=== PATIENT | female | born 1945 | race Caucasian/White ===

== ENCOUNTER → 2017-08-19 12:53 | Outpatient (CLI) | payer MEDICARE, SELFPAY ==
--- NOTE | 2017-08-19 13:03 | MM_ITS ---
MM Dig mamm DX unilat LT CAD US breast LT complete, COMPARISON: 02/20/2017, 02/28/2017 INDICATION: Follow-up abnormal mammogram ORDERING PHYSICIAN: Graeme Olson PATIENT AGE: 72 years TECHNIQUE: Left-sided mammogram performed along spot compression views and left breast ultrasound FINDINGS: Asymmetric density once again noted in the retroareolar region on the left as previously described. There is also asymmetric density in the superior aspect of the left breast which has mixed density somewhat similar when compared to an older exam of 08/15/2015 which appear to compress out as fibroglandular tissue. Not significant change from 02/28/2017. Left breast ultrasound with axilla: Homogeneous increased echogenicity once again noted measuring 3 x 0.8 cm which may represent a lipoma now showing more homogeneous increased echogenicity compared to the previous exam. No malignant appearing mass or malignant appearing microcalcification. No sonographic abnormality in the upper aspect of the left breast that would correspond to the asymmetric density which is probably related to fibroglandular tissue IMPRESSION: Probably benign findings, no convincing evidence of malignancy. BI-RADS Category: 3 Benign Finding Short Term Follow-up RECOMMENDED FOLLOW-UP: 6M - 6 MONTH FOLLOW-UP Recommend follow-up exam of both breasts and left breast ultrasound in February 2018 (A letter has been sent to the patient regarding results of the study.)
== END ==
PROVIDERS: PCP Family Medicine; Visit Provider Obstetrics & Gynecology
DX: R92.8 Other abnormal and inconclusive findings on diagnostic imaging of breast (principal)
CPT/HCPCS: 76641; 77065

== ENCOUNTER → 2018-01-27 11:42 | Outpatient (CLI) | payer MEDICARE, SELFPAY ==
--- NOTE | 2018-01-27 11:43 | XR_ITS ---
XR wrist RT min 3V HISTORY ITS.REASON: RT RADIAL WRIST PAIN ORDERING PHYSICIAN: Ancelmo Moser MD PATIENT AGE: 72 years Comparison: FINDINGS: No fracture or dislocation. No lytic or blastic change. There is normal mineralization.. The joint spaces are well-preserved. No significant degenerative/arthritic changes. No erosive changes evident.. IMPRESSION: Negative wrist
== END ==
PROVIDERS: PCP Family Medicine; Visit Provider Family Medicine
DX: M65.4 Radial styloid tenosynovitis [de Quervain] (principal)
CPT/HCPCS: 73110

== ENCOUNTER 2018-02-13 10:21 | Outpatient (RCR) | payer MEDICARE, SELFPAY | END 2018-02-13 10:22 | disposition home or self-care (01) | LOC: OT 10:21 | PROVIDERS: PCP Family Medicine; Visit Provider Orthopaedic Surgery | DX: M65.4 Radial styloid tenosynovitis [de Quervain] (principal) | CPT/HCPCS: 97760 ==

== ENCOUNTER → 2018-03-04 13:30 | Outpatient (CLI) | payer MEDICARE, SELFPAY ==
--- NOTE | 2018-03-04 13:34 | US_ITS ---
US breast LT complete MM Dig mamm BI DX w/CAD, INDICATION: Follow-up mammogram ORDERING PHYSICIAN: Graeme Olson PATIENT AGE: 73 years COMPARISON: None TECHNIQUE: Standard images performed along with spot compression views and left breast ultrasound FINDINGS: There is average to dense fibroglandular tissue bilaterally. There remains asymmetric density in the retroareolar region on the left which has been a similar finding on multiple previous exams. No malignant appearing mass or malignant microcalcification is evident. The asymmetric density in the upper aspect of the left breast is not significant changed and appear to compress out as fibroglandular tissue. There remains a 11 mm benign-appearing nodular density in the inferior aspect of the right breast. Scattered asymmetric densities are once again noted unchanged. There is a 4 mm nodular density in the central aspect of the right breast on the cc view which appears benign and not felt to be significant change compared to 03/15/2010 Left breast ultrasound: Increased echogenicity once again noted in the retroareolar region behind the nipple consistent with lipoma.. No suspicious nodules are evident. Small nodes are present in the axilla IMPRESSION: Benign findings, no evidence of malignancy. Scattered asymmetric densities not significantly changed BI-RADS Category: 2 Benign Finding(s) RECOMMENDED FOLLOW-UP: 1YR - 1 YEAR FOLLOW-UP (A letter has been sent to the patient regarding results of the study.)
== END ==
PROVIDERS: PCP Family Medicine; Visit Provider Obstetrics & Gynecology
DX: R92.8 Other abnormal and inconclusive findings on diagnostic imaging of breast (principal)
CPT/HCPCS: 76641; 77066

== ENCOUNTER → 2018-03-19 10:18 | Outpatient (CLI) | payer MEDICARE, SELFPAY ==
--- NOTE | 2018-03-19 10:20 | XR_ITS ---
XR DEXA axial skeleton HISTORY: ITS.REASON: POST-MENOPAUSAL ORDERING PHYSICIAN: Graeme Olson PATIENT AGE: 73 years COMPARISON: 07/04/2015 FINDINGS: The BMD measured at the Right femoral neck is 0.739 g/cm squared with a T score of -2.2. This is considered Osteopenic according to the World Health Organization criteria. Fracture risk is Moderate. Treatment is advised. L1 L4 density has a T score of 0.3. The density in the lumbar spine has decreased by 2.4%. The bone density of the hips has decreased by 4% from the previous exam IMPRESSION: Osteopenia with moderate fracture risk. Treatment recommended. Suggest follow-up exam March 2020
== END ==
PROVIDERS: PCP Obstetrics & Gynecology; Visit Provider Obstetrics & Gynecology
DX: Z13.820 Encounter for screening for osteoporosis (principal); M85.89 Other specified disorders of bone density and structure, multiple sites
CPT/HCPCS: 77080

== ENCOUNTER 2018-07-09 00:05 | Observation (INO) ==
[2018-07-09 00:37] LABS: Basophils % 0.3 % (0.1-2.0); Eosinophils # 0.1 K/mm3 (0.0-0.4); Eosinophils % 0.5 % (0.1-12.0); Hematocrit 37.1 % (37.0-47.0); Hemoglobin 12.4 g/dL (12.2-16.2); Lymphocytes # 0.9 K/mm3 (0.7-4.5); Lymphocytes % 9.4 % (10-50); Mean Corpuscular HGB Conc 33.4 g/dL (31.8-35.4); Mean Corpuscular Hemoglobin 31.4 pg (27.0-31.2); Mean Corpuscular Volume 94.1 fl (81-99); Monocytes # 0.5 K/mm3 (0.1-1.0); Monocytes % 5.4 % (1.7-9.3); Neutrophils % 84.4 % (37.0-80.0); Platelet Count 193 K/mm3 (142-424); Red Blood Count 3.94 M/mm3 (4.20-5.40); Red Cell Distribution Width 12.1 % (11.5-17.5); White Blood Count 9.5 K/mm3 (4.8-10.8)
--- NOTE | 2018-07-09 00:39 | Emergency Department Note ---
ED Disposition Clinical Impression: Vasovagal episode Abdominal pain Qualifiers: Abdominal location: upper abdomen, unspecified Qualified Code(s): R10.10 - Upper abdominal pain, unspecified UTI (urinary tract infection) Qualifiers: Urinary tract infection type: site unspecified Hematuria presence: without hematuria Qualified Code(s): N39.0 - Urinary tract infection, site not specified Disposition: Admitted as Observation Condition on Discharge: Good Instructions: DI for Acute Abdomen Referrals: Ancelmo Moser MD [Primary Care Provider] - - Critical Care Critical Care Time: No Attestation: On 07/09/18, the high probability of a clinically significant, sudden or life threatening deterioration of the following system(s) required my full and direct attention, intervention and personal management. The time I documented below is in addition to time spent performing reported procedures but includes the following listed in this critical care notation. Medical Decision Making - Medical Records Medical records reviewed: Yes: I reviewed the patient's medical records. - Jose Alejandro Inquiry Pt receiving controlled substance: No Vital Signs: 07/09/18 00:07 07/09/18 01:30 07/09/18 01:59 Temperature 99.1 F 99.1 F Temperature Source Oral Oral Pulse Rate [Right] 73 78 72 Respiratory Rate 20 20 20 Blood Pressure [Right Arm] 99/50 L 99/61 L 116/56 L Blood Pressure Mean [Right Arm] 66 73 76 02 Sat by Pulse Oximetry 96 94 L 96 Oxygen Delivery Method Room Air Room Air - Lab Data Lab results reviewed: Yes: I reviewed the patient's lab results. Lab Results 07/09/18 00:15: ESR 31 H 07/09/18 00:15: Troponin I < 0.02, C-Reactive Protein 2.2 H, Amylase 45, Lipase 146 07/09/18 00:15: Lactate 1.0 07/09/18 00:15: WBC 9.5, RBC 3.94 L, Hgb 12.4, Hct 37.1, MCV 94.1, MCH 31.4 H, MCHC 33.4, RDW 12.1, Plt Count 193, MPV 7.0 L, Neut % (Auto) 84.4 H, Lymph % (Auto) 9.4 L, [place]on % (Auto) 5.4, Eos % (Auto) 0.5, Baso % (Auto) 0.3, Neut # (Auto) 8.0 H, Lymph # (Auto) 0.9, Harmon # (Auto) 0.5, Eos # (Auto) 0.1, Baso # (Auto) 0.0 07/09/18 00:15: Sodium 137, Potassium 3.4 L, Chloride 101, Carbon Dioxide 26, Anion Gap 13.4, BUN 14, Creatinine 0.91, Estimated Creat Clear 49, Estimated GFR 61, Est GFR ( Amer) 74, Glucose 162 H, Calcium 8.7, Total Bilirubin 0.5, AST 22, ALT 21, Alkaline Phosphatase 65, Total Protein 6.5, Albumin 3.2 L, Globu milagros 3.3 H, Albumin/Globulin Ratio 1.0 L 07/09/18 00:15: Influenza Type A Ag Negative, Influenza Type B Ag Negative 07/09/18 02:00: Urine Color Yellow, Urine Appearance Clear, Urine pH 6.0, Ur Specific [place] <= 1.005, Urine Protein Negative, Urine Glucose (UA) Negative, Urine Ketones 1+, Urine Blood 2+, Urine Nitrate Negative, Urine Bilirubin Negative, Urine Urobilinogen 0.2, Ur Leukocyte Esterase 1+ A, Urine RBC 10-20, Urine WBC 5-10, Ur Squamous Epith Cells 3-5, Urine Bacteria 1+, Urine Mucus 1+ Result diagrams: 07/09/18 00:15 07/09/18 00:15 Orders (Tests/Meds): ED MEDICATIONS Generic Name Dose Route Start Last Admin Trade Name Freq PRN Reason Stop Dose Admin Sodium Chloride 1,000 mls @ 999 mls/hr 07/09/18 00:30 07/09/18 00:29 Sod Chlor 0.9% 1000ml Bag IV 07/09/18 01:30 999 mls/hr .Q1H1M OMAR Administration Sodium Chloride 1,000 mls @ 999 mls/hr 07/09/18 02:15 07/09/18 01:50 Sod Chlor 0.9% 1000ml Bag IV 07/09/18 03:15 999 mls/hr .Q1H1M OMAR Administration Sodium Chloride 10 ml 07/09/18 00:20 Saline Flush 10ml Syringe IV 08/08/18 00:19 NEEDED PRN Maintain IV Site Discontinued Medications Generic Name Dose Route Start Last Admin Trade Name Freq PRN Reason Stop Dose Admin Ketorolac Tromethamine 30 mg 07/09/18 00:22 Toradol 30mg/Ml Vial IV 07/09/18 00:23 ONCE ONE Ondansetron HCl 4 mg 07/09/18 00:22 07/09/18 00:29 Zofran 4mg/2ml Vial IV 07/09/18 00:23 4 mg ONCE ONE Administration ORDERS Category Date Time Status CT abdomen pelvis w con Stat Cat Scan 07/09/18 00:19 Ordered XR chest 2V Stat Exams 07/09/18 00:20 Ordered Diarrhea Panel, PCR Stat Lab 07/09/18 00:30 Ordered Urinalysis and Microscopic Stat Lab 07/09/18 02:00 Ordered Blood Culture Stat Micro 07/09/18 00:15 Received Urine Culture Stat Micro 07/09/18 02:00 Received ECG Request by /Leah Stat Y 07/09/18 00:20 Ordered - Radiology Data #1 Image(s): Chest Image Reviewed: Yes I reviewed the patient's radiology image Preliminary Findings: Normal/NAD - CT Data CT Scan: Abdomen, Pelvis Time Received: 02:[address] Reviewed: Yes: I have viewed the radiologist's interpretation Preliminary Findings: Normal/NAD, Abnormal - ECG Data Tracing #1 Normal Sinus Rhythm: Yes Ischemic changes: non-specific ST-T wave changes Nausea/Vomiting/Diarrhea HPI - General Chief complaint: Abdominal Pain Stated complaint: NVD, abdominal pain Time Seen by Provider: 07/09/18 00:39 Mode of Arrival: EMS Source of Information: Patient, EMS, Medical Record Limitations: No Limitations Description of Symptoms (Recalled from ER Triage Doc. by RN): Pt brought here by EMS after called because he thought she was going to pass out. Pt states she never fell or any LOC. Pt states all ursula today she has had lower abdominal cramps and NVD. - History of Present Illness HPI Narrative: pt with abd pain during the day with more gas than usual and has hx of rectal cancer - she had vasovagal episode tonight with assoc vomiting - no dec chest pain MD complaint: nausea, vomiting, abdominal pain Onset (ago): hour(s) Associated Abdominal Pain: Yes Location of pain: diffuse Severity: moderate Associated symptoms: nausea/vomiting, syncope - Related Data Home Medications Medication Instructions Recorded Confirmed aspirin 81 mg tablet,delayed 81 mg PO DAILY tab 11/19/17 07/09/18 release atorvastatin 10 mg tablet 10 mg PO DAILY tab 11/19/17 07/09/18 docusate sodium 100 mg capsule 100 mg PO QHS 11/19/17 07/09/18 ibandronate 150 mg tablet 150 mg PO QMONTH 11/19/17 07/09/18 levothyroxine 75 mcg tablet 75 mcg PO DAILY tab 11/19/17 07/09/18 meloxicam 15 mg tablet 15 mg PO DAILY PRN tab 11/19/17 07/09/18 mometasone 50 mcg/actuation nasal 2 spray INTRANASAL DAILY g 11/19/17 07/09/18 spray Metoprolol Succinate 25 mg PO DAILY 07/09/18 07/09/18 Allergies Allergy/AdvReac Type Severity Reaction Status Date / Time No Known Allergies Allergy Verified 05/28/18 10:00 [facility] History - Hepatitis A Screen Drug use history?: No High risk sexual behaviors?: No History of sexually transmitted infection?: No Currently employed?: No Childcare worker?: No Do you have indoor plumbing?: Yes Do you have electricity?: Yes Attestation statement:: This patient has been screened for Hepatitis A risk factors. I have reviewed the patient's past medical history: Yes Medical History: Reports:: Cancer, Hyperlipidemia, Supraventricular Tachycardia, Transient Ischemic Attacks (TIA) Denies:: Diabetes Mellitus Type 1, Diabetes Mellitus Type 2 Other Surgeries: Yes: Cholecystectomy, Hysterectomy-Total - Social History Smoking Status: Never smoker Alcohol Intake: current Alcohol Intake Frequency:: holidays/special occasions only Occupational Status: retired - Psychiatric History Expresses thoughts of harming self/others: None Suicide Plan Description: No Plan Family Hx:: No significant family history ROS Obtained: Yes All systems reviewed & no additional complaints - Constitutional Constitutional: Denies fever(s) - Eyes Eyes: Denies change in vision - ENT Ears, Nose, Mouth, and Throat: Denies sore throat - Cardiovascular Cardiovascular: Denies chest pain at rest - Respiratory Respiratory: No cough - Gastrointestinal Gastrointestingal: Reports: as per HPI, abdominal pain, nausea, vomiting - Genitourinary Female Genitourinary: Denies hematuria - Musculoskeletal Musculoskeletal: Denies joint pain, Denies neck pain - Integumentary/Breasts Skin/Breast: Denies rash - Neurologic Neurologic: Denies headache(s), Denies seizure-like activity Physical Exam - General General appearance: alert, in no apparent distress - Head Head exam: normocephalic - Eye Eye exam: Present: PERRL, EOMI. Absent: scleral icterus - ENT ENT exam: Present: mucous membranes dry - Neck Neck exam: Present: trachea midline - Respiratory Respiratory exam: Present: normal lung sounds bilaterally. Absent: respiratory distress - Cardiovascular Cardiovascular exam: Present: regular rate, systolic murmur - Abdominal Exam Abdominal exam: Present: soft, tenderness Abdominal tenderness: Present: epigastrium, moderate - Extremities Exam Extremities exam: Present: full ROM - Neurological Exam Neurological exam: Present: alert, oriented X3, CN II-XII intact - Psychiatric Psychiatric exam: Present: normal affect - Skin Skin exam: Absent: rash
[2018-07-09 00:49] LABS: Albumin Level 3.2 gm/dL (3.4-5.0); Anion Gap 13.4 mEq/L (5-15); Bilirubin,Total 0.5 mg/dL (0.2-1.0); Calcium 8.7 mg/dL (8.5-10.1); Globulin 3.3 gm/dl (1.3-3.2); Potassium 3.4 mmoL/L (3.5-5.1); Total Protein,Serum 6.5 gm/dL (6.4-8.2)
[2018-07-09 00:54] LABS: Amylase 45 U/L (25-115); C-Reactive Protein 2.2 mg/L (0.0-0.9); Lipase 146 u/L (73-393)
[2018-07-09 02:18] LABS: Microscopic, Urine URINE MICROSCOPIC (MICROSCOPIC)
[2018-07-09 02:19] LABS: Appearance,Urine CLEAR (Clear); Bilirubin,Urine Negative (Negative); Blood, Urine 2+ (Negative); Color,Urine YELLOW (Yellow); Glucose,Urine (UA) Negative (Negative); Ketones,Urine 1+ (Negative); Leukocyte Esterase,Urine 1+ (Negative); Protein,Urine Negative (Negative); Specific Gravity, Urine <= 1.005 (1.005-1.030); Urobilinogen,Urine 0.2 EU/dl (0.2)
[2018-07-09 02:23] LABS: Bacteria,Urine 1+ /lpf; Mucus,Urine 1+ /lpf
[2018-07-09 06:53] LABS: Basophils % 0.1 % (0.1-2.0); Eosinophils % 0.1 % (0.1-12.0); Hematocrit 34.9 % (37.0-47.0); Hemoglobin 11.2 g/dL (12.2-16.2); Lymphocytes # 0.8 K/mm3 (0.7-4.5); Lymphocytes % 8.6 % (10-50); Mean Corpuscular HGB Conc 32.1 g/dL (31.8-35.4); Mean Corpuscular Hemoglobin 30.8 pg (27.0-31.2); Mean Corpuscular Volume 95.7 fl (81-99); Mean Platelet Volume 7.2 fl (7.4-10.4); Monocytes # 0.4 K/mm3 (0.1-1.0); Monocytes % 4.1 % (1.7-9.3); Neutrophils # 7.7 K/mm3 (1.8-7.8); Platelet Count 191 K/mm3 (142-424); Red Blood Count 3.64 M/mm3 (4.20-5.40); Red Cell Distribution Width 12.1 % (11.5-17.5); White Blood Count 8.8 K/mm3 (4.8-10.8)
[2018-07-09 07:13] LABS: Anion Gap 10.6 mEq/L (5-15); Blood Urea Nitrogen 9 mg/dL (7-18); Carbon Dioxide 26 mmol/L (21.0-32.0); Chloride 107 mmol/L (98-107); Glucose 124 mg/dL (74-106); Potassium 3.6 mmoL/L (3.5-5.1); Sodium 140 mmol/L (136-145)
--- NOTE | 2018-07-09 07:23 | Pharmacy Consult Notes ---
[facility] Pharmacy VTE Monitoring - Patient Demographics Admission date: 07/09/18 Report Date: 07/09/18 Time: 07:23 Allergies/Adverse Reactions: Patient Allergies No Known Allergies Allergy (Verified 05/28/18 10:00) Height: 1.57 m Weight: 62.341 kg Patient Problems: Current Active Problems Abdominal pain (Acute) Vasovagal episode (Acute) UTI (urinary tract infection) (Acute) - VTE Risk Labs: VTE Related Lab Results Hgb 11.2 g/dL (12.2-16.2) L 07/09/18 06:20 Hct 34.9 % (37.0-47.0) L 07/09/18 06:20 Plt Count 191 K/mm3 (142-424) 07/09/18 06:20 BUN 9 mg/dL (7-18) D 07/09/18 06:20 Creatinine 0.80 mg/dL (0.55-1.02) 07/09/18 06:20 Estimated Creat Clear 51 mL/min (50-200) 07/09/18 06:20 Was VTE Risk Assessment Performed: Yes VTE Risk Level: Very Low Risk Clinical Trial Participant: No - Prophylaxis VTE Prophylaxis Ordered?: Yes Types of VTE Prophylaxis: TEDS Knee High
[2018-07-09 07:25] LABS: Calcium 7.7 mg/dL (8.5-10.1)
--- NOTE | 2018-07-09 07:38 | History & Physical Report ---
*Admission Date: 07/09/18 *Chief complaint: Abdominal pain *History of present illness: 73-year-old female presented to the hospital overnight with episodes of nausea, loose stools, crampy abdominal pain and vomiting. Patient reports she felt cold during most of the day yesterday. As the day progressed she noticed some nausea which led to decrease in p.o. intake. 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 When she returned home she continued to have crampy abdominal pain along with some nausea. While making coffee for the following morning patient became lightheaded. She does not believe she lost complete consciousness but did collapse to the floor. Her contacted EMS. As they were waiting for EMS patient began vomiting uncontrollably. She was so weak she could not stand under her own power. She was brought to the hospital via EMS. Patient tells me she was told she had a fever in route but does not know how high it was. She underwent evaluation in the emergency department with findings suggestive of urinary tract infection and colitis on CT scan. Patient denies dysuria, urinary frequency or urgency. This morning her abdominal cramping and nausea have resolved. She has not vomited nor has she had about bowel movement since admission to the floor. [facility] History I have reviewed the patient's past medical history: Yes Medical History: Reports:: Cancer (Colorectal), Hyperlipidemia, Supraventricular Tachycardia, Transient Ischemic Attacks (TIA) Denies:: Diabetes Mellitus Type 1, Diabetes Mellitus Type 2 Have you ever received a pneumonia vaccine?: Yes Have you received a flu vaccine this season?: Yes Other Surgeries: Yes: Cholecystectomy, Hysterectomy-Total - *Social History Educational Level: Completed Graduate School Smoking Status: Never smoker Alcohol Intake: current Alcohol Intake Frequency:: holidays/special occasions only Occupational Status: retired Housing: house Household Members: spouse Travel in the last 8 weeks: None - Psychiatric History Expresses thoughts of harming self/others: None Suicide Plan Description: No Plan *Family Hx:: No significant family history Review of Systems - Review of Systems Review of systems:: pertinent systems reviewed and negative unless documented below - *Cardiovascular Comments: Palpitations - *Neurologic Denies headache(s), Denies seizure-like activity Meds Home Medications Medication Instructions Recorded Confirmed Type aspirin 81 mg tablet,delayed 81 mg PO DAILY tab 11/19/17 07/09/18 History release atorvastatin 10 mg tablet 10 mg PO DAILY tab 11/19/17 07/09/18 History docusate sodium 100 mg capsule 100 mg PO QHS 11/19/17 07/09/18 History ibandronate 150 mg tablet 150 mg PO QMONTH 11/19/17 07/09/18 History levothyroxine 75 mcg tablet 75 mcg PO DAILY tab 11/19/17 07/09/18 History meloxicam 15 mg tablet 15 mg PO DAILYP PRN tab 11/19/17 07/09/18 History mometasone 50 mcg/actuation nasal 2 spray INTRANASAL DAILY g 11/19/17 07/09/18 History spray Metoprolol Succinate 25 mg PO DAILY 07/09/18 07/09/18 History Allergies Allergy/AdvReac Type Severity Reaction Status Date / Time No Known Allergies Allergy Verified 05/28/18 10:00 Exam Vital signs and Labs for Last 24 Hours: Temp Pulse Resp BP Pulse Ox 99.4 F 78 18 94/55 L 95 07/09/18 03:25 07/09/18 03:25 07/09/18 03:25 07/09/18 03:25 07/09/18 03:25 Laboratory Results - last 24 hr 07/09/18 00:15: ESR 31 H 07/09/18 00:15: Troponin I < 0.02, C-Reactive Protein 2.2 H, Amylase 45, Lipase 146 07/09/18 00:15: Lactate 1.0 07/09/18 00:15: WBC 9.5, RBC 3.94 L, Hgb 12.4, Hct 37.1, MCV 94.1, MCH 31.4 H, MCHC 33.4, RDW 12.1, Plt Count 193, MPV 7.0 L, Neut % (Auto) 84.4 H, Lymph % (Auto) 9.4 L, Andrew % (Auto) 5.4, Eos % (Auto) 0.5, Baso % (Auto) 0.3, Neut # (Auto) 8.0 H, Lymph # (Auto) 0.9, Andrew # (Auto) 0.5, Eos # (Auto) 0.1, Baso # (Auto) 0.0 07/09/18 00:15: Sodium 137, Potassium 3.4 L, Chloride 101, Carbon Dioxide 26, Anion Gap 13.4, BUN 14, Creatinine 0.91, Estimated Creat Clear 49, Estimated GFR 61, Est GFR ( Amer) 74, Glucose 162 H, Calcium 8.7, Total Bilirubin 0.5, AST 22, ALT 21, Alkaline Phosphatase 65, Total Protein 6.5, Albumin 3.2 L, Globulin 3.3 H, Albumin/Globulin Ratio 1.0 L 07/09/18 00:15: Influenza Type A Ag Negative, Influenza Type B Ag Negative 07/09/18 02:00: Urine Color Yellow, Urine Appearance Clear, Urine pH 6.0, Ur Specific [place] <= 1.005, Urine Protein Negative, Urine Glucose (UA) Negative, Urine Ketones 1+, Urine Blood 2+, Urine Nitrate Negative, Urine Bilirubin Nega tive, Urine Urobilinogen 0.2, Ur Leukocyte Esterase 1+ A, Urine RBC 10-20, Urine WBC 5-10, Ur Squamous Epith Cells 3-5, Urine Bacteria 1+, Urine Mucus 1+ 07/09/18 06:20: WBC 8.8, RBC 3.64 L, Hgb 11.2 L, Hct 34.9 L, MCV 95.7, MCH 30.8, MCHC 32.1, RDW 12.1, Plt Count 191, MPV 7.2 L, Neut % (Auto) 87.0 H, Lymph % (Auto) 8.6 L, Andrew % (Auto) 4.1, Eos % (Auto) 0.1, Baso % (Auto) 0.1, Neut # (Auto) 7.7, Lymph # (Auto) 0.8, Andrew # (Auto) 0.4, Eos # (Auto) 0.0, Baso # (Auto) 0.0 07/09/18 06:20: Sodium 140, Potassium 3.6, Chloride 107, Carbon Dioxide 26, Anion Gap 10.6, BUN 9 D, Creatinine 0.80, Estimated Creat Clear 51, Estimated GFR 71, Est GFR ( Amer) 86, Glucose 124 H D, Calcium 7.7 L D, Magnesium 1.7, Troponin I < 0.02 I & O for Last 24 hours: Intake & Output 07/06/18 07/07/18 07/08/18 07/09/18 11:59 11:59 11:59 11:59 Weight 137 lb 7 oz Narrative: Patient is resting comfortably in bed. She does not appear to be in any type of distress. ENT exam is normal. Lungs are clear to auscultation. Heart has a regular rate and rhythm. Abdomen is soft, nontender, nondistended with active bowel sounds. Patient has active range of motion in all extremities. She has no neurologic deficits. Assessment and Plan (1) Abdominal pain Current visit: Yes Status: Acute Qualifiers: Abdominal location: upper abdomen, unspecified Qualified Code(s): R10.10 - Upper abdominal pain, unspecified Category: Medical Code(s): R10.9 - Unspecified abdominal pain (2) UTI (urinary tract infection) Current visit: Yes Status: Suspected Qualifiers: Urinary tract infection type: site unspecified Hematuria presence: without hematuria Qualified Code(s): N39.0 - Urinary tract infection, site not specified Category: Medical Code(s): N39.0 - Urinary tract infection, site not specified (3) Vasovagal episode Current visit: Yes Status: Acute Category: Medical Code(s): R55 - Syncope and collapse - Assessment and plan all Dx Assessment and Plan for all problems:: Advance diet this morning starting with clear liquids. Continue IV fluids. Diarrhea panel has been ordered. We will see how the patient's day goes. If she does well during the day with no further symptomatology she will be discharged home this afternoon
[2018-07-09 09:20] LABS: Lymphocytes % 11 % (10-50); Monocytes % 4 % (2-9); Neutrophils % 85 % (42-76); Total Cells Counted 100
--- NOTE | 2018-07-09 16:30 | Discharge Summary ---
General - General Admission date:: 07/09/18 Discharge date: 07/09/18 HPI HPI: 73-year-old female presented to the hospital overnight with episodes of nausea, loose stools, crampy abdominal pain and vomiting. Patient reports she felt cold during most of the day yesterday. As the day progressed she noticed some nausea which led to decrease in p.o. intake. 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 When she returned home she continued to have crampy abdominal pain along with some nausea. While making coffee for the following morning patient became lightheaded. She does not believe she lost complete consciousness but did collapse to the floor. Her contacted EMS. As they were waiting for EMS patient began vomiting uncontrollably. She was so weak she could not stand under her own power. She was brought to the hospital via EMS. Patient tells me she was told she had a fever in route but does not know how high it was. She underwent evaluation in the emergency department with findings suggestive of urinary tract infection and colitis on CT scan. Patient denies dysuria, urinary frequency or urgency. This morning her abdominal cramping and nausea have resolved. She has not vomited nor has she had about bowel movement since admission to the floor. Hospital Course Hospital Course: Patient was admitted to the hospital and started on IV fluids. After admission to the medical surgical wing patient had no further vomiting, no further diarrhea and abdominal cramping resolved by the morning of July 09. Her diet was advanced to a liquid diet which she tolerated without complications. She was able to ambulate without difficulties. IV fluids were continued until discharge. On the afternoon of July 09 patient was discharged home. She may follow-up in the office on an as-needed basis. Objective Vital signs: Temp Pulse Resp BP Pulse Ox 98.0 F 71 16 90/40 L 99 07/09/18 12:00 07/09/18 12:00 07/09/18 12:00 07/09/18 12:00 07/09/18 12:00 Results Labs on day of discharge: Labs from last 24 hours 07/09/18 07/09/18 07/09/18 08:55 06:20 06:20 WBC 8.8 RBC 3.64 L Hgb 11.2 L Hct 34.9 L MCV 95.7 MCH 30.8 MCHC 32.1 RDW 12.1 Plt Count 191 MPV 7.2 L Neut % (Auto) 87.0 H Lymph % (Auto) 8.6 L [place] % (Auto) 4.1 Eos % (Auto) 0.1 Baso % (Auto) 0.1 Neut # (Auto) 7.7 Lymph # (Auto) 0.8 [place] # (Auto) 0.4 Eos # (Auto) 0.0 Baso # (Auto) 0.0 Total Counted 100 Neutrophils % (Manual) 85 H Lymphocytes % (Manual) 11 Monocytes % (Manual) 4 Platelet Estimate Normal ESR Sodium 140 Potassium 3.6 Chloride 107 Carbon Dioxide 26 Anion Gap 10.6 BUN 9 D Creatinine 0.80 Estimated Creat Clear 51 Estimated GFR 71 Est GFR ( Amer) 86 Glucose 124 H D Lactate Calcium 7.7 L D Magnesium 1.7 Total Bilirubin AST ALT Alkaline Phosphatase Troponin I < 0.02 < 0.02 C-Reactive Protein Total Protein Albumin Globulin Albumin/Globulin Ratio Amylase Lipase Urine Color Urine Appearance Urine pH Ur Specific Mena Urine Protein Urine Glucose (UA) Urine Ketones Urine Blood Urine Nitrate Urine Bilirubin Urine Urobilinogen Ur Leukocyte Esterase Urine RBC Urine WBC Ur Squamous Epith Cells Urine Bacteria Urine Mucus Influenza Type A Ag Influenza Type B Ag 07/09/18 07/09/18 07/09/18 02:00 00:15 00:15 WBC RBC Hgb Hct MCV MCH MCHC RDW Plt Count MPV Neut % (Auto) Lymph % (Auto) [place] % (Auto) Eos % (Auto) Baso % (Auto) Neut # (Auto) Lymph # (Auto) [place] # (Auto) Eos # (Auto) Baso # (Auto) Total Counted Neutrophils % (Manual) Lymphocytes % (Manual) Monocytes % (Manual) Platelet Estimate ESR Sodium 137 Potassium 3.4 L Chloride 101 Carbon Dioxide 26 Anion Gap 13.4 BUN 14 Creatinine 0.91 Estimated Creat Clear 49 Estimated GFR 61 Est GFR ( Amer) 74 Glucose 162 H Lactate Calcium 8.7 Magnesium Total Bilirubin 0.5 AST 22 ALT 21 Alkaline Phosphatase 65 Troponin I C-Reactive Protein Total Protein 6.5 Albumin 3.2 L Globulin 3.3 H Albumin/Globulin Ratio 1.0 L Amylase Lipase Urine Color Yellow Urine Appearance Clear Urine pH 6.0 Ur Specific Mena <= 1.005 Urine Protein Negative Urine Glucose (UA) Negative Urine Ketones 1+ Urine Blood 2+ Urine Nitrate Negative Urine Bilirubin Negative Urine Urobilinogen 0.2 Ur Leukocyte Esterase 1+ A Urine RBC 10-20 Urine WBC 5-10 Ur Squamous Epith Cells 3-5 Urine Bacteria 1+ Urine Mucus 1+ Influenza Type A Ag Negative Influenza Type B Ag Negative 07/09/18 07/09/18 07/09/18 00:15 00:15 00:15 WBC 9.5 RBC 3.94 L Hgb 12.4 Hct 37.1 MCV 94.1 MCH 31.4 H MCHC 33.4 RDW 12.1 Plt Count 193 MPV 7.0 L Neut % (Auto) 84.4 H Lymph % (Auto) 9.4 L [place] % (Auto) 5.4 Eos % (Auto) 0.5 Baso % (Auto) 0.3 Neut # (Auto) 8.0 H Lymph # (Auto) 0.9 [place] # (Auto) 0.5 Eos # (Auto) 0.1 Baso # (Auto) 0.0 Total Counted Neutrophils % (Manual) Lymphocytes % (Manual) Monocytes % (Manual) Platelet Estimate ESR Sodium Potassium Chloride Carbon Dioxide Anion Gap BUN Creatinine Estimated Creat Clear Estimated GFR Est GFR ( Amer) Glucose Lactate 1.0 Calcium Magnesium Total Bilirubin AST ALT Alkaline Phosphatase Troponin I < 0.02 C-Reactive Protein 2.2 H Total Protein Albumin Globulin Albumin/Globulin Ratio Amylase 45 Lipase 146 Urine Color Urine Appearance Urine pH Ur Specific Mena Urine Protein Urine Glucose (UA) Urine Ketones Urine Blood Urine Nitrate Urine Bilirubin Urine Urobilinogen Ur Leukocyte Esterase Urine RBC Urine WBC Ur Squamous Epith Cells Urine Bacteria Urine Mucus Influenza Type A Ag Influenza Type B Ag 07/09/18 00:15 WBC RBC Hgb Hct MCV MCH MCHC RDW Plt Count MPV Neut % (Auto) Lymph % (Auto) [place] % (Auto) Eos % (Auto) Baso % (Auto) Neut # (Auto) Lymph # (Auto) [place] # (Auto) Eos # (Auto) Baso # (Auto) Total Counted Neutrophils % (Manual) Lymphocytes % (Manual) Monocytes % (Manual) Platelet Estimate ESR 31 H Sodium Potassium Chloride Carbon Dioxide Anion Gap BUN Creatinine Estimated Creat Clear Estimated GFR Est GFR ( Amer) Glucose Lactate Calcium Magnesium Total Bilirubin AST ALT Alkaline Phosphatase Troponin I C-Reactive Protein Total Protein Albumin Globulin Albumin/Globulin Ratio Amylase Lipase Urine Color Urine Appearance Urine pH Ur Specific Mena Urine Protein Urine Glucose (UA) Urine Ketones Urine Blood Urine Nitrate Urine Bilirubin Urine Urobilinogen Ur Leukocyte Esterase Urine RBC Urine WBC Ur Squamous Epith Cells Urine Bacteria Urine Mucus Influenza Type A Ag Influenza Type B Ag DS: Diagnosis - Discharge Diagnosis (1) Abdominal pain Status: Acute (2) UTI (urinary tract infection) Status: Suspected (3) Vasovagal episode Status: Acute Discharge Plan - Patient Discharge Instructions Patient Instructions: DI for Urinary Tract Infection (UTI), Nausea and Vomiting-Adult, DI for Colitis - Follow up Plan Follow up with: Ancelmo Moser MD [Primary Care Provider] - Disposition: Home, Self-Half-Way Medications: Home Medications Medication Instructions Recorded Confirmed Type aspirin 81 mg tablet,delayed 81 mg PO DAILY tab 11/19/17 07/09/18 History release atorvastatin 10 mg tablet 10 mg PO DAILY tab 11/19/17 07/09/18 History docusate sodium 100 mg capsule 100 mg PO HS 11/19/17 07/09/18 History ibandronate 150 mg tablet 150 mg PO QMONTH 11/19/17 07/09/18 History levothyroxine 75 mcg tablet 75 mcg PO DAILY tab 11/19/17 07/09/18 History meloxicam 15 mg tablet 15 mg PO DAILYP PRN tab 11/19/17 07/09/18 History mometasone 50 mcg/actuation nasal 2 spray INTRANASAL DAILY g 11/19/17 07/09/18 History spray Metoprolol Succinate 25 mg PO HS 07/09/18 07/09/18 History cephALEXin [Cephalexin 500mg Tab] 1,000 mg PO Q12H 5 Days #10 tab 07/09/18 Rx Prescriptions/Medication Reconciliation: New cephALEXin [Cephalexin 500mg Tab] 1,000 mg PO Q12H 5 Days #10 tab Continue aspirin 81 mg tablet,delayed release 81 mg PO DAILY tab ibandronate 150 mg tablet 150 mg PO QMONTH levothyroxine 75 mcg tablet 75 mcg PO DAILY tab atorvastatin 10 mg tablet 10 mg PO DAILY tab meloxicam 15 mg tablet 15 mg PO DAILYP PRN tab PRN Reason: Inflammation mometasone 50 mcg/actuation nasal spray 2 spray INTRANASAL DAILY g docusate sodium 100 mg capsule 100 mg PO HS Metoprolol Succinate 25 mg PO HS
== END 2018-07-09 17:30 | disposition home or self-care (01) ==
LOC: ER 00:05 → 2ND 00:05
PROVIDERS: ADMIT Emergency Medicine; ATTEND Family Medicine
DX: Z79.82 Long term (current) use of aspirin; N39.0 Urinary tract infection, site not specified; Z79.899 Other long term (current) drug therapy; R55 Syncope and collapse; Z85.048 Personal history of other malignant neoplasm of rectum, rectosigmoid junction, and anus; R11.2 Nausea with vomiting, unspecified; Z86.73 Personal history of transient ischemic attack (TIA), and cerebral infarction without residual deficits
CPT/HCPCS: 36415; 71020; 71046; 74177; 80048; 80053; 81001; 82150; 83605; 83690; 83735; 84484; 85007; 85025; 85651; 86140; 87040; 87086; 87275; 87276; 93005; 96365; 96366; 96367; 96375; 99285; G0378; J2405; Q9967

== ENCOUNTER → 2019-04-06 08:13 | Outpatient (CLI) | payer MEDICARE, SELFPAY ==
--- NOTE | 2019-04-06 08:15 | MM_ITS ---
PROCEDURE: MM DIG SCREENING MAMM BI W/CAD Patient Age:74Y CLINICAL INDICATION: SCREENING , routine screening mammogram. No new complaints. 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 N/C from 02/23/2009 DMSB DIGITAL MAMM-SCREEN BILATERAL from 03/15/2010 DMSB DIGITAL MAMM-SCREEN BILATERAL from 07/16/2011 DMSB DIGITAL MAMM-SCREEN BILATERAL from 07/24/2012 DMSB DIG MAMM-SCREEN LASHELL from 09/08/2013 DMSB DIG MAMM-SCREEN LASHELL from 08/10/2014 DMSB DIG MAMM-SCREEN LASHELL from 08/15/2015 DMSB DIG MAMM-SCREEN LASHELL W/CAD from 02/20/2017 DMDXUL DIG MAMM-DX UNI-LT W/CAD from 02/28/2017 BL US BREAST-LT COMPLETE W/AXILLA from 02/28/2017 BR US BREAST-RT COMPLETE W/AXILLA from 02/28/2017 DXLT MM Dig mamm DX unilat LT CAD from 08/19/2017 BREASTLT US breast LT complete from 03/04/2018 DXBI MM Dig mamm BI DX w/CAD from 03/04/2018 TECHNIQUE: Standard CC and MLO images were obtained. R2 CAD reviewed. Additional CC view included FINDINGS: Right breast but the nearly 11 mm focal nodular density at the inferior/medial right breast is again noted and has not changed significantly since 2014 and this can be followed.. PreviousSept 2016 ultrasound showed of well-defined homogeneous solid or semi-solid nodule, to correlate. However is longstanding stability on mammography dating back to 2011 as reported as benign nature and can be followed. Minimal scattered less evident areas of minimal density elsewhere at the right breast appear similar as well. Left breast: No new areas of significant concern. Stable areas of breast density. Most notable is the the the up to 2.5 cm region of increased breast density in the medial left retroareolar region. This is a stable longstanding feature dating back to at least 2014, 2013.. Also noted is minimal to stable density related longstanding stable area of asymmetric fibroglandular tissue towards the upper outer quadrant left. But these areas can be followed in 1 year. IMPRESSION: Stable bilateral mammogram. No new areas of concern Stable asymmetric breast: The Longstanding stable areas densities bilaterally again noted and unchanged . Bilateral follow-up 1 year recommended and would be encouraged/emphasized BI-RAD Category: 2 Benign Finding(s) FOLLOW-UP: 1YR 1 Year Follow-up (A letter has been sent to the patient regarding results of the study.) Dictated by: Ruben Davis MD 04/06/2019 12:04 Electronically signed by Ruben Davis MD in [place] 04/06/2019 12:04
== END ==
PROVIDERS: PCP Family Medicine; Visit Provider Obstetrics & Gynecology
DX: Z12.31 Encounter for screening mammogram for malignant neoplasm of breast (principal)
CPT/HCPCS: 77067

== ENCOUNTER → 2020-01-07 10:17 | Outpatient (CLI) | payer MEDICARE, SELFPAY | PROVIDERS: PCP Family Medicine; Visit Provider Internal Medicine Cardiovascular Disease | DX: E78.2 Mixed hyperlipidemia (principal); Q21.1 Atrial septal defect; R00.2 Palpitations | CPT/HCPCS: 93270 ==

== ENCOUNTER → 2020-03-24 13:00 | Outpatient (CLI) | payer MEDICARE, SELFPAY ==
--- NOTE | 2020-03-24 13:03 | XR_ITS ---
PROCEDURE: XR DEXA AXIAL SKELETON CLINICAL HISTORY: OSTEOPENIA COMPARISON: CR DEXAAX XR DEXA axial skeleton from 03/19/2018 FINDINGS: The right hip BMD is 0.585 with a T-score of -2.4. The left hip BMD is 0.738 with a T-score of -1.7. The lumbar spine BMD is 1.128 with a T-score of 0.7. Previously the lowest density was in the right femoral neck with a T-score -2.2 IMPRESSION: This patient is considered osteopenic according to the World Health Organization criteria. Bone density is between 10 and 25 percent below young normal. Fracture risk is moderate. Treatment is advised. Based on these results a follow-up exam is recommended in 2 year. Dictated by: Wai Moulton MD 03/25/2020 06:08 Wai Moulton MD in [place] 03/25/2020 06:08
== END ==
PROVIDERS: PCP Family Medicine; Visit Provider Obstetrics & Gynecology
DX: M85.852 Other specified disorders of bone density and structure, left thigh (principal); M85.851 Other specified disorders of bone density and structure, right thigh
CPT/HCPCS: 77080

== ENCOUNTER → 2020-04-10 08:53 | Outpatient (CLI) | payer MEDICARE, SELFPAY ==
--- NOTE | 2020-04-10 08:55 | MM_ITS ---
PROCEDURE: Bilateral digital screening mammogram with CAD. Bilateral tomosynthesis. CLINICAL INDICATION: Six-month follow-up left breast. Routine screening mammogram right breast. No new concerns either breast Patient uses estrogen cream. Family history. Unremarkable COMPARISON: MG DMSB DIGITAL MAMM-SCREEN BILATERAL from 07/16/2011 MG DMSB DIGITAL MAMM-SCREEN BILATERAL from 07/24/2012 MG DMSB DIG MAMM-SCREEN LASHELL from 09/08/2013 MG DMSB DIG MAMM-SCREEN LASHELL from 08/10/2014 MG DMSB DIG MAMM-SCREEN LASHELL from 08/15/2015 MG DMSB DIG MAMM-SCREEN LASHELL W/CAD from 02/20/2017 MG DMDXUL DIG MAMM-DX UNI-LT W/CAD from 02/28/2017 MG DXLT MM Dig mamm DX unilat LT CAD from 08/19/2017 MG DXBI MM Dig mamm BI DX w/CAD from 03/04/2018 MG MM DIG SCREENING MAMM BI W/CAD from 04/06/2019 TECHNIQUE: Standard CC and MLO images were obtained. R2 CAD reviewed. Bilateral digital breast tomosynthesis included. FINDINGS: Right breast. No new areas of concern Longstanding stable nodule density measuring up to nearly 12 mm medial right breast again observed and unchanged.-it is been seen on numerous prior studies dating back to 2008. Remaining breast architecture is stable. Left breast: No new areas of concern. The stable area of dense fibroglandular elements in the retroareolar region again observed stable since studies dating back to 2012, 2013. Previous ultrasounds here has shown dense fibroglandular elements.-no significant change here since studies dating back to 2008 No suspicious calcifications in either breast. IMPRESSION: Stable bilateral mammogram. No new areas of concern Stable densities/ stable areas of asymmetry again noted and unchanged. Follow-up 1 year recommended, and should be emphasized/encouraged BI-RAD Category: 2 Benign Finding(s) FOLLOW-UP: 1YR 1 Year Follow-up (A letter has been sent to the patient regarding results of the study.) Practice receded PD yet step 3. W short 45 minutes DeTar reviewed class bilateral [address] more lately ER were getting noticeably diet the these were waiting for you click the link Dictated by: Ruben Davis MD 04/17/2020 10:40 Ruben Davis MD in [place] 04/17/2020 10:40
== END ==
PROVIDERS: PCP Family Medicine; Visit Provider Obstetrics & Gynecology
DX: Z12.31 Encounter for screening mammogram for malignant neoplasm of breast (principal)
CPT/HCPCS: 77063; 77067

== ENCOUNTER → 2020-06-08 11:16 | Outpatient (CLI) | payer MEDICARE, SELFPAY ==
[2020-06-09 04:24] LABS: Covid-19 Nasal PCR Sendout P&C NEGATIVE
== END ==
PROVIDERS: PCP Family Medicine; Visit Provider Nurse Practitioner Family
DX: Z03.818 Encounter for observation for suspected exposure to other biological agents ruled out (principal)
CPT/HCPCS: U0004

== ENCOUNTER 2020-06-17 23:42 | Emergency (ER) | payer MEDICARE, SELFPAY ==
[2020-06-17 23:42] VITALS: BMI 28.1
--- NOTE | 2020-06-17 23:43 | XR_ITS ---
PROCEDURE: XR CHEST PORTABLE CLINICAL HISTORY: SYNCOPE COMPARISON: CR CXR2 CHEST-AP VIEW ONLY from 09/17/2016 CR CXR1 CHEST-PORTABLE from 10/12/2016 CR CXR2V XR chest 2V from 07/09/2018 FINDINGS: The cardiomediastinal silhouette and pulmonary vascularity are within normal limits. The lungs are clear without infiltrates, suspicious nodules, or pleural effusions. No acute bony abnormalities. IMPRESSION: No acute findings. Dictated by: Wai Moulton MD 06/18/2020 10:31 aWi Moulton MD in [place] 06/18/2020 10:31
--- NOTE | 2020-06-17 23:43 | CT_ITS ---
PROCEDURE: CT HEAD/BRAIN WO CON CLINICAL INDICATION: SYNCOPE Syncope, Head injury with headache/pain, contusion, abrasion or hematoma COMPARISON: CT HDWO CT HEAD W/O CONTRAST from 09/17/2016 TECHNIQUE: Axial images obtained. All CT scans at the facility use one or more dose reduction, viz: automated exposure control, ma/kV adjustment per patient size (including targeted exams where dose is matched to indication, i.e. head), or iterative reconstruction technique. FINDINGS: No midline shift or mass effect is evident. There is increased density along the tentorium on the right consistent with subdural hematoma. No mastoid effusion or sinus air-fluid level. Scalp hematoma is present in the left parietal occipital region with soft tissue gas consistent with laceration. Perry cisterna magna versus arachnoid cyst noted not significantly changed. IMPRESSION: 1. Small subdural hematoma along the tentorium on the right. 2. Left parietal occipital scalp hematoma Dictated by: Wai Moulton MD 06/18/2020 10:44 Wai Moulton MD in [place] 06/18/2020 10:44
--- NOTE | 2020-06-17 23:43 | XR_ITS ---
PROCEDURE: XR PELVIS 1-2V CLINICAL INDICATION: SYNCOPE Posttraumatic pain COMPARISON: No exams were available for comparison FINDINGS: Osteoarthritic changes are present involving the hips. No acute fracture or dislocation. Osteoarthritis also noted at the SI joints. There is a curvilinear density overlying the proximal shaft of the right femur possibly due to overlying sheet artifact and could be confirmed with follow-up. IMPRESSION: No acute finding, see above Osteoarthritis of the hips Dictated by: Wai Moulton MD 06/18/2020 10:29 Wai Moulton MD in [place] 06/18/2020 10:29
--- NOTE | 2020-06-17 23:43 | CT_ITS ---
PROCEDURE: CT CERVICAL SPINE WO CON CLINICAL INDICATION: SYNCOPE Neck injury with pain, contusion/abrasion or hematoma, cervical sprain/strain the COMPARISON: CT CSWO CT CERVICAL SPINE W/O CONT from 09/17/2016 TECHNIQUE: Axial images obtained with sagittal and coronal reformats. All CT scans at the facility use one or more dose reduction, viz: automated exposure control, ma/kV adjustment per patient size (including targeted exams where dose is matched to indication, i.e. head), or iterative reconstruction technique. Axial spiral CT scanning performed of the cervical spine beginning at the base of the skull and continuing to the upper T-spine. 3-D multiplanar reconstruction with 3-D manipulation of volumetric data set in image rendering was completed by the radiologist and/or technologist with the supervision of the radiologist on independent workstation. FINDINGS: Normal alignment. No acute fracture or dislocation. Advanced age-related degenerative changes throughout the cervical spine noted with multilevel discogenic disease, spondylosis, and facet arthropathy with multilevel foraminal narrowing. Lung apices are clear. There is some increased density noted in the right parapharyngeal region nonspecific and may be better evaluated with neck CT with contrast. Tonsillar crypt calcifications are noted. IMPRESSION: 1. No acute fracture. 2. Cervical spondylosis Dictated by: Wai Moulton MD 06/18/2020 10:48 Wai Moulton MD in [place] 06/18/2020 10:48
--- NOTE | 2020-06-17 23:43 | ECG_ITS ---
APPROVED REPORT Exam: Resting ECG HR:75 bpm ECG Measurements Heart Rate 75 AXES NM 148 P 55 QRSd 80 QRS 83 QT 416 T 44 QTc 464 Conclusion Normal sinus rhythm Low voltage QRS Borderline ECG Electronically signed by : Ancelmo Le, 06/18/2020 13:34:07
[2020-06-17 23:50] LABS: Basophils % 0.6 % (0.1-2.0); Eosinophils # 0.2 K/mm3 (0.0-0.4); Eosinophils % 3.6 % (0.1-12.0); Hemoglobin 13.8 g/dL (12.2-16.2); Lymphocytes # 1.8 K/mm3 (0.7-4.5); Lymphocytes % 33.1 % (10-50); Mean Corpuscular HGB Conc 33.7 g/dL (31.8-35.4); Mean Corpuscular Hemoglobin 31.7 pg (27.0-31.2); Mean Corpuscular Volume 94.3 fl (81-99); Mean Platelet Volume 7.5 fl (7.4-10.4); Monocytes # 0.4 K/mm3 (0.1-1.0); Monocytes % 8.1 % (1.7-9.3); Neutrophils # 2.9 K/mm3 (1.8-7.8); Neutrophils % 54.6 % (37.0-80.0); Platelet Count 180 K/mm3 (142-424); Red Blood Count 4.35 M/mm3 (4.20-5.40); Red Cell Distribution Width 13.4 % (11.5-17.5); White Blood Count 5.3 K/mm3 (4.8-10.8)
[2020-06-17 23:55] VITALS: BP 141/76; PULSE 85; RESP 18; TEMP 36.8; O2SAT 98; BMI 24.7
[2020-06-18] LABS: Alanine Aminotransferase 29 U/L (12-78); Albumin Level 3.9 g/dl (3.5-5.0); Alkaline Phosphatase 48 U/L (38-126); Anion Gap 10.5 mEq/L (5-15); Aspartate Amino Transferase 47 U/L (14-36); Bilirubin,Direct 0.1 mg/dl (0.0-0.4); Bilirubin,Indirect 0.3 mg/dL (0.0-0.9); Bilirubin,Total 0.4 mg/dl (0.2-1.3); Bilirubin,Unconjugated 0.2 mg/dL (0.0-1.1); Blood Urea Nitrogen 13 mg/dl (7-17); Calcium 9.4 mg/dl (8.4-10.2); Carbon Dioxide 28 mmol/L (22.0-30.0); Chloride 103 mmol/L (98-107); Creatinine Clearance Estimated 66 mL/min (50-200); Estimated Glomerular Filt Rate 70 ml/min (>60); GFR (African American) 85 ML/MIN (>60); Glucose 105 mg/dl (74-100); Potassium 3.5 mmoL/L (3.5-5.1); Sodium 138 mmol/L (136-145); Total Protein,Serum 6.5 g/dl (6.3-8.2)
--- NOTE | 2020-06-18 00:11 | [facility].EDGENADL ---
ED Disposition Clinical Impression: Subdural hematoma Syncope Qualifiers: Syncope type: unspecified Qualified Code(s): R55 - Syncope and collapse Laceration of scalp Qualifiers: Encounter type: initial encounter Qualified Code(s): S01.01XA - Laceration without foreign body of scalp, initial encounter Disposition: Xfer Short-Term Hosp Condition on Discharge: Good Instructions: DI for Syncope in Adults (Fainting), DI for Syncope in Children (Fainting) Referrals: Ancelmo Moser MD [Primary Care Provider] - Forms: Transfer Record - ED - Critical Care Critical Care Time: No Attestation: On 06/17/20, the high probability of a clinically significant, sudden or life threatening deterioration of the following system(s) required my full and direct attention, intervention and personal management. The time I documented below is in addition to time spent performing reported procedures but includes the following listed in this critical care notation. Medical Decision Making - Medical Records Medical records reviewed: Yes: I reviewed the patient's medical records. - Jose Alejandro Inquiry Pt receiving controlled substance: No Vital Signs: 06/17/20 23:55 Temperature 98.2 F Temperature Source Oral Pulse Rate [Right Brachial] 85 Respiratory Rate 18 Blood Pressure [Right Arm] 141/76 H Blood Pressure Mean [Right Arm] 97 Blood Pressure Source [Right Arm] Automatic Cuff Blood Pressure Position [Right Arm] Sitting 02 Sat by Pulse Oximetry 98 Oxygen Delivery Method Room Air - Lab Data Lab Results 06/17/20 23:42: WBC 5.3, RBC 4.35, Hgb 13.8, Hct 41.0, MCV 94.3, MCH 31.7 H, MCHC 33.7, RDW 13.4, Plt Count 180, MPV 7.5, Neut % (Auto) 54.6, Lymph % (Auto) 33.1, [place] % (Auto) 8.1, Eos % (Auto) 3.6, Baso % (Auto) 0.6, Neut # (Auto) 2.9, Lymph # (Auto) 1.8, [place] # (Auto) 0.4, Eos # (Auto) 0.2, Baso # (Auto) 0.0 06/17/20 23:42: Sodium 138, Potassium 3.5, Chloride 103, Carbon Dioxide 28, Anion Gap 10.5, BUN 13, Creatinine 0.80, Estimated Creat Clear 66, Estimated GFR 70, Est GFR ( Amer) 85, Glucose 105 H, Calcium 9.4, Total Bilirubin 0.4, Direct Bilirubin 0.1, Conjugated Bilirubin 0.0, Indirect Bilirubin 0.3, Unconjugated Bilirubin 0.2, AST 47 H, ALT 29, Alkaline Phosphatase 48, Troponin I < 0.01, Total Protein 6.5, Albumin 3.9 Result diagrams: 06/17/20 23:42 06/17/20 23:42 Orders (Tests/Meds): ORDERS Category Date Time Status CT cervical spine wo con Stat Cat Scan 06/17/20 23:[address] head/brain wo con Stat Cat Scan 06/17/20 23:43 Taken Pelvis XR 1-2 views [XR pelvis 1-2V] Stat Exams 06/17/20 23:43 Taken XR chest portable Stat Exams 06/17/20 23:43 Taken Troponin I Q3H Lab 06/18/20 02:45 Ordered Troponin I Q3H Lab 06/18/20 05:45 Ordered Medical Decision Narrative: 75-year-old female presenting after a syncopal episode with head strike and laceration to the occiput. Nonfocal, neuro intact on arrival. Hemodynamically stable. Underwent head CT which demonstrated left parietal subdural hematoma and CT C-spine which was negative for acute disease. Laceration repaired. Patient given 1 g of Tylenol for mild headache. I spoke to the [facility] for transfer given needs for neurosurgery which we do not have here. Trauma service accepted the patient there, and the accepting physician is Dr. Cardoza. pt remained stable in my care General Adult HPI - General Chief complaint: Syncope Stated complaint: SYNCOPE Time Seen by Provider: 06/18/20 00:11 - History of Present Illness HPI narrative: Is a 75-year-old female who presents via EMS after a syncopal episode causing occipital head strike with laceration. Patient has a history of syncopal episodes. Her mother's was today when she became anxious and passed out striking her head. She presents with a mild headache. No neck pain, double vision, blurry vision, nausea, vomiting, chest pain, shortness of breath, focal weakness. No prehospital
[2020-06-18 00:14] LABS: Troponin I < 0.01 ng/ml (0.00-0.034)
--- NOTE | 2020-06-18 00:16 | PC.NURSE ---
PT RETURN FROM CT. BACK TO BEDSIDE
--- NOTE | 2020-06-18 00:35 | PC.NURSE ---
CALL RECEIVED FROM [facility]. PT WITH SUBDURAL HEMATOMA. TO STAPLE AND CLOSE SLIGHT WOUND AND WANTS [facility] CONTACTED FOR TRANSFER. NOTIFIED RAD TO BURN DISK
--- NOTE | 2020-06-18 00:38 | PC.NURSE ---
CALL PLACED TO [facility]
[2020-06-18 00:58] VITALS: BP 121/73; PULSE 83; RESP 16; TEMP 36.8; O2SAT 98
== END 2020-06-18 01:31 | disposition short-term general hospital (02) ==
PROVIDERS: Emergency Provider Physician Assistant; PCP Family Medicine
DX: R55 Syncope and collapse (principal); S06.5X9A Traumatic subdural hemorrhage with loss of consciousness of unspecified duration, initial encounter; S01.01XA Laceration without foreign body of scalp, initial encounter; W18.39XA Other fall on same level, initial encounter; Y92.019 Unspecified place in single-family (private) house as the place of occurrence of the external cause; E78.5 Hyperlipidemia, unspecified; E03.9 Hypothyroidism, unspecified; I47.1 Supraventricular tachycardia; Z86.73 Personal history of transient ischemic attack (TIA), and cerebral infarction without residual deficits; Z79.899 Other long term (current) drug therapy; Z90.710 Acquired absence of both cervix and uterus
CPT/HCPCS: 12002; 70450; 71045; 72125; 72170; 80048; 80076; 84484; 85025; 93005; 99282

== ENCOUNTER → 2021-04-13 09:55 | Outpatient (CLI) | payer MEDICARE, SELFPAY ==
--- NOTE | 2021-04-13 10:04 | MM_ITS ---
PROCEDURE INFORMATION: Exam: MG Bilateral Screening 3D Mammography Exam date and time: 04/13/2021 10:04 AM Age: 76 years old Clinical indication: Encounter for screening mammogram for malignant neoplasm of breast TECHNIQUE: Imaging protocol: Bilateral screening tomosynthesis and 2D mammography including computer-aided detection (CAD) when performed. COMPARISON: 1. MG MM DIG SCREENING MAMM BI W/CAD 04/10/2020 8:58 AM 2. MG MM DIG SCREENING MAMM BI W/CAD 04/06/2019 8:23 AM FINDINGS: MAMMOGRAPHY: Breast composition: The breast tissue is composed of scattered areas of fibroglandular density. Mass: No suspicious masses. Architectural distortion: None. Calcifications: No suspicious calcifications. Asymmetric density: None. Skin thickening: None. Axillary adenopathy: None. IMPRESSION: No mammographic evidence of malignancy. Annual screening is recommended unless otherwise clinically indicated. ASSESSMENT: BI-RADS Category 1: Negative
== END ==
PROVIDERS: PCP Family Medicine; Visit Provider Registered Nurse
DX: Z12.31 Encounter for screening mammogram for malignant neoplasm of breast (principal)
CPT/HCPCS: 77063; 77067

== ENCOUNTER → 2022-03-14 09:22 | Outpatient (CLI) | payer MEDICARE, SELFPAY ==
--- NOTE | 2022-03-14 09:25 | XR_ITS ---
FINAL REPORT TECHNIQUE: Bone densitometry calculations of the lumbar spine and right hip were obtained. CLINICAL HISTORY: osteopenia COMPARISON: 03/24/2020 FINDINGS: DEXA BONE DENSITY AXIAL SKELETON Using L1-4, the bone mineral density of the spine is 1.199 g/cm2, corresponding to T-score of 1.4 Previously measured 1.128 g/cm2, corresponding to T-score of 0.7. Using the right hip, the bone mineral density of the femoral neck is 0.726 g/cm2, corresponding to a T-score of -1.8. Previously measured 0.727 g/cm2, corresponding to T-score of -1.8. NOTE: T-score: Standard deviation compared with peak bone mass of young adult mean. *Following the recommendations of the International Society of Bone densitometry, classification of hip BMD is based on the lower of two T-scores; total hip or femoral neck. IMPRESSION: Diminished bone mineral density of the lumbar spine and right hip consistent with osteopenia. Reviewed, Interpreted and Dictated by Juliann Murillo MD Transcribed by Ellie Castro Authenticated and [facility]
== END ==
PROVIDERS: PCP Family Medicine; Visit Provider Registered Nurse
DX: M85.88 Other specified disorders of bone density and structure, other site (principal)
CPT/HCPCS: 77080

== ENCOUNTER → 2022-04-15 09:47 | Outpatient (CLI) | payer MEDICARE, SELFPAY ==
--- NOTE | 2022-04-15 09:56 | MM_ITS ---
PROCEDURE INFORMATION: Exam: MG Bilateral Screening 3D Mammography Exam date and time: 04/15/2022 9:56 AM Age: 77 years old Clinical indication: Screening examination TECHNIQUE: Imaging protocol: Bilateral Screening tomosynthesis and 2D mammography including computer-aided detection (CAD) when performed. COMPARISON: 1. MG MM DIG SCREENING MAMM BI W/CAD 04/13/2021 10:01 AM 2. MG MM DIG SCREENING MAMM BI W/CAD 04/10/2020 8:58 AM 3. MG MM DIG SCREENING MAMM BI W/CAD 04/06/2019 8:23 AM 4. MG DXBI MM Dig mamm BI DX w/CAD 03/04/2018 2:32 PM FINDINGS: MAMMOGRAPHY: Breast composition: The breast is heterogeneously dense, which may obscure small masses. Mass: Stable benign-appearing subcentimeter nodules are present in the right breast. No new or morphologically suspicious nodule has developed to suggest malignancy. Architectural distortion: No new or suspicious architectural distortion. Calcifications: No new or suspicious calcifications are present Asymmetric density: No new or suspicious asymmetric density is present Skin thickening: None. Axillary adenopathy: None. IMPRESSION: No mammographic evidence of malignancy. Recommend annual screening mammography unless otherwise clinically indicated. ASSESSMENT: BI-RADS category 2: Benign
== END ==
PROVIDERS: PCP Family Medicine; Visit Provider Registered Nurse
DX: Z12.31 Encounter for screening mammogram for malignant neoplasm of breast (principal)
CPT/HCPCS: 77063; 77067

== ENCOUNTER 2022-06-14 12:06 | Inpatient (IN) | payer MEDICARE, SELFPAY ==
[2022-06-14] VITALS (16 sets, daily range): BP systolic 93–120; BP diastolic 42–60; PULSE 60–87; RESP 17–20; TEMP 36.7–37.2; O2SAT 92–99; BMI 23.8; BMI 22.9; BMI 20.7
--- NOTE | 2022-06-14 12:09 | XR_ITS ---
FINAL REPORT CLINICAL HISTORY: FALL, left hip pain FINDINGS: Left femur Two views were obtained. There is no acute fracture or dislocation. The joint spaces appear normal. No soft tissue abnormality is identified. IMPRESSION: No acute process. Reviewed, Interpreted and Dictated by Braulio Schumacher III, MD Transcribed by Edita Camacho Authenticated and [facility]
--- NOTE | 2022-06-14 12:09 | XR_ITS ---
FINAL REPORT CLINICAL HISTORY: FALL, left hip pain FINDINGS: Left hip Three views were obtained. There is a comminuted fracture of the proximal femur. There is a separate lesser trochanter fracture fragment displaced proximally. There is medial angulation of the main distal fracture fragment. The femoral head is properly located. There is soft tissue swelling in the proximal left thigh. Mild degenerative changes are present. IMPRESSION: Comminuted fracture of the proximal femur. Reviewed, Interpreted and Dictated by Braulio Schumacher III, MD Transcribed by Edita Camacho Authenticated and [facility]
--- NOTE | 2022-06-14 12:15 | PC.NURSE ---
1215 DR. GUPTA AT BEDSIDE
--- NOTE | 2022-06-14 12:30 | HMH.EDGENADL ---
Discharge Plan Disposition Patient Disposition: Admitted As Inpatient Condition: Fair Chief Complaint: Fall Clinical Impressions Clinical Impression: Femur fracture, left Discharge ED Provider: Santiago Ghotra General Adult HPI General Chief complaint: Fall Stated complaint: FALL Time Seen by Provider: 06/14/22 12:13 Mode of Arrival: EMS Source of Information: Patient Limitations: No Limitations Description of Symptoms (Recalled from ER Triage Doc. by RN): FALL AT HOME, OBVIOUS DEFORMITY TO LEFT HIP WITH PAIN History of Present Illness HPI narrative: This is a 77-year-old female with history of hyperlipidemia, hypertension, TIA on aspirin, previous subdural hematoma after fall presenting with fall. Patient states that she was walking in her garage when she had a mechanical fall from standing after tripping. Landed on her left hip. Did not hit anything else or sustain any other trauma. No loss of consciousness or head trauma. Had immediate pain and deformity left lower extremity, so called EMS. EMS brought her to the ED. Patient neurovascularly intact on arrival. Related Data Home Medications Medication Instructions Recorded Confirmed aspirin 81 mg tablet,delayed 81 mg PO DAILY Heart 11/19/17 06/14/22 release (Adult Low Dose Aspirin) atorvastatin 10 mg tablet (Lipitor) 10 mg PO DAILY Cholesterol 11/19/17 06/14/22 levothyroxine 75 mcg tablet 75 mcg PO DAILY thyroid 11/19/17 06/14/22 multivitamin 1 tab PO DAILY Supplement 01/07/20 06/14/22 Allergies Allergy/AdvReac Type Severity Reaction Status Date / Time No Known Allergies Allergy Verified 01/28/20 09:25 [facility] Disclaimer: The information contained in this section may have been updated after the patient was seen, as this information can be updated by other users. Medical History (Updated 06/14/22 @ 15:13 by Santiago Ghotra MD) Palpitations Social History Smoking Status: Current every day smoker alcohol intake: current substance use type: denies use current occupational status: retired Travel in the last 8 weeks: Inside the [place] household members: spouse housing: house ROS Obtained: Yes All systems reviewed & no additional complaints except as documented Physical Exam General General appearance: alert and in no apparent distress Head Head exam: atraumatic, normocephalic and normal inspection Eye Eye exam: Present normal appearance, PERRL and EOMI ENT ENT exam: Present normal exam, normal oropharynx, mucous membranes moist, TM's normal bilaterally and normal external ear exam Neck Neck exam: Present normal inspection, full ROM and trachea midline; Absent meningismus or lymphadenopathy Chest Chest inspection: Present normal inspection and symmetric chest wall rise; Absent tenderness Respiratory Respiratory exam: Present normal lung sounds bilaterally; Absent respiratory distress Cardiovascular Cardiovascular exam: Present regular rate and normal rhythm; Absent JVD Abdominal Exam Abdominal exam: Present soft and normal bowel sounds; Absent distention, tenderness, guarding, rebound or rigidity Extremities Exam Extremities exam: Present tenderness, normal capillary refill, edema and other (Obvious deformity proximal left lower extremity with significant tenderness. Left lower extremity externally rotated and shortened. Pelvis stable); Absent calf tenderness Back Exam Back exam: Present normal inspection; Absent tenderness Neurological Exam Neurological exam: Present alert and oriented X3 Psychiatric Psychiatric exam: Present normal affect and normal mood Skin Skin exam: Present warm, dry, intact and normal color Lymphatic Lymphatic Findings: no adenopathy Medical Decision Making Medical Records Medical records reviewed: Yes I reviewed the patient's medical records. Jose Alejandro Inquiry Pt receiving controlled substance: Yes Jose Alejandro was queried for this patient: No Risks and benefits of using a controlled substan
[2022-06-14 12:47] LABS: Microscopic, Urine URINE MICROSCOPIC (MICROSCOPIC)
[2022-06-14 12:50] LABS: Appearance,Urine CLEAR (Clear); Bilirubin,Urine Negative (Negative); Blood, Urine 2+ (Negative); Color,Urine YELLOW (Yellow); Glucose,Urine (UA) Negative (Negative); Ketones,Urine Negative (Negative); Leukocyte Esterase,Urine Negative (Negative); Nitrate,Urine Negative (Negative); Protein,Urine Negative (Negative); Specific Gravity, Urine <= 1.005 (1.005-1.030); Urobilinogen,Urine 0.2 EU/dl (0.2)
[2022-06-14 12:53] LABS: Chloride 103 mmol/L (98-107)
[2022-06-14 12:54] LABS: Sodium 135 mmol/L (136-145)
[2022-06-14 12:56] LABS: Alanine Aminotransferase 21 U/L (12-78); Albumin Level 3.7 g/dl (3.5-5.0); Albumin/Globulin Ratio 1.8 (1.1-1.8); Alkaline Phosphatase 49 U/L (38-126); Aspartate Amino Transferase 38 U/L (14-36); Bilirubin,Total 0.7 mg/dl (0.2-1.3); Blood Urea Nitrogen 13 mg/dl (7-17); Carbon Dioxide 24 mmol/L (22.0-30.0); Creatinine Clearance Estimated 45 mL/min (50-200); Estimated Glomerular Filt Rate 82 ml/min (>60); GFR (African American) 99 ML/MIN (>60); Globulin 2.1 g/dL (1.3-3.2); Total Protein,Serum 5.8 g/dl (6.3-8.2)
[2022-06-14 12:57] LABS: Calcium 8.4 mg/dl (8.4-10.2); Glucose 95 mg/dl (74-100)
[2022-06-14 13:00] LABS: Basophils % 0.8 % (0.1-2.0); Eosinophils # 0.1 K/mm3 (0.0-0.4); Eosinophils % 1.8 % (0.1-12.0); Hematocrit 40.6 % (37.0-47.0); Hemoglobin 13.1 g/dL (12.2-16.2); Lymphocytes # 1.5 K/mm3 (0.7-4.5); Lymphocytes % 28.9 % (10-50); Mean Corpuscular HGB Conc 32.2 g/dL (31.8-35.4); Mean Corpuscular Hemoglobin 31.3 pg (27.0-31.2); Mean Corpuscular Volume 97.2 fl (81-99); Mean Platelet Volume 7.5 fl (7.4-10.4); Monocytes # 0.3 K/mm3 (0.1-1.0); Monocytes % 6.2 % (1.7-9.3); Neutrophils # 3.2 K/mm3 (1.8-7.8); Neutrophils % 62.3 % (37.0-80.0); Platelet Count 195 K/mm3 (142-424); Red Blood Count 4.18 M/mm3 (4.20-5.40); Red Cell Distribution Width 13.8 % (11.5-17.5); White Blood Count 5.2 K/mm3 (4.8-10.8)
[2022-06-14 13:03] LABS: Bacteria,Urine Trace /lpf; RBC,Urine Occasional #/hpf (0-3); Squamous Epithelial Cell,Urine Occasional #/hpf (0-5); WBC,Urine Occasional #/hpf (0-3)
--- NOTE | 2022-06-14 13:51 | PC.NURSE ---
PT AND FAMILY UPDATED AT THIS TIME. WARM BLANKET PROVIDED
--- NOTE | 2022-06-14 13:53 | PC.NURSE ---
DR. GUPTA SPEAKING WITH DR. GRIER
--- NOTE | 2022-06-14 15:04 | PC.NURSE ---
DR SALGADO AT BS
--- NOTE | 2022-06-14 15:13 | PC.NURSE ---
1500 DR. SALGADO AT BEDSIDE
[2022-06-14 15:14] LABS: Coronavirus 19, PCR Not Detected (NotDetected); Influenza A, PCR Not Detected (NotDetected); Influenza B, PCR Not Detected (NotDetected)
--- NOTE | 2022-06-14 15:40 | EXP.HP ---
History of Present Illness *Admission Date: 06/14/22 *Reason for visit:: Fall, left leg pain *History of present illness: Ms. Snyder is a pleasant 77-year-old female who is active daily walking several miles a day. States she was walking at home when she tripped in the garage and fell on her left side. Had instant pain in her left upper leg. Could not get up and bear weight, so she texted her to come get her in the garage. He was able to pick her up off the floor, and tried to help her into the house. Upon trying to step up into the house (one-step) she felt a pop in her left hip and had continued left hip pain. Unable to bear weight. called EMS and she was brought to the ER for further management. On arrival, had notable deformity of left leg, externally rotated and shortened. X-ray revealed left hip fracture. Orthopedics consulted for surgical fixation. Medicine consulted for admission. After arriving to the floor, obtained history about her medical conditions. She has a history of SVT, status post heart ablation 2020 at . Last follow-up with cardiology in January, she was cleared at that time and has no further follow-up. No further episodes of SVT. Additionally has a history of rectal cancer, treated with radiation. Has been cancer free for over 3 years now. Does not smoke, denies any history of kidney disease, no chest pain or shortness of breath with exertion. Independent for ADLs. She appears younger than stated age. 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 Has no lasting neurologic sequela. No history of clotting disorders or blood clots. [facility] Disclaimer: The information contained in this section may have been updated after the patient was seen, as this information can be updated by other users. Medical History Hyperlipidemia Subdural hematoma Surgical History H/O cardiac radiofrequency ablation Social History Smoking Status: Current every day smoker alcohol intake: current substance use type: denies use current occupational status: retired Travel in the last 8 weeks: Inside the [place] household members: spouse housing: house Review of Systems Review of Systems Review of systems (narrative): 14 point review of systems performed, pertinent positives and negatives as per HPI Meds Home Medications and Allergies Home Medications Medication Instructions Recorded Confirmed Type aspirin 81 mg tablet,delayed 81 mg PO DAILY Heart 11/19/17 06/14/22 History release (Adult Low Dose Aspirin) atorvastatin 10 mg tablet (Lipitor) 10 mg PO DAILY Cholesterol 11/19/17 06/14/22 History levothyroxine 75 mcg tablet 75 mcg PO DAILY thyroid 11/19/17 06/14/22 History multivitamin 1 tab PO DAILY Supplement 01/07/20 06/14/22 History New Prescriptions to Start Prescriptions: Allergies Allergy/AdvReac Type Severity Reaction Status Date / Time No Known Allergies Allergy Verified 01/28/20 09:25 Exam Data for Last 24 hours Vital signs and Labs for Last 24 Hours: Temp Pulse Resp BP Pulse Ox 98.4 F 63 17 105/59 L 98 06/14/22 12:04 06/14/22 14:00 06/14/22 14:00 06/14/22 14:00 06/14/22 14:00 Laboratory Results - last 24 hr 06/14/22 12:30: WBC 5.2, RBC 4.18 L, Hgb 13.1, Hct 40.6, MCV 97.2, MCH 31.3 H, MCHC 32.2, RDW 13.8, Plt Count 195, MPV 7.5, Neut % (Auto) 62.3, Lymph % (Auto) 28.9, [place] % (Auto) 6.2, Eos % (Auto) 1.8, Baso % (Auto) 0.8, Neut # (Auto) 3.2, Lymph # (Auto) 1.5, [place] # (Auto) 0.3, Eos # (Auto) 0.1, Baso # (Auto) 0.0 06/14/22 12:30: Sodium 135 L, Potassium 4.0, Chloride 103, Carbon Dioxide 24, Anion Gap 12.0, BUN 13, Creatinine 0.70, Estimated Creat Clear 45, Estimated GFR 82, Est GFR ( Amer) 99
--- NOTE | 2022-06-14 15:57 | EXP.ORTH.CON ---
History of Present Illness *Admission Date: 06/14/22 *Reason for visit:: Left hip fracture *History of present illness: 77-year-old female who is an independent ambulator in the community. Without any assistive devices. She was walking in her garage getting ready to take off her sweatshirt tripped on a car barrier and her garage landing on her left hip unable to walk. Presented to the emergency room via ambulance. X-rays revealed left hip fracture. I was called for consultation definitive treatment hip fracture. Patient reports that she is very active and walks for exercise. She had a heart ablation in 2020 at [facility]. Reports no cardiac issues since then. [facility] Disclaimer: The information contained in this section may have been updated after the patient was seen, as this information can be updated by other users. Medical History (Updated 06/14/22 @ 16:13 by Rober Martinez DO) Hyperlipidemia Subdural hematoma Surgical History (Updated 06/14/22 @ 16:09 by Rober Martinez DO) H/O cardiac radiofrequency ablation Social History Smoking Status: Current every day smoker alcohol intake: current substance use type: denies use current occupational status: retired Travel in the last 8 weeks: Inside the [facility] household members: spouse housing: house Review of Systems Review of Systems Review of systems:: pertinent systems reviewed and negative unless documented below Constitutional Constitutional: Reports system reviewed and no additional complaints, except as documented Eyes Eyes: Reports system reviewed and no additional complaints, except as documented ENT Ears, Nose, Mouth, and Throat: Reports system reviewed and no additional complaints, except as documented *Cardiovascular Cardiovascular: Denies chest pain with activity and Denies dyspnea on exertion *Respiratory Respiratory: Denies dyspnea on exertion *Gastrointestinal Gastrointestinal: Denies abdominal pain *Genitourinary Genitourinary: Reports system reviewed and no additional complaints, except as documented *Musculoskeletal Musculoskeletal: Reports as per HPI *Neurologic Neurologic: Reports system reviewed and no additional complaints, except as documented Meds Home Medications and Allergies Home Medications Medication Instructions Recorded Confirmed Type aspirin 81 mg tablet,delayed 81 mg PO DAILY Heart 11/19/17 06/14/22 History release (Adult Low Dose Aspirin) atorvastatin 10 mg tablet (Lipitor) 10 mg PO DAILY Cholesterol 11/19/17 06/14/22 History levothyroxine 75 mcg tablet 75 mcg PO DAILY thyroid 11/19/17 06/14/22 History multivitamin 1 tab PO DAILY Supplement 01/07/20 06/14/22 History New Prescriptions to Start Prescriptions: Allergies Allergy/AdvReac Type Severity Reaction Status Date / Time No Known Allergies Allergy Verified 01/28/20 09:25 Ortho Exam (Inpt) Vital signs and Labs for Last 24 Hours: Temp Pulse Resp BP Pulse Ox 98.4 F 63 17 105/59 L 98 06/14/22 12:04 06/14/22 14:00 06/14/22 14:00 06/14/22 14:00 06/14/22 14:00 Laboratory Results - last 24 hr 06/14/22 12:30: WBC 5.2, RBC 4.18 L, Hgb 13.1, Hct 40.6, MCV 97.2, MCH 31.3 H, MCHC 32.2, RDW 13.8, Plt Count 195, MPV 7.5, Neut % (Auto) 62.3, Lymph % (Auto) 28.9, [place] % (Auto) 6.2, Eos % (Auto) 1.8, Baso % (Auto) 0.8, Neut # (Auto) 3.2, Lymph # (Auto) 1.5, [place] # (Auto) 0.3, Eos # (Auto) 0.1, Baso # (Auto) 0.0 06/14/22 12:30: Sodium 135 L, Potassium 4.0, Chloride 103, Carbon Dioxide 24, Anion Gap 12.0, BUN 13, Creatinine 0.70, Estimated Creat Clear 45, Estimated GFR 82, Est GFR ( Amer) 99, Glucose 95, Calcium 8.4, Total Bilirubin 0.7, AST 38 H, ALT 21, Alkaline Phosphatase 49, Total Protein 5.8 L, Albumin 3.7, Globulin 2.1, Albumin/Globulin Ratio 1.8 06/14/22 12:30: Urine Color Yellow, Urine Appearance Clear, Urine pH 7.0, Ur Specific [place] <= 1.005, Urine Protein Negative, Urine Glucose (UA) Negative, Uri
--- NOTE | 2022-06-14 16:07 | PC.NURSE ---
REPORT GIVEN TO Farhad STINSON RN
--- NOTE | 2022-06-14 16:26 | PC.NURSE ---
1 MG DILAUDIID GIVEN FOR PAIN
--- NOTE | 2022-06-14 19:35 | PC.NURSE ---
PT IS AOX4, IN WITH FRACTURED HIP. SURGERY IN THE MORNING. KEITH IN PLACE
--- NOTE | 2022-06-14 21:19 | ECG_ITS ---
APPROVED REPORT Exam: Resting ECG HR:69 bpm ECG Measurements Heart Rate 69 AXES [place] 134 P -1 QRSd 85 QRS 10 QT 391 T 10 QTc 411 Conclusion SINUS RHYTHM LOW QRS VOLTAGE IN PRECORDIAL LEADS [QRS DEFLECTION < 1.0 mV IN CHEST LEADS] BORDERLINE ECG UNCONFIRMED REPORT Electronically signed by : Ancelmo Le MD 06/15/2022 22:00:03
[2022-06-15] VITALS (16 sets, daily range): BP systolic 81–130; BP diastolic 42–62; PULSE 62–84; RESP 12–18; TEMP 36.2–43; O2SAT 95–100; BMI 23.1
--- NOTE | 2022-06-15 06:40 | PC.NURSE ---
NO ACUTE CHANGES SINE PREVIOUS ASSESSMENT. LUNG SOUNDS CLEAR. REMAINS ON ROOM AIR. PT HAS C/O PAIN X1 THIS SHIFT AND WAS MEDICATED PER AUG. NO C/O N/V/D OR SOB. VSS.
--- NOTE | 2022-06-15 08:52 | EXP.ANES.CKL ---
[facility] Disclaimer: The information contained in this section may have been updated after the patient was seen, as this information can be updated by other users. Medical History Hyperlipidemia Subdural hematoma Surgical History H/O cardiac radiofrequency ablation Social History Smoking Status: Current every day smoker alcohol intake: current substance use type: denies use current occupational status: retired Travel in the last 8 weeks: Inside the [employer] [place] household members: spouse housing: house [facility] Anesthesia Checklist Patient Identification Patient Identification: Verbal (Name & ) Structural Data Admitted From: Inpatient Planned Operative Procedure/s: orif l hip Consent for Planned Operative Procedure(s) Verified: Yes NPO Status Verified Time NPO: 00:00 Airway Assessment C-Spine Mobility Assessed: Yes TMJ Mobility Assessed: Yes Dentition: Good Dentition Neurological Assessment Level of Consciousness: Awake, Alert and Appropriate Anesthesia Plan Anesthesia Risk discussed: Yes Anesthesia Plan: Verified ASA Class: II Anesthesia Type: MAC w/Spinal
--- NOTE | 2022-06-15 10:49 | XR_ITS ---
PROCEDURE INFORMATION: Exam: XR Left Hip Exam date and time: 06/15/2022 10:45 AM Age: 77 years old Clinical indication: Device placement; Other: Hip FX fluro surgery case; Additional info: FX lt hip-- fluoro less than 1 hour case TECHNIQUE: Imaging protocol: Radiologic exam of the Left hip. Views: 2 or 3 views hip with pelvis when performed. COMPARISON: CR XR HIP LT 2-3V W/PELVIS 06/14/2022 12:39 PM FINDINGS: Bones/joints: Post surgical changes of open reduction internal fixation of a left proximal femoral neck comminuted fracture. Near- anatomic alignment. Soft tissues: Expected post surgical soft tissue swelling. IMPRESSION: Post surgical changes of open reduction internal fixation of a left proximal femoral neck comminuted fracture. Near- anatomic alignment.
--- NOTE | 2022-06-15 11:12 | EXP.OP.NOTE ---
Date of procedure: 06/15/22 Pre-op Diagnosis:: Left subtrochanteric femur fracture Post-op Diagnosis:: Same Procedure performed:: Cephalomedullary nailing left subtrochanteric femur fracture Surgeon:: Rober Martinez DO COW TRIMMER:: Ricky Giang Anesthesia: spinal Estimated blood loss (mL): 150 Operative findings:: See dictation Operative note:: 77-year-old female who suffered a fall and a subsequent trochanteric femur fracture presented to the emergency room with inability to walk orthopedics consulted found to have a subacute femur fracture presented today for operative intervention Patient was identified preoperatively left hip marked yes my initials transported operative suite given a spinal anesthesia then placed on the fracture table. All bony prominences well-padded. Placed the left lower extremity inline traction and the right lower extremity semilithotomy position. Care was taken to well-padded the left foot in traction. X-ray was brought in to evaluate reduction. As is typical with subtrochanteric fractures that were displacement with flexion of the proximal fragment. Leg was brought out to proper traction on the fracture table in proper alignment on the fracture table. A crutch was used under the undersurface of the distal fragment to align the shaft and this was able to align the shaft appropriately on the lateral x-ray. At that time the left hip was then prepped and draped in normal sterile fashion once prepped and draped final operative timeout performed to identify proper patient procedure and extremity. Everyone involved the case agreed. No counter indication beginning. Did receive preoperative antibiotics. X-ray was brought and marked the tip of the greater trochanter a 3 fingerbreadth incision was made 2 fingerbreadths above the tip of the trochanter. Through skin and the IT band. Palpated the tip of the greater trochanter. The guidewire for the cephalomedullary nail was used for proper starting part on the tip of the trochanter. Once this was started it was slightly entered to the bone and attention was brought to the lateral x-ray for reduction of the subtrochanteric fracture. Percutaneous stab was made on the lateral thigh and a hemostat was placed on the proximal fragment to place it in extension and tension on the inferior surface of the femur was used to reduce the femur in good alignment on the lateral x-ray. And then the guidewire was placed through the fracture site into the canal of the femur. Opening reamer the tip of the trochanter was then used and then the curved awl was used to passed through the fracture site over the opening guidewire to maintain reduction of the fracture. The opening guidewire was removed and a ball-tipped wire was placed under direct visualization across the fracture site down into the canal the leg this was viewed on AP and lateral views distally for good placement. Once the ball-tipped wire was across the fracture site initial opening reamer start with 8-1/2 and going up to a 12 and half was used to ream the canal and then a size 1130 degree long TFN nail was selected this was placed over the ball-tipped wire down to proper depth. The guide was then placed to the outside of the nail jig and using the triple cannula the guidepin was placed through the femoral head seen both on the AP and lateral views to be in good position and measured to a size 90. The lateral cortex reamer was reamed and the helical blade was impacted into proper position. It was then locked into the nail superiorly. Jig was then removed from the bone attention was brought distally distally perfect circles were obtained for distal locking screw in the dynamic hole. This was drilled bicortically and distal locking screw was placed. Pictures were taken AP and lateral views at the hip and at the leg to confirm proper placement and good reduction of the fracture. Copious irrigation wound performed deep layers closed with 0 Vicr
--- NOTE | 2022-06-15 11:16 | EXP.ANES.I ---
[facility] [place] Anesthesia Record Part I Anesthesia Record I Intake, IV Amount: 3,800 Estimated blood loss (mL): 300 Urine output (mL): 600 Blood Pressure: 83/50 SaO2: 98 Pulse Rate: 78 Respiratory Rate: 12 Temperature: 97.2 F Patient is:: Awake and Stable Stable to PACU at:: 11:10
--- NOTE | 2022-06-15 13:51 | EXP.ACUTE.PN ---
Subjective *Date: 06/15/22 *Time: 13:51 Interval history: Status post surgery this morning. Patient doing well. Pain stable at this time however she is still in the postop period. Denies shortness of breath, chest pain, nausea or vomiting. Afebrile and hemodynamically stable. Family at bedside. Medical Exam Vital signs and Labs for Last 24 Hours: Vital Signs Temp Pulse Pulse Resp BP BP Pulse Ox 06/15/22 13:30 98 F 84 18 100/42 L 97 06/15/22 13:00 98.1 F 84 18 94/46 L 97 06/15/22 12:30 98.7 F 82 18 130/60 98 06/15/22 12:15 98.3 F 72 18 120/62 99 06/15/22 12:00 98.1 F 70 18 114/59 L 99 06/15/22 11:45 97.6 F 62 18 90/60 L 95 06/15/22 04:00 98.9 F 67 18 115/52 L 100 06/14/22 20:00 98.9 F 73 18 104/52 L 98 06/14/22 18:00 97 06/14/22 18:10 98.4 F 87 18 120/60 92 L 06/14/22 18:09 98.0 F 72 18 116/58 L 96 06/14/22 16:35 77 116/58 L 96 06/14/22 16:30 81 18 105/45 L 95 06/14/22 16:00 67 20 112/48 L 96 06/14/22 15:30 68 109/58 L 98 06/14/22 15:00 67 18 93/51 L 97 06/14/22 14:30 62 20 114/55 L 99 06/14/22 16:55 98.4 F 82 18 107/59 L 06/14/22 14:00 63 17 105/59 L 98 06/15/22 11:17 97.2 F L 78 12 83/50 L Intake and Output 06/14/22 06/15/22 06/15/22 23:59 07:59 15:59 Intake Total 3920 / 3920 Output Total 600 / 600 0 / 0 0 / 0 Balance -600 / -600 0 / 3920 3920 / 3920 Intake: Intake, Oral Amount 120 / 120 Intake, Total IV Amount 3800 / 3800 Output: Output, Urine Amount 600 / 600 0 / 0 0 / 0 Other: Number of Unmeasured Voids 0 0 Weight 56.359 kg 62.851 kg Patient Weight 06/15/22 23:59 Weight 62.851 kg Laboratory Results - last 24 hr 06/14/22 15:00: SARS-CoV-2 (PCR) Not detected, Influenza A Untype (PCR) Not detected, Influenza Type B (PCR) Not detected I & O for Labs for Last 24 Hours: Intake & Output 06/12/22 06/13/22 06/14/22 06/15/22 23:59 23:59 23:59 23:59 Intake Total 3920 / 3920 Output Total 600 / 600 0 / 0 Balance -600 / -600 3920 / 3920 Weight 56.359 kg 62.851 kg Constitutional: Present no acute distress Head: Present atraumatic and normocephalic ENT: Present normal exam Neck: Present normal inspection Respiratory: Present normal respiratory effort; Absent accessory muscle use, rhonchi, wheezes or crackles Cardiac: Present Reg Rate and Rhythm GI: Present soft and normal bowel sounds; Absent distention or tenderness Extremities: Present normal inspection Comment:: Left leg normal length/equal to right leg. Postop bandage clean dry and intact. Skin: Present intact; Absent erythema Neuro: Present Grossly Intact, alert, awake, oriented x 3 and moves all extremities Assessment and Plan *Assessment and plan (1) Fracture, subtrochanteric, left femur, closed: Status: Acute Category: Medical Code(s): S72.22XA - Displaced subtrochanteric fracture of left femur, initial encounter for closed fracture (2) Hyperlipidemia: Status: Acute Qualifiers: Hyperlipidemia type: mixed hyperlipidemia Qualified Code(s): E78.2 - Mixed hyperlipidemia Category: Medical Code(s): E78.5 - Hyperlipidemia, unspecified (3) History of TIA (transient ischemic attack): Status: Chronic Category: Medical Code(s): Z86.73 - Personal history of transient ischemic attack (TIA), and cerebral infarction without residual deficits (4) Hypothyroidism: Status: Acute Category: Medical Code(s): E03.9 - Hypothyroidism, unspecified (5) Hx of supraventricular tachycardia: Status: Acute Category: Medical Code(s): Z86.79 - Personal history of other diseases of the circulatory system Plan Ms. Bruner is a pleasant 77-year-old female with history of SVT, status post ablation. She fell at home sustaining left hip fracture. Admitted for surgical evalu
--- NOTE | 2022-06-15 16:20 | PC.NURSE ---
SHE IS AOX4, NOT REQUIRING O2 SUPPORT. SHE HAS DENIED PAIN. ABLE TO MOVE TOES BUT SENSATION STILL DECREASED. KEITH CATH IN PLACE.
[2022-06-15 21:42] LABS: Basophils % 0.2 % (0.1-2.0); Eosinophils % 0.4 % (0.1-12.0); Hemoglobin 8.6 g/dL (12.2-16.2); Lymphocytes # 0.7 K/mm3 (0.7-4.5); Lymphocytes % 13.8 % (10-50); Mean Corpuscular HGB Conc 34.8 g/dL (31.8-35.4); Mean Corpuscular Hemoglobin 31.5 pg (27.0-31.2); Mean Corpuscular Volume 90.5 fl (81-99); Mean Platelet Volume 7.8 fl (7.4-10.4); Monocytes # 0.4 K/mm3 (0.1-1.0); Monocytes % 8.3 % (1.7-9.3); Neutrophils # 3.7 K/mm3 (1.8-7.8); Neutrophils % 77.4 % (37.0-80.0); Platelet Count 147 K/mm3 (142-424); Red Blood Count 2.75 M/mm3 (4.20-5.40); Red Cell Distribution Width 13.5 % (11.5-17.5); White Blood Count 4.8 K/mm3 (4.8-10.8)
[2022-06-15 21:44] LABS: Hematocrit 24.9 % (37.0-47.0)
[2022-06-15 21:52] LABS: Chloride 100 mmol/L (98-107); Potassium 3.7 mmoL/L (3.5-5.1); Sodium 130 mmol/L (136-145)
[2022-06-15 21:54] LABS: Blood Urea Nitrogen 8 mg/dl (7-17); Creatinine Clearance Estimated 48 mL/min (50-200); Estimated Glomerular Filt Rate 82 ml/min (>60); GFR (African American) 99 ML/MIN (>60)
[2022-06-15 21:55] LABS: Alanine Aminotransferase 25 U/L (12-78); Albumin Level 2.6 g/dl (3.5-5.0); Albumin/Globulin Ratio 1.5 (1.1-1.8); Alkaline Phosphatase 35 U/L (38-126); Anion Gap 8.7 mEq/L (5-15); Aspartate Amino Transferase 35 U/L (14-36); Bilirubin,Total 0.4 mg/dl (0.2-1.3); Calcium 7.4 mg/dl (8.4-10.2); Carbon Dioxide 25 mmol/L (22.0-30.0); Globulin 1.7 g/dL (1.3-3.2); Glucose 152 mg/dl (74-100); Magnesium 1.6 mg/dl (1.6-2.3); Total Protein,Serum 4.3 g/dl (6.3-8.2)
--- NOTE | 2022-06-15 23:00 | PC.NURSE ---
She is A&Ox4. She has received acetaminophen for pain in her left leg and a headache. She stated that lortab makes her sick. DSG in on place on LLE. She repots her last BM was on 06/14/22. F/c patent with yellow, clear urine.
[2022-06-16] VITALS: BP 109/60; PULSE 91; RESP 18; TEMP 37.1; O2SAT 96
[2022-06-16 04:00] VITALS: BP 106/52; PULSE 79; RESP 20; TEMP 37.1; O2SAT 94; BMI 22.8
--- NOTE | 2022-06-16 07:26 | EXP.ACUTE.PN ---
Subjective *Date: 06/16/22 *Time: 15:00 Interval history: Stable overnight, no acute events. Pain managed on current oral regimen. No signs of bleeding. Physical therapy working with her today. More alert and interactive today, back to baseline mentation. No nausea, vomiting, chest pain, shortness of breath. Stable on room air. Medical Exam Vital signs and Labs for Last 24 Hours: Vital Signs Temp Pulse Pulse Resp BP BP Pulse Ox 06/16/22 04:00 98.7 F 79 20 106/52 L 94 L 06/16/22 00:00 98.7 F 91 H 18 109/60 L 96 06/15/22 20:00 96 06/15/22 18:30 98.3 F 81 18 107/45 L 96 06/15/22 17:30 98 F 73 18 104/58 L 96 06/15/22 16:30 98.6 F 74 18 103/59 L 97 06/15/22 15:30 98.1 F 75 18 91/54 L 97 06/15/22 14:30 98.3 F 78 18 81/54 L 97 06/15/22 14:00 98 F 75 18 82/50 L 96 06/15/22 13:30 98 F 84 18 100/42 L 97 06/15/22 13:00 98.1 F 84 18 94/46 L 97 06/15/22 12:30 98.7 F 82 18 130/60 98 06/15/22 12:15 98.3 F 72 18 120/62 99 06/15/22 12:00 98.1 F 70 18 114/59 L 99 06/15/22 11:45 97.6 F 62 18 90/60 L 95 06/15/22 11:17 97.2 F L 78 12 83/50 L Intake and Output 06/15/22 06/15/22 06/16/22 15:59 23:59 07:59 Intake Total 3920 / 4500 580 / 4500 120 / 120 Output Total 425 / 1625 200 / 1625 1000 / 1000 Balance 3495 / 2875 380 / 2875 -880 / -880 Intake: Intake, Oral Amount 120 / 120 Intake, Other Amount 20 / 20 Intake, Total IV Amount 3800 / 3800 100 / 100 Cefazolin Sodium 2 gm In 0.9 % 100 / 100 Sodium Chloride 100 ml @ 200 mls/hr IV Q6H OMAR Rx#:[id number] Infusion Intake 580 / 580 Ringers Solution,Lactated 1,000 580 / 580 ml @ 100 mls/hr IV .Q10H OMAR Rx#:[id number] Output: Output, Urine Amount 425 / 625 200 / 625 Output, Urine Amount (Catheter) 1000 / 1000 Stark 1000 / 1000 Other: Intake, Other Source Saline Solution Number of Unmeasured Voids 0 0 1 Weight 62.199 kg Patient Weight 06/16/22 23:59 Weight 62.199 kg Laboratory Results - last 24 hr 06/15/22 21:15: WBC 4.8, RBC 2.75 L D, Hgb 8.6 L, Hct 24.9 L, MCV 90.5, MCH 31.5 H, MCHC 34.8, RDW 13.5, Plt Count 147, MPV 7.8, Neut % (Auto) 77.4, Lymph % (Auto) 13.8, [place] % (Auto) 8.3, Eos % (Auto) 0.4, Baso % (Auto) 0.2, Neut # (Auto) 3.7, Lymph # (Auto) 0.7, [place] # (Auto) 0.4, Eos # (Auto) 0.0, Baso # (Auto) 0.0 06/15/22 21:15: Sodium 130 L, Potassium 3.7, Chloride 100, Carbon Dioxide 25, Anion Gap 8.7, BUN 8 D, Creatinine 0.70, Estimated Creat Clear 48, Estimated GFR 82, Est GFR ( Amer) 99, Glucose 152 H, Calcium 7.4 L, Magnesium 1.6, Total Bilirubin 0.4, AST 35, ALT 25, Alkaline Phosphatase 35 L, Total Protein 4.3 L D, Albumin 2.6 L D, Globulin 1.7, Albumin/Globulin Ratio 1.5 I & O for Labs for Last 24 Hours: Intake & Output 06/13/22 06/14/22 06/15/22 06/16/22 23:59 23:59 23:59 23:59 Intake Total 4500 / 4500 120 / 120 Output Total 600 / 600 625 / 1625 1000 / 1000 Balance -600 / -600 3875 / 2875 -880 / -880 Weight 56.359 kg 62.851 kg 62.199 kg Constitutional: Present no acute distress Head: Present atraumatic and normocephalic ENT: Present normal exam Neck: Present normal inspection Respiratory: Present normal respiratory effort; Absent accessory muscle use, rhonchi, wheezes or crackles Cardiac: Present Reg Rate and Rhythm GI: Present soft and normal bowel sounds; Absent distention or tenderness Extremities: Present normal inspection Comment:: Left leg normal length/equal to right leg. Postop bandage clean dry and intact. No erythema along border of incision Skin: Present intact; Absent erythema Neuro: Present Grossly Intact, alert, awake, oriented x 3 and moves all extremities Assessment and Plan *Assessment and plan (1) Fracture, subtrochanteric, left femur, closed: Status: Acute Category: Medical Code(s): S72.22XA - Displaced subtr
[2022-06-16 08:00] VITALS: BP 90/45; PULSE 84; RESP 17; TEMP 36.9; O2SAT 96
[2022-06-16 09:16] LABS: Basophils % 0.4 % (0.1-2.0); Eosinophils # 0.1 K/mm3 (0.0-0.4); Eosinophils % 2.4 % (0.1-12.0); Hematocrit 24.7 % (37.0-47.0); Hemoglobin 8.1 g/dL (12.2-16.2); Lymphocytes # 0.7 K/mm3 (0.7-4.5); Lymphocytes % 17.2 % (10-50); Mean Corpuscular HGB Conc 32.9 g/dL (31.8-35.4); Mean Corpuscular Volume 94.5 fl (81-99); Mean Platelet Volume 8.1 fl (7.4-10.4); Monocytes # 0.3 K/mm3 (0.1-1.0); Monocytes % 7.1 % (1.7-9.3); Neutrophils % 72.8 % (37.0-80.0); Platelet Count 136 K/mm3 (142-424); Red Blood Count 2.62 M/mm3 (4.20-5.40); Red Cell Distribution Width 13.5 % (11.5-17.5); White Blood Count 4.1 K/mm3 (4.8-10.8)
[2022-06-16 09:22] LABS: Chloride 103 mmol/L (98-107); Sodium 134 mmol/L (136-145)
[2022-06-16 09:25] LABS: Blood Urea Nitrogen 7 mg/dl (7-17); Carbon Dioxide 27 mmol/L (22.0-30.0); Creatinine Clearance Estimated 48 mL/min (50-200); Estimated Glomerular Filt Rate 82 ml/min (>60); GFR (African American) 99 ML/MIN (>60)
[2022-06-16 09:26] LABS: Calcium 7.4 mg/dl (8.4-10.2); Glucose 92 mg/dl (74-100)
[2022-06-16 10:51] VITALS: BMI 22.7
[2022-06-16 11:18] VITALS: BP 81/43; PULSE 86; RESP 16; TEMP 37.6; O2SAT 95
--- NOTE | 2022-06-16 14:39 | HMH.PTEV ---
Physical Therapy Evaluation Rehab PT IP Evaluation Start: 06/15/22 11:19 Freq: ONCE Status: Active Protocol: Document 06/16/22 14:28 JORDYN (Rec: 06/16/22 14:38 JORDYN [id number]) Subjective/History History History Patient was admitted to [facility] . Patient lives at home with spouse and previously independent with all ADL's. Patient reports that she was doing her normal exercise routine including walking around her house when she went to remove her sweat shirt, tripped and fell landing on her L hip. Resultant ORIF required after fall. Subjective Subjective I was in a lot of pain yesterday, but I'm a little better today. Rehab PT IP Eval Objective Appearance Patient Behavior Appropriate,Cooperative Patient Orientation Person,Place,Time,Birthday Difficulty following instructions none Speech Pattern Clear,Appropriate Ambulation Patient Able to Ambulate No Balance Ability to Arise Able, uses arms to help Sitting Balance Steady, safe Standing Balance Steady, wide stance Dynamic Sitting Balance Ability Normal Dynamic Standing Balance Ability Good Transfers Bed Transfer Ability Minimal x 1 (25% assist) Sit to Stand Bed Transfer Ability Minimal x 1 (25% assist) ROM LLE PT ROM Status ABN MMT LLE PT MMT ABN Abnormal MMT Grade Ltd secondary to pain. Rehab PT IP prob,goals,plan Problems Date of Evaluation: 06/16/22 PT IP Problems Bed Mobility,Transfers,Gait, Balance Rehab Potential Rehab Potential Good Equipment Needs Assistive Devices Rolling / Wheeled Walker Plan PT Intervention Plan Bed Mobility,Transfers,Gait, Balance PT Plan Frequency BID Duration LOS Discharge Goals Bed Transfer Ability Contact Guard/Hand Hold Sit to Stand Chair Transfer Ability Contact Guard/Hand Hold Ambulation Distance (feet) 20 Discharge Plan PT Discharge Plan Patient and spouse request discharge to rehab facility. PT agrees this would be most appropriate. Given patients prior level of function,
[2022-06-16 15:28] VITALS: BP 102/47; PULSE 88; RESP 18; TEMP 37.8; O2SAT 96
--- NOTE | 2022-06-16 15:48 | PC.NURSE ---
MADE DR SALGADO AWARE OF ORAL TEMP OF 100.1
--- NOTE | 2022-06-16 16:32 | P.PN_ITS ---
Subjective *Date: 06/16/22 *Time: 16:32 Interval history: Patient is doing reasonably well. She had some difficulty with dizziness upon rising with physical therapy. She has some difficulty getting to the bathroom which required assistance. Overall doing well considering nature of fracture and surgery. Ortho Exam (Inpt) Vital signs and Labs for Last 24 Hours: Temp Pulse Resp BP Pulse Ox 100.1 F H 88 18 102/47 L 96 06/16/22 15:28 06/16/22 15:28 06/16/22 15:28 06/16/22 15:28 06/16/22 15:28 Laboratory Results - last 24 hr 06/15/22 21:15: WBC 4.8, RBC 2.75 L D, Hgb 8.6 L, Hct 24.9 L, MCV 90.5, MCH 31.5 H, MCHC 34.8, RDW 13.5, Plt Count 147, MPV 7.8, Neut % (Auto) 77.4, Lymph % (Auto) 13.8, [place] % (Auto) 8.3, Eos % (Auto) 0.4, Baso % (Auto) 0.2, Neut # (Auto) 3.7, Lymph # (Auto) 0.7, [place] # (Auto) 0.4, Eos # (Auto) 0.0, Baso # (Auto) 0.0 06/15/22 21:15: Sodium 130 L, Potassium 3.7, Chloride 100, Carbon Dioxide 25, Anion Gap 8.7, BUN 8 D, Creatinine 0.70, Estimated Creat Clear 48, Estimated GFR 82, Est GFR ( Amer) 99, Glucose 152 H, Calcium 7.4 L, Magnesium 1.6, Total Bilirubin 0.4, AST 35, ALT 25, Alkaline Phosphatase 35 L, Total Protein 4.3 L D, Albumin 2.6 L D, Globulin 1.7, Albumin/Globulin Ratio 1.5 06/16/22 08:33: WBC 4.1 L, RBC 2.62 L, Hgb 8.1 L, Hct 24.7 L, MCV 94.5, MCH 31.0, MCHC 32.9, RDW 13.5, Plt Count 136 L, MPV 8.1, Neut % (Auto) 72.8, Lymph % (Auto) 17.2, [place] % (Auto) 7.1, Eos % (Auto) 2.4, Baso % (Auto) 0.4, Neut # (Auto) 3.0, Lymph # (Auto) 0.7, [place] # (Auto) 0.3, Eos # (Auto) 0.1, Baso # (Auto) 0.0 06/16/22 08:33: Sodium 134 L, Potassium 4.0, Chloride 103, Carbon Dioxide 27, Anion Gap 8.0, BUN 7, Creatinine 0.70, Estimated Creat Clear 48, Estimated GFR 82, Est GFR ( Amer) 99, Glucose 92 D, Calcium 7.4 L I & O for Labs for Last 24 Hours: Intake & Output 06/13/22 06/14/22 06/15/22 06/16/22 23:59 23:59 23:59 23:59 Intake Total 4500 / 4500 720 / 720 Output Total 600 / 600 625 / 1625 1999 / 1999 Balance -600 / -600 3875 / 2875 -1280 / -1280 Weight 124 lb 4 oz 138 lb 9 oz 136 lb 10.986 oz Additional findings:: Left hip: Dressing intact. No drainage. Wiggles toes. Grossly neurovascularly intact. Capillary refill normal. Distal pulses normal. Assessment and Plan *Assessment and plan (1) Fracture, subtrochanteric, left femur, closed: Status: Acute Category: Medical Code(s): S72.22XA - Displaced subtrochanteric fracture of left femur, initial encounter for closed fracture (2) Anemia: Status: Acute Category: Medical Code(s): D64.9 - Anemia, unspecified Plan Continue with rehabilitation as able. She is weightbearing as pain allows on the left lower extremity. Acute blood loss anemia following fracture and surgery. Once stable from medical standpoint she is able to transfer to rehab as placement is available. Daily dressing changes after postop day 2. Weightbearing as tolerated on rolling walker. She will follow-up in the orthopedic clinic couple weeks after discharge for staple removal.
[2022-06-16 20:00] VITALS: BP 93/51; PULSE 88; RESP 16; TEMP 36.6; O2SAT 91
[2022-06-17 04:00] VITALS: BP 103/57; PULSE 68; RESP 16; TEMP 36.6; O2SAT 96; BMI 22.8
--- NOTE | 2022-06-17 06:15 | PC.NURSE ---
NO ACUTE CHANGES SINCE PREVIOUS ASSESSMENT. PT HAS SLEPT INTERMITTENTLY. LUNG SOUNDS CLEAR. REMAINS ON ROOM AIR. UP TO BSC WITH X1 ASSIST. C/O PAIN X1 THIS SHIFT AND WAS MEDICATED PER MAR WITH ADEQUATE RELIEF. VSS. DRESSING ON HIP REINFORCED. CALL EARLY WITHIN REACH.
[2022-06-17 07:15] LABS: Basophils % 0.4 % (0.1-2.0); Eosinophils # 0.2 K/mm3 (0.0-0.4); Eosinophils % 3.5 % (0.1-12.0); Hematocrit 22.8 % (37.0-47.0); Hemoglobin 8.2 g/dL (12.2-16.2); Lymphocytes # 0.8 K/mm3 (0.7-4.5); Lymphocytes % 18.4 % (10-50); Mean Corpuscular HGB Conc 35.7 g/dL (31.8-35.4); Mean Corpuscular Volume 92.5 fl (81-99); Mean Platelet Volume 7.9 fl (7.4-10.4); Monocytes # 0.3 K/mm3 (0.1-1.0); Monocytes % 7.8 % (1.7-9.3); Neutrophils # 3.1 K/mm3 (1.8-7.8); Neutrophils % 69.8 % (37.0-80.0); Platelet Count 146 K/mm3 (142-424); Red Blood Count 2.47 M/mm3 (4.20-5.40); Red Cell Distribution Width 13.6 % (11.5-17.5); White Blood Count 4.4 K/mm3 (4.8-10.8)
[2022-06-17 07:22] LABS: Anion Gap 6.7 mEq/L (5-15); Blood Urea Nitrogen 7 mg/dl (7-17); Calcium 7.6 mg/dl (8.4-10.2); Carbon Dioxide 28 mmol/L (22.0-30.0); Chloride 106 mmol/L (98-107); Creatinine Clearance Estimated 48 mL/min (50-200); Estimated Glomerular Filt Rate 97 ml/min (>60); GFR (African American) 118 ML/MIN (>60); Glucose 89 mg/dl (74-100); Potassium 3.7 mmoL/L (3.5-5.1); Sodium 137 mmol/L (136-145)
[2022-06-17 07:59] VITALS: BP 92/50; PULSE 98; RESP 17; TEMP 37.2; O2SAT 98
[2022-06-17 08:00] VITALS: PULSE 98; RESP 18; O2SAT 98
--- NOTE | 2022-06-17 10:31 | HMH.OTEV ---
OT Inpatient Evaluation Rehab OT IP Evaluation Start: 06/15/22 13:54 Freq: ONCE Status: Active Protocol: Document 06/17/22 10:13 [facility] (Rec: 06/17/22 10:31 [facility] [id number]) Rehab OT IP Assessment Subjective History Pt oriented x 4 on arrival. Pt agreeable to engage in therapy evaluation. Pt was admitted on 06/14/22 due to fall with left femur fx. On 06/15/22 pt required a Cephalomedullary nailing left subtrochanteric femur fracture . Prior to being in the hospital, pt lived at home with her . Pt was very active and was independent with all ADLs and IADLs prior to fall. Pt was also still driving. Pt has a past medical history of: Hyperlipidemia Subdural hematom Subjective I am hoping to get back to normal. Objective Patient Orientation Person,Place,Birthday,Year Upper Extremity Gross ROM WFL Bed Mobility bed mobility-scooting,bed mobility - supine/sit,bed mobility - rolling Assist Level Moderate x 1 (50% assist) Rehab OT IP prob,goals,plan Problems Date of Evaluation: 06/17/22 OT IP Problems Bed Mobility,Transfers,Balance ,Self care,Safety Rehab Potential Rehab Potential Good Equipment Needs Assistive Devices Rolling / Wheeled Walker Plan OT intervention Plan Bed Mobility,Transfers,Balance ,Self care,Safety,Therapeutic Exercise OT Plan Frequency BID Duration LOS Discharge Goals Bed Mobility Ability Standby Assistance Sit to Stand Chair Transfer Ability Minimal x 1 (25% assist) Chair Transfer Ability Minimal x 1 (25% assist) Chair Transfer Technique Sit to/from Ambulatory Chair Transfer Assistive Devices Rolling Walker Feeding Ability Assist with Tray Set Up Lower Body Dressing Ability Assistance X1 Upper Body Dressing Ability Standby Assistance Bathing Ability Assistance x1 Performing Toilet Hygiene Ability Assistance X1 Overall Commode/Toilet Transfer Ability Assistance x1 Commode/Toilet Transfer Technique Sit
--- NOTE | 2022-06-17 10:41 | EXP.ORTH.PN ---
Subjective *Date: 06/17/22 *Time: 10:30 Interval history: Ms. Borrego is a 77 year old female patient who underwent an uneventful left hip cephalomedullary nail fixation performed by Dr. Martinez on 06/15/2022. This morning the patient is postop day #2. This morning the patient is lying comfortably in bed. She reports some left hip pain as to be expected but states that it is well controlled with as needed pain medication and rest. She states that she has only ambulated to go to the restroom but that this is going well. No history of any distal tingling/numbness, fevers, chills, or rigors. She denies any other symptoms or concerns at this time. Ortho Exam (Inpt) Vital signs and Labs for Last 24 Hours: Temp Pulse Resp BP Pulse Ox 99.0 F 98 H 17 92/50 L 98 06/17/22 07:59 06/17/22 07:59 06/17/22 07:59 06/17/22 07:59 06/17/22 07:59 Laboratory Results - last 24 hr 06/17/22 06:35: WBC 4.4 L, RBC 2.47 L, Hgb 8.2 L, Hct 22.8 L, MCV 92.5, MCH 33.0 H, MCHC 35.7 H, RDW 13.6, Plt Count 146, MPV 7.9, Neut % (Auto) 69.8, Lymph % (Auto) 18.4, [place] % (Auto) 7.8, Eos % (Auto) 3.5, Baso % (Auto) 0.4, Neut # (Auto) 3.1, Lymph # (Auto) 0.8, [place] # (Auto) 0.3, Eos # (Auto) 0.2, Baso # (Auto) 0.0 06/17/22 06:35: Sodium 137, Potassium 3.7, Chloride 106, Carbon Dioxide 28, Anion Gap 6.7, BUN 7, Creatinine 0.60, Estimated Creat Clear 48, Estimated GFR 97, Est GFR ( Amer) 118, Glucose 89, Calcium 7.6 L I & O for Labs for Last 24 Hours: Intake & Output 06/14/22 06/15/22 06/16/22 06/17/22 23:59 23:59 23:59 23:59 Intake Total 4500 / 4500 960 / 960 240 / 240 Output Total 600 / 600 625 / 1625 1999 / 1999 1000 / 1000 Balance -600 / -600 3875 / 2875 -1040 / -1040 -760 / -760 Weight 124 lb 4 oz 138 lb 9 oz 136 lb 10.986 oz 136 lb 12.8 oz Head: Present normocephalic and atraumatic Eyes: Present as per HPI ENT: Present normal exam Neck: Present normal inspection, full ROM and trachea midline; Absent lymphadenopathy Respiratory: Present normal respiratory effort, able to speak in complete sentences and symmetric chest movement; Absent accessory muscle use Cardiac: Present Reg Rate and Rhythm GI: Present soft; Absent tenderness Comment:: Upon examination of the left lower extremity: The limb lengths are grossly equal. Dressings present over the left hip are clean, dry, and intact. Out of the dressings, the surgical incisions are healthy and healing well. No erythema, induration, drainage, bleeding, or other signs of infection noted. There are surgical gregory in place. The hip and proximal femur are somewhat tender to palpation. Range of motion of the left hip is somewhat painful. Thigh and calf are soft and nontender; Adam's sign is negative. No clinical evidence of DVT or compartment syndrome noted. Posterior tibial pulse 2+; capillary refill is brisk. Sensation to light touch is grossly intact. Patient is actively mobilizing the foot, ankle, and toes. Skin: Present intact, warm and normal turgor; Absent cyanosis, erythema, lesions or jaundice Neuro: Present Cranial Nerve 2-12 Intact, Motor Function Intact, Sensory Function Intact, alert, awake, oriented x 3, tone normal and moves all extremities; Absent Numbness or Tingling Assessment and Plan *Assessment and plan (1) Fracture, subtrochanteric, left femur, closed: Status: Acute Category: Medical Code(s): S72.22XA - Displaced subtrochanteric fracture of left femur, initial encounter for closed fracture Plan I have discussed the clinical findings and diagnostic imaging with the patient. Overall she is doing well from an orthopedic standpoint this morning and may be discharged when medically appropriate. Plan to continue PT/OT; patient may remain weightbearing as tolerated on the left lower extremity with the use of a walker. Continue rest, ice, and as needed pain medication. I have changed her surgical dressings and the surgical incisions are healthy and healing well; sterile radha
--- NOTE | 2022-06-17 10:57 | SW/DCPLANNER ---
Addendum entered by Awilda Olson 06/17/22 15:02: This patient has been approved for admission on [facility] Unit today. COVID swab will need to be collected prior to discharge. Dr Kelly is fine with this patient discharging today. Original Note: Patient/family has requested placement at [facility] for SNF level of care. Patient information has been faxed to Jamilah cordero/ [facility]. I will follow up with Jamilah once information is reviewed. Patient stated that if [facility] can not accept she would prefer [place].
--- NOTE | 2022-06-17 14:25 | EXP.ACUTE.PN ---
Subjective *Date: 06/17/22 *Time: 14:25 Interval history: No acute events overnight. Only required 2 doses of pain medication. Tolerating p.o. intake. Still feels quite fatigued and just ambulating to the bathroom. Labs reviewed, hemoglobin stable. Complains of having sweats overnight but no richard fever. Blood pressure and vitals within normal range. Denies nausea, vomiting, diarrhea. Medical Exam Vital signs and Labs for Last 24 Hours: Vital Signs Temp Pulse Resp BP Pulse Ox 06/17/22 08:00 98 H 18 98 06/17/22 07:59 99.0 F 98 H 17 92/50 L 98 06/17/22 04:00 97.9 F 68 16 103/57 L 96 06/16/22 20:00 98 F 88 16 93/51 L 91 L 06/16/22 15:28 100.1 F H 88 18 102/47 L 96 Intake and Output 06/16/22 06/17/22 06/17/22 23:59 07:59 15:59 Intake Total 240 / 960 240 / 480 240 / 480 Output Total 600 / 1300 700 / 1300 Balance 240 / -1040 -360 / -820 -460 / -820 Intake: Intake, Oral Amount 240 / 840 240 / 480 240 / 480 Output: Output, Urine Amount 600 / 1300 700 / 1300 Other: Number of Unmeasured Voids 0 Weight 62.051 kg Patient Weight 06/17/22 23:59 Weight 62.051 kg Laboratory Results - last 24 hr 06/17/22 06:35: WBC 4.4 L, RBC 2.47 L, Hgb 8.2 L, Hct 22.8 L, MCV 92.5, MCH 33.0 H, MCHC 35.7 H, RDW 13.6, Plt Count 146, MPV 7.9, Neut % (Auto) 69.8, Lymph % (Auto) 18.4, [place] % (Auto) 7.8, Eos % (Auto) 3.5, Baso % (Auto) 0.4, Neut # (Auto) 3.1, Lymph # (Auto) 0.8, [place] # (Auto) 0.3, Eos # (Auto) 0.2, Baso # (Auto) 0.0 06/17/22 06:35: Sodium 137, Potassium 3.7, Chloride 106, Carbon Dioxide 28, Anion Gap 6.7, BUN 7, Creatinine 0.60, Estimated Creat Clear 48, Estimated GFR 97, Est GFR ( Amer) 118, Glucose 89, Calcium 7.6 L I & O for Labs for Last 24 Hours: Intake & Output 06/14/22 06/15/22 06/16/22 06/17/22 23:59 23:59 23:59 23:59 Intake Total 4500 / 4500 960 / 960 480 / 480 Output Total 600 / 600 625 / 1625 1999 / 1999 1300 / 1300 Balance -600 / -600 3875 / 2875 -1040 / -1040 -820 / -820 Weight 56.359 kg 62.851 kg 62 kg 62.051 kg Constitutional: Present no acute distress Head: Present atraumatic and normocephalic ENT: Present normal exam Neck: Present normal inspection Respiratory: Present normal respiratory effort; Absent accessory muscle use, rhonchi, wheezes or crackles Cardiac: Present Reg Rate and Rhythm GI: Present soft and normal bowel sounds; Absent distention or tenderness Extremities: Present normal inspection Comment:: Left leg normal length/equal to right leg. Bandage has been changed, new dressing clean dry intact. No significant bruising of left thigh Skin: Present intact; Absent erythema Neuro: Present Grossly Intact, alert, awake, oriented x 3 and moves all extremities Assessment and Plan *Assessment and plan (1) Fracture, subtrochanteric, left femur, closed: Status: Acute Category: Medical Code(s): S72.22XA - Displaced subtrochanteric fracture of left femur, initial encounter for closed fracture (2) Hyperlipidemia: Status: Acute Qualifiers: Hyperlipidemia type: mixed hyperlipidemia Qualified Code(s): E78.2 - Mixed hyperlipidemia Category: Medical Code(s): E78.5 - Hyperlipidemia, unspecified (3) History of TIA (transient ischemic attack): Status: Chronic Category: Medical Code(s): Z86.73 - Personal history of transient ischemic attack (TIA), and cerebral infarction without residual deficits (4) Hypothyroidism: Status: Acute Category: Medical Code(s): E03.9 - Hypothyroidism, unspecified (5) Hx of supraventricular tachycardia: Status: Acute Category: Medical Code(s): Z86.79 - Personal history of other diseases of the circulatory system (6) Anemia: Status: Acute Category: Medical Code(s): D64.9 - Anemia, unspecified Plan Ms. Bruner is a pleasant 77-year-old female with history of SVT, status post ablation. She
--- NOTE | 2022-06-17 14:47 | EXP.DC.SUM ---
General Admission date:: 06/14/22 Discharge date: 06/17/22 HPI HPI HPI: Ms. Snyder is a pleasant 77-year-old female who is active daily walking several miles a day. States she was walking at home when she tripped in the garage and fell on her left side. Had instant pain in her left upper leg. Could not get up and bear weight, so she texted her to come get her in the garage. He was able to pick her up off the floor, and tried to help her into the house. Upon trying to step up into the house (one-step) she felt a pop in her left hip and had continued left hip pain. Unable to bear weight. called EMS and she was brought to the ER for further management. On arrival, had notable deformity of left leg, externally rotated and shortened. X-ray revealed left hip fracture. Orthopedics consulted for surgical fixation. Medicine consulted for admission. After arriving to the floor, obtained history about her medical conditions. She has a history of SVT, status post heart ablation 2020 at . Last follow-up with cardiology in January, she was cleared at that time and has no further follow-up. No further episodes of SVT. Additionally has a history of rectal cancer, treated with radiation. Has been cancer free for over 3 years now. Does not smoke, denies any history of kidney disease, no chest pain or shortness of breath with exertion. Independent for ADLs. She appears younger than stated age. 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 Has no lasting neurologic sequela. No history of clotting disorders or blood clots. Hospital Course Hospital Course Hospital Course: Ms. Bruner is a pleasant 77-year-old female with history of SVT, status post ablation.? She fell at home sustaining left hip fracture.? Admitted for surgical evaluation/fixation and further management.? Problems addressed as follows: Left femur subtrochanteric fracture -Ortho consulted, appreciate their recommendations and care. Sustained fracture with fall at home. Status post cephalomedullary nailing of subtrochanteric left femur fracture. Tolerated procedure well. Had significant bleeding within thigh due to trauma. Ortho reports evacuation of clot. No further bleeding since surgery. Hemoglobin is remained stable. Tolerating oral pain medication, hydrocodone 5 twice daily. Will be discharged to rehab at [facility] per PT/OT recommendations. Orthopedics recommends continuing aspirin 325 twice daily for 6 weeks total for DVT prophylaxis. Further recommendations as follows: Patient may remain weightbearing as tolerated on the left lower extremity with the use of a walker.? Continue rest, ice, and as needed pain medication.? Surgical dressing changed today. Incisions are healthy and healing well; sterile bordered gauze dressings were reapplied over the surgical incisions.? Plan for daily dressing changes beginning tomorrow.? Patient is okay to transfer to retirement/short-term rehabilitation as placement is available.? Upon discharge, she will be seen in orthopedics clinic for repeat x-ray, staple removal, and wound inspection in approximately 2 weeks. Anemia, acute -Secondary to blood loss from trauma, reportedly had lots of clot at fracture site.? Appears to have bled within thigh after fracture. Initial hemoglobin of 13, stabilized between 8 and 9. No transfusions administered during hospitalization. Initiated on iron supplementation daily with ferrous sulfate 325 mg. Continue at discharge. Hypothyroid: Continue home levothyroxine History of TIA: Continue statin and aspirin Medically stable for discharge to skilled rehab. Exam Data for Last 24 hours Vital signs and Labs for Last 24 Hours: Temp Pulse Resp BP Pulse Ox 99.0 F 98 H 18 92/50 L 98 06/17/22 07:59 06/17/22 08:00 06/17/22 08:00 06/17/22 07:59 06/17/22 08:00 Laboratory Results - last 24
[2022-06-17 15:19] LABS: Hematocrit 24.2 % (37.0-47.0); Hemoglobin 8.3 g/dL (12.2-16.2)
[2022-06-17 16:09] LABS: Coronavirus 19, PCR Not Detected (NotDetected); Influenza A, PCR Not Detected (NotDetected); Influenza B, PCR Not Detected (NotDetected)
== END 2022-06-17 14:35 | DRG 481 ==
LOC: ER 12:27 → 2ND 14:52
PROVIDERS: Orthopaedic Surgery; Admitting Provider Internal Medicine Adolescent Medicine; Emergency Provider Emergency Medicine; PCP Family Medicine; Visit Provider Internal Medicine Adolescent Medicine
PROC: 0QS736Z Reposition Left Upper Femur with Intramedullary Internal Fixation Device, Percutaneous Approach (ICD-10-PCS; principal; 2022-06-15 07:30)
DX: S72.22XA Displaced subtrochanteric fracture of left femur, initial encounter for closed fracture (principal); D62 Acute posthemorrhagic anemia; E78.2 Mixed hyperlipidemia; Z86.73 Personal history of transient ischemic attack (TIA), and cerebral infarction without residual deficits; E03.9 Hypothyroidism, unspecified; Z86.79 Personal history of other diseases of the circulatory system; W01.0XXA Fall on same level from slipping, tripping and stumbling without subsequent striking against object, initial encounter; Y92.015 Private garage of single-family (private) house as the place of occurrence of the external cause; F17.210 Nicotine dependence, cigarettes, uncomplicated; E78.5 Hyperlipidemia, unspecified
CPT/HCPCS: 27245; 36415; 51702; 73502; 73552; 76000; 80048; 80053; 81001; 83735; 85014; 85018; 85025; 93005; 97163; 97166; 97530; 99285; C1713; C1769; C1776; C9803; J2405; J2704; U0003; U0005

== ENCOUNTER → 2022-07-25 10:11 | Outpatient (CLI) | payer MEDICARE, SELFPAY ==
--- NOTE | 2022-07-25 10:17 | XR_ITS ---
FINAL REPORT CLINICAL HISTORY: hip pain, follow up fx COMPARISON: 06/15/2022 FINDINGS: LEFT HIP 2 views of the left hip are obtained. There is been interval placement of an intramedullary terrance securing displaced proximal left femoral fracture. The the lesser trochanter exists as a free fragment. There is mild bilateral hip joint space narrowing. IMPRESSION: Interval placement of intramedullary terrance securing displaced of the left femoral fracture. Reviewed, Interpreted and Dictated by Graeme Evans MD Transcribed by Lawanda Muñoz Authenticated and [facility]
== END ==
PROVIDERS: PCP Family Medicine; Visit Provider Orthopaedic Surgery
DX: S72.22XA Displaced subtrochanteric fracture of left femur, initial encounter for closed fracture (principal)
CPT/HCPCS: 73502

== ENCOUNTER → 2022-10-17 09:28 | Outpatient (CLI) | payer MEDICARE, SELFPAY ==
--- NOTE | 2022-10-17 09:38 | XR_ITS ---
FINAL REPORT CLINICAL HISTORY: left femur fx COMPARISON: 07/25/2022 FINDINGS: Multiple views of the left femur were obtained. There is an IM terrance and compression screws securing the proximal left femur. There is healed fracture deformity of the proximal left femur. The distal femur appears intact. There are osteophytes along the undersurface of the patella. There is no acute soft tissue abnormality. IMPRESSION: Healed fracture proximal left femur with no acute process. Reviewed, Interpreted and Dictated by Graeme Evans MD Transcribed by Selene Barcenas Authenticated and [facility]
== END ==
PROVIDERS: PCP Family Medicine; Visit Provider Orthopaedic Surgery
DX: S72.22XA Displaced subtrochanteric fracture of left femur, initial encounter for closed fracture (principal)
CPT/HCPCS: 73552

== ENCOUNTER → 2023-04-16 09:42 | Outpatient (CLI) | payer MEDICARE, SELFPAY ==
--- NOTE | 2023-04-16 09:47 | MM_ITS ---
PROCEDURE INFORMATION: Exam: MG Bilateral Screening 3D Mammography Exam date and time: 04/16/2023 9:40 AM Age: 78 years old Clinical indication: Screening examination; Additional info: Screening, PT states thickness behind lt nipple TECHNIQUE: Imaging protocol: Bilateral Screening tomosynthesis and 2D mammography including computer-aided detection (CAD) when performed. COMPARISON: 1. MG MM DIG SCREENING MAMM BI W/CAD 04/15/2022 9:56 AM 2. MG MM DIG SCREENING MAMM BI W/CAD 04/13/2021 10:01 AM 3. MG MM DIG SCREENING MAMM BI W/CAD 04/10/2020 8:58 AM FINDINGS: MAMMOGRAPHY: Breast composition: There are scattered areas of fibroglandular density. Mass: No suspicious masses. Architectural distortion: No suspicious distortion. Calcifications: No suspicious calcifications. Asymmetric density: None. Skin thickening: None. Axillary adenopathy: None. IMPRESSION: No mammographic evidence of malignancy. Annual screening is recommended unless otherwise clinically indicated. On the clinical history form the patient reports thickness behind the left nipple. Please correlate clinically with physical exam if the patient reports a palpable lump. If clinically warranted the patient may benefit from diagnostic mammogram and ultrasound. ASSESSMENT: BI-RADS Category 1: Negative
== END ==
PROVIDERS: PCP Family Medicine; Visit Provider Nurse Practitioner Women's Health
DX: Z12.31 Encounter for screening mammogram for malignant neoplasm of breast (principal)
CPT/HCPCS: 77063; 77067

== ENCOUNTER 2024-11-17 12:55 | Outpatient (RCR) | payer MEDICARE, SELFPAY | END 2024-12-13 23:59 | disposition home or self-care (01) | LOC: OT 12:55 | PROVIDERS: Visit Provider Internal Medicine | DX: C52 Malignant neoplasm of vagina (principal) | CPT/HCPCS: 97110; 97166; 97530 ==

== ENCOUNTER 2024-12-01 14:00 | Outpatient (RCR) | payer MEDICARE, SELFPAY | END 2024-12-01 23:59 | disposition home or self-care (01) | LOC: OT 14:00 | PROVIDERS: Visit Provider Internal Medicine | DX: R53.1 Weakness (principal) | CPT/HCPCS: 97110; 97162 ==

== ENCOUNTER 2025-01-01 12:48 | Emergency (ER) | payer MEDICARE, SELFPAY ==
--- OUTSIDE RECORDS SUMMARY | 2024-11-02 08:30 | XMS_ITS | Encounter Summary ---
Author Organization [facility] Address [address] [place] [address] Care Team Providers Care Service Center Technician Name Role Phone Agapito Ariza Unavailable [phone] Aiden Lr MD Unavailable [phone] Graeme Sharma MD Unavailable [phone] Marco A Vazquez MD Primary Care Provider Reason for Visit * Reason Comments Follow-up Anal Cancer Encounter Details Date Type Department Care Team (Latest Contact Info) Description 11/02/2024 8:30 AM EDT Office Visit [facility] Multidisciplinary Oncology Clinic [address] [place] [id number] Graeme Sharma MD [address] [facility] [address] [place] [address] Squamous cell carcinoma of rectum (Primary Dx) Social History Tobacco Use Types Packs/Day Years Used Date Smoking Tobacco: Never Passive Smoke Exposure: Never Smokeless Tobacco: Never Tobacco Cessation:Counseling Given: Not Answered Alcohol Use Standard Drinks/Week Comments Not Currently 7 (1 standard drink = 0.6 oz pur e alcohol) stopped drinking 11/2023 Humiliation, Afraid, Rape, and Kick questionnair e Answer Date Recorded Within the last year, have y ou been afraid of your partner or ex-partner? No 09/03/2024 Within the last year, have y ou been humiliated or emotionally abused in other ways by your partner or ex-partner? No Within the last year, have y ou been kicked, hit, slapped, or otherwise physically hurt by your partner or ex-partner? No 09/03/2024 Within the last year, have y ou been raped or forced to have any kind of sexual activity by your partner or ex-partner? No 09/03/2024 PHQ-2 Answer Date Recorded Patient Health Questionnaire-2 Score 2 08/06/2024 Hunger Vital Sign Answer Date Recorded Within the past 12 months, y ou worried that your food would run out before you got the money to buy more. Never true 09/04/19 25 Within the past 12 months, t he food you bought just didn't last and you didn't have money to get more. Never true 09/03/2024 PRAPARE - Transportation Answer Date Re corded In the past 12 months, has l ack of transportation kept you from medical appointments or from getting medications? No 08/15 In the past 12 months, has l ack of transportation kept you from meetings, work, or from getting things needed for daily living? No 09/03/2024 PHQ-9 Answer Date Recorded Patient Health Questionnaire-9 Score 2 08/03/2024 Housing Stability Vital Sign Answer Farooq e Recorded In the last 12 months, was t here a time when you were not able to pay the mortgage or rent on time? No 09/03/2024 Number of Times Moved in the Last Year Not on fi le 09/03/2024 At any time in the past 12 m [facility], were you homeless or living in a nursing home (including now)? No 09/03/2024 CAGE ASSESSMENT Answer Date Recorded Cage unable to access Not on file 10/05/2024 Cage max number of drinks Not on file 2024 Cage Beverages a week Not on file 10/05/2024 Have you ever felt you should CUT down on your d rinking? 0 10/05/2024 Have you been ANNOYED by people criticizing your drinking? 0 10/05/2024 Have you felt GUILTY about your drinking? 0 10/05/2024 Have you had a drink first t jefe in the morning ([employer]) to steady your nerves or to get rid of a hangover? 0 10/05/2024 CAGE Questionnaire Score 0 025 Utilities Answer Date Recorded In the past 12 months has th e electric, gas, oil, or water company threatened to shut off services in your home? No 09/03/2024 PHQ-2A Answer Date Recorded Patient Health Questionnaire-2 Score 0 08/21/2022 Comments No Sex and Gender Information Value Date Recorded Sex Assigned at Not on file Legal Sex Female 8:54 PM EDT Gender Identity Not on file Sexual Orientation Not on file documented as of this encounter Last Filed Vital Signs Vital Sign Reading Time Taken Comments Blood Pressure 106/70 11/02/2024 8:31 AM EDT Pulse 79 11/02/2024 8:31 AM EDT Temperature 36.4 C (97.6 F) 11/02/2024 8:31 AM EDT Respiratory Rate - - Oxygen Saturation 99% 11/02/2024 8:31 AM EDT Inhaled Oxygen Concentration - - Weight 49.9 kg (110 lb) 11/02/2024 8:31 AM EDT Height 157.5 cm (5' 2 ) 11/02/2024 8:31 AM EDT Body Mass Index 20.12 11/02/2024 8:31 AM EDT documented in this encounter Miscellaneous Notes * Progress Notes - Graeme Sharma MD - 11/02/2024 8:30 AM EDT [facility] Colon and Rectal Surgery [facility] YAMIL Sharma MD FACS FASCRS Name: Yolie Borrego DOS: 11/02/24 Subjective: Ms. 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 Completed subacute rehab after discharge. Currently at home. Still gaining strength. Primary complaints are fatigue and diminished mental clarity. Objective: Visit Vitals BP 106/70 Pulse 79 Temp 36.4 ??C (97.6 ??F) Ht 1.575 m (5' 2 ) Wt 49.9 kg (110 lb) LMP 08/21/1996 (Approximate) SpO2 99% BMI 20.12 kg/m?? OB Status Postmenopausal Smoking Status Never BSA 1.48 m?? General: Healthy. Abdomen: Soft. Colostomy viable. Ileal conduit viable. Rectum: Perineal wound closure healing well. Flap viable. Assessment: Ms. Borrego is a 79-year-old female with pelvic exenteration for locally advanced squamous cell carcinoma. Multi visceral involvement. Margins negative. Lymph nodes negative. Still recovering and has been recently discharged from subacute rehab. Recommend continued physical therapy at home with increased activity. Patient has scheduled follow-up with [facility] PLASTIC SURGERY and UROLOGY next week. PLAN FOLLOWS: Prescription for Lortab. Discontinue Belbuca. Return to clinic in 4 weeks. documented in this encounter Plan of Treatment Upcoming Encounters Date Type Department Care Team (Late st Contact Info) Description 02/01/2025 7:00 AM EDT Appointment [facility] Rad[facility] [address] [place] [address] 02/01/2025 9:00 AM EDT Office Visit [facility] Oncology [facility] [address] [place] [address] Graeme Sharma MD [address] [facility] [address] [place] [address] 02/08/2025 9:15 AM EDT Clinical Support [facility] Multidisciplinary Oncology Clinic [address] [place] [phone] 02/08/2025 9:20 AM EDT Office Visit [facility] Multidisciplinary Oncology Clinic [address] [place] [phone] Monica Sanchez MD [address] [facility] [address] [place] [address] 02/08/2025 11:00 AM EDT Appointment [facility] Infusion [address] [place] [address] 05/16/2025 9:40 AM EST Office Visit [facility] [address] [place] [phone] Rahel Bales PA [address] [facility] [address] [place] [address] documented as of this encounter Visit Diagnoses Diagnosis Squamous cell carcinoma of rectum- Primary documented in this encounter Additional Health Concerns Assessment Noted Time PHQ-9 Depression Total Score: 2 08/03/19 25 8:20 AM EST A fall risk assessment has been complete d for the patient 11/02/2024 8:37 AM EDT A Body Mass Index follow-up plan has been documented for the patient 11/02/2024 1:21 PM EDT documented as of this encounter Care Teams Service Center Technician Relationship Specialty Start Date End Date Marco A Vazquez MD [address] [place] [address] PCP - General 03/22/24 Agapito Ariza PA [address] [place] [address] Physician Senior [employer] Programmer Otolaryngology 03/05/22 Aiden Lr MD [address] [facility] Cancer [address] [address] Surgeon Otolaryngology 03/05/22 Graeme Sharma MD [address] [place] [address] Referring Physician Colon and Rectal Surgery 08/15/23 documented as of this encounter
--- OUTSIDE RECORDS SUMMARY | 2024-11-09 10:45 | XMS_ITS | Encounter Summary ---
Author Organization [facility] Address [address] [place] [address] Care Team Providers Care Floorworker Distributor Name Role Phone Agapito Ariza Unavailable [phone] Aiden Lr MD Unavailable Graeme Sharma MD Unavailable [phone] Marco A Vazquez MD Primary Care Provider [phone] Reason for Referral * Imaging (Routine) - Pending Review Specialty Diagnoses / Procedures Referred By Contac t Referred To Contact Cardiology Diagnoses Swelling of thigh Procedures VAS US Arterial Duplex Lower Extremity Unilateral Right Nilda Odell PA [address] [facility] [address] [place] [address] Phone: tel: fax: Referral ID Status Reason Start Date Expiration Date Visits Requested Visits Authorized [id number] Pending Review Perform Procedure 11/09/2024 05/11/2026 1 1 Reason for Visit * Consultation (Urgent) - Closed Specialty Diagnoses / Procedures Referred By Contac t Referred To Contact Plastic Surgery Diagnoses Primary cancer of rectum (CMS/HCC) Graeme Sharma MD [address] [facility] [address] [place] [address] Phone: tel: fax: Referral ID Status Reason Start Date Expiration Date V isits Requested Visits Authorized [id number] Closed Specialty Services Required 10/14/2024 04/15/2026 1 1 Encounter Details Date Type Department Care Team (Late st Contact Info) Description 11/09/2024 10:45 AM EDT Office Visit [facility] [address] [place] [address] Aric Goode MD [address] [place] [id number] Swelling of thigh (Primary Dx); Primary cancer of rectum (CMS/HCC) Social History Tobacco Use Types Packs/Day Years Used Date Smoking Tobacco: Never Passive Smoke Exposure: Never Smokeless Tobacco: Never Alcohol Use Standard Drinks/Week Comments Not Currently [...] any time in the past 12 m [facility], were you homeless or living in a fpc (including now)? No 09/03/2024 CAGE ASSESSMENT Answer [...] drink first t jefe in the morning ([employer]) to steady your nerves or to get [...] Sign Reading Time Taken Comments Blood Pressure 107/67 11/09/2024 10:33 AM EDT Pulse 70 11/09/2024 10:33 AM EDT Temperature - - Respiratory Rate - - Oxygen Saturation 95% 11/09/2024 10:33 AM EDT Inhaled Oxygen Concentration - - Weight 52 kg (114 lb 10.2 oz) 11/09/2024 10:33 A M EDT Height 157.5 cm (5' 2 ) 11/09/2024 10:33 AM EDT Body Mass Index 20.97 11/09/2024 10:33 AM EDT documented in this encounter Miscellaneous Notes * Progress Notes - Nilda Odell PA - 11/09/2024 10:45 AM EDT Plastic Surgery History and Physical Chief Complaint: SCC of rectum HPI: Yolie Borrego is a 79 y.o. female presenting to clinic today for continued follow up of Hx of SCC of the rectum s/p chemoradiation. She was found to have recurrence invading vaginal cuff and bladder. She is now s/p pelvic exenteration with CRS, GYO, Urology and right VRAM flap reconstruction with Plastic Surgery on 09/01/24. Reports since being discharged from the hospital and being home from rehab (about 9 days), she has felt very weak. States she has considerable pain of her pelvis and bottom. Notes she has been takinghydrocodone and tylenol, which has been helpful, however she is almost out. States she has difficulty with how tired the medicine makes her feel, but needs it to control her pain. Denies any drainage from the area. Of note, patient states she noticed her right thigh is larger appearing than the left, which is new. Reports she developed a superficial blood clot while in acute rehab and was on Eliquis, however has since stopped taking the Eliquis. Denies any pain or redness of the thigh. Review of Systems: A complete 14-review of systems was performed and was negative except for those details provided inthe HPI or below. Constituation: Healthy ENT: No complaints Respiratory:No complaints : No complaints Musculoskeletal: No complaints Eyes: No complaints Cardiac: No complaints GI: No complaints Neuro: No complaints Skin: No complaints All others:No complaints Allergies: Allergies[1] Past Surgical History: Surgical History[2] Past Medical History: Medical History[3] Family History: Reviewed and non-contributory. Social History: Tobacco Use: denies Alcohol Use: denies Illicit Drug Use: denies Physical Exam: Constitutional: Alert, no acute distress SKIN: No rashes or lesions. Dry. VRAM in place, c/d/I. Well perfused. Moisture around skin edges. No erythema , drainage, or foul odor. Nontender. HEENT: Atraumatic. Normocephalic. Moist mucous membranes. EOMI. External appearance of bilateral ears and nose WNL. PULM: Nonlabored breathing. CV: Extremities well perfused ABD: Vertical incision well healed. Urostomy/Ostomy in place on L. MSK: Moving all extremities without difficulty. No edema noted. NEURO: Alert and oriented x3. PSYCH: Normal mood and behavior. IMAGING: No images are attached to the encounter. Vitals: Visit Vitals BP 107/67 Pulse 70 Ht 1.575 m (5' 2 ) Wt 52 kg (114 lb 10.2 oz) SpO2 95% BMI 20.97 kg/m?? Assessment: Yolie Borrego is a 79 y.o. female presenting to clinic today for continued follow up of Hx of SCC of the rectum s/p chemoradiation. She was found to have recurrence invading vaginal cuff and bladder. She is now s/p pelvic exenteration with CRS, GYO, Urology and right VRAM flap reconstruction with Plastic Surgery on 09/01/24. Plan: - Flap appears healthy today - Encouraged improved hygiene during bathing - Recommend continued close fu with colorectal surgery - Ordered US of R thigh given h/o recent superficial clot. Will call patient with results. - FU 6 weeks [1] No Known Allergies [2] Past Surgical History: Procedure Laterality Date BREAST BIOPSY N/A Biopsy of breast from [facility] CATH ABLATION N/A 2020 Catheter ablation from [facility] CHOLECYSTECTOMY N/A 2002 COLON SURGERY N/A Colon Surgery from [facility] COLONOSCOPY 03/01/2024 FEMUR FRACTURE SURGERY 2022 HYSTERECTOMY N/A 1995 [3] Past Medical History: Diagnosis Date Abnormal Pap smear of cervix Cancer ([facility]) 07/2016 History of uterine fibroid Hx antineoplastic chemo 2016 Hx of abnormal cervical Pap smear Hx of abnormal cervical Pap smear Hypercholesterolemia 01/09/2017 Hyperlipidemia, unspecified Elevated lipids Hypertension 07/04/2020 Hypothyroidism 08/23/2020 Hypothyroidism, unspecified Hypothyroidism, unspecified Hypothyroidism Irregular heartbeat 01/09/2017 Osteopenia 01/09/2017 Osteoporosis 2017 Other specified disorders of bone density and structure, unspecified site Osteopenia Personal history of irradiation 2017 Personal history of other diseases of the circulatory system History of supraventricular tachycardia Personal history of other endocrine, nutritional and metabolic disease History of hypothyroidism Personal history of other malignant neoplasm of rectum, rectosigmoid junction, and anus History of rectal cancer 2017 Personal history of other specified conditions History of syncope Rectal cancer ([facility]) July 2016 SDH (subdural hematoma) ([facility]) 07/31/2020 Skin cancer 2004 Stroke ([facility]) 2013 Supraventricular tachycardia by ECG ([facility]) 07/04/2020 SVT (supraventricular tachycardia) ([facility]) had cardiac ablation Syncope 07/04/2020 Syncope and collapse TIA (transient ischemic attack) 07/31/20202013 Urinary incontinence October 2023 Cosigned by Aric Goode MD at 11/10/2024 11:04 AM EDT Associated attestation - Aric Goode MD - 11/10/2024 11:04 AM EDT I saw and evaluated the patient with the FREEMAN. I discussed the case with the FREEMAN and agree with the findings and plan as documented. I attest to being involved in providing substantive part of the medical decision making in patient care. Perineal VRAM flap doing well without dehiscence. Abdominal incision well healed, fascia intact upon palpation without bulge or hernia with valsalva. Right thigh nontender though given complaint of intermittent swelling and prior superficial venous thrombosis, will plan to obtain DVT ultrasound of the extremity. documented in this encounter Plan of Treatment Upcoming Encounters Date Type Department Care Team (Late st Contact Info) Description 02/01/2025 7:00 AM EDT Appointment [facility]iology [address] [place] [address] 02/01/2025 9:00 AM EDT Office Visit [facility] [address] [place] [address] Graeme Sharma MD [address] [facility] [address] [place] [address] 02/08/2025 9:15 AM EDT Clinical Support [facility] [address] [place] [address] 02/08/2025 9:20 AM EDT Office Visit [facility] [address] [place] [phone] Monica Sanchez MD [address] [facility] Angelina Rothman [facility] [address] [place] [address] 02/08/2025 11:00 AM EDT Appointment [facility] Infusion [address] [place] [address] 05/16/2025 9:40 AM EST Office Visit [facility] [address] [place] [phone] Rahel Bales PA [address] [facility] [address] [place] [address] Scheduled Orders Name Type Priority Associated Diagnoses Order Schedule VAS US Arterial Duplex Lower Extremity Unilateral Right Vascular Ultrasound Routine Swelling of thigh Expected: 11/23/2024 (Approximate), Expires: 05/12/2026 documented as of this encounter Visit Diagnoses Diagnosis Swelling of thigh- Primary Primary cancer of rectum (CMS/HCC) documented in this encounter Additional Health Concerns Assessment Noted Time PHQ-9 Depression Total Score: 2 08/03/19 25 8:20 AM EST A fall risk assessment has been complete d for the patient 11/09/2024 10:34 AM EDT A Body Mass Index follow-up plan has been documented for the patient 11/09/2024 11:26 AM EDT documented as of this encounter Care Teams Floorworker Distributor Relationship Specialty Start Date End Date Marco A Vazquez MD [address] [place] [address] [address] [place] [address] PCP - General 03/22/24 Agapito Ariza PA [address] [facility] [address] [place] [phone] Physician Service Observer Otolaryngology 03/05/22 Aiden Lr MD [address] [facility] [address] [address] Surgeon Otolaryngology 03/05/22 Graeme Sharma MD [address] [place] [phone] Referring Physician Colon and Rectal Surgery 08/15/23 documented as of this encounter
--- OUTSIDE RECORDS SUMMARY | 2024-11-15 11:20 | XMS_ITS | Encounter Summary ---
Author Organization [facility] Address [address] [place] [address] Care Team Providers Care Electrical Project Engineer Name Role Phone Agapito Ariza Unavailable [phone] Aiden Lr MD Unavailable [phone] Graeme Sharma MD Unavailable [phone] Marco A Vazquez MD Primary Care Provider [phone] Reason for Referral * Imaging (Urgent) - Closed Specialty Diagnoses / Procedures Referred By Contac t Referred To Contact Cardiology Diagnoses Superficial thrombosis of leg, right Procedures VAS US Venous Duplex Lower Extremity Unilateral Right Rahel Bales PA [address] [address] Phone: tel: fax: Referral ID Status Reason Start Date Expiration Date V isits Requested Visits Authorized [id number] Closed Perform Procedure 11/15/2024 05/17/2026 1 1 Reason for Visit * Reason Comments Follow-up Squamous cell carcin pastora of rectum Encounter Details Date Type Department Care Team (Latest Contact Info) Description 11/15/2024 11:20 AM EDT Office Visit [facility] Multidisciplinary Oncology Clinic [address] [place] [address] Rahel Bales PA [address] [address] Superficial thrombosis of leg, right (Primary Dx) Social History Tobacco Use Types [...] Date Recorded Patient Health Questionnaire-2 Score 0 11/15/2024 Hunger Vital Sign Answer Date Recorded Within [...] Answer Date Recorded Patient Health Questionnaire-9 Score 0 11/15/2024 Housing Stability Vital Sign Answer Farooq e Recorded In the last 12 months, was t here a time when you were not able to pay the mortgage or rent on time? No 09/03/2024 Number of Times Moved in the Last Year Not on fi le 09/03/2024 At any time in the past 12 m [facility], were you homeless or living in a [...] drink first t jefe in the morning (EYE-PALS SPECIALIST) to steady your nerves or to get rid of a hangover? 0 10/05/2024 CAGE Questionnaire Score 0 025 Utilities Answer Date Recorded In the past 12 months has th [employer], gas, oil, or water company threatened to [...] Sign Reading Time Taken Comments Blood Pressure 102/65 11/15/2024 11:15 AM EDT Pulse 73 11/15/2024 11:15 AM EDT Temperature 36.8 C (98.2 F) 11/15/2024 11:15 AM EDT Respiratory Rate 14 11/15/2024 11:15 AM EDT Oxygen Saturation 100% 11/15/2024 11:15 AM EDT Inhaled Oxygen Concentration - - Weight 50.9 kg (112 lb 3.4 oz) 11/15/2024 11:15 AM EDT Height 157.5 cm (5' 2 ) 11/15/2024 11:15 AM EDT Body Mass Index 20.52 11/15/2024 11:15 AM EDT documented in this encounter Functional Status * Over the past 2 weeks, how often have you been bothered by any of the following problems? Question Answer Date of Assessment Author Little interest or pleasure in doing things Not at all 11/15/2024 11:23 AM EDT Erin Osorio Feeling down, depressed, or hopeless Not at all 11/15/2024 11:23 AM EDT Erin Osorio Patient Health Questionnaire -2 Score 0 11/15/2024 11:23 AM EDT Erin Osorio * Question Answer Date of Assessment Author Trouble falling or staying a sleep, or sleeping too much Not at all 11/15/2024 11:23 AM EDT Erin Osorio Feeling tired or having demetrius le energy Not at all 11/15/2024 11:23 AM EDT Erin Osorio Poor appetite or overeating Not at all 11/15/2024 11 :23 AM EDT Erin Osorio Feeling bad about yourself - or that you are a failure or have let yourself or your family down Not at all 11/15/2024 11:23 AM TALISHAT Kellie Osorio Trouble concentrating on thi ngs, such as reading the newspaper or watching television Not at all 11/15/2024 11:23 AM Erin Sheth Moving or speaking so slowly that other people could have noticed? Or the opposite - being so fidgety or restless that you have been moving around a lot more than usual. Not at all 11/15/2024 11:23 AM Erin Sheth Thoughts that you would be b radu off or hurting yourself in some way Not at all 11/15/2024 11:23 AM TALISHAT Erin Osorio Patient Health Questionnaire -9 Score 0 11/15/2024 11:23 AM EDT Erin Osorio * If you checked off any problems on this questionnaire so far, Question Answer Date of Assessment Author How difficult have these problems made it for you to do your work, take care of things at home, or get along with other people? Not difficult at all 11/15/2024 11:23 AM Erin Sheth documented as of this encounter Miscellaneous Notes * Progress Notes - Rahel Bales PA - 11/15/2024 11:20 AM EDT Urology Clinic Note Chief Complaint: preoperative evaluation History of Present Illness: Yolie Borrego is a 79 y.o. 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 She completed neoadjuvant chemotherapy with carboplatin and paclitaxel 07/20/24. Imaging following this shows extension of tumor into the vaginal cuff, bladder, and right UVJ. Patientwas referred for evaluation of pelvic exenteration. Surgery currently scheduled on 09/01 between urology, plastics, colorectal, and gynecology. She has a right PCNT that was placed in 03/2024 due to right hydronephrosis. It was exchanged in 06/2024. She notes having clear yellow urine. Notes that she still have urinary incontinence. Pertinent medical history includes HLD, HTN, hypothyroidism, osteoporosis, subdural hematoma, stroke, SVT, and TIA. Pertinent surgical history includes hysterectomy, cholecystectomy. The patient's last colonoscopy was in February of 2024. The patient denies a family history of malignancy. 09/01/2024 - Underwent combination case with CRS, plastic surgery, urology and [facility] for abdominalperineal resection with radical cystectomy and sigmoid colon conduit diversion, end colostomy, posterior completion vaginectomy, ileocecectomy, pelvic exenteration and right rectus abdominis myocytaneous flap. Margins and nodes were negative. Her PNT was removed 09/14/2024 and Appliance Service Representative stents removed during admission as well. She was discharged to rehab and subsequently discharged home. She did develop a superficial blood clot in her thigh while in rehabd and eliquis was started. 10/15/2024 - Was noted to be febrile to 103F, cloudy urine in ostomy. Labs then included WBC 6.66, hgb 9.4, creat 0.71. I don't see a UA or urine C&S but 07/18 blood C&S were negative. She was discharged to rehab 10/16 and discharged home 10/31/2024. 11/15/2024 - She has f/u with CRS and plastics within the last 7-10 days. Sounds like she was diagnosed with a superficial vein thrombosis in her right thigh while in rehab, was on eliquis for a time but is no longer taking this. Within the last couple of days, has noted some hardness of superficial veins in right thigh once again. Looks like plastics ordered a doppler US on 11/09 but this has yet to be scheduled. No urinary complaints, occ cloudy urine but usually clears with hydration. No F/C/GH, no abdominal pain. She sees CRS in coming weeks, sounds like routine scans will be scheduled with them. Past Medical History: Diagnosis Date Abnormal Pap smear of cervix Cancer ([facility]) 07/2016 History of uterine fibroid Hx antineoplastic [...] specified conditions History of syncope Rectal cancer ([facility]) July 2016 SDH (subdural hematoma) ([facility]) 07/31/2020 Skin cancer 2004 Stroke ([facility]) 2013 Supraventricular tachycardia by ECG ([facility]) 07/04/2020 SVT (supraventricular tachycardia) ([facility] had cardiac ablation Syncope 07/04/2020 Syncope and collapse TIA (transient ischemic attack) 07/31/20202013 Urinary incontinence October 2023 Past Surgical History: Procedure Laterality Date BREAST BIOPSY N/A Biopsy of breast from [facility] CATH ABLATION N/A 2020 Catheter ablation from [facility] CHOLECYSTECTOMY N/A 2002 COLON SURGERY N/A Colon Surgery from [facility] COLONOSCOPY 03/01/2024 FEMUR FRACTURE SURGERY 2022 HYSTERECTOMY N/A 1995 Family History Problem Relation Name Age of Onset Cardiac disorder Father Edy Matthews Conversions - Other Father Edy Matthews malignant neoplasm in father Lung cancer Father Edy Matthews Prostate cancer Father Edy Matthews Cancer Father Edy Matthews Radiation Therapy Father Edy Matthews Anesthesia problems Father Edy Matthews Malig Hyperthermia Neg Hx Social History Socioeconomic History Marital status: Spouse name: Not on file Number of children: Not on file Years of education: Not on file Highest education level: Not on file Occupational History Not on file Tobacco Use Smoking status: Never Passive exposure: Never Smokeless tobacco: Never Vaping Use Vaping status: Never Used Substance and Sexual Activity Alcohol use: Not Currently Alcohol/week: 7.0 standard drinks of alcohol Types: 7 Glasses of wine per week Comment: stopped drinking 11/2023 Drug use: No Comment: Drug use: Does not use illicit drugs Sexual activity: Not Currently Partners: Male control/protection: Post-menopausal Other Topics Concern Not on file Social History Narrative Marital Status: 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 Health Financial Resource Strain: Not on file Food Insecurity: No Food Insecurity (09/03/2024) Hunger Vital Sign Worried About Running Out of Food in the Last Year: Never true Ran Out of Food in the Last Year: Never true Transportation Needs: No Transportation Needs (09/03/2024) PRAPARE - Transportation Lack of Transportation (Medical): No Lack of Transportation (Non-Medical): No Physical Activity: Not on file Stress: Not on file Social Connections: Unknown (03/24/2023) Received from [facility] Family and Community Support Help with Day-to-Day Activities: Not on file Lonely or Isolated: Not on file Intimate Partner Violence: Not At Risk (09/03/2024) Humiliation, Afraid, Rape, and Kick questionnaire Fear of Current or Ex-Partner: No Emotionally Abused: No Physically Abused: No Sexually Abused: No Housing Stability: Unknown (09/03/2024) Housing Stability Vital Sign Unable to Pay for Housing in the Last Year: No Number of Times Moved in the Last Year: Not on file Homeless in the Last Year: No Current Outpatient Medications Medication Sig Dispense Refill apixaban (Eliquis) 5 MG tablet Take 1 tablet by mouth 2 times a day. aspirin 81 MG EC tablet Take 1 tablet (81 mg) by mouth 1 (one) time each day. atorvastatin (Lipitor) 10 MG tablet Take 1 tablet (10 mg) by mouth nightly. buprenorphine HCl (Belbuca) [address] 1 Film into mouth between cheek and gum 2 times a day. . 60 each 0 gabapentin (Neurontin) 300 MG capsule Take 1 capsule by mouth 3 times a day. 90 capsule 0 HYDROcodone-acetaminophen (Shelby) 5-325 MG tablet Take 1 tablet by mouth every 6 hours as needed for moderate pain. 21 tablet 0 levothyroxine (Synthroid, Levoxyl) 75 MCG tablet Take 1 tablet (75 mcg) by mouth in the morning. midodrine (Proamatine) 2.5 MG tablet Take 1 tablet by mouth 3 times a day. naloxone (Narcan) 4 mg/0.1 mL nasal spray 1. Give 1 spray in nostril for no/slow breathing or cannot wake after opioid use 2. Call 911 3. Repeat in other nostril if symptoms continue . 1 each 0 polyethylene glycol (Miralax) 17 g packet Take 17 g by mouth 2 times a day. 60 packet 1 venlafaxine XR (Effexor-XR) 150 MG 24 hr capsule Take 1 capsule by mouth daily with breakfast. Do not crush or chew. No current facility-administered medications for this visit. No Known Allergies Visit Vitals BP 102/65 (BP Location: Right arm, Patient Position: Sitting, BP Cuff Size: Adult) Pulse 73 Temp 36.8 ??C (98.2 ??F) (Oral) Resp 14 Ht 1.575 m (5' 2 ) Wt 50.9 kg (112 lb 3.4 oz) LMP 08/21/1996 (Approximate) SpO2 100% BMI 20.52 kg/m?? OB Status Postmenopausal Smoking Status Never BSA 1.49 m?? Physical Exam Vitals reviewed. Constitutional: General: She is not in acute distress. Appearance: Normal appearance. She is not ill-appearing. HENT: Head: Normocephalic and atraumatic. Eyes: Conjunctiva/sclera: Conjunctivae normal. Cardiovascular: Comments: In right distal thigh, there are some palpable tortuous veins, with some induration alongcourse of vein. No edema or tenderness. Abdominal: General: There is no distension. Palpations: Abdomen is soft. Tenderness: There is no abdominal tenderness. Comments: LLQ colostomy and urostomy look good, pink moist stoma. Urine output is garya clear yellow in bag. Well-healed midline incision, no redness/swelling Skin: General: Skin is warm and dry. Neurological: General: No focal deficit present. Mental Status: She is alert and oriented to person, place, and time. Psychiatric: Mood and Affect: Mood normal. Behavior: Behavior normal. Thought Content: Thought content normal. Judgment: Judgment normal. Prior Records Review: I personally reviewed I personally reviewed outside institution and internal imaging studies, imaging reports, labs, and provider notes as noted below and in the assessment and plan. Labs: 03/04/2024 - creat 0.91 09/15/2024 - creat 0.43 10/15/2024 - creat 0.71, WBC 6.66, hgb 9.4 (stable/chronic) Cultures: 10/15/2024 - no urine C&S but blood C&S negative (07/18) Imaging: CT C/A/P (02/22/2024) - progression of disease with significant enlargement of residual/recurrent soft tissue nodule in right vaginal cuff with involvement of terminal right ureter/right UVJ and right half of posterior bladder as well as entire length of vagina to level of introitus. New marked righthydro and delayed nephrogram. Concern for spread of disease into pelvic peritoneum with small nodular deposits surrounding main mass and also at the upper rectosigmoid junction with possible partial small bowel obstruction. No LAD or liver mets. CT C/A/P (06/08/2024) - interval decreased size of infiltrative pelvic mass centered at vaginal cuff, with persistent abutment and tethering of the anterior rectal wall with infiltrative involvement of posterior bladder wall, right UVJ and distal right ureter. Stable right common iliac node. Interval placement of right PNT with resolution of prior right hydro. MRI pelvis (07/22/2024) - Decreased size of metastatic deposit arising from vaginal cuff. Mass continues to invade right posterior bladder and UVJ with resultant tethering of sigmoid colon and adjacentsmall bowel. CT C/A/P (07/22/2024) - Right PNT in good position without hydro. No evidence of disease progression when compared to 05/2024 scans. Unchanged 8-9mm metastatic right common iliac node. Assessment and Plan: Local advanced SCC of anus - She underwent chemoradiation with complete response in 2016. She had local recurrence found in Fall 2023 including to right UVJ and right half of posterior bladder. She had right PNT placed 03/2024 for new severe right hydro, which resolved the hydro. She is now S/P combination pelvic exoneration including abdominal perineal resection with radical cystectomy and sigmoid colon conduit diversion, end colostomy, posterior completion vaginectomy, ileocecectomy, pelvic exenteration and right rectus abdominis myocytaneous flap on 09/01/2024. Her right PNT was removed 09/14/2024 and creat remained normal. Appliance Service Representative stents removed during admission as well. She did have fever and cloudy urine 10/15. No UA/C&S done but blood C&S were negative. No current fever, GH, or abdominal pain. Good urine output via urostomy, occasionally cloudy but clears with hydration. - F/U here in 6 months, sounds like Colorectal Surgery is coordinating surveillance scans. - Advised pt/ that urostomy will be chronically colonized and would only C&S/treat for truly symptomatic UTI (fever, GH, flank pain, altered mental status, etc.) Thrombosis of superficial right thigh vein - was diagnosed with this while at rehab and was put on short course of eliquis. She is no longer taking eliquis and has recently noted some induration along same superficial vein in recent days. Looks like Plastics ordered doppler US but this has not yet been scheduled. - We were able to get right LE doppler scheduled for later today, will call with results. LUIS Long documented in this encounter Plan of Treatment Upcoming Encounters Date Type Department Care Team (Late st Contact Info) Description 02/01/2025 7:00 AM EDT Appointment [facility] A Radiology [address] [place] [address] 02/01/2025 9:00 AM EDT Office Visit [facility] Multidisciplinary Oncology Clinic [address] [place] [address] Graeme Sharma MD [address] [facility] [address] [place] [address] 02/08/2025 9:15 AM EDT Clinical Support [facility] Multidisciplinary Oncology Clinic [address] [place] [address] 02/08/2025 9:20 AM EDT Office Visit [facility] Multidisciplinary Oncology Clinic [address] [place] [address] Monica Sanchez MD [address] [facility] Angelina Rothman [facility] [address] [place] [address] 02/08/2025 11:00 AM EDT Appointment [facility] [address] [place] [address] 05/16/2025 9:40 AM EST Office Visit [facility] Oncology [facility] [address] [place] [address] Rahel Bales, LUIS [address] [place] [address] documented as of this encounter Results * VAS US Venous Duplex Lower Extremity Unilateral Right (11/15/2024 12:48 PM EDT) Anatomical Region Laterality Modality Lower Extremities Ultrasound Impressions 11/17/2024 9:34 PM EDT Right: Abnormal study; no evidence of acute DVT is identified. Superficial thrombus identified in the AASV and associated varicosities, location described above. COMMUNICATION: Per this written report. Preliminary report signed by Yan Ring RVT on 11/15/2024 12:51 PM By electronically signing this report, I, the attending physician, attest that I have personally reviewed the images/data for the above examination(s) and agree with the final edited report. Drafted by Yan Ring RVT on 11/15/2024 12:49 PM Final report signed by Júnior Buenrostro MD on 11/17/2024 9:34 PM Narrative 11/17/2024 9:34 PM EDT CLINICAL INDICATION: Acute limb swelling TECHNIQUE: Non-invasive, real time duplex exam of the lower extremity venous circulation with Doppler ultrasonic waveform and spectral analysis was performed. COMPARISON: None. FINDINGS: Right: Venous duplex demonstrates compressible common femoral, femoral, popliteal, posterior tibial and peroneal veins. The venous spectral analysis demonstrates a spontaneous, phasic, augmentable and nonpulsatile flow signal. Superficial thrombus is identified in the noncompressible AASV at the proximal and mid thigh. Additionally, thrombosed varicosities are noted at the distal thigh. Left: Venous duplex demonstrates compressible and augmentable common femoral vein, imaged for comparison purposes. Procedure Note Júnior Buenrostro MD - 11/17/2024 CLINICAL INDICATION: Acute limb swelling TECHNIQUE: Non-invasive, real time duplex exam of the lower extremity venouscirculation with Doppler ultrasonic waveform and spectral analysis wasperformed. COMPARISON: None. FINDINGS: Right: Venous duplex demonstrates compressible common femoral, femoral,popliteal, posterior tibial and peroneal veins. The venous spectralanalysis demonstrates a spontaneous, phasic, augmentable and nonpulsatileflow signal. Superficial thrombus is identified in the noncompressible AASV at theproximal and mid thigh. Additionally, thrombosed varicosities are noted atthe distal thigh. Left: Venous duplex demonstrates compressible and augmentable commonfemoral vein, imaged for comparison purposes. IMPRESSION: Right: Abnormal study; no evidence of acute DVT is identified. Superficial thrombus identified in the AASV and associated varicosities,location described above. COMMUNICATION: Per this written report. Preliminary report signed by Yan Ring RVT on 11/15/2024 12:51 PM By electronically signing this report, I, the attending physician, attestthat I have personally reviewed the images/data for the aboveexamination(s) and agree with the final edited report. Drafted by Yan Ring RVT on 11/15/2024 12:49 PM Final report signed by Júnior Buenrostro MD on 11/17/2024 9:34 PM Rahel SMITH CV VASCULAR PROCEDURES Fin al Result documented in this encounter Visit Diagnoses Diagnosis Superficial thrombosis of leg, right- Primary Superficial thrombosis of leg, right documented in this encounter Additional Health Concerns Assessment Noted Time PHQ-9 Depression Total Score: 0 11/16/19 25 11:23 AM EDT A fall risk assessment has been complete d for the patient 11/15/2024 11:23 AM EDT A Body Mass Index follow-up plan has been documented for the patient 11/09/2024 11:26 AM EDT documented as of this encounter Care Teams Electrical Project Engineer Relationship Specialty Start Date End Date Marco A Vazquez MD [address] [place] [address] PCP - General 03/22/24 Agapito Ariza PA [address] [place] [address] Physician Sergeant Missile Crewman Otolaryngology 03/05/22 Aiden Lr MD [address] [address] Surgeon Otolaryngology 03/05/22 Graeme Sharma MD [address] [place] [address] Referring Physician Colon and Rectal Surgery 08/15/23 documented as of this encounter
--- OUTSIDE RECORDS SUMMARY | 2024-11-15 12:30 | XMS_ITS | Encounter Summary ---
Author Organization [facility] Address [address] [id number] Care Team Providers Care Slip Operator Name Role Phone Agapito Ariza Unavailable [phone] Aiden Lr MD Unavailable [phone] Graeme Sharma MD Unavailable [phone] Marco A Vazquez MD Primary Care Provider [phone] Reason for Referral * Imaging (Urgent) - Closed Specialty Diagnoses / Procedures Referred By Contac t Referred To Contact Cardiology Diagnoses Superficial thrombosis of leg, right Procedures VAS US Venous Duplex Lower Extremity Unilateral Right Rahel Bales PA [address] [address] Phone: tel: fax: Referral ID Status Reason Start Date Expiration Date V isits Requested Visits Authorized [id number] Closed Perform Procedure 11/15/2024 05/17/2026 1 1 Reason for Visit * Imaging (Urgent) - Closed Specialty Diagnoses / Procedures Referred By Contac t Referred To Contact Cardiology Diagnoses Superficial thrombosis of leg, right Procedures VAS US Venous Duplex Lower Extremity Unilateral Right Rahel Bales PA [address] [place] [phone] Phone: tel: fax: Referral ID Status Reason Start Date Expiration Date V isits Requested Visits Authorized [id number] Closed Perform Procedure 11/15/2024 05/17/2026 1 1 Encounter Details Date Type Department Care Team (Latest Contact Info) Description 11/15/2024 12:30 PM EDT - 11/15/2024 11:59 PM EDT Hospital Encounter [facility] [address] Room [address] [address] Superficial thrombosis of leg, right Discharge Disposition: Home or Self Care Social History Tobacco Use Types Packs/Day Years [...] any time in the past 12 m [facility], were you homeless or living in a custodial (including now)? No 09/03/2024 CAGE ASSESSMENT Answer [...] drink first t jefe in the morning (EYE-EXCHANGE TELLER) to steady your nerves or to get rid of a hangover? 0 10/05/2024 CAGE Questionnaire Score 0 025 Utilities Answer Date Recorded In the past 12 months has e electric, gas, oil, or water company threatened to shut off services in your home? No 09/03/2024 PHQ-2A Answer Date Recorded Patient Health Questionnaire-2 Score 0 08/21/2022 Comments No Sex and Gender Information Value Date Recorded Sex Assigned at Not on file Legal Sex Female 8:54 PM EDT Gender Identity Not on file Sexual Orientation Not on file documented as of this encounter Functional Status * Over the past 2 weeks, how often have you been bothered by any of the following problems? Question Answer Date of Assessment Author Little interest or pleasure in doing things Not at all 11/15/2024 11:23 AM TALISHAT Erin Osorio Feeling down, depressed, or hopeless [...] Not at all 11/15/2024 11 :23 AM Erin Sheth Feeling bad about yourself - or that you are a failure or have let yourself or your family down Not at all 11/15/2024 11:23 AM TALISHAT Kellie Osorio Trouble concentrating on thi ngs, such as reading the newspaper or watching television Not at all 11/15/2024 11:23 AM TALISHAT Erin Osorio Moving or speaking so slowly that other [...] Questionnaire -9 Score 0 11/15/2024 11:23 AM TALISHAT Erin Osorio * If you checked off any problems on this questionnaire so far, Question Answer Date of Assessment Author How difficult have these problems made it for you to do your work, take care of things at home, or get along with other people? Not difficult at all 11/15/2024 11:23 AM Erin Sheth documented as of this encounter Medications at Time of Discharge acetaminophen (Tylenol) 500 MG tablet Take 1 tablet by mouth 2 times a day as needed. aspirin 81 MG EC tablet Take 1 tablet by mouth 1 time each day. atorvastatin (Lipitor) 10 MG tablet Take 1 tablet by mouth nightly. 12/26/2020 levothyroxine (Synthroid, Levoxyl) 75 MCG tablet Take 1 tablet by mouth daily. 01/03/2021 polyethylene glycol (Miralax) 17 g packet Take 17 g by mouth 2 times a day. 60 packet 1 10/16/2024 gabapentin (Neurontin) 300 MG capsule Take 1 capsule by mouth 3 times a day. 90 capsule 10/16/2024 12/05/2024 HYDROcodone-acet aminophen ([place]) 5-325 MG tablet Take 1 tablet by mouth every 6 hours as needed for moderate pain. 21 tablet 11/12/2024 12/05/2024 documented as of this encounter Plan of Treatment Upcoming Encounters Date Type Department Care Team (Late st Contact Info) Description 02/01/2025 7:00 AM EDT Appointment [facility] [address] [place] [phone] 02/01/2025 9:00 AM EDT Office Visit [facility] [address] [place] [address] Graeme Sharma MD [address] [place] [phone] 02/08/2025 9:15 AM EDT Clinical Support [facility] [address] [place] [address] 02/08/2025 9:20 AM EDT Office Visit [facility] [address] [place] [address] Monica Sanchez MD [address] [facility] [address] [place] [address] 02/08/2025 11:00 AM EDT Appointment [facility] Infusion [address] [place] [address] 05/16/2025 9:40 AM EST Office Visit [facility] [address] [place] [address] Rahel Bales PA [address] [facility] [address] [place] [phone] documented as of this encounter Procedures Procedure Name Priority Date/Time Associated Diagnosis Comments VAS US VENOUS DUPLEX LOWER EXTREMITY UNILATERAL STAT 11/15/2024 12:48 PM EDT Superficial thrombosis of leg, right documented in this encounter Results * VAS US Venous [...] Visit Diagnoses Diagnosis Superficial thrombosis of leg, right documented in this encounter Additional Health Concerns Assessment Noted Time PHQ-9 Depression Total Score: 0 11/16/19 25 11:23 AM EDT A fall risk assessment has been complete d for the patient 11/15/2024 11:23 AM EDT A Body Mass Index follow-up plan has been documented for the patient 11/09/2024 11:26 AM EDT documented as of this encounter Care Teams Slip Operator Relationship Specialty Start Date End Date Marco A Vazquez MD [address] [facility] [address] [place], [place] [id number] PCP - General 03/22/24 Agapito Ariza PA [address] [facility] [address] [place] [address] Physician Compliance Program Manager Otolaryngology 03/05/22 Aiden Lr MD [address] [facility] [address] [phone] Surgeon Otolaryngology 03/05/22 Graeme Sharma MD [address] [place] [address] Referring Physician Colon and Rectal Surgery 08/15/23 documented as of this encounter
--- OUTSIDE RECORDS SUMMARY | 2024-11-30 10:00 | XMS_ITS | Encounter Summary ---
Author Organization [facility] Address [address] [id number] Care Team Providers Care Pump Assembler Name Role Phone Agapito Ariza Unavailable [phone] Aiden Lr MD Unavailable Graeme Sharma MD Unavailable [phone] Marco A Vazquez MD Primary Care Provider [phone] Reason for Referral * Imaging (Routine) - Pending Review Specialty Diagnoses / Procedures Referred By Contac t Referred To Contact Radiology Diagnoses Squamous cell carcinoma of rectum Procedures CT Abdomen Pelvis w IV Contrast Graeme Sharma MD [address] [place] [phone] Phone: tel: fax: Referral ID Status Reason Start Date Expiration Date V isits Requested Visits Authorized [id number] Pending Review 11/30/2024 06/01/2026 1 1 * Imaging (Routine) - Pending Review Specialty Diagnoses / Procedures Referred By Contac t Referred To Contact Radiology Diagnoses Squamous cell carcinoma of rectum Procedures CT Chest w IV Contrast Graeme Sharma MD [address] [place] [phone] Phone: tel: fax: Referral ID Status Reason Start Date Expiration Date V isits Requested Visits Authorized [id number] Pending Review 11/30/2024 06/01/2026 1 1 Reason for Visit * Reason Comments Follow-up Squamous cell carcin pastora of rectum Encounter Details Date Type Department Care Team (Latest Contact Info) Description 11/30/2024 10:00 AM EDT Office Visit [facility] Multidisciplinary Oncology Clinic [address] [place] [address] Graeme Sharma MD [address] [place] [address] Squamous cell carcinoma of rectum (Primary Dx) [...] Date Recorded Patient Health Questionnaire-2 Score 0 11/30/2024 Hunger Vital Sign Answer Date Recorded Within [...] any time in the past 12 m [facility], were you homeless or living in a fci (including now)? 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) to steady your nerves or to get [...] Sign Reading Time Taken Comments Blood Pressure 100/61 11/30/2024 10:24 AM EDT Pulse 84 11/30/2024 10:24 AM EDT Temperature 36.6 C (97.9 F) 11/30/2024 10:24 AM EDT Respiratory Rate 16 11/30/2024 10:2 4 AM EDT Oxygen Saturation 100% 11/30/2024 10: 24 AM EDT Inhaled Oxygen Concentration - - Weight 49.4 kg (108 lb 14.5 oz) 025 10:24 AM EDT Height 157.5 cm (5' 2 ) 11/30/2024 10:2 4 AM EDT Body Mass Index 19.92 11/30/2024 10:24 AM EDT documented in this encounter Functional Status * Over the past 2 weeks, how often have you been bothered by any of the following problems? Question Answer Date of Assessment Author Little interest or pleasure in doing things Not at all 11/30/2024 10:27 AM EDT Estrellita Gupta Feeling down, depressed, or hopeless Not at all 11/30/2024 10:27 AM EDT Estrellita Gupta Patient Health Questionnaire -2 Score 0 11/30/2024 10:27 AM EDT Estrellita Gupta * Question Answer Date of Assessment Author Thoughts that you would be b radu off or hurting yourself in some way Not at all 11/30/2024 10:27 AM EDT Estrellita Gupta * Calculated C-SSRS Risk Score (Lifetime/Recent) Answer Date of Assessment Author No Risk Indicated 12/08/2024 8:00 AM EDT Jacinta Maldonado, RN * Question Answer Date of Assessment Author 1. Wish to be (Past 1 Month) No 025 8:00 AM EDT Jacinta Maldonado, RN 2. Non-Specific Active Suici antonio Thoughts (Past 1 Month) No 12/08/2024 8:00 AM EDT Jacinta Maldonado, RN 6. Suicidal Behavior (Lifetime) No 8:00 AM EDT Jacinta Maldonado, RN documented as of this encounter Miscellaneous Notes * Progress Notes - Leonarda Meade MD - 11/30/2024 10:00 AM EDT COLORECTAL SURGERY FOLLOW-UP NOTE Patient Information Patient Name: Yolie Borrego Date of : 1945 REFERRING PHYSICIAN: No ref. provider found Encounter Date: 11/30/2024 Treatment Diagnosis: Cancer Staging No matching staging information was found for the patient. 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 She was last seen in our clinic 1 monthago. She reports that over the past month she has been gaining strength and mobility with diet and energy levels improving. She has some occasional issues with pain, but is taking oxycodone very infrequently at this point. Ultrasound on 11/15 showed RLE superficial thrombophlebitis, but patient is currently asymptomatic. Oncology History: Oncology History Overview Note Locally advanced, recurrent anal squamous cancer Previous chemoradiation for anal squamous carcinoma at 08/22/23: abnormal Pap smear; high risk HPV detected 02/20/24: CT c/a/p with contrast (c/w prior CT scans from 08/22/23)--No evidence of metastatic disease in the chest. Progression of disease with significant enlargement of residual recurrent soft tissue nodule right vaginal cuff with involvement of the terminal right ureter and right half of urinary bladder. Concern for spread of disease into the pelvic peritoneum was small nodular deposits surrounding the main mass and it upper rectum/rectosigmoid junction. No diffuse peritoneal carcinomatosis. Noevidence of metastatic adenopathy or liver metastasis. 03/11/24: CT guided bx pelvic mass--positive for carcinoma with squamous differentiation. P16 negative Now with vaginal involvement/bladder involvement along with R UV junction, large pelvic mass, poss peritoneal carcinomatosis 03/22/24: MR pelvis with and without contrast--large infiltrative and irregular mass centered at vaginal cuff suspicious for primary malignancy. Mass invades the posterior bladder wall with involvement of the right UVJ and distal right ureter. Involving distal sigmoid colon. 03/22/24: PET--intensely FDG avid irregular infiltrative pelvic soft tissue mass centered at right vaginal cuff with involvement of posterior bladder wall and distal right ureter. Extending into lowervagina. To hypermetabolic metastatic implants along distal sigmoid colon and proximal rectum. Hypermetabolic retroperitoneal metastasis adjacent to right ureter. Stable severe right hydronephrosis. Indeterminate 42 x 27 mm cystic structure in right mid hemipelvis. Diffuse thyroid activity commonly associated with thyroiditis or hyperthyroidism. 03/24/24: appt with Dr. Sharma colorectal surgery. 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 Ortega). Plan to move ahead with systemic chemotherapy from GI medical oncology standpoint. Re-evaluate2 weeksa fter completion of chemotherapy for surgical resection. 03/29/24: Right nephrostomy tube placed by Interventional Radiology. Due for tube exchange in 12 weeks. 04/05/24: C1 carboplatin AUC 5/paclitaxel 175mg/m2 iv every 21 days 04/27/24: C2 carbo/taxol 05/18/24: C3 carbo/taxol 06/08/24: CT c/a/p with contrast--no evidence of disease progression. Interval decrease size of infiltrative pelvic mass at the vaginal cuff. Persistent abutment and tethering of the rectal wall. Involving bladder wall, right ureterovesicular junction and distal right ureter. Decreased conspicuity of obstructive mass at right UV junction. Unchanged right common iliac lymph node. Pelvic mass now measures 5.8 x 3.4 x 3.5 cm (previously 7.6 by 4.4 x 4.9 cm). 06/08/24: C4 carbo/taxol 06/29/24: follow up with Dr. Sharma sched 06/29/24: cycle 5 carbo/taxol+Neulasta 07/01/24: right nephrostomy tube exchange--should be changed in approx 12 weeks 07/20/24: cycle 6 carbo/taxol--last planned chemotherapy 07/22/24: CT c/a/p with contrast--no distant mets. R pelvic mass stable. 07/22/24: MR pelvis with and without contrast--decreased size of pelvic mass arising from vaginal cuff. Continuing to invade the R posterior bladder and R UVJ with tethering sigmoid colon and adjacent small bowel 08/03/24: follow up Christina--pelvic exenteration planned if good response 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 Initial Diagnosis Squamous cell carcinoma of rectum (CMS/HCC) Anal cancer (CMS/HCC) 08/30/2020 Initial Diagnosis Anal cancer (CMS/HCC) 04/05/2024 - Chemotherapy pegfilgrastim (Neulasta) 6 MG/0.6ML on-body injector 6 mg, 6 mg, Subcutaneous, Once, 6 of 6 cycles Administration: 6 mg (04/05/2024), 6 mg (04/27/2024), 6 mg (05/18/2024), 6 mg (06/08/2024), 6 mg (06/29/2024), 6 mg (07/20/2024) CARBOplatin (Paraplatin) 390 mg in sodium chloride 0.9 % 250 mL chemo IVPB, 390 mg, Intravenous, Once, 6 of 6 cycles Administration: 390 mg (04/05/2024), 400 mg (04/27/2024), 420 mg (05/18/2024), 380 mg (06/08/2024), 400 mg (06/29/2024), 410 mg (07/20/2024) PACLitaxel (Taxol) 276 mg in sodium chloride 0.9 % 500 mL chemo IVPB, 175 mg/m2 = 276 mg, Intravenous, Once, 6 of 6 cycles Administration: 276 mg (04/05/2024), 276 mg (04/27/2024), 276 mg (05/18/2024), 276 mg (06/08/2024), 276 mg (06/29/2024), 276 mg (07/20/2024) Past Medical History: has a past medical history of Abnormal Pap smear of cervix, Cancer ([facility]) (07/2016), History of uterine fibroid, antineoplastic chemo (2016), abnormal cervical Pap smear, abnormal cervical Pap smear, Hypercholesterolemia (01/09/2017), Hyperlipidemia, unspecified, Hypertension (07/04/2020), Hypothyroidism (08/23/2020), Hypothyroidism, unspecified, Irregular heartbeat (01/09/2017), Osteopenia (01/09/2017), Osteoporosis (2016), Other specified disorders of bone density andstructure, unspecified site, Personal history of irradiation (2016), Personal history of other diseases of the circulatory system, Personal history of other endocrine, nutritional and metabolic disease, Personal history of other malignant neoplasm of rectum, rectosigmoid junction, and anus, Personal history of other specified conditions, Rectal cancer ([facility]) (July 2016), SDH (subdural hematoma) ([facility]) (07/31/2020), Skin cancer (2003), Stroke ([facility]) (2013), Supraventricular tachycardia by ECG ([facility]) (07/04/2020), SVT (supraventricular tachycardia) ([facility]), Syncope (07/04/2020), TIA (transient ischemic attack) (07/31/2020), and Urinary incontinence (October 2023). Past Surgical History: has a past surgical history that includes Hysterectomy (N/A, 1995); Colon surgery (N/A); Breast biopsy (N/A); Cholecystectomy (N/A, 2002); cath ablation (N/A, 2020); Colonoscopy (03/01/2024); and Femur fracture surgery. Family History: family history includes Anesthesia problems in her father; Cancer in her father; Cardiac disorder in her father; Conversions - Other in her father; Lung cancer in her father; Prostatecancer in her father; Radiation Therapy in her father.. Social History: reports that she has never smoked. She has never been exposed to tobacco smoke. Shehas never used smokeless tobacco. She reports that she does not currently use alcohol after a past usage of about 7.0 standard drinks of alcohol per week. She reports that she does not use drugs.. Review of Systems: A review of systems was conducted with the patient. The following systems were reviewed: (1) Constitutional, (2) Eyes, (3) Ears, Nose, Mouth, Throat, (4) Cardiovascular, (5) Respiratory, (6) Gastrointestinal, (7) Genitourinary, (8) Musculoskeletal, (9) Integumentary, (10) Neurological, (11) Psychiatric, (12) Endocrine, (13) Hematologic/Lymphatic, (14) Allergic/Immunologic. These are all negative with exception to what was noted in the HPI. Objective: Wt Readings from Last 2 Encounters: 11/30/24 49.4 kg (108 lb 14.5 oz) 11/15/24 50.9 kg (112 lb 3.4 oz) Visit Vitals BP 100/61 Pulse 84 Temp 36.6 ??C (97.9 ??F) Resp 16 PHYSICAL EXAM: GENERAL: No apparent distress. HEAD: Normocephalic. No lesions, no masses. EYES: PERRLA, EOMI. Sclerae clear. Negative icterus, negative conjunctivitis. ENT: Negative nasal hemorrhages, negative nasal exudates. SKIN: Warm and well-perfused. NECK: Supple, midline trachea. HEART: Regular rate and rhythm. Negative rubs, negative gallops, negative murmurs. LUNGS: Clear to auscultation bilaterally. CHEST: Deferred. ABDOMEN: Soft, nontender, non-distended. Stomas healthy appearing and well perfused EXTREMITIES: No tenderness, swelling, edema, cyanosis, or clubbing. Pulses adequate bilaterally. MUSCULOSKELETAL: Negative muscle atrophy, negative masses. Strength adequate bilaterally. NEUROLOGIC: Cranial nerves II through XII grossly intact. Negative gait disturbance. Balance and coordination intact. GENITOURINARY: Deferred. LABORATORIES AND STUDIES: I personally reviewed all the laboratory examinations and imaging studies. Lab Results Component Value Date WBC 6.66 10/15/2024 RBC 3.38 (L) 10/15/2024 HGB 9.4 (L) 10/15/2024 HCT 29.3 (L) 10/15/2024 MCV 87 10/15/2024 MCV 91 08/24/2020 MCHC 32.1 10/15/2024 RDW 14.9 (H) 10/15/2024 PLT 268 10/15/2024 MPV 8.4 (L) 10/15/2024 EOS 1 06/18/2020 Lab Results Component Value Date BUN 17 10/15/2024 CL 101 10/15/2024 NA 133 (L) 10/15/2024 K 4.4 10/15/2024 CA 8.3 (L) 08/24/2020 TP 6.1 (L) 10/15/2024 AST 27 10/15/2024 ALT 17 10/15/2024 Lab Results Component Value Date PREALBUMIN 20.1 09/26/2016 Lab Results Component Value Date CEA 12.7 (H) 06/08/2024 CEA 13.3 (H) 04/27/2024 CEA 8.0 08/02/2016 I visualized the recent imaging and discussed the current radiology findings with the patient in detail and answered all questions. === 07/22/24 === CT CHEST W IV CONTRAST - Narrative - CLINICAL INDICATION: colorectal cancer TECHNIQUE: Multiple axial CT images were obtained from thoracic inlet through pubic symphysis following administration of IV contrast, Omnipaque 300, 100 mL. Reformatted images of the abdomen and pelvis in the coronal and sagittal planes were generated from the axial data set to facilitate diagnostic accuracy. Total DLP (Dose-Length Product): 427.34 mGy.cm (accession [id number]), 427.34 mGy.cm (accession [id number]). Please note: The reported value represents the total of one or more individual components during the CT acquisition on this date and at this time, and as such, the same value may appear in more than one CT report depending on the interpreting/reporting physicians. COMPARISON: Thoracoabdominal CTs 06/08/2024 F-18 FDG PET/CT 03/22/24 FINDINGS: Chest: Lymph Nodes and Mediastinum: Unchanged appearance of the multinodular thyromegaly with a dominant left lower pole nodule measuring 25 mm. No suspicious sizable thoracic adenopathy by CT size criteria. A rounded 5 mm prevascular lymph node on 4:95 is nonspecific but appears to be enlarged from 15 mmpreviously when remeasured similarly. Cardiovascular: Normal caliber heart. Patent central thoracic great vessels. No pericardial effusion. Lungs and Pleura: No suspicious sizable pulmonary nodules to suggest metastatic disease. Minimal bronchial wall thickening and tubular bronchiectasis. No suspicious enhancing pleural nodularity or pleural effusions. Musculoskeletal and Body Wall: No acute or aggressive/blastic osseous lesions or body wall soft tissue masses. Unchanged 7 mm medial right breast nodule on 4:226. Moderate multilevel spondylosis withmild kyphoscoliosis. Unchanged tiny bone islands within the T2 and left T7 facet. Abdomen/Pelvis: Solid Abdominal Organs: No suspicious new or enlarging hepatic focal lesions. Unchanged presumed bilobar hepatic cysts. Gallbladder is surgically absent with unchanged mild extrahepatic biliary ectasia. Unremarkable pancreas, adrenal glands, spleen and left kidney. The percutaneous right nephrostomy is maintained in appropriate position with decompression of the right intrarenal collecting system. The right pelvis and ureter show relatively increased fullness compared to prior, despite the distal obstructive pelvic mass measuring the same described below. GI Tract/Mesentery/Peritoneum: Stomach is unremarkable. Small bowel maintains normal caliber and contour. No evidence of bowel obstruction. Previously noted nodular thickening of the rectosigmoid junction is less conspicuous, possibly due to rectosigmoid decompression and wall thickening. Redemonstration of nodular thickening along the peritoneal reflections in the pelvis, slightly redistributed due to change in positioning (series 3 image 190). Pelvic Viscera: There has been no significant change in size of the downstream pelvic obstructive mass centered at the right vaginal cuff when compared to 06/08/2024, measuring roughly 46 x 30 mm maximum transaxial on 3:195. The locoregional extent and relationship of the bladder and rectum is better assessed on same-day MRI report separately. Lymph Nodes/Vasculature: No significant change in size of the metastatic 8-9 mm right common iliac lymph node on 3:140. No suspicious new adenopathy. Free Fluid: No significant ascites. Musculoskeletal and Body no clearly aggressive lytic/blastic osseous lesions or body wall soft tissue masses. Diffuse osteopenia. Thoracolumbar dextroconvex curvature. Left femoral antegrade nail andscrew fixation. Postradiation fatty replacement of the lumbosacral marrow with degree of heterogenous mineralization of the sacrum suggesting chronic insufficiency fracturing. - Impression - Chest: No evidence of metastatic disease. Abdomen/Pelvis: No evidence of disease progression when compared to prior oncologic CTs from June 08, 2024. Specifically, no evidence of abdominopelvic metastatic progression. There has been no significant change in size or appearance of the neoplastic right pelvic mass withsimilar desmoplastic retraction of adjacent structures; and unchanged metastatic 8-9 mm right common iliac lymph node. Please refer to same-day pelvic MRI for detailed description of the local disease extent within the pelvis. CRITICAL RESULT: No. COMMUNICATION: Per this written report. Drafted by Jese Haas MD on 07/22/2024 8:09 PM Final report signed by Jese Haas MD on 07/22/2024 9:05 PM === 07/22/24 === MR PELVIS W AND WO IV CONTRAST - Narrative - CLINICAL INDICATION: Anal cancer. Recurrent anal squamous cancer with previous chemoradiation completed in 2017. Currently undergoing chemotherapy. TECHNIQUE: Multiplanar, multisequence MR imaging of the pelvis was performed with and without the administration of intravenous material. 5.4 mL of Gadavist was administered. COMPARISON: MR pelvis 03/22/2024. FINDINGS: Interval decreased size of the infiltrative T2 hypointense, heterogenously enhancing vaginal cuff mass since 03/22/2024 measuring 3 x 5 x 7 cm, previously 4.4 x 6.4 x 7.4 cm given differences in remeasurement (series 6 image 13, series 5 image 25). There is persistent, but decreased restricted diffusion in comparison to prior. This mass continues to invade the right posterior bladder wall and right ureterovesicular junction with tethering of the adjacent sigmoid colon and distal small bowel loops. Obliteration of the rectovaginal fat plane is again noted without definite evidence of disease extension into the rectum. Fluid: There is trace free fluid. Lymph Nodes: No pelvic adenopathy. Other: No mass visualized within the anal canal or rectum. The osseous structures demonstrate heterogeneous marrow signal intensity, similar to prior. - Impression - Decreased size of the biopsy-proven metastatic deposit arising from the vaginal cuff since 03/22/2024. This mass continues to invade the right posterior bladder and right UVJ with resultant tethering ofthe sigmoid colon and adjacent small bowel. CRITICAL RESULT: No. COMMUNICATION: Per this written report. Drafted by Salima Zepeda DO on 07/22/2024 4:00 PM Final report signed by Salima Zepeda DO on 07/22/2024 7:47 PM Assessment/Plan 1. 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 She continues to make progress post-operatively. We discussed today in clinic that patient does not need to be on anticoagulation for her superficial thrombophlebitis, especially since she is asymptomatic. We will work of have the records of her ultrasound sent to her PCP. She will f/u with us in [address] CAP. Leonarda Meade MD General Surgery Cosigned by Graeme Sharma MD at 12/08/2024 10:01 AM EDT Associated attestation - Graeme Sharma MD - 12/08/2024 10:01 AM EDT I saw and evaluated the patient with the resident/fellow. I discussed the case with the resident/fellow and agree with the findings and plan as documented Ms. Borrego is a 79-year-old female status post pelvic exenteration for locally advanced squamouscell carcinoma involving the vagina and anal canal. Gained strength. Overall looks considerably better. Tolerating diet. Ostomy is functioning well. PLAN FOLLOWS: Return to clinic in [address] imaging. documented in this encounter Plan of Treatment Upcoming Encounters Date Type Department Care Team (Late st Contact Info) Description 02/01/2025 7:00 AM EDT Appointment [facility] Radiology [address] [place] [phone] 02/01/2025 9:00 AM EDT Office Visit [facility] Multidisciplinary Oncology Clinic [address] [place] [address] Graeme Sharma MD [address] [facility] [address] [place] [address] 02/08/2025 9:15 AM EDT Clinical Support [facility] Multidisciplinary Oncology Clinic [address] [place] [address] 02/08/2025 9:20 AM EDT Office Visit [facility] Multidisciplinary Oncology Clinic [address] [place] [address] Monica Sanchez MD [address] [facility] [address] [place] [address] 02/08/2025 11:00 AM EDT Appointment [facility] Infusion [address] [place] [address] 05/16/2025 9:40 AM EST Office Visit [facility] Multidisciplinary Oncology Clinic [address] [place] [address] Rahel Bales PA [address] [facility] [address] [place] [phone] Scheduled Orders Name Type Priority Associated Diagnoses Orde r Schedule CT Chest w IV Contrast Imaging Routine Squamous cell carcinoma of rectum Expected: 02/01/2025 (Approximate), Expires: 06/03/2026 CT Abdomen Pelvis w IV Contrast Imaging Routine Squamous cell carcinoma of rectum Expected: 02/01/2025 (Approximate), Expires: 06/03/2026 documented as of this encounter Visit Diagnoses Diagnosis Squamous cell carcinoma of rectum- Primary documented in this encounter Additional Health Concerns Assessment Noted Time PHQ-9 Depression Total Score: 0 11/16/19 11:23 AM EDT A fall risk assessment has been complete d for the patient 11/30/2024 10:27 AM EDT A Body Mass Index follow-up plan has been documented for the patient 12/08/2024 10:06 AM EDT documented as of this encounter Care Teams Pump Assembler Relationship Specialty Start Date End Date Marco A Vazquez MD [address] [facility] [address] [place], [place] [id number] PCP - General 03/22/24 Agapito Ariza PA [address] [facility] [address] [place] [address] Physician [id number] Developer Otolaryngology 03/05/22 Aiden Lr MD [address] [facility] [address] [phone] Surgeon Otolaryngology 03/05/22 Graeme Sharma MD [address] [place] [address] Referring Physician Colon and Rectal Surgery 08/15/23 documented as of this encounter
--- OUTSIDE RECORDS SUMMARY | 2024-12-04 11:26 | XMS_ITS | Encounter Summary ---
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 Name Role Phone Agapito Ariza Unavailable [phone] Aiden Lr MD Unavailable [phone] Graeme Sharma MD Unavailable [phone] Marco A Vazquez MD Primary Care Provider [phone] Reason for Referral * Imaging (Routine) - Closed Specialty Diagnoses / Procedures Referred By Lety massey Referred To Contact Radiology Diagnoses Anal cancer (CMS/HCC) Procedures PET/CT FDG Skull Base To Mid Thigh Graeme Sharma MD [address] [address] Phone: tel: fax: Referral ID Status Reason Start Date Expiration Date Visits Re quested Visits Authorized [id number] Closed 12/08/2024 06/09/2026 2 2 Reason for Visit * Reason Comments Abdominal Pain * Auth/Cert (Routine) Specialty Diagnoses / Procedures Referred By Lety massey Referred To Contact Diagnoses Perforation bowel (CMS/HCC) Generalized abdominal pain Lillian Narvaez MD [address] [address] Phone: tel: fax: [facility] Inpatient [address] [place] [address] Phone: tel: Referral ID Status Reason Start Date Expiration Date Visits Re quested Visits Authorized [id number] 1 1 Encounter Details Date Type Department Care Team (Late st Contact Info) Description 12/04/2024 11:26 AM EDT - 12/08/2024 2:59 PM EDT Hospital Encounter [facility] Inpatient [address] [place] [id number] Aric Cai MD [address] [place] [address] Selene Veloz MD [address] [place] [address] Lillian Narvaez MD [address] [address] Graeme Sharma MD [address] [id number] [place] [address] Generalized abdominal pain (Primary Dx); Perforation bowel (CMS/HCC); Anal cancer (CMS/HCC); Primary cancer of rectum (CMS/HCC); Cancer of colon with rectum (CMS/HCC) Discharge Disposition: Home or Self Care Social [...] any time in the past 12 m [facility], were you homeless or living in a intermediate (including now)? 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) to steady your nerves or to get [...] Sign Reading Time Taken Comments Blood Pressure 117/69 12/08/2024 11:45 AM EDT Pulse 68 12/08/2024 11:45 AM EDT Temperature 36.9 C (98.5 F) 12/08/2024 11:45 AM EDT Respiratory Rate 16 12/08/2024 11:45 AM EDT Oxygen Saturation 96% 12/08/2024 11:45 AM EDT Inhaled Oxygen Concentration - - Weight 49.7 kg (109 lb 9.1 oz) 12/06/2024 6:23 A M EDT Height 157.5 cm (5' 2 ) 12/04/2024 10:56 AM EDT Body Mass Index 20.04 12/04/2024 10:56 AM EDT documented in this encounter Functional Status * Calculated C-SSRS Risk Score (Lifetime/Recent) Answer Date of Assessment Author No Risk Indicated 12/08/2024 8:00 AM EDT Jacinta Maldonado RN * Question Answer Date of Assessment Author 1. Wish to be (Past 1 Month) No 025 8:00 AM EDT Jacinta Maldonado RN 2. Non-Specific Active Suici antonio Thoughts (Past 1 Month) No 12/08/2024 8:00 AM EDT Jacinta Maldonado RN 6. Suicidal Behavior (Lifetime) No 8:00 AM EDT Jacinta Maldonado, GERONIMO documented as of this encounter Discharge Instructions * Discharge Instructions* Allyson Mccarty APRN, DAPHNEY - 12/08/2024 1:38 PM EDT Images from the original note were not included. Department of Surgery Division of Colorectal Surgery Activity: Move around as you are able, do not lift over 5 lbs for 6 weeks after surgery Diet: You may eat a GI soft. You may try to gradually increase your diet in the next few weeks; however, avoid large meals such as steak. If you feel nauseous or cannot tolerated new foods, continue GI soft Be sure to stay hydrated and take in plenty of fluid. See additional instructions for managing ostomy output Medications: Take tylenol 1000mg every 6 hours for pain, if you still have pain, take oxycodone, one tab every 6-8 hours as needed. Continue your home medications unless instructed otherwise at discharge. Wound care: It is okay to shower. Allow warm, soapy water to run over your incisions and pat dry with a clean towel. Do not submerge your incisions in a tub bath or body of water for two weeks after your operation. Ostomy: Change your appliance twice weekly or when it is leaking. Change it as instructed by ostomyteaching nurses. Empty when it is 1/2 full. Keep track of the amount coming out until your follow up appointment. Follow up: You will follow up with Dr. Sharma in 02/01/25 at 9a. You have a CT scan scheduled 02/01at 7a prior to your visit with Dr. Sharma. Questions: Call the [facility] at [phone] during business hours on weekdays or call [facility]'s after hours at [phone] to speak with a resident nylon machine operator for Colorectal surgery after 5pm or on weekends if: - you have a fever > 101F - you are vomiting and cannot keep down liquids - your pain cannot be controlled with oral medications - if you start to have increased redness, drainage of pus, swelling, or increased pain around your incision - you have changes to the appearance of your ostomy or you are no longer having output from your ostomy documented in this encounter Medications at Time of Discharge acetaminophen (Tylenol) 500 MG tablet Take 1 tablet by mouth 2 times a day as needed. aspirin 81 MG EC tablet Take 1 tablet by mouth 1 time each day. atorvastatin (Lipitor) 10 MG tablet Take 1 tablet by mouth nightly. 12/26/2020 ibuprofen 200 MG tablet Take 1 tablet by mouth 3 times a day. levothyroxine (Synthroid, Levoxyl) 75 MCG tablet Take 1 tablet by mouth daily. 01/03/2021 methocarbamol (Robaxin) 500 MG tablet Take 1 tablet by mouth every 8 hours for 7 days. 21 tablet 12/08/2024 polyethylene glycol (Miralax) 17 g packet Take 17 g by mouth 2 times a day. 60 packet 1 10/16/2024 venlafaxine XR (Effexor-XR) 150 MG 24 hr capsule Take 1 capsule by mouth every morning. documented as of this encounter Miscellaneous Notes * Care Plan - Jacinta Maldonado RN - 12/08/2024 2:10 PM EDT Problem: Adult Inpatient Plan of Care Goal: Plan of Care Review Outcome: Adequate for Care Transition Flowsheets Taken 12/08/2024 1408 by Jacinta Maldonado RN Progress: improving Taken 12/08/2024 0239 by Antwon Estrada RN Plan of Care Reviewed With: patient Goal: Patient-Specific Goal (Individualized) Outcome: Adequate for Care Transition Flowsheets (Taken 12/08/2024 0800) Patient/Family-Specific Goals (Include Timeframe): pt will continue to ambulate throughout shift Individualized Care Needs: ambulation Anxieties, Fears or Concerns: none stated Goal: Optimal Comfort and Wellbeing Outcome: Adequate for Care Transition Goal: Readiness for Transition of Care Outcome: Adequate for Care Transition Problem: Pain Acute Goal: Optimal Pain Control and Function Outcome: Adequate for Care Transition Intervention: Optimize Psychosocial Wellbeing Flowsheets (Taken 12/08/2024 1408) Supportive Measures: active listening utilized goal-setting facilitated self-care encouraged Diversional Activities: reading smartphone Spiritual Activities Assistance: affirmation provided Intervention: Develop Pain Management Plan Flowsheets (Taken 12/08/2024 1408) Pain Management Interventions: medication (see MAR) pillow support provided Intervention: Prevent or Manage Pain Flowsheets (Taken 12/08/2024 1408) Sensory Stimulation Regulation: care clustered Bowel Elimination Promotion: adequate fluid intake promoted Sleep/Rest Enhancement: consistent schedule promoted relaxation techniques promoted regular sleep/rest pattern promoted Medication Review/Management: medications reviewed * Queenie Duke - Jacinta Maldonado, RN - 12/08/2024 1:57 PM EDT Images from the original note were not included. 32050 Ileostomy: Dealing with a Food Blockage After an ileostomy, it may be harder to digest foods that are high in fiber, such as raw vegetables, popcorn, and nuts. Eaten in large amounts, these foods can clump together. Then they get stuck in the small intestine, causing a blockage. You need to know the signs of a blockage and what to do if you have one. Signs of a blockage A blockage can be an emergency. That?s because you can lose fluids (get dehydrated) quickly. The intestine can also burst. Most likely, you?ll never have a blockage. But you need to know the signs just in case you do. ? At first, you may have an almost constant spurting of very watery stool. This watery stool is able to get past the blockage. ? You may feel bloated or have cramping. The stool may have a strong odor. The stoma or the skin around the stoma may swell. ? If the blockage remains, the flow of stool will stop totally. Then you?ll have increased pain, often leading to an upset stomach (nausea) and vomiting. What to do You can try one or more of the following: ? Put on a pouch with a larger opening. ? Gently massage your abdominal area and the area around the stoma. ? Lie on your back. Pull your knees to your chest and rock from side to side. ? Take a warm bath or shower for 15 to 20 minutes to relax the abdominal muscles. ? If it's not too painful, take a short walk or just walk around the house. ? Don't eat any solid food. ? If there is some stool output, you can drink some fluids. ? Don't take any laxatives or stool softeners. They cause your body to lose more water. When to call your doctor Contact your health care provider or ostomy nurse, or go to the nearest hospital emergency room if: ? You have increased pain, nausea, and cramping with nothing produced from your stoma in 2 hours ormore. ? You start to vomit. Ways to help prevent a blockage Sometimes a blockage happens no matter what you do. But you can help prevent a blockage. ? Drink at least 8 to 12 cups (2 to 3 quarts) of fluids, such as water or juice, each day or as directed by your health care team. ? Chew your food slowly and thoroughly. ? Eat only small amounts of foods that are high in insoluble fiber or cellulose. These include raw vegetables, unpeeled fresh fruits, bamboo shoots, tubbs sprouts, cabbage, celery, coconut, corn, mushrooms, pea pods, dried fruits, nuts, seeds, popcorn, and hot dogs and other meats in casings. ? Limit your intake of bran and other high-fiber grains, such as granola. Last Reviewed Date: 2024 00:00:00 ?? [id number] The [employer]. All rights reserved. This information is not intended as a substitute for professional medical care. Always follow your healthcare professional's instructions. * Queenie EmersonTU - Jacinta Maldonado RN - 12/08/2024 1:56 PM EDT Images from the original note were not included. 61051 Ileostomy: Nutritional Management Preventing digestive problems You don?t have to eat a special diet just because you?ve had an ileostomy. Most foods, chewed well and eaten slowly, won?t give you problems--unless they did before. But you may need to be more awareof foods that make your stool more watery than normal and foods that cause gas or odor. You also need plenty of fluids and vitamins. Choosing foods Learning which foods cause gas or odor or make your stool too watery takes a little time. You may want to add foods back to your diet one at a time. ? Eat only small amounts at first to see how your body reacts. ? If a food causes a problem, wait and try it again in a few weeks. After your system adjusts, you may find the food doesn?t give you trouble anymore. Preventing fluid loss When part of the intestine is removed, your body loses fluids and can become dehydrated more quickly. To prevent this, drink at least 8 to 12 cups (2 to 3 quarts) of fluids, such as water or juice, each day. Taking supplements and medicines Depending on how much small intestine is left when you have an ileostomy, some vitamins and medicines can't be absorbed: ? Your health care provider may prescribe vitamin supplements or have you eat more of some foods, like bananas. ? Time-release capsules and coated pills may not be absorbed in your remaining small intestine. Be sure all your health care providers know that you have an ileostomy before they prescribe any medicines. Causes of diarrhea Stool that?s more watery than normal (diarrhea) can be a sign of an illness, such as the flu. Some foods and medicines can also cause more watery stool. ? After an ileostomy, your stool will be more watery than it was before, so drink plenty of fluids.This helps replace lost fluids and prevent dehydration. ? Limit foods that can make the stool loose, such as raw fruits and vegetables, garlic, onions, milk, alcoholic beverages, and fruit drinks. ? Lactose intolerance can add to diarrhea. If you are lactose intolerant, choose dairy products that are lactose-free. ? Check with your health care provider before you take any medicines for diarrhea. Causes of gas and odor Some gas is normal. But constant gas is not. Neither is constant odor from stool. What causes gas or odor can differ from person to person. ? Gas is often caused by swallowing air. To prevent this, eat slowly. Chew each bite well. Eating smaller amounts of food more often may help. Sip fluids, and don?t use a straw. ? If you have excess gas, you may want to go easy on beer and other carbonated beverages, broccoli,brussels sprouts, cabbage, cauliflower, corn, cucumbers, dried beans, milk, mushrooms, nuts, onions, peas, and spicy foods. ? If odor is a problem, you may want to eat less asparagus, broccoli, brussels sprouts, cabbage, cheese, eggs, fish, garlic, horseradish, and spices, such as coriander, cumin, dill, and fennel. Call your ostomy nurse or doctor Call your ostomy nurse or health care provider right away if: ? You have nausea, vomiting, pain, cramping, or bloating. ? You have a change in your normal bowel habits, such as little or no stool. ? Your stool is more watery than normal for more than 5 to 6 hours. ? Your stoma changes size, or the stool is black or bloody ? There is bleeding around your stoma. ? Your stoma appliance is not fitting well anymore, or there is leakage of stool. Last Reviewed Date: 2024 00:00:00 ?? [id number] [employer]. All rights reserved. This information is not intended as a substitute for professional medical care. Always follow your healthcare professional's instructions. * [facility] - Jacinta Maldonado RN - 12/08/2024 1:56 PM EDT Images from the original note were not included. 34890 Colostomy: Managing Your Nutrition You don?t have to eat a special diet just because you?ve had a colostomy. Most foods, chewed well and eaten slowly, won?t give you problems--unless they did before. But you may need to be more aware of foods that cause gas or odor and foods that make your stool too runny or too hard. Choosing foods Learning which foods cause gas or odor, or make your stool runny or hard, takes a little time. You may want to add foods back to your diet one at a time: ? Eat only small amounts at first to see how your body reacts. ? If a food causes a problem, wait and try it again in a few weeks. Once your system adjusts to having a stoma, you may find the food doesn?t give you trouble anymore. Causes of gas and odor Some gas is normal, but constant gas is not. Neither is constant odor from stool. What causes gas or odor can differ from person to person. Gas is often caused by swallowing air. To prevent this, eatslowly. Chew each bite well. Sip fluids, and don?t use a straw. Some foods tend to cause excess gas or odor. If gas or odor is a problem, you may want to eat less of certain foods. Foods that can cause gas include: ? Beer and other carbonated beverages. ? Broccoli. ? [place] sprouts. ? Cabbage. ? Cauliflower. ? [place]. ? Cucumbers. ? Dried beans. ? Milk and other dairy products with lactose. ? Mushrooms. ? Nuts. ? Onions. ? Peas. ? Sodas. ? Spicy foods. Foods that can cause odor include: ? Asparagus. ? Broccoli. ? [place] sprouts. ? Cabbage. ? Cheese. ? Eggs. ? Fish. ? Garlic. ? Horseradish. ? Spices, such as coriander, cumin, dill, and fennel. Causes of diarrhea Stool that?s more runny than normal (diarrhea) can be a sign of an illness, such as the flu. Some foods and medicines can also cause runny stool: ? If your stool is more runny than normal, drink plenty of fluids. This helps replace lost fluids and prevent dehydration. ? Stay away from foods that can make the stool loose, such as raw fruits and vegetables, garlic, onions, alcohol, spicy foods, and foods that are high in fat or sugar. ? Lactose-containing dairy products can cause gas and loose stool in some people. Try lactose-free dairy products. They are widely available. ? Check with your health care provider before you take any medicines for diarrhea. ? Don't irrigate while you have diarrhea. Preventing constipation Your stool can sometimes be too hard (constipation). Hard stool is often caused by not eating enough fiber or not drinking enough fluids. Stress and some medicines can also cause hard stool: ? If your stool is hard, eat more high-fiber foods, such as fruits, vegetables, and whole-grain breads and cereals. ? Drink at least 8 to 12 cups (2 to 3 quarts) of water or juice each day, or as directed by our health care team. Fluids can be hot or cold. ? Check with your provider before using laxatives or stool softeners. When to call your doctor Contact your health care provider right away if: ? You have bloating, cramping, nausea, pain, or vomiting. ? You have a change in your normal bowel habits, such as little or no stool or no passage of gas. ? Your stool is loose or more runny than normal for more than 5 to 6 hours. ? Your stool is black or bloody. Call 911 if there is a lot of blood coming from your stoma. ? The stoma changes size, oozes, or bleeds. Last Reviewed Date: 2024 00:00:00 ?? [id number] [employer]. All rights reserved. This information is not intended as a substitute for professional medical care. Always follow your healthcare professional's instructions. * Discharge Summary - Allyson Mccarty APRN, DNP - 12/08/2024 1:43 PM EDT Hospitalization Admit Date/Time: 12/04/2024 11:26 AM Admitting Attending: Lillian Narvaez Discharge Date: 12/08/24 Discharge Attending Physician: Graeme Sharma MD PCP name and Address: Marco A Vazquez MD [address] [place] [address] / [address] [id number] Referring provider name and address: No referring provider defined for this encounter. Chief Concern, Brief History of Present Illness, and Hospital Course Yolie Paul is a 79 y.o. 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 She presented to ED with abdominal pain and decreased ostomy output. Surgery was consulted and the patient was evaluated and found to have imaging concerning for possible recurrence and severe wall thickening of the distal small bowel concerning for enteritis. Pain was initially controlled with IV pain medication and was later transitioned to oral pain medication. Gastrograffin challenge demonstrated contrast reaching the colostomy. Her diet was advanced as tolerated. The patient's hospital course was uncomplicated and it was felt that the patient had reached maximal benefit from hospitalization. On 12/08/24 were deemed appropriate for discharge to home. On day of discharge, the patient was afebrile and hemodynamically stable, tolerating a GI Soft diet, the patient's pain was controlled on oral medications, voiding appropriately, with appropriate ostomy function. The patient was discharged on 12/08/24 to home and will return to clinic for routine post-procedure follow up with Dr. Sharma on 02/01 at 9a. You have a CT scan scheduled for 02/01 at 7a. You will be notified of a time for a PET scan and follow up with Dr. Sanchez. Surgeries and Procedures Medication List .. acetaminophen 500 MG tablet Commonly known as: Tylenol Take 1 tablet by mouth 2 times a day as needed. aspirin 81 MG EC tablet Take 1 tablet by mouth 1 time each day. atorvastatin 10 MG tablet Commonly known as: Lipitor Take 1 tablet by mouth nightly. ibuprofen 200 MG tablet Take 1 tablet by mouth 3 times a day. levothyroxine 75 MCG tablet Commonly known as: Synthroid, Levoxyl Take 1 tablet by mouth daily. methocarbamol 500 MG tablet Commonly known as: Robaxin Take 1 tablet by mouth every 8 hours for 7 days. polyethylene glycol 17 g packet Commonly known as: Miralax Take 17 g by mouth 2 times a day. venlafaxine XR 150 MG 24 hr capsule Commonly known as: Effexor-XR Take 1 capsule by mouth every morning. Where to Get Your Medications These medications were sent to [facility] - [place], [place] - [address] [facility] [id number] methocarbamol 500 MG tablet Discharge Diagnosis Medical Problems Active and Resolved Hospital Problems Hospital * (Principal) Generalized abdominal pain Post Discharge Instructions See after visit summary Outpatient Follow-Up Future Appointments Date Time Provider Department Center 12/21/2024 10:45 AM Aric Goode MD [facility] [place] 02/01/2025 7:[address] [facility] 02/01/2025 9:00 AM Graeme Sharma MD [facility] [place] 05/16/2025 9:40 AM Rahel Bales PA [facility] Test Results Pending At Discharge Pending Labs Order Current Status Blood Culture (Aerobic/Anaerobet Set) Preliminary result Blood Culture (Aerobic/Anaerobet Set) Preliminary result Pertinent Physical Exam At Time of Discharge Physical Exam Constitutional: Appearance: Normal appearance. She is normal weight. She is not toxic-appearing. HENT: Head: Normocephalic and atraumatic. Mouth/Throat: Mouth: Mucous membranes are moist. Cardiovascular: Rate and Rhythm: Normal rate and regular rhythm. Pulses: Normal pulses. Pulmonary: Effort: Pulmonary effort is normal. No respiratory distress. Abdominal: General: There is no distension. Palpations: Abdomen is soft. Comments: colostomy in place with pink stoma. Soft brown stool in appliance Urostomy in place with clear yellow urine Musculoskeletal: General: Normal range of motion. Skin: General: Skin is warm and dry. Capillary Refill: Capillary refill takes less than 2 seconds. Neurological: General: No focal deficit present. Mental Status: She is alert and oriented to person, place, and time. Psychiatric: Mood and Affect: Mood normal. Behavior: Behavior normal. Thought Content: Thought content normal. Judgment: Judgment normal. Discharge Disposition/Condition Disposition: Home Condition: Stable (s/sx potential problems absent or manageable) I spent >30 minutes of patient care and instruction time in preparation for this discharge. Cosigned by Graeme Sharma MD at 12/12/2024 12:16 AM EDT Associated attestation - Graeme Sharma MD - 12/12/2024 12:16 AM EDT I attest to being involved in more than half the total time in patient care. * Progress Notes - Malena Cheney RN - 12/08/2024 12:34 PM EDT Case Management Discharge Note Yolie Paul 79 y.o. female CSN: [id number] Admission: 12/04/2024 11:26 AM Primary Problem: Generalized abdominal pain Primary Vegetable Tier: Primary Caregiver: Self Assistance Available at Discharge: Current Outpatient/Agency/Support Group: clinic(s), DME Availability of Care Givers (#Hours): No assistance needed Family/Vegetable Tier(s) Readiness Assessed to care for patient at home: Yes Housing Circumstances-Z Codes: Housing Circumstances (select all that apply): None Applicable Discharge Facility/Level of Care Needs: Discharge Facility/Level of Care Needs: 1-Home or Self Care Patient/Family Anticipated Services at Transition: home DME/Equipment Needed after Discharge: Equipment Currently Used at Home: colostomy/ostomy/enteral supplies Equipment Needed After Discharge: none Readmission Within the Last 30 Days: Readmission Within the Last 30 Days: no previous admission in last 30 days Medicare Documentation: medicare second notice signed and placed on chart. Follow-up: Dec 21 Post-op with Aric Goode MD Friday 10:45 AM Please bring any insurance information and a copayment if required by your insurance company. [facility] Plastic & Reconstructive Surgery [address] [facility] [id number] Abdomen Pelvis w IV Contrast Friday 7:00 AM (Arrive by 6:00 AM) Please do not eat anything 4 hours prior to your exam. Please drink plenty of fluids to stay well hydrated. [facility] [address] [facility] [phone] Office Visit with YAMIL Sharma Friday 9:00 AM (Arrive by 8:40 AM) Please bring any insurance information and a copayment if required by your insurance company. [facility] [address] [facility] [phone] May 16 Office Visit with LUIS Stone Friday 9:40 AM (Arrive by 9:20 AM) Please bring any insurance information and a copayment if required by your insurance company. [facility] Multidisciplinary Oncology Clinic [address] [facility] [phone] Discharge Transportation: Transportation Anticipated: family or friend will provide Transportation Home at Discharge: Family/Friend will Provide Follow Up Transport: Transportation Needed to Follow up Appoinments: Family/Friend will Provide Additional Comments: per team, medically ready for discharge today. Met with patient and agreeable to discharge plan. [id number] enrollment complete. Malena hCeney, RN * Care Plan - Antwon Estrada RN - 12/08/2024 2:49 AM EDT Problem: Adult Inpatient Plan of Care Goal: Plan of Care Review Flowsheets (Taken 12/08/2024238) Plan of Care Reviewed With: patient Goal: Patient-Specific Goal (Individualized) Flowsheets (Taken 12/07/20241999) Patient/Family-Specific Goals (Include Timeframe): pt will walk around the loop safely without falls or injury before shift end Individualized Care Needs: Ambulation safety Anxieties, Fears or Concerns: I want to walk around the loop Problem: Adult Inpatient Plan of Care Goal: Plan of Care Review Flowsheets (Taken 12/08/2024238) Plan of Care Reviewed With: patient Goal: Patient-Specific Goal (Individualized) 12/08/2024 0249 by Antwon Estrada RN Flowsheets (Taken 12/07/20241999) Patient/Family-Specific Goals (Include Timeframe): pt will walk around the loop safely without falls or injury before shift end Individualized Care Needs: Ambulation safety Anxieties, Fears or Concerns: I want to walk around the loop 12/08/2024238 by Antwon Estrada RN Flowsheets (Taken 12/07/20241999) Patient/Family-Specific Goals (Include Timeframe): pt will walk around the loop safely without falls or injury before shift end Individualized Care Needs: Ambulation safety Anxieties, Fears or Concerns: I want to walk around the loop Goal: Optimal Comfort and Wellbeing Outcome: Ongoing, Progressing Goal: Readiness for Transition of Care Outcome: Ongoing, Progressing Problem: Pain Acute Goal: Optimal Pain Control and Function Intervention: Optimize Psychosocial Wellbeing Flowsheets (Taken 12/08/2024 0239) Supportive Measures: active listening utilized decision-making supported verbalization of feelings encouraged Diversional Activities: movies television Spiritual Activities Assistance: hope instilled Intervention: Develop Pain Management Plan Flowsheets (Taken 12/08/2024 0249) Pain Management Interventions: medication (see MAR) care clustered declines position adjusted Intervention: Prevent or Manage Pain Flowsheets (Taken 12/08/2024 0249) Sleep/Rest Enhancement: consistent schedule promoted regular sleep/rest pattern promoted Medication Review/Management: medications reviewed * Care Plan - Shahid Solis RN - 12/07/2024 1:00 PM EDT Problem: Adult Inpatient Plan of Care Goal: Plan of Care Review Flowsheets (Taken 12/07/2024 1256) Progress: improving Plan of Care Reviewed With: patient Goal: Patient-Specific Goal (Individualized) Flowsheets (Taken 12/07/2024 1200) Patient/Family-Specific Goals (Include Timeframe): Pt will remain free of falls and injuries duringshift Individualized Care Needs: Safety Anxieties, Fears or Concerns: None Stated Goal: Absence of Hospital-Acquired Illness or Injury Outcome: Met Goal: Optimal Comfort and Wellbeing Outcome: Ongoing, Progressing Goal: Readiness for Transition of Care Outcome: Ongoing, Progressing Problem: Pain Acute Goal: Optimal Pain Control and Function Outcome: Ongoing, Progressing Intervention: Optimize Psychosocial Wellbeing Flowsheets (Taken 12/07/2024 1256) Supportive Measures: active listening utilized Diversional Activities: television smartphone Spiritual Activities Assistance: hope instilled Intervention: Develop Pain Management Plan Flowsheets (Taken 12/07/2024 1256) Pain Management Interventions: medication (see MAR) care clustered pillow support provided position adjusted rest Intervention: Prevent or Manage Pain Flowsheets Taken 12/07/2024 1256 by Shahid Solis RN Bowel Elimination Promotion: adequate fluid intake promoted Sleep/Rest Enhancement: consistent schedule promoted Taken 12/06/20241999 by Yeimi Fontenot Medication Review/Management: medications reviewed * Progress Notes - Rad Deras DO - 12/07/2024 9:02 AM EDT Images from the original note were not included. [facility] Department of Surgery Division of Colorectal Surgery Surgery Progress Note 12/07/24 Yolie Paul Subjective Subjective: HPI 79 y.o. female with PMHx notable for locally advanced anal cancer now s/p pelvic exenteration, radical cystectomy, and urinary diversion with VRAM flap (hospitalized from 09/01/24-10/16/24) who presented to [facility] with decreased ostomy output and abdominal pain. Interval: Afebrile, vital signs stable on room air. 450 ml liquid output. Tolerating full liquid diet without nausea or emesis. Wanting to try regular food. Edited by: Rad Deras DO at 12/07/2024 0914 Review of Systems: Relevant review of systems was obtained as able and is negative unless stated above in HPI. Objective Objective: Vital signs: Vitals: 12/07/24 1443 BP: 112/61 Pulse: 80 Resp: 16 Temp: 36.7 ??C (98.1 ??F) SpO2: 96% Physical Exam Constitutional: Appearance: Normal appearance. HENT: Head: Normocephalic and atraumatic. Mouth/Throat: Mouth: Mucous membranes are moist. Cardiovascular: Rate and Rhythm: Normal rate and regular rhythm. Pulses: Normal pulses. Pulmonary: Effort: Pulmonary effort is normal. Abdominal: Palpations: Abdomen is soft. Comments: Urostomy and colostomy in place with pink stomas. Urostomy with clear yellow urine. Colostomy with liquid stool and small amt of gas. Musculoskeletal: General: Normal range of motion. Skin: General: Skin is warm and dry. Capillary Refill: Capillary refill takes less than 2 seconds. Neurological: General: No focal deficit present. Mental Status: She is alert and oriented to person, place, and time. Psychiatric: Mood and Affect: Mood normal. Behavior: Behavior normal. Thought Content: Thought content normal. Judgment: Judgment normal. Intake/Output Summary (Last 24 hours) at 12/07/2024 1652 Last data filed at 12/07/2024 1200 Gross per 24 hour Intake 1130.74 ml Output 1850 ml Net -719.26 ml Lines/Drains/Tubes: Patient Lines/Drains/Airways Status Active Airway None Output by Drain (mL) 12/05/24 0700 - 12/05/24 1859 12/05/24 1900 - 12/06/24 0659 12/06/24 0700 - 12/06/24 1859 12/06/24 1900 - 12/07/24 0659 12/07/24 0700 - 12/07/24 1652 Requested LDAs do not have output data documented. Labs in last 18 hours: CBC WBC ?? Hb ?? Plt ?? Hct ?? ANC ?? INR ??, PTT ??, Anti-Xa ?? MCV ?? BMP Na ?? Cl ?? BUN ?? Glu ?? K ?? Co2 ?? Cr ?? Ca ?? iCa ?? Mg ??, Phos ?? Lactate ?? LFT AST ?? AlkPhos ?? T Prot ?? ALK ?? Bili ?? Alb ?? D.Bili ?? Lab Trends: H/H Results from last 7 days Lab Units 12/06/24 1407 12/05/24 0335 12/04/24 1116 HEMOGLOBIN g/dL 8.5* 7.4* 9.2* HEMATOCRIT % 28.0* 23.3* 29.0* INR Cr Results from last 7 days Lab Units 12/06/24 1407 12/05/24 0335 12/04/24 1116 CREATININE mg/dL 0.80 0.79 0.78 Lactate No lab exists for component: LACTTEVEN Radiographic Interpretation: === 12/04/24 === XR GASTROGRAFFIN CHALLENGE - Narrative - CLINICAL INDICATION: 8 hour time 7:30 PM 12/05/2024: RN administered at 11:30 AM 12/05/2024; partial bowel obstruction TECHNIQUE: XR GASTROGRAFIN CHALLENGE COMPARISON: CT December 04, 2024 FINDINGS: Left mid abdominal ostomy. Cholecystectomy clips. Few surgical clips project over the pelvis. Contrast within the right hemicolon extending to the ostomy. Mild small bowel distention in the central abdomen. - Impression - Oral contrast opacifies the colon reaching the colostomy. CRITICAL RESULT: No. COMMUNICATION: Per this written report. Drafted by Stormy Matthews MD on 12/05/2024 8:11 PM Final report signed by Stormy Matthews MD on 12/05/2024 8:14 PM Medications reviewed. Vital signs reviewed. Labs reviewed. Assessment/Plan Assessment and Plan: Medical Problems Problem List * (Principal) Generalized abdominal pain Squamous cell carcinoma of rectum Primary cancer of rectum (CMS/HCC) Overview Signed 01/12/2021 3:49 PM by Tarik Almanza CNA Malignant neoplasm of rectum Cancer of colon with rectum (CMS/HCC) Overview Signed 01/12/2021 3:49 PM by Tarik Almanza CNA Malignant neoplasm of rectosigmoid junction Anal cancer (CMS/HCC) Overview Signed 01/12/2021 3:49 PM by Tarik Almanza CNA Malignant neoplasm of anus, unspecified Syncope Overview Signed 01/12/2021 3:49 PM by Tarik Almanza CNA Syncope and collapse Supraventricular tachycardia by ECG (CMS/HCC) SDH (subdural hematoma) (CMS/HCC) Paroxysmal supraventricular tachycardia (CMS/HCC) Overview Addendum 09/02/2024 12:00 AM by Isa Rowan RN S/p ablation in 2020, no recurrence since Previously resulted in syncope/fall + SDH One run of stable SVT intraoperatively, resolved with Esmolol bolus Hypothyroidism Overview Addendum 09/01/2024 10:37 PM by Isa Rowan RN Restart home meds as appropriate- Synthroid 75mcg QAM Hypertension Overview Signed 09/02/2024 10:39 AM by Jenaro Narvaez APRN, DNP Goal normotension Resume home medications as appropriate Thyroid nodule greater than or equal to 1.5 cm in diameter incidentally noted on imaging study Hypercholesterolemia Irregular heartbeat Osteopenia Senile hyperkeratosis Vaginal atrophy Vaginal bleeding Activity of daily living alteration Thyroid nodule Atrial septal defect Stress incontinence Gross hematuria Bilateral low back pain without sciatica Acute respiratory failure with hypoxia and hypercapnia Overview Addendum 09/02/2024 10:38 AM by Jenaro Narvaez APRN, DNP Intubated for OR Successfully extubated AM 09/02 to NC Continue aggressive pulm secretion mobilization PRN CXR, blood gasses and nebs Hyperlipidemia Overview Addendum 09/01/2024 10:32 PM by Isa Rowan RN Resume home meds as appropriate- Lipitor 10mg QHS Acute blood loss anemia Overview Addendum 09/02/2024 10:40 AM by Jenaro Narvaez APRN, DNP Significant EBL intraoperatively requiring 5u PRBC Transfused 1u PRBC overnight 09/01 H/H now stable Will continue to monitor Transfuse as appropriate for Hgb>7 Iron, Folate, B12 as appropriate Ureteral obstruction Overview Addendum 09/02/2024 12:11 AM by Isa Rowan RN 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 Right percutaneous nephrostomy tube in place Postoperative pain Overview Signed 09/02/2024 10:41 AM by Jenaro Narvaez APRN, DNP Epidural INFORMATION SYSTEMS AUDIT MANAGER in place APMS following IV infiltration Overview Signed 09/02/2024 11:19 AM by Jenaro Narvaez APRN, DNP Left hand swelling noted AM 09/02 at IV site MIVF only, no vesicants IV removed, hand elevated Recurrent vaginal squamous cell carcinoma Overview Addendum 09/02/2024 12:11 AM by Isa Rowan RN S/p radical cystectomy, sigmoid urinary diversion with urostomy, proctectomy, vaginectomy, ileocecectomy, colostomy creation and abdominal pedicle flap to pelvis per SCR, URO COLLAR PACKER, & SERGIO NGT to iLWS Mobility restrictions- supine only/no HOB elevation, OK to ambulate Epidural INFORMATION SYSTEMS AUDIT MANAGER- basal dose to be continued while intubated Cefoxitin 2g q6h D5LR@ 100mL/h Remainder of care per primary Present on Admission: Generalized abdominal pain Yolie Paul is a 79 y.o. female with PMHx notable for locally advanced anal cancer now s/p pelvic exenteration, radical cystectomy, and urinary diversion with VRAM flap (hospitalized from 09/01/24-10/16/24) who presented to [facility] with decreased ostomy output and abdominal pain. Imaging concerning for possible recurrence and enteritis. She continues to have appropriate ostomy output. GG challenge with contrast reaching colostomy. Trying to advance her diet as tolerated. Plan: - Advance to regular diet - stop mIVF - stop antibiotics - MMPC - Home medications as appropriate Dispo: Continue Current Level of Care Rad Deras DO Cosigned by Graeme Sharma MD at 12/08/2024 10:52 AM EDT Associated attestation - Graeme Sharma MD - 12/08/2024 10:52 AM EDT Signature only. * Care Plan - Yeimi Fontenot - 12/06/2024 8:01 PM EDT Problem: Adult Inpatient Plan of Care Goal: Plan of Care Review Flowsheets (Taken 12/06/20241999) Progress: improving Plan of Care Reviewed With: patient Goal: Patient-Specific Goal (Individualized) Flowsheets (Taken 12/06/20241954) Patient/Family-Specific Goals (Include Timeframe): patient will verbalize pain control during shift Individualized Care Needs: pain control Anxieties, Fears or Concerns: pain Goal: Absence of Hospital-Acquired Illness or Injury Outcome: Ongoing, Progressing Problem: Pain Acute Goal: Optimal Pain Control and Function Intervention: Optimize Psychosocial Wellbeing Flowsheets (Taken 12/06/20241999) Supportive Measures: active listening utilized Diversional Activities: television Spiritual Activities Assistance: spiritual support provided Intervention: Develop Pain Management Plan Flowsheets (Taken 12/06/20241999) Pain Management Interventions: medication (see MAR) emotional support Intervention: Prevent or Manage Pain Flowsheets (Taken 12/06/20241999) Sensory Stimulation Regulation: auditory stimulation minimized care clustered lighting decreased Bowel Elimination Promotion: adequate fluid intake promoted Sleep/Rest Enhancement: awakenings minimized Medication Review/Management: medications reviewed * Progress Notes - Ebonie Colon RN - 12/06/2024 2:28 PM EDT Case Management Adult Initial Progress Note Yolie Paul 79 y.o. female CSN: [id number] Admission: 12/04/2024 11:26 AM Primary Problem: Generalized abdominal pain Telesales Manager reviewed chart and spoke with patient and her at to complete this Initial Case Management Assessment. PCP: Marco A Vazquez MD Emergency Contact: Extended Emergency Contact Information Primary Emergency Contact: Kevin Paul Mobile Relation: Spouse Ambulatory Service Representative needed? No Insurance: Primary Visit Coverage Payer Plan Sponsor Code Group Number Group Name [facility] MEDICARE [facility] MEDICARE REPLACEMENT [id number] Primary Visit Coverage Subscriber Subscriber ID Subscriber Name Subscriber SSN Subscriber Address [id number] YOLIE PAUL [id number] [place] [id number] Patient information: Primary Caregiver: Self Accompanied by/Relationship: Support System: Immediate family Daily Living Activities: Functional Status: Independent Living Arrangements: Spouse/Significant other Type of Residence: Single Level [address] [place] [id number] Current DME: Equipment Currently Used at Home: colostomy/ostomy/enteral supplies Current DME Provider: Karen Housing Circumstances-Z Codes: Housing Circumstances (select all that apply): None Applicable Anticipated Discharge Date: unknown Patient's Discharge Goal: home Assistance Available at Discharge: Discharge Transport: Follow Up Transport: self/ Home Health / Home Infusion / Outpatient Dialysis Services: Current DME Provider: Karen Living Will/Advance Directive/Power of Mutuel Department Manager /Guardian: Pt states she has a living will and POA. Her son is POA over medical and financial needs. Additional Comments: Pt admitted for abdominal pain. Met with pt and family at , verified information. Pt has a PCP, Marco A Vazquez, with the last visit approx 1 month ago. Pt lives with her , who is able to provide assistance at home if needed. Pt has [facility] Medicare as her insurance. Transportation home will be provided by her . Pt has listed her , Kevin Paul, as her emergency contact, phone # [phone]. Pt obtains medications from [facility]. Pt currently has a rolling walker and cane that she does not use. She is not receiving HH services. Pt had an ostomy prior to admission and obtains supplies from [employer]. Will continue to follow and assist with d/c needs asthey arise. Ebonie Colon RN * Care Plan - Neelima Talbert RN - 12/06/2024 1:58 PM EDT Problem: Adult Inpatient Plan of Care Goal: Plan of Care Review Outcome: Ongoing, Progressing Flowsheets (Taken 12/06/2024 1357) Progress: improving Plan of Care Reviewed With: patient spouse Goal: Patient-Specific Goal (Individualized) Outcome: Ongoing, Progressing Flowsheets (Taken 12/06/2024 0800) Patient/Family-Specific Goals (Include Timeframe): pt will verbalize tolerable pain levels throughout the shift Individualized Care Needs: pain control Anxieties, Fears or Concerns: pain Goal: Absence of Hospital-Acquired Illness or Injury Outcome: Ongoing, Progressing Goal: Optimal Comfort and Wellbeing Outcome: Ongoing, Progressing Goal: Readiness for Transition of Care Outcome: Ongoing, Progressing * Progress Notes - Allyson Mccarty APRN, DNP - 12/06/2024 10:24 AM EDT Images from the original note were not included. [facility] Department of Surgery Division of Colon & Rectal Surgery Surgery Progress Note 12/06/24 Yolie Paul Full Code Subjective Subjective: HPI 79 y.o. female with PMHx notable for locally advanced anal cancer now s/p pelvic exenteration, radical cystectomy, and urinary diversion with VRAM flap (hospitalized from 09/01/24-10/16/24) who presented to [facility] with decreased ostomy output and abdominal pain. Interval: Afebrile, vital signs stable on room air. GG challenge with contrast reaching colostomy. 400 ml liquid output. Tolerating clear liquid diet without nausea or emesis. Edited by: Rad Deras DO at 12/06/2024 0858 Review of Systems: A 14 point review of systems was reviewed and is negative except as mentioned inthe HPI. Objective Objective: Vital signs: Vitals: 12/06/24 0731 BP: 110/62 Pulse: 85 Resp: 16 Temp: 36.6 ??C (97.8 ??F) SpO2: 97% Physical Exam: Physical Exam Constitutional: Appearance: Normal appearance. HENT: Head: Normocephalic and atraumatic. Mouth/Throat: Mouth: Mucous membranes are moist. Cardiovascular: Rate and Rhythm: Normal rate and regular rhythm. Pulses: Normal pulses. Pulmonary: Effort: Pulmonary effort is normal. Abdominal: Palpations: Abdomen is soft. Comments: Urostomy and colostomy in place with pink stomas. Urostomy with clear yellow urine. Colostomy with liquid stool and small amt of gas. Musculoskeletal: General: Normal range of motion. Skin: General: Skin is warm and dry. Capillary Refill: Capillary refill takes less than 2 seconds. Neurological: General: No focal deficit present. Mental Status: She is alert and oriented to person, place, and time. Psychiatric: Mood and Affect: Mood normal. Behavior: Behavior normal. Thought Content: Thought content normal. Judgment: Judgment normal. Intake/Output Summary (Last 24 hours) at 12/06/2024 1025 Last data filed at 12/06/2024 0330 Gross per 24 hour Intake 3503.66 ml Output 2125 ml Net 1378.66 ml Lines/Drains/Tubes: Patient Lines/Drains/Airways Status Active Airway None Output by Drain (mL) 12/04/24 0700 - 12/04/24 1859 12/04/24 1900 - 12/05/24 0659 12/05/24 0700 - 12/05/24 1859 12/05/24 1900 - 12/06/24 0659 12/06/24 0700 - 12/06/24 1025 Requested LDAs do not have output data documented. Labs in last 18 hours: CBC WBC ?? Hb ?? Plt ?? Hct ?? ANC ?? INR ??, PTT ??, Anti-Xa ?? MCV ?? BMP Na ?? Cl ?? BUN ?? Glu ?? K ?? Co2 ?? Cr ?? Ca ?? iCa ?? Mg ??, Phos ?? Lactate ?? LFT AST ?? AlkPhos ?? T Prot ?? ALK ?? Bili ?? Alb ?? D.Bili ?? Lab Trends: H/H Results from last 7 days Lab Units 12/05/24 0335 12/04/24 1116 HEMOGLOBIN g/dL 7.4* 9.2* HEMATOCRIT % 23.3* 29.0* INR Cr Results from last 7 days Lab Units 12/05/24 0335 12/04/24 1116 CREATININE mg/dL 0.79 0.78 Lactate No lab exists for component: LACTTEVEN Radiographic Interpretation: No imagining today. Medications reviewed. Vital signs reviewed. Labs reviewed. Assessment/Plan Assessment and Plan: Medical Problems Problem List * (Principal) Generalized abdominal pain Squamous cell carcinoma of rectum Primary cancer of rectum (CMS/HCC) Overview Signed 01/12/2021 3:49 PM by Tarik Almanza CNA Malignant neoplasm of rectum Cancer of colon with rectum (CMS/HCC) Overview Signed 01/12/2021 3:49 PM by Tarik Almanza CNA Malignant neoplasm of rectosigmoid junction Anal cancer (CMS/HCC) Overview Signed 01/12/2021 3:49 PM by Tarik Almanza CNA Malignant neoplasm of anus, unspecified Syncope Overview Signed 01/12/2021 3:49 PM by Tarik Almanza CNA Syncope and collapse Supraventricular tachycardia by ECG (CMS/HCC) SDH (subdural hematoma) (CMS/HCC) Paroxysmal supraventricular tachycardia (CMS/HCC) Overview Addendum 09/02/2024 12:00 AM by Isa Rowan, GERONIMO S/p ablation in 2020, no recurrence since Previously resulted in syncope/fall + SDH One run of stable SVT intraoperatively, resolved with Esmolol bolus Hypothyroidism Overview Addendum 09/01/2024 10:37 PM by Isa Rowan, RN Restart home meds as appropriate- Synthroid 75mcg QAM Hypertension Overview Signed 09/02/2024 10:39 AM by Jenaro Narvaez APRN, DNP Goal normotension Resume home medications as appropriate Thyroid nodule greater than or equal to 1.5 cm in diameter incidentally noted on imaging study Hypercholesterolemia Irregular heartbeat Osteopenia Senile hyperkeratosis Vaginal atrophy Vaginal bleeding Activity of daily living alteration Thyroid nodule Atrial septal defect Stress incontinence Gross hematuria Bilateral low back pain without sciatica Acute respiratory failure with hypoxia and hypercapnia Overview Addendum 09/02/2024 10:38 AM by Jenaro Narvaez APRN, DNP Intubated for OR Successfully extubated AM 09/02 to NC Continue aggressive pulm secretion mobilization PRN CXR, blood gasses and nebs Hyperlipidemia Overview Addendum 09/01/2024 10:32 PM by Isa Rowan RN Resume home meds as appropriate- Lipitor 10mg QHS Acute blood loss anemia Overview Addendum 09/02/2024 10:40 AM by Jenaro Narvaez APRN, DNP Significant EBL intraoperatively requiring 5u PRBC Transfused 1u PRBC overnight 09/01 H/H now stable Will continue to monitor Transfuse as appropriate for Hgb>7 Iron, Folate, B12 as appropriate Ureteral obstruction Overview Addendum 09/02/2024 12:11 AM by Isa Rowan RN 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 Right percutaneous nephrostomy tube in place Postoperative pain Overview Signed 09/02/2024 10:41 AM by Jenaro Narvaez APRN, DNP Epidural INFORMATION SYSTEMS AUDIT MANAGER in place APMS following IV infiltration Overview Signed 09/02/2024 11:19 AM by Jenaro Narvaez APRN, DNP Left hand swelling noted AM 09/02 at IV site MIVF only, no vesicants IV removed, hand elevated Recurrent vaginal squamous cell carcinoma Overview Addendum 09/02/2024 12:11 AM by Isa Rowan RN S/p radical cystectomy, sigmoid urinary diversion with urostomy, proctectomy, vaginectomy, ileocecectomy, colostomy creation and abdominal pedicle flap to pelvis per SCR, URO COLLAR PACKER, & SERGIO NGT to iLWS Mobility restrictions- supine only/no HOB elevation, OK to ambulate Epidural INFORMATION SYSTEMS AUDIT MANAGER- basal dose to be continued while intubated Cefoxitin 2g q6h D5LR@ 100mL/h Remainder of care per primary Present on Admission: Generalized abdominal pain Plan Today: 79 y.o. female with PMHx notable for locally advanced anal cancer now s/p pelvic exenteration, radical cystectomy, and urinary diversion with VRAM flap (hospitalized from 09/01/24-10/16/24) who presented to [facility] with decreased ostomy output and abdominal pain. Interval: Afebrile, vital signs stable on room air. GG challenge with contrast reaching colostomy. 400 ml liquid output. Tolerating clear liquid diet without nausea or emesis. Edited by: Rad Deras DO at 12/06/2024 0858 [ ] Effexor / jackie / synthroid when tolerating PO meds? - Advance to FLD - half mIVF - AM labs - IV Zosyn - MMPC - Home medications as appropriate Edited by: Rad Deras DO at 12/06/2024 0856 - Discharge teaching and planning Dispo: Progressive Level Care Allyson Mccarty APRN Cosigned by Graeme Sharma MD at 12/08/2024 10:52 AM EDT Associated attestation - Graeme Sharma MD - 12/08/2024 10:52 AM EDT I attest to being involved in more than half the total time in patient care. Ms. Paul is a 79-year-old female admitted for small-bowel obstruction in the setting of prior pelvic exenteration. Ostomy functioning. PLAN FOLLOWS: Continue supportive care. * Care Plan - Oscar Lofton - 12/06/2024 3:31 AM EDT Problem: Adult Inpatient Plan of Care Goal: Plan of Care Review Outcome: Ongoing, Progressing Goal: Patient-Specific Goal (Individualized) Outcome: Ongoing, Progressing Goal: Absence of Hospital-Acquired Illness or Injury Outcome: Ongoing, Progressing Goal: Optimal Comfort and Wellbeing Outcome: Ongoing, Progressing Goal: Readiness for Transition of Care Outcome: Ongoing, Progressing * Progress Notes - Catrachita Ray MD - 12/06/2024 3:30 AM EDT Gynecologic Oncology Daily Progress Note Subjective No acute events overnight. Patient reports continued abdominal pain, which she reports the IV dilaudid helps but wears off before the next dose is due. Denies any nausea/vomiting overnight. Denies fever, chills, SOA, chest pain. Review of Systems 10-point ROS performed and negative except as per HPI. Objective Temp: [36.7 ??C (98 ??F)-37 ??C (98.6 ??F)] 37 ??C (98.6 ??F) Heart Rate: [76-84] 76 Resp: [16] 16 BP: (75-99)/(43-61) 94/55 Vitals: 12/05/24 1545 BP: 94/55 Pulse: 76 Resp: 16 Temp: 37 ??C (98.6 ??F) SpO2: 94% I/O last 3 completed shifts: In: 6274.3 (128.1 mL/kg) [I.V.:2428.3 (49.6 mL/kg); NG/GT:1600; IV Piggyback:2246] Out: 2775 (56.6 mL/kg) [Urine:2700 (1.5 mL/kg/hr); Stool:75] Weight: 49 kg Physical Exam: GENERAL: Alert, well-appearing, in NAD CARDIOVASCULAR: Normal rate. RESPIRATORY: Normal respiratory effort on room air GASTROINTESTINAL: Soft, non-tender, non-distended. Urostomy in place with clear/yellow urine. Colostomy in place with pink stoma. GENITOURINARY: Deferred SKIN: Warm, dry, well-perfused. PSYCHIATRIC: AO x3, with appropriate affect, normal thought processes EXTREMITIES: Symmetric. No peripheral edema. Labs: Lab Results Component Value Date WBC 11.28 (H) 12/05/2024 HGB 7.4 (L) 12/05/2024 HCT 23.3 (L) 12/05/2024 MCV 84 12/05/2024 PLT 283 12/05/2024 NEUTROABS 17.28 (H) 12/04/2024 GLUCOSE 124 (H) 12/05/2024 BUN 18 12/05/2024 CREATININE 0.79 12/05/2024 NA 137 12/05/2024 K 3.6 12/05/2024 CL 106 12/05/2024 CO2 20 (L) 12/05/2024 MG 1.5 (L) 12/05/2024 PHOS 3.2 12/05/2024 CALCIUM 9.1 12/05/2024 Assessment/Plan Yolie Paul is a 79 y.o. with anal squamous cell cancer who presents with decreased ostomy output and abdominal pain, with imaging concerning for recurrence. # Anal SCC - S/p exenterative procedure with vaginectomy and end colostomy with Dr. Sharma and plastics. GYOassisted with vaginal biopsy and completion of vaginectomy - Presenting with decreased ostomy output, N/V - CT AP 12/04: concern for severe enteritis of distal small bowel, recurrence of malignancy within pelvis with large thick-walled mass - HCT 29, WBC 19, PLT 382 - Afebrile, normotensive Recommendations: - Defer to CRS for further evaluation of surgical options in the context of likely recurrent colorectal malignancy - Consider multidisciplinary discussion with med onc vs radiation onc, if needed, to inform treatment planning Dispo: Rest of care per Primary team. GYO will sign off and be available for further questions. Please message on-call GYO resident via [employer] Secure Chat or page [phone] for questions or concerns regarding this patient's care. Cira Stallings MD PGY2 Obstetrics and Gynecology Cosigned by Minerva Ortega MD at 12/06/2024 10:37 AM EDT Associated attestation - Minerva Ortega MD - 12/06/2024 10:37 AM EDT I saw and evaluated the patient with the resident/fellow. I discussed the case with the resident/fellow and agree with the findings and plan as documented. Nothing to do from a COLLAR PACKER Oncology perspective. This is likely all recurrent SCC. I do not recommendsurgical intervention. Would not be able to radiate due to previous radiation to the pelvis. Any treatment would be systemic in nature. COLLAR PACKER Oncology will sign off. Please contact the team with further questions. Minerva Ortega MD * Hospital Course - Allyson Mccarty APRN, DAPHNEY - 12/05/2024 5:50 PM EDT Yolie Paul is a 79 y.o. 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 She presented to ED with abdominal pain and decreased ostomy output. Surgery was consulted and the patient was evaluated and found to have imaging concerning for possible recurrence and severe wall thickening of the distal small bowel concerning for enteritis. Pain was initially controlled with IV pain medication and was later transitioned to oral pain medication. Gastrograffin challenge demonstrated contrast reaching the colostomy. Her diet was advanced as tolerated. The patient's hospital course was uncomplicated and it was felt that the patient had reached maximal benefit from hospitalization. On 12/08/24 were deemed appropriate for discharge to home. On day of discharge, the patient was afebrile and hemodynamically stable, tolerating a GI Soft diet, the patient's pain was controlled on oral medications, voiding appropriately, with appropriate ostomy function. The patient was discharged on 12/08/24 to home and will return to clinic for routine post-procedure follow up with Dr. Sharma on 02/01 at 9a. You have a CT scan scheduled for 02/01 at 7a. You will be notified of a time for a PET scan and follow up with Dr. Sanchez. * Care Plan - Jules Cortez RN - 12/05/2024 12:47 PM EDT Problem: Adult Inpatient Plan of Care Goal: Plan of Care Review Outcome: Ongoing, Progressing Flowsheets (Taken 12/05/2024 1236) Progress: improving Plan of Care Reviewed With: patient Note: Pt going for XR Gastrografin Challenge today 12/05 Goal: Patient-Specific Goal (Individualized) Outcome: Ongoing, Progressing Flowsheets (Taken 12/05/2024 1236) Patient/Family-Specific Goals (Include Timeframe): Pt will finish rinking the PO gastrografin by 1300 for the XR imaging. Individualized Care Needs: Pain Mgmt to Facilitate Ambulation as Able Anxieties, Fears or Concerns: None Stated by Pt Goal: Absence of Hospital-Acquired Illness or Injury Outcome: Ongoing, Progressing Goal: Optimal Comfort and Wellbeing Outcome: Ongoing, Progressing Goal: Readiness for Transition of Care Outcome: Ongoing, Progressing * Progress Notes - Rad Deras DO - 12/05/2024 10:38 AM EDT Images from the original note were not included. [facility] Department of Surgery Division of Colorectal Surgery Surgery Progress Note 12/06/24 Yolie Paul Subjective Subjective: HPI 79 y.o. female with PMHx notable for locally advanced anal cancer now s/p pelvic exenteration, radical cystectomy, and urinary diversion with VRAM flap (hospitalized from 09/01/24-10/16/24) who presented to [facility] with decreased ostomy output and abdominal pain. Interval: Afebrile, vital signs stable on room air. GG challenge with contrast reaching colostomy. 400 ml liquid output. Tolerating clear liquid diet. Edited by: Rad Deras DO at 12/06/2024 0856 Review of Systems: Relevant review of systems was obtained as able and is negative unless stated above in HPI. Objective Objective: Vital signs: Vitals: 12/06/24 0731 BP: 110/62 Pulse: 85 Resp: 16 Temp: 36.6 ??C (97.8 ??F) SpO2: 97% Physical Exam: Constitutional: General: She is not in acute distress. Appearance: She is ill-appearing (Chronic). She is not toxic-appearing or diaphoretic. HENT: Head: Normocephalic. Eyes: Pupils: Pupils are equal, round, and reactive to light. Cardiovascular: Rate and Rhythm: Normal rate and regular rhythm. Pulmonary: Effort: Pulmonary effort is normal. No respiratory distress. Abdominal: General: Abdomen is flat. There is no distension. Palpations: Abdomen is soft. Tenderness: There is mild abdominal tenderness to palpation in lower abdomen. There is no guarding or rebound. Comments: Stomas pink and well perfused; some liquid output and gas in bag. Urostomy with CYU Musculoskeletal: General: Normal range of motion. Right lower leg: No edema. Left lower leg: No edema. Skin: Capillary Refill: Capillary refill takes less than 2 seconds. Coloration: Skin is pale. Neurological: General: No focal deficit present. Mental Status: She is alert and oriented to person, place, and time. Psychiatric: Mood and Affect: Mood normal. Thought Content: Thought content normal. Intake/Output Summary (Last 24 hours) at 12/06/2024 0856 Last data filed at 12/06/2024 0330 Gross per 24 hour Intake 3503.66 ml Output 2125 ml Net 1378.66 ml Lines/Drains/Tubes: Patient Lines/Drains/Airways Status Active Airway None Output by Drain (mL) 12/04/24 0700 - 12/04/24 1859 12/04/24 1900 - 12/05/24 0659 12/05/24 0700 - 12/05/24 1859 12/05/24 1900 - 12/06/24 0659 12/06/24 0700 - 12/06/24 0856 Requested LDAs do not have output data documented. Labs in last 18 hours: CBC WBC ?? Hb ?? Plt ?? Hct ?? ANC ?? INR ??, PTT ??, Anti-Xa ?? MCV ?? BMP Na ?? Cl ?? BUN ?? Glu ?? K ?? Co2 ?? Cr ?? Ca ?? iCa ?? Mg ??, Phos ?? Lactate ?? LFT AST ?? AlkPhos ?? T Prot ?? ALK ?? Bili ?? Alb ?? D.Bili ?? Lab Trends: H/H Results from last 7 days Lab Units 12/05/24 0335 12/04/24 1116 HEMOGLOBIN g/dL 7.4* 9.2* HEMATOCRIT % 23.3* 29.0* INR Cr Results from last 7 days Lab Units 12/05/24 0335 12/04/24 1116 CREATININE mg/dL 0.79 0.78 Lactate No lab exists for component: LACTTEVEN Radiographic Interpretation:=== 12/04/24 === XR GASTROGRAFFIN CHALLENGE - Narrative - CLINICAL INDICATION: 8 hour time 7:30 PM 12/05/2024: RN administered at 11:30 AM 12/05/2024; partial bowel obstruction TECHNIQUE: XR GASTROGRAFIN CHALLENGE COMPARISON: CT December 04, 2024 FINDINGS: Left mid abdominal ostomy. Cholecystectomy clips. Few surgical clips project over the pelvis. Contrast within the right hemicolon extending to the ostomy. Mild small bowel distention in the central abdomen. - Impression - Oral contrast opacifies the colon reaching the colostomy. CRITICAL RESULT: No. COMMUNICATION: Per this written report. Drafted by Stormy Matthews MD on 12/05/2024 8:11 PM Final report signed by Stormy Matthews MD on 12/05/2024 8:14 PM Medications reviewed. Vital signs reviewed. Labs reviewed. Assessment/Plan Assessment and Plan: Medical Problems Problem List * (Principal) Generalized abdominal pain Squamous cell carcinoma of rectum Primary cancer of rectum (CMS/HCC) Overview Signed 01/12/2021 3:49 PM by Tarik Almanza CNA Malignant neoplasm of rectum Cancer of colon with rectum (CMS/HCC) Overview Signed 01/12/2021 3:49 PM by Tarik Almanza CNA Malignant neoplasm of rectosigmoid junction Anal cancer (CMS/HCC) Overview Signed 01/12/2021 3:49 PM by Tarik Almanza CNA Malignant neoplasm of anus, unspecified Syncope Overview Signed 01/12/2021 3:49 PM by Tarik Almanza CNA Syncope and collapse Supraventricular tachycardia by ECG (CMS/HCC) SDH (subdural hematoma) (CMS/HCC) Paroxysmal supraventricular tachycardia (CMS/HCC) Overview Addendum 09/02/2024 12:00 AM by Isa Rowan RN S/p ablation in 2020, no recurrence since Previously resulted in syncope/fall + SDH One run of stable SVT intraoperatively, resolved with Esmolol bolus Hypothyroidism Overview Addendum 09/01/2024 10:37 PM by Isa Rowan RN Restart home meds as appropriate- Synthroid 75mcg QAM Hypertension Overview Signed 09/02/2024 10:39 AM by Jenaro Narvaez APRN, DNP Goal normotension Resume home medications as appropriate Thyroid nodule greater than or equal to 1.5 cm in diameter incidentally noted on imaging study Hypercholesterolemia Irregular heartbeat Osteopenia Senile hyperkeratosis Vaginal atrophy Vaginal bleeding Activity of daily living alteration Thyroid nodule Atrial septal defect Stress incontinence Gross hematuria Bilateral low back pain without sciatica Acute respiratory failure with hypoxia and hypercapnia Overview Addendum 09/02/2024 10:38 AM by Jenaro Narvaez APRN, DNP Intubated for OR Successfully extubated AM 09/02 to NC Continue aggressive pulm secretion mobilization PRN CXR, blood gasses and nebs Hyperlipidemia Overview Addendum 09/01/2024 10:32 PM by Isa Rowan RN Resume home meds as appropriate- Lipitor 10mg QHS Acute blood loss anemia Overview Addendum 09/02/2024 10:40 AM by Jenaro Narvaez APRN, DNP Significant EBL intraoperatively requiring 5u PRBC Transfused 1u PRBC overnight 09/01 H/H now stable Will continue to monitor Transfuse as appropriate for Hgb>7 Iron, Folate, B12 as appropriate Ureteral obstruction Overview Addendum 09/02/2024 12:11 AM by Isa Rowan RN 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 Right percutaneous nephrostomy tube in place Postoperative pain Overview Signed 09/02/2024 10:41 AM by Jenaro Narvaez APRN, DNP Epidural INFORMATION SYSTEMS AUDIT MANAGER in place APMS following IV infiltration Overview Signed 09/02/2024 11:19 AM by Jenaro Narvaez APRN, DNP Left hand swelling noted AM 09/02 at IV site MIVF only, no vesicants IV removed, hand elevated Recurrent vaginal squamous cell carcinoma Overview Addendum 09/02/2024 12:11 AM by Isa Rowan RN S/p radical cystectomy, sigmoid urinary diversion with urostomy, proctectomy, vaginectomy, ileocecectomy, colostomy creation and abdominal pedicle flap to pelvis per SCR, URO COLLAR PACKER, & SERGIO NGT to iLWS Mobility restrictions- supine only/no HOB elevation, OK to ambulate Epidural INFORMATION SYSTEMS AUDIT MANAGER- basal dose to be continued while intubated Cefoxitin 2g q6h D5LR@ 100mL/h Remainder of care per primary Present on Admission: Generalized abdominal pain Yolie Paul is a 79 y.o. female with PMHx notable for locally advanced anal cancer now s/p pelvic exenteration, radical cystectomy, and urinary diversion with VRAM flap (hospitalized from 09/01/24-10/16/24) who presented to [facility] with decreased ostomy output and abdominal pain. Imaging concerning for possible recurrence. She is now having some liquid ostomy output. GG challenge with contrast reaching the colon. Will advance diet today. Plan: - Advance to FLD - half mIVF - AM labs - IV Zosyn - MMPC - Home medications as appropriate Edited by: Rad Deras DO at 12/06/2024 0856 Dispo: Continue Current Level of Care Rad Deras DO Cosigned by Graeme Sharma MD at 12/08/2024 10:51 AM EDT Associated attestation - Graeme Sharma MD - 12/08/2024 10:51 AM EDT I saw and evaluated the patient with the resident/fellow. I discussed the case with the resident/fellow and agree with the findings and plan as documented. Ms. Paul is a 79-year-old female admitted for small-bowel obstruction after pelvic exenteration. PLAN FOLLOWS: Continue supportive care. * Consults - Shira Ramirez MD - 12/04/2024 2:58 PM EDTAssociated Order(s): Consult to Gynecologic Oncology Gynecologic Oncology Consult Note Patient Name: Yolie Paul : 1945 Consult to Gynecologic Oncology Consult performed by: Poonam Polanco MD Consult ordered by: Aric Cai MD Subjective Subjective History of Present Illness: Yolie Paul is a 79 y.o. female with anal squamous cell cancer who presents with decreased ostomy output and abdominal pain. Ostomy output dropped off Friday. -Friday she started having abdominal cramps and vomiting. [place] sick Friday night with chills. Everything she ate came backup. Was able to tolerate a cup of coffee this morning, last meal she kept down was . Cramping has resolved, now abdomen just feels sore. Denies urinary problems, vaginal bleeding, abnormal discharge. Pain is improved with medications in the ED, usually takes tylenol and ibuprofen at home which makes the pain manageable. Oncologic History: Primary Oncologist: Colon & Rectal Surgery Oncology History Overview Note Locally advanced, recurrent [...] with Dr. Sharma colorectal surgery. Had d/w visual inspector onc (she previously saw Dr. Ortega). Plan [...] and adjacent small bowel 08/03/24: follow up Daniel/Zachary--pelvic exenteration planned if good response Squamous cell [...] (06/29/2024), 276 mg (07/20/2024) Past Medical History: Past Medical History[1] Past Surgical History: Surgical History[2] Family History: Family History[3] Social History: Social History[4] Medications: Current Outpatient Medications Medication Instructions acetaminophen (Tylenol) 325 MG capsule aspirin 81 mg, ZZ Daily RT atorvastatin (LIPITOR) 10 mg, Nightly gabapentin (NEURONTIN) 300 mg, Oral, 3 times daily HYDROcodone-acetaminophen (Lovilia) 5-325 MG tablet 5 mg of hydrocodone, Oral, Every 6 hours PRN levothyroxine (SYNTHROID, LEVOXYL) 75 mcg, Daily polyethylene glycol (MIRALAX) 17 g, Oral, 2 times daily venlafaxine XR (EFFEXOR-XR) 150 mg, Every morning Allergies: Allergies[5] Review of Systems: Negative aside from mentioned above in HPI Objective Objective Vital Signs: Visit Vitals BP 110/57 (BP Location: Right arm, Patient Position: Lying) Pulse 83 Temp 36.8 ??C (98.2 ??F) (Oral) Resp 18 Physical Exam: GENERAL: Alert, well-appearing, in NAD CARDIOVASCULAR: Normal rate RESPIRATORY: Normal respiratory effort on room air GASTROINTESTINAL: Soft, non-tender, non-distended, no rebound or guarding. Urostomy in place. Colostomy in place with healthy, pink stoma, no output in bag. GENITOURINARY: Deferred PSYCHIATRIC: AO x3, with appropriate affect, normal thought processes EXREMITIES: Symmetric. No peripheral edema. Results: Lab Results Component Value Date WBC 18.93 (H) 12/04/2024 RBC 3.46 (L) 12/04/2024 HGB 9.2 (L) 12/04/2024 HCT 29.0 (L) 12/04/2024 PLT 382 (H) 12/04/2024 MCV 84 12/04/2024 MCH 26.6 12/04/2024 MCHC 31.7 12/04/2024 RDW 16.2 (H) 12/04/2024 MPV 8.1 (L) 12/04/2024 NRBC 0.0 12/04/2024 Lab Results Component Value Date GLUCOSE 130 (H) 12/04/2024 BUN 26 (H) 12/04/2024 CREATININE 0.78 12/04/2024 BCR 33 12/04/2024 NA 133 (L) 12/04/2024 K 4.6 12/04/2024 CL 99 12/04/2024 CO2 19 (L) 12/04/2024 ANIONGAP 15 12/04/2024 CALCIUM 10.1 12/04/2024 TP 7.2 12/04/2024 ALBUMIN 3.4 (L) 12/04/2024 AST 22 12/04/2024 ALT 16 12/04/2024 ALKPHOS 103 12/04/2024 BILITOT 0.3 12/04/2024 EGFR 78.3 12/04/2024 Lab Results Component Value Date MG 1.3 (L) 10/15/2024 PHOS 2.9 10/15/2024 CAION 4.5 (L) 09/05/2024 Lab Results Component Value Date INR 1.2 (H) 09/01/2024 Imaging: CT Abdomen Pelvis w IV Contrast Result Date: 12/04/2024 Postoperative changes of the abdomen and pelvis, including cystectomy with ileoconduit formation. Left lower quadrant ostomy. However, there is severe wall thickening involving the distal small bowelwith severe attenuation involving a focal segment, concerning for severe enteritis. Recurrence of malignancy within the pelvis with large thick-walled mass along the presacral and right pelvic sidewall with 2 separate areas, likely representing necrosis of the underlying tissue. CRITICAL RESULT: No. COMMUNICATION: Per this written report. Drafted by Lizandro Watkins MD on 12/04/2024 12:13 PM Final report signed by Lizandro Watkins MD on 12/04/2024 12:28 PM Assessment/Plan Assessment / Plan Yolie Paul is a 79 y.o. with anal squamous cell cancer who presents with decreased ostomy output and abdominal pain. # Anal SCC - S/p exenterative procedure with vaginectomy and end colostomy with Dr. Sharma and plastics. GYOassisted with vaginal biopsy and completion of vaginectomy - Presenting with decreased ostomy output, N/V - CT AP 12/04: concern for severe enteritis of distal small bowel, recurrence of malignancy within pelvis with large thick-walled mass - HCT 29, WBC 19, PLT 382 - Afebrile, normotensive Recommendations: - Defer to CRS for further evaluation of surgical options in the context of likely recurrent colorectal malignancy - Consider multidisciplinary discussion with med onc vs radiation onc, if needed, to inform treatment planning Dispo: GYO will peripherally follow. Thank you for including us in the care of this patient. GYO will be available for questions. Pleasemessage on-call GYO resident via [employer] Secure Chat or page [phone] for questions or concerns regarding this patient's care. Poonam Polanco MD Obstetrics & Gynecology, PGY-1 [facility] [1] Past Medical History: Diagnosis Date Abnormal Pap smear of cervix Cancer (CMS/HCC) 07/2016 History of uterine fibroid Hx antineoplastic [...] specified conditions History of syncope Rectal cancer ([facility]) July 2016 SDH (subdural hematoma) ([facility]) 07/31/2020 Skin cancer 2004 Stroke ([facility]) 2013 Supraventricular tachycardia by ECG ([facility]) 07/04/2020 SVT (supraventricular tachycardia) ([facility]) had cardiac ablation Syncope 07/04/2020 Syncope and collapse TIA (transient ischemic attack) 07/31/20202013 Urinary incontinence October 2023 [2] Past Surgical History: Procedure Laterality Date BREAST BIOPSY N/A Biopsy of breast from [facility] CATH ABLATION N/A 2020 Catheter ablation from [facility] [employer] CHOLECYSTECTOMY N/A 2002 COLON SURGERY N/A Colon Surgery from [employer] [facility] [employer] COLONOSCOPY 03/01/2024 FEMUR FRACTURE SURGERY 2022 HYSTERECTOMY N/A 1995 [3] Family History Problem Relation Name Age of Onset Cardiac disorder Father Edy Matthews Conversions - Other Father Edy Matthews malignant neoplasm in father Lung cancer Father Edy Matthews Prostate cancer Father Edy Matthews Cancer Father Edy Matthews Radiation Therapy Father Edy Matthews Anesthesia problems Father Edy Matthews Malig Hyperthermia Neg Hx [4] Social History Socioeconomic History Marital status: Tobacco Use Smoking status: Never Passive exposure: Never Smokeless tobacco: Never Vaping Use Vaping status: Never Used Substance and Sexual Activity Alcohol use: Not Currently Alcohol/week: 7.0 standard drinks of alcohol Types: 7 Glasses of wine per week Comment: stopped drinking 11/2023 Drug use: No Comment: Drug use: Does not use illicit drugs Sexual activity: Not Currently Partners: Male control/protection: Post-menopausal Social History Narrative Marital Status: 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 [employer] Food Insecurity: No Food Insecurity (09/03/2024) Hunger Vital Sign Worried About Running Out of Food in the Last Year: Never true Ran Out of Food in the Last Year: Never true Transportation Needs: No Transportation Needs (09/03/2024) PRAPARE - Transportation Lack of Transportation (Medical): No Lack of Transportation (Non-Medical): No [facility]ceived from [facility] Family and Community Support Intimate Partner Violence: Not At Risk (09/03/2024) Humiliation, Afraid, Rape, and Kick questionnaire Fear of Current or Ex-Partner: No Emotionally Abused: No Physically Abused: No Sexually Abused: No Housing Stability: Unknown (09/03/2024) Housing Stability Vital Sign Unable to Pay for Housing in the Last Year: No Homeless in the Last Year: No [5] No Known Allergies Cosigned by Braulio Wood MD at 12/05/2024 8:05 AM EDT Associated attestation - Braulio Wood MD - 12/05/2024 8:05 AM EDT I saw and evaluated the patient with the resident/fellow. I discussed the case with the resident/fellow and agree with the findings and plan as documented. * H&P - Janice Jha MD - 12/04/2024 1:07 PM EDTAssociated Order(s): Inpatient consult to Colorectal Surgery Images from the original note were not included. [facility] Department of Surgery Division of Colorectal Surgery History & Physical Note Reason for Consult: No ostomy output, concern for cancer recurrence Requesting Service: Emergency Department Consult Date and Time: 12/04/2024 1315 Inpatient consult to Colorectal Surgery Consult performed by: Janice Jha MD Consult ordered by: Aric Cai MD Subjective History of Present Illness: Chief Complaint: Abdominal pain, no ostomy output Yolie Paul is a 79 y.o. 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 Ms. Paul presented to [facility] on 09/01/2024 for a combination operative case between CRS, Plastic Surgery, Urology, and Gynecology Oncology. Ms. Paul was taken to the OR on 09/01/2024 for elective abdominal perineal resection with end colostomy, posterior vaginectomy, ileocecectomy, pelvic exenteration, and mobilization of the splenic flexure. She also received a right vertical rectus abdominis pedicled myocutaneous flap for reconstruction of the exenteration defect from Plastic Surgery. Additionally, she also underwent a radical cystectomy and sigmoid colon conduit urinary diversion with Urology. The patient had a long hospital stay following her operation but was discharged on 10/16/2024. She has been seen multiple times in the outpatient clinic overall reporting improved energy levels and healing appropriately. Within the past several days, the patient reported decreased ostomy output and increasing abdominal pain with nausea and presented to the emergency department. In the ED, she had workup concerning for a white blood cell count of 19 K, and underwent a CT scan which demonstrated concern for possible focal perforation and multiple fluid collections. Colorectal surgery was consulted to evaluate. At the bedside, the patient reports she has overall been fatigued, and unable to keep anything down. She reports dizziness with standing along with body aches and chills along with some increased pain along her coccyx area. Review of Systems: Relevant review of systems was obtained as able and is negative unless stated above in HPI. History Obtained From: Patient Past Medical History: Past Medical History[1] Allergies And Reactions: Allergies[2] Past Surgical History: Surgical History[3] Family Medical History: Family History[4] Reviewed and Non-contributory Social History: Social History Socioeconomic History Marital status: Spouse [...] Connections: Unknown (03/24/2023) Received from [facility] Family and Community Support Help with [...] file Homeless in the Last Year: No Immunizations: Immunization History Administered Date(s) Administered Influenza, injectable, quadrivalent, preservative free 03/25/2016, 03/11/2022 Influenza, seasonal, injectable 03/11/2022 Influenza, seasonal, injectable, preservative free 03/16/2016 Moderna COVID-19 Vaccine (Cryptological Technician) 12+ years 07/05/2020, 08/09/2020, 04/13/2021, 12/27/2021 Moderna COVID-19 Vaccine Bivalent 6months+ 04/02/2022 Pneumococcal 20-keith Conj Vaccine 10/26/2015 Pneumococcal Conjugate PCV 13 10/26/2015 TD (adult), 2 Lf tetanus toxoid, preservative free, adsorbed 08/21/1996 I have updated and confirmed the past medical, surgical, family and social history. Home Medications: Prior to Admission medications Medication Sig Start Date End Date Taking? Authorizing Provider acetaminophen (Tylenol) 325 MG capsule Naomy Caballero MD aspirin 81 MG EC tablet Take 1 tablet (81 mg) by mouth 1 (one) time each day. ProviderNaomy MD atorvastatin (Lipitor) 10 MG tablet Take 1 tablet (10 mg) by mouth nightly. 12/26/20 Naomy Caballero MD gabapentin (Neurontin) 300 MG capsule Take 1 capsule by mouth 3 times a day. 10/16/24 11/30/24 Dar Anand MD HYDROcodone-acetaminophen (Lovilia) 5-325 MG tablet Take 1 tablet by mouth every 6 hours as needed for moderate pain. 11/12/24 Graeme Sharma MD levothyroxine (Synthroid, Levoxyl) 75 MCG tablet Take 1 tablet (75 mcg) by mouth in the morning. 01/03/21 Naomy Caballero MD polyethylene glycol (Miralax) 17 g packet Take 17 g by mouth 2 times a day. Patient taking differently: Take 17 g by mouth 2 times a day. PRN 10/16/24 Graeme Sharma MD venlafaxine XR (Effexor-XR) 150 MG 24 hr capsule Take 1 capsule by mouth every morning. Naomy Caballero MD Anti-Thrombotic Medications: Is this patient taking warfarin, new oral anti-coagulant, or anti-platelet medication? No If Yes, What Medication: N/A Current Hospital Medications: Current Medications[5] Objective Objective: Visit Vitals BP 94/54 (BP Location: Right arm, Patient Position: Sitting) Pulse 105 Temp 36.8 ??C (98.2 ??F) (Oral) Ht 1.575 m (5' 2 ) Wt 49 kg (108 lb) SpO2 98% BMI 19.75 kg/m?? Physical Exam Vitals reviewed. Constitutional: General: She is not in acute distress. Appearance: She is ill-appearing (Chronic). She is not toxic-appearing or diaphoretic. HENT: Head: Normocephalic. Eyes: Pupils: Pupils are equal, round, and reactive to light. Cardiovascular: Rate and Rhythm: Normal rate and regular rhythm. Pulmonary: Effort: Pulmonary effort is normal. No respiratory distress. Abdominal: General: Abdomen is flat. There is no distension. Palpations: Abdomen is soft. Tenderness: There is abdominal tenderness (Diffuse, mostly LLQ). There is no guarding or rebound. Comments: Stomas pink and well perfused; no stool output, but gas in bag. Urostomy with cloudy urine. Musculoskeletal: General: Normal range of motion. Right lower leg: No edema. Left lower leg: No edema. Skin: Capillary Refill: Capillary refill takes less than 2 seconds. Coloration: Skin is pale. Neurological: General: No focal deficit present. Mental Status: She is alert and oriented to person, place, and time. Psychiatric: Mood and Affect: Mood normal. Thought Content: Thought content normal. Laboratory: CBC WBC 18.93 (H) Hb 9.2 (L) Plt 382 (H) Hct 29.0 (L) ANC 17.28 (H) INR ??, PTT ??, Anti-Xa ?? MCV 84 BMP Na 133 (L) Cl 99 BUN 26 (H) Glu 130 (H) K 4.6 Co2 19 (L) Cr 0.78 Ca 10.1 iCa ?? Mg ??, Phos ?? Lactate ?? LFT AST 22 AlkPhos 103 T Prot 7.2 ALK 16 Bili 0.3 Alb ?? D.Bili ?? Imaging: CT Abdomen Pelvis w IV Contrast Result Date: 12/04/2024 Postoperative changes of the abdomen and pelvis, including cystectomy with ileoconduit formation. Left lower quadrant ostomy. However, there is severe wall thickening involving the distal small bowelwith severe attenuation involving a focal segment, concerning for severe enteritis. Recurrence of malignancy within the pelvis with large thick-walled mass along the presacral and right pelvic sidewall with 2 separate areas, likely representing necrosis of the underlying tissue. CRITICAL RESULT: No. COMMUNICATION: Per this written report. Drafted by Lizandro Watkins MD on 12/04/2024 12:13 PM Final report signed by Lizandro Watkins MD on 12/04/2024 12:28 PM Radiographic Interpretation: I have reviewed the imaging above and agree with the radiologist interpretation. Assessment/Plan Assessment & Plan: Yolie Paul is a 79 y.o. female with PMHx notable for locally advanced anal cancer now s/p pelvic exenteration, radical cystectomy, and urinary diversion with VRAM flap (hospitalized from 09/01/24-10/16/24) who presented to [facility] with decreased ostomy output and abdominal pain. In the ED, the patient has been hemodynamically stable, with laboratory findings significant for a leukocytosis of 19K and minor hyponatremia. She underwent a CT scan which demonstrated concern for possible focal perforation of the distal small bowel along with multiple small fluid collections and 1 larger around the presacral region and vaginal cuff, concerning for underlying malignancy. Her small bowel also appears fecalized, but she has no distention of her bowels concerning for obstructive etiology. GynOnc was consulted and saw the patient in the emergency department. We discussed the findings with the patient and recommended admission for ongoing workup. Plan: - Admit to CRS - NPO, sips and meds - GG challenge - mIVF - IV Zosyn - MMPC - Home medications as appropriate Medical Problems Problem List Squamous cell carcinoma of rectum Primary cancer of rectum (CMS/HCC) Overview Signed 01/12/2021 3:49 PM by Tarik Almanza CNA Malignant neoplasm of rectum Cancer of colon with rectum (CMS/HCC) Overview Signed 01/12/2021 3:49 PM by Tarik Almanza CNA Malignant neoplasm of rectosigmoid junction Anal cancer (CMS/HCC) Overview Signed 01/12/2021 3:49 PM by Tarik Almanza CNA Malignant neoplasm of anus, unspecified Syncope Overview Signed 01/12/2021 3:49 PM by Tarik Almanza CNA Syncope and collapse Supraventricular tachycardia by ECG (CMS/HCC) SDH (subdural hematoma) (CMS/HCC) Paroxysmal supraventricular tachycardia (CMS/HCC) Overview Addendum 09/02/2024 12:00 AM by Isa Rowan RN S/p ablation in 2020, no recurrence since Previously resulted in syncope/fall + SDH One run of stable SVT intraoperatively, resolved with Esmolol bolus Hypothyroidism Overview Addendum 09/01/2024 10:37 PM by Isa Rowan RN Restart home meds as appropriate- Synthroid 75mcg QAM Hypertension Overview Signed 09/02/2024 10:39 AM by Jenaro Narvaez APRN, DAPHNEY Goal normotension Resume home medications as appropriate Thyroid nodule greater than or equal to 1.5 cm in diameter incidentally noted on imaging study Hypercholesterolemia Irregular heartbeat Osteopenia Senile hyperkeratosis Vaginal atrophy Vaginal bleeding Activity of daily living alteration Thyroid nodule Atrial septal defect Stress incontinence Gross hematuria Bilateral low back pain without sciatica Acute respiratory failure with hypoxia and hypercapnia Overview Addendum 09/02/2024 10:38 AM by Jenaro Narvaez APRN, DNP Intubated for OR Successfully extubated AM 09/02 to NC Continue aggressive pulm secretion mobilization PRN CXR, blood gasses and nebs Hyperlipidemia Overview Addendum 09/01/2024 10:32 PM by Isa Rowan RN Resume home meds as appropriate- Lipitor 10mg QHS Acute blood loss anemia Overview Addendum 09/02/2024 10:40 AM by Jenaro Narvaez APRN, DNP Significant EBL intraoperatively requiring 5u PRBC Transfused 1u PRBC overnight 09/01 H/H now stable Will continue to monitor Transfuse as appropriate for Hgb>7 Iron, Folate, B12 as appropriate Ureteral obstruction Overview Addendum 09/02/2024 12:11 AM by Isa Rowan RN 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 Right percutaneous nephrostomy tube in place Postoperative pain Overview Signed 09/02/2024 10:41 AM by Jenaro Narvaez APRN, DNP Epidural INFORMATION SYSTEMS AUDIT MANAGER in place APMS following IV infiltration Overview Signed 09/02/2024 11:19 AM by Jenaro Narvaez APRN, DNP Left hand swelling noted AM 09/02 at IV site MIVF only, no vesicants IV removed, hand elevated Recurrent vaginal squamous cell carcinoma Overview Addendum 09/02/2024 12:11 AM by Isa Rowan RN S/p radical cystectomy, sigmoid urinary diversion with urostomy, proctectomy, vaginectomy, ileocecectomy, colostomy creation and abdominal pedicle flap to pelvis per SCR, URO COLLAR PACKER, & SERGIO NGT to iLWS Mobility restrictions- supine only/no HOB elevation, OK to ambulate Epidural INFORMATION SYSTEMS AUDIT MANAGER- basal dose to be continued while intubated Cefoxitin 2g q6h D5LR@ 100mL/h Remainder of care per primary Dispo: Admit to SCR CODE STATUS: full code This Consult, Assessment, and Plan has been discussed with Dr. Narvaez, Attending Physician Janice Jha MD [1] Past Medical History: Diagnosis Date Abnormal Pap smear of cervix Cancer (CMS/HCC) 07/2016 History of uterine fibroid Hx antineoplastic chemo 2016 Hx of abnormal cervical Pap smear Hx of abnormal cervical Pap smear Hypercholesterolemia 01/09/2017 Hyperlipidemia, unspecified Elevated lipids Hypertension 07/04/2020 Hypothyroidism 08/23/2020 Hypothyroidism, unspecified Hypothyroidism, unspecified Hypothyroidism Irregular heartbeat 01/09/2017 Osteopenia 01/09/2017 Osteoporosis 2017 Other specified disorders of bone density and structure, unspecified site Osteopenia Personal history of irradiation 2016 Personal history of other diseases of the circulatory system History of supraventricular tachycardia Personal history of other endocrine, nutritional and metabolic disease History of hypothyroidism Personal history of other malignant neoplasm of rectum, rectosigmoid junction, and anus History of rectal cancer 2016 Personal history of other specified conditions History of syncope Rectal cancer ([facility]) July 2016 SDH (subdural hematoma) ([facility]) 07/31/2020 Skin cancer 2004 Stroke ([facility]) 2013 Supraventricular tachycardia by ECG ([facility]) 07/04/2020 SVT (supraventricular tachycardia) ([facility]) had cardiac ablation Syncope 07/04/2020 Syncope and collapse TIA (transient ischemic attack) 07/31/20202013 Urinary incontinence October 2023 [2] No Known Allergies [3] Past Surgical History: Procedure Laterality Date BREAST BIOPSY N/A Biopsy of breast from [facility] CATH ABLATION N/A 2020 Catheter ablation from [facility] [employer] CHOLECYSTECTOMY N/A 2002 COLON SURGERY N/A Colon Surgery from [employer] [facility] [employer] COLONOSCOPY 03/01/2024 FEMUR FRACTURE SURGERY 2022 HYSTERECTOMY N/A 1995 [4] Family History Problem Relation Name Age of Onset Cardiac disorder Father Edy Matthews Conversions - Other Father Edy Matthews malignant neoplasm in father Lung cancer Father Edy Matthews Prostate cancer Father Edy Matthews Cancer Father Edy Matthews Radiation Therapy Father Edy Matthews Anesthesia problems Father Edy Matthews Malig Hyperthermia Neg Hx [5] Current Facility-Administered Medications Medication Dose Route Frequency Provider Last Rate Last Admin piperacillin-tazobactam (Zosyn) 4.5 g in sodium chloride 0.9% 100 mL IVPB (vial adapter required) 4.5 g Intravenous Once Carline Reed MD 36.7 mL/hr at 12/04/24 1301 4.5 g at 12/04/24 1301 Current Outpatient Medications Medication Sig Dispense Refill acetaminophen (Tylenol) 325 MG capsule aspirin 81 MG EC tablet Take 1 tablet (81 mg) by mouth 1 (one) time each day. atorvastatin (Lipitor) 10 MG tablet Take 1 tablet (10 mg) by mouth nightly. gabapentin (Neurontin) 300 MG capsule Take 1 capsule by mouth 3 times a day. 90 capsule 0 HYDROcodone-acetaminophen (Lovilia) 5-325 MG tablet Take 1 tablet by mouth every 6 hours as needed for moderate pain. 21 tablet 0 levothyroxine (Synthroid, Levoxyl) 75 MCG tablet Take 1 tablet (75 mcg) by mouth in the morning. polyethylene glycol (Miralax) 17 g packet Take 17 g by mouth 2 times a day. (Patient taking differently: Take 17 g by mouth 2 times a day. PRN) 60 packet 1 venlafaxine XR (Effexor-XR) 150 MG 24 hr capsule Take 1 capsule by mouth every morning. Cosigned by Lillian Narvaez MD at 12/07/2024 10:09 AM EDT Associated attestation - Lillian Naravez MD - 12/07/2024 10:09 AM EDT I saw and evaluated the patient. I discussed the case with the resident/fellow and agree with the findings and plan as documented. * ED Provider Notes - Aric Cai MD - 12/04/2024 10:52 AM EDT Images from the original note were not included. - HPI Chief Complaint Patient presents with Abdominal Pain [facility] NOTE Yolie Paul is a 79 y.o. female who presents to the ED with abdominal pain. Pt reports hx ofcolon carcinoma and has ostomy put in place, but has had no ostomy output x 3 days with pain. Pt also reports hx of bladder surgery. Pt has no other concerns at this time. History provided by: Patient and medical records wrapper stripper used: No MAIN ED NOTE//Carline Reed MD: I assumed full responsibility for this patient after transfer to Main ED from [facility]. I personally performed my own history, ROS, and physical. I agree with the above [facility] documentation with the following additions/exceptions: Status having year old female with history of rectal cancer status post vaginectomy, rectal removal, ileostomy creation who presents for evaluation of abdominal pain and no ostomy output. Patient reports she stopped having ostomy output on Friday, developed crampy abdominal pain. Reports nausea and vomiting that started yesterday. She denies fever, cough, congestion. Endorses chills today. Denies any other symptoms at this time. Patient History Past Medical History[1] Surgical History[2] Family History[3] Social History[4] Allergies: Allergies[5] Physical Exam ED Triage Vitals [12/04/24 1056] Temp Heart Rate Resp BP 36.8 ??C (98.2 ??F) 105 17 94/54 SpO2 Temp Source Heart Rate Source Patient Position 98 % Oral -- Sitting BP Location FiO2 (%) Right arm -- Physical Exam Constitutional: Appearance: She is well-developed. She is ill-appearing. HENT: Head: Normocephalic and atraumatic. Mouth/Throat: Mouth: Mucous membranes are moist. Eyes: General: No scleral icterus. Extraocular Movements: Extraocular movements intact. Pupils: Pupils are equal, round, and reactive to light. Cardiovascular: Rate and Rhythm: Normal rate and regular rhythm. Abdominal: General: Abdomen is flat. Tenderness: There is generalized abdominal tenderness and tenderness in the right lower quadrant and left lower quadrant. Comments: Ileostomy in place, no output Skin: General: Skin is warm and dry. Capillary Refill: Capillary refill takes 2 to 3 seconds. Coloration: Skin is not jaundiced. Neurological: Mental Status: She is alert and oriented to person, place, and time. EASI ?? Total Score: 0 [place] Coma Scale Score: 15 Mini Nutritional Screening Score : 10 TRST Assessment Total: 1 ED Course & MDM Date/Time: 12/04/2024/3:29 PM Entered by Arnulfo Mireles acting as scribe for Angel Mane MD. Attending Attestation: The documentation was recorded by Arnulfo Mireles, acting as scribe in my presence at the time of the encounter and accurately reflects the service I personally performed. - Assessment: 79 y.o. female presents to ED with complaint of abdominal pain and vomiting. It should be noted that the chronic conditions includes history of rectal cancer, which currently is not at goal therapy. This complicates the clinical picture because it Comorbidities: may be exacerbating symptoms and increases the risk for morbidity. Upon arrival patient is tachycardic, borderline hypotensive, afebrile, no acute distress. Reports abdominal pain that has been worsening over the past few days, reports she has not had ostomy output since Friday. Reports vomiting that started yesterday accompanied by nausea. She denies fever, congestion, chest pain. Differential Diagnosis: Small-bowel obstruction, large bowel obstruction, metastatic cancer, electrolyte abnormality, acute kidney injury, pneumatosis, bowel perforation, intra-abdominal abscess. Ruling out the most morbid condition drove my assessment. In order to fully explore the differential diagnosis the following treatments and tests were ordered: ED Medication Administration from 12/04/2024 1052 to 12/04/2024 1529 Date/Time Order Dose Route Action 12/04/2024 1132 EDT morphine PF 1 mg 1 mg Intravenous Given 12/04/2024 1133 EDT ondansetron (Zofran) injection 4 mg 4 mg Intravenous Given 12/04/2024 1134 EDT lactated Ringer's infusion 500 mL 500 mL Intravenous New Bag 12/04/2024 1145 EDT iohexol (OMNIPaque) 300 MG/ML injection 100 mL 100 mL Intravenous Given 12/04/2024 1240 EDT lactated Ringer's infusion 500 mL 0 mL Intravenous Stopped 12/04/2024 1301 EDT piperacillin-tazobactam (Zosyn) 4.5 g in sodium chloride 0.9% 100 mL IVPB (vialadapter required) 4.5 g Intravenous New Bag 12/04/2024 1425 EDT HYDROmorphone (Dilaudid) injection 0.5 mg 0.5 mg Intravenous Given All Other Orders Ordered Status Ordering Provider 12/04/24 1440 Consult to Gynecologic Oncology Once Specialty: Gynecologic Oncology Provider: (Not yet assigned) Acknowledged CARLINE REED 12/04/24 1259 Inpatient consult to Colorectal Surgery Once Specialty: Colon and Rectal Surgery Provider: (Not yet assigned) Acknowledged CARLINE REED 12/04/24 1239 Blood Culture (Aerobic/Anaerobet Set) STAT Preliminary result CARLINE REED 12/04/24 1239 Blood Culture (Aerobic/Anaerobet Set) STAT Preliminary result CARLINE REED 12/04/24 1111 Urinalysis, manual only Once Collected ANGEL PEARSON 12/04/24 1111 Urinalysis microscopic Once Final result ANGEL PEARSON 12/04/24 1111 Hepatitis C Antibody - ED Once Final result ANGEL PEARSON 12/04/24 1111 ED Protocol - HIV 1/2 Antibody/Antigen Screen Once Final result ANGEL PEARSON 12/04/24 1111 ED HIV 1/2 Antibody/Antigen Screen w/Reflex to HIV 1/2 Differentiation PROCEDURE ONCE Final result ANGEL PEARSON 12/04/[address] Abdomen Pelvis w IV Contrast Once Final result ANGEL PEARSON 12/04/24 1111 CMP STAT Final result ANGEL PEARSON 12/04/24 1111 Lipase STAT Final result ANGEL PEARSON 12/04/24 1111 CBC w/diff STAT Final result ANGEL PEARSON 12/04/24 1111 Lactic acid, venous STAT Final result ANGEL PEARSON 12/04/24 1111 Insert peripheral IV Once Acknowledged ANGEL PEARSON Attending MDM: Prior records reviewed in the electronic medical record. Patient has a history of colon carcinoma with resection by colorectal surgery. Ostomy in place. Additionally, patient has had a history of bladder surgery with complication. Review of the electronic medical record shows anal cancer of squamous cell variety. Patient had right ureteral obstruction noted at time of prior surgery. Labs show leukocytosis with moderate anemia. Chemistry nonactionable. CT of the abdomen shows ostomy without fluid collection. There is some dilation of a focal segment of the small bowel with bowel wall thickening. Please see radiology note for final interpretation. Rhythm strip independently interpreted. It showed sinus rhythm of about 90. Interactive discussion was obtained with colorectal surgery consult service. Management was discussed. Patient will be admitted for further evaluation and management, stabilization, pain control, possible operative intervention, and antibiotics. ED Course as of 12/04/24 1529 Sat Dec 04, 2024 1239 Zosyn ordered [OM] 1239 CBC w/diff(!) Leukocytosis present, Hg similar [OM] 1300 CMP(!) BUN elevated, Cr appropriate, no evidence of elevated anion gap. Liver enzymes within normal limits[OM] 1300 CT Abdomen Pelvis w IV Contrast CT abdomen with evidence of perforation, diffuse bowel dilation. Radiology also comments there is concern for a necrotic mass, concern for cancer recurrence. [OM] 1301 ESS paged to discuss the patient as her surgery was performed by Colorectal. [OM] 1443 Colorectal asked for us to have Gynonc weight in as she has pelvic findings. Will consult Dairy Nutrition Specialist/onc and discuss the patient [OM] ED Course User Index [OM] Carline Reed MD Clinical Impressions as of 12/04/24 1529 Generalized abdominal pain Perforation bowel ([facility]) Dispo: admit Social Determinates of Health Risks (including Economic Stability, Education and level of understanding, Healthcare access and quality and concerning social factors): None identified on this visit ED Prescriptions None Disposition Admit - Carline Reed MD Resident 12/04/24 1530 IAric MD, personally saw the patient, performed critical or lucero portions of the service including being present and available at all procedures, and discussed the care with the Resident. I saw and evaluated the patient. I discussed the case with the resident and agree with the findingsand plan as documented. [1] Past Medical History: Diagnosis Date Abnormal Pap smear of cervix Cancer ([facility]) 07/2016 History of uterine fibroid Hx antineoplastic [...] specified conditions History of syncope Rectal cancer ([facility]) July 2016 SDH (subdural hematoma) ([facility]) 07/31/2020 Skin cancer 2004 Stroke ([facility]) 2013 Supraventricular tachycardia by ECG ([facility]) 07/04/2020 SVT (supraventricular tachycardia) ([facility]) had cardiac ablation Syncope 07/04/2020 Syncope and collapse TIA (transient ischemic attack) 07/31/20202013 Urinary incontinence October 2023 [2] Past Surgical History: Procedure Laterality Date BREAST BIOPSY N/A Biopsy of breast from [facility] CATH ABLATION N/A 2020 Catheter ablation from [employer] CHOLECYSTECTOMY N/A 2002 COLON SURGERY N/A Colon Surgery from [employer] COLONOSCOPY 03/01/2024 FEMUR FRACTURE SURGERY 2022 HYSTERECTOMY N/A 1995 [3] Family History Problem Relation Name Age of Onset Cardiac disorder Father Edy Matthews Conversions - Other Father Edy Matthews malignant neoplasm in father Lung cancer Father Edy Matthews Prostate cancer Father Edy Matthews Cancer Father Edy Matthews Radiation Therapy Father Edy Matthews Anesthesia problems Father Edy Matthews Malig Hyperthermia Neg Hx [4] Tobacco Use Smoking status: Never Passive exposure: Never Smokeless tobacco: Never Vaping Use Vaping status: Never Used Substance Use Topics Alcohol use: Not Currently Alcohol/week: 7.0 standard drinks of alcohol Types: 7 Glasses of wine per week Comment: stopped drinking 11/2023 Drug use: No Comment: Drug use: Does not use illicit drugs [5] No Known Allergies Aric Cai MD 12/06/24 1540 * ED Triage Notes - Aric Diez RN - 12/04/2024 10:52 AM EDT Pt arrives to ED d/t having no ostomy output since 12/01. Pt c/o abd pain and N/V. * Progress Notes - Júnior Quinn MD - 12/04/2024 10:52 AM EDT Images from the original note were not included. ED TRANSFER OF CARE NOTE Transferring provider: Derek Transferring attending: Trell JESUS Time: 1500 I received sign-out and accepted care of this patient from the previous ED providers caring for this patient. I reviewed the patient's history, exam, work- up, and treatment plan up to this point. Please see the primary ED Provider Note for complete elements of the history, physical exam, and ED course. PERTINENT HISTORY: In brief, Yolie Paul is a 79 y.o. female with relevant PMH colon carcinoma and has ostomy who presented to the ED for evaluation of ab pain. PENDING: I accepted care of this patient from the previous provider while waiting for evaluation and/or recommendations from: Colorectal surgery. Ultimately, the aforementioned service recommended admission ED Medication Administration from 12/04/2024 1052 to 12/04/2024 1703 Date/Time Order Dose Route Action 12/04/2024 1132 EDT morphine PF 1 mg 1 mg Intravenous Given 12/04/2024 1133 EDT ondansetron (Zofran) injection 4 mg 4 mg Intravenous Given 12/04/2024 1134 EDT lactated Ringer's infusion 500 mL 500 mL Intravenous New Bag 12/04/2024 1145 EDT iohexol (OMNIPaque) 300 MG/ML injection 100 mL 100 mL Intravenous Given 12/04/2024 1240 EDT lactated Ringer's infusion 500 mL 0 mL Intravenous Stopped 12/04/2024 1301 EDT piperacillin-tazobactam (Zosyn) 4.5 g in sodium chloride 0.9% 100 mL IVPB (vialadapter required) 4.5 g Intravenous New Bag 12/04/2024 1425 EDT HYDROmorphone (Dilaudid) injection 0.5 mg 0.5 mg Intravenous Given 12/04/2024 1616 EDT piperacillin-tazobactam (Zosyn) 4.5 g in sodium chloride 0.9% 100 mL IVPB (vialadapter required) 0 g Intravenous Stopped ED COURSE: ED Course as of 12/04/24 1724 Sat Dec 04, 2024 1239 Zosyn ordered [OM] 1239 CBC w/diff(!) Leukocytosis present, Hg similar [OM] 1300 CMP(!) BUN elevated, Cr appropriate, no evidence of elevated anion gap. Liver enzymes within normal limits[OM] 1300 CT Abdomen Pelvis w IV Contrast CT abdomen with evidence of perforation, diffuse bowel dilation. Radiology also comments there is concern for a necrotic mass, concern for cancer recurrence. [OM] 1301 ESS paged to discuss the patient as her surgery was performed by Colorectal. [OM] 1443 Colorectal asked for us to have Gynonc weight in as she has pelvic findings. Will consult Dairy Nutrition Specialist/onc and discuss the patient [OM] ED Course User Index [OM] Carline Reed MD Clinical Impressions as of 12/04/24 1724 Generalized abdominal pain Perforation bowel (CMS/HCC) Ultimately, this patient Was admitted (Admission) The primary encounter diagnosis was Generalized abdominal pain. A diagnosis of Perforation bowel (CMS/HCC) was also pertinent to this visit.. Patient believed to require admission for thelisted diagnoses. The colorectal surgery service was consulted for admission and was agreeable to admit to Acute Floor (Med/Surg). ED Prescriptions None Disposition Admit Admitting/Attending Physician: LILLIAN NARVAEZ [[id number]] Provider Care Team: [facility] [[id number]] Are they the primary team?: Yes [1] - Júnior Quinn MD Cosigned by Selene Veloz MD at 12/07/2024 9:23 AM EDT Associated attestation - Selene Veloz MD - 12/07/2024 9:23 AM EDT I saw and evaluated the patient with the resident/fellow. I discussed the case with the resident/fellow and agree with the findings and plan as documented. documented in this encounter Plan of Treatment Upcoming Encounters Date Type Department Care Team (Late st Contact Info) Description 02/01/2025 7:00 AM EDT Appointment [facility] A Radiology [address] [place] [address] 02/01/2025 9:00 AM EDT Office Visit [facility] Multidisciplinary Oncology Clinic [address] [place] [phone] Graeme Sharma MD [address] [facility] [address] [place] [address] 02/08/2025 9:15 AM EDT Clinical Support [facility] Multidisciplinary Oncology Clinic [address] [place] [phone] 02/08/2025 9:20 AM EDT Office Visit [facility] Multidisciplinary Oncology Clinic [address] [place] [phone] Monica Sanchez MD [address] [place] [address] 02/08/2025 11:00 AM EDT Appointment [facility] [address] [place] [phone] 05/16/2025 9:40 AM EST Office Visit [facility] [address] [place] [address] Rahel Bales, PA [address] [place] [phone] documented as of this encounter Procedures Procedure Name Priority Date/Time Associated Diagnosis Comments CBC W/O DIFFERENTIAL Routine 12/06/2024 2:07 PM EDT PHOSPHORUS, PLASMA Routine 12/06/2024 2: 07 PM EDT MAGNESIUM, PLASMA Routine 12/06/2024 2:0 7 PM EDT BASIC METABOLIC PANEL, PLASMA Routine 12/06/2024 2:07 PM EDT XR GASTROGRAFFIN CHALLENGE Timed 12/05/2024 8:11 PM EDT CBC W/O DIFFERENTIAL Routine 12/05/2024 3:35 AM EDT PHOSPHORUS, PLASMA Routine 12/05/2024 3: 35 AM EDT MAGNESIUM, PLASMA Routine 12/05/2024 3:3 5 AM EDT COMPREHENSIVE METABOLIC PANEL, PLASMA Routine 12/05/2024 3:35 AM EDT ECG ADULT STAT 12/04/2024 5:19 PM EDT URINALYSIS, DIPSTICK STAT 12/04/2024 3:28 PM EDT BLOOD CULTURE (AEROBIC/ANAEROBIC SET) STAT 12/04/2024 1:10 PM EDT BLOOD CULTURE (AEROBIC/ANAEROBIC SET) STAT 12/04/2024 1:10 PM EDT URINALYSIS, MICROSCOPIC STAT 12/05/19 12:[address] ABDOMEN PELVIS W IV CONTRAST STAT 12/04/2024 11:54 AM EDT ED HIV 1/2 ANTIBODY/ANTIGEN SCREEN WITH REFLEX TO HIV I/II DIFFERENTIATION STAT 12/04/2024 11:16 AM EDT ED PROTOCOL HIV 1/2 ANTIBODY/ANTIGEN SCREEN W/REFLEX TO HIV 1/2 ANTIBODY DIFFERENTIATION STAT 12/04/2024 11:16 AM EDT LACTATE, VENOUS STAT 12/04/2024 11:16 AM EDT HEPATITIS C ANTIBODY - ED W/REFLEX TO HCV QUANT PCR STAT 12/04/2024 11:16 AM EDT CBC WITH AUTO DIFFERENTIAL STAT 12/04/2024 11:16 AM EDT LIPASE, PLASMA STAT 12/04/2024 11:16 AM EDT COMPREHENSIVE METABOLIC PANEL, PLASMA STAT 12/04/2024 11:16 AM EDT documented in this encounter Results * PET/CT FDG Skull Base To Mid Thigh (12/24/2024 8:34 AM EDT) Anatomical Region Laterality Modality Nuclear Medicine Impressions 12/25/2024 6:28 PM EDT Intensely hypermetabolic aggressive infiltrative and necrotic recurrence within the right pelvis extending across the midline to the left with recurrent obstruction of the left ureter, a new lytic hypermetabolic right superior pubic ramus/puboacetabular junction metastasis, suspected tumor implants within the right lower quadrant mesentery as well as few suspected infrarenal retroperitoneal jessica metastases, overall extent similar to contrasted CT 3 weeks prior. CRITICAL RESULT: No. COMMUNICATION: Per this written report. By electronically signing this report, I, the attending physician, attest that I have personally reviewed the images/data for the above examination(s) and agree with the final edited report. 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 Her most recent CT from 12/04/24 demonstrates further aggressive recurrence within the right pelvis. Clinical indication category: Subsequent treatment strategy TECHNIQUE: Preparation: Last oral intake (except water) on 12/24/2024 at 12:00 AM. Diabetic: No. Blood glucose at time of FDG administration: 95 mg/dL. Radiopharmaceutical: 11.44 mCi of F-18 FDG administered intravenously at right antecubital fossa at 7:45 AM. Incubation interval: 59 minutes. Oral contrast: No. Positioning: Arms raised. PET/CT scanner: Siemens Biograph 40 mCT. PET/CT acquisition: [id number]. Standardized uptake value (SUV): Corrected for body weight only. CT: Low-dose, [id number], without intravenous contrast. TOTAL DLP (Dose Length Product): 323.60 mGy.cm mGy cm. COMPARISON/CORRELATION: FDG PET/CT 03/22/[address] abdomen and pelvis 12/04/2024 CT chest, abdomen and pelvis 07/22/2024 Thyroid ultrasound 08/22/2023 FINDINGS: Technical quality: Diagnostic. Measurements: Unless otherwise specified, all SUVs refer to maximum value in the target (mSUV). Reference: Reference: mean SUV liver: 1.9; previously: 2.1. CT linear measurements performed on axial images. Head and Neck: No suspicious focal hypermetabolic uptake. Unchanged diffuse thyroidal hypermetabolism which probably reflects underlying chronic thyroiditis. Unchanged previously characterized 2 cm TR-3 inferior left thyroid nodule that is relatively hypometabolic to the rest of the thyroid. No obvious space-occupying brain parenchymal masses. No suspicious cervical or supraclavicular adenopathy. Chest: No suspicious focal hypermetabolic uptake. No suspicious sizable new or enlarging pulmonary nodules to suggest metastatic disease on this low-dose nonbreath-hold acquisition. Normal caliber major mediastinal cardiovascular structures. No thoracic adenopathy. No pleural or pericardial effusions. Abdomen and Pelvis: In conjunction with the contrast enhanced CT 3 weeks prior, there is intense hypermetabolism within the necrotic infiltrative mass described along the right pelvic sidewall and presacral region spanning from the level of the sacral promontory superiorly to the level of the inferior pubic ramus inferiorly, SUV max of up to 29.9. Along the right lateral aspect, there is suspected early perineural extension in the region of the superior gluteal foramen as well as richard hypermetabolic tumor invasion of the right obturator internis muscle, overall local extent much better resolved on comparison CT from which it does not appear to be significantly changed. There is also extension across the midline to the left pelvic sidewall focally on image 368, also perceived as tumoral enhancement on comparison CT. There is a suspected separate intensely hypermetabolic 1.3 cm right lower quadrant mesenteric tumor implant or lymph node on image 345 with SUV max of 25.4. There is similar intense hypermetabolism fusing to the region of the neoterminal ileum/ileocecal junction on image 311, poorly resolved but perhaps representing a serosal implant. The clustered small bowel segments within the pelvis appear somewhat less inflamed when compared to CT 3 weeks prior and do not show obvious associated intense hypermetabolism, perhaps interval resolution of superimposed peritonitis with interval antibiotics. Although challenging to visualize due to interrupted ureteric urinary activity and intense activity of the urine within the left lower quadrant sigmoid conduit, there a few unequivocal metastatic intensely hypermetabolic retroperitoneal lymph nodes extending up to the level of the renal sherrell, left greater than right. For example just superior to a surgical staple line, is a 9 mm short axis lower left para- aortic lymph node on image 314 with SUV max of 14.7, and a somewhat less avid but suspicious rounded 7 mm short axis infrarenal left para-aortic node on image 284 with SUV max of 3.3. No suspicious hypermetabolic inguinal adenopathy. No discrete suspicious metabolically active solid organ focal lesions. There is obstructive left hydroureteronephrosis which is similar to CT 3 weeks prior. There is associated slightly delayed tracer excretion suggesting some functional compromise, concordant with relatively delayed nephrogram on the comparison CT as well. No significant free ascites. Skeleton and Soft Tissues: New intensely hypermetabolic lucent right superior pubic ramus metastasis on image 376 with SUV max of 8.7. No other convincingly suspicious focal hypermetabolic uptake within the osseous skeleton or body wall soft tissues. There is extensive circumferential cutaneous induration of the left perineum on image 411 which probably represents postsurgical granulation response given lack of significant hypermetabolism. Left femoral intramedullary nail and neck screw. Post radiation fatty replacement of the lumbosacral marrow. Similar multilevel spondylotic and osteoarthritic changes. Procedure Note Jese Haas MD - 12/25/2024 CLINICAL INDICATION: Restaging PET/CT in this patient with locally advanced anal cancer s/pneoadjuvant chemoradiation in 2017 with recurrence invading the rightvaginal cuff and rectum requiring pelvic exenteration, radical cystectomy,and sigmoid colon conduit urinary diversion with VRAM flap on 09/01/2024.Her most recent CT from 12/04/24 demonstrates further aggressive recurrencewithin the right pelvis. Clinical indication category: Subsequent treatment strategy TECHNIQUE: Preparation: Last oral intake (except water) on 12/24/2024 at 12:00 AM. Diabetic: No. Blood glucose at time of FDG administration: 95 mg/dL. Radiopharmaceutical: 11.44 mCi of F-18 FDG administered intravenously atright antecubital fossa at 7:45 AM. Incubation interval: 59 minutes. Oral contrast: No. Positioning: Arms raised. PET/CT scanner: Siemens Biograph 40 mCT. PET/CT acquisition: [id number]-thighs. Standardized uptake value (SUV): Corrected for body weight only. CT: Low-dose, gkj-rbquib-payw, without intravenous contrast. TOTAL DLP (Dose Length Product): 323.60 mGy.cm mGy cm. COMPARISON/CORRELATION: FDG PET/CT 03/22/[address] abdomen and pelvis 12/04/2024 CT chest, abdomen and pelvis 07/22/2024 Thyroid ultrasound 08/22/2023 FINDINGS: Technical quality: Diagnostic. Measurements: Unless otherwise specified, all SUVs refer to maximum valuein the target (mSUV). Reference: Reference: mean SUV liver: 1.9; previously: 2.1. CT linear measurements performed on axial images. Head and Neck: No suspicious focal hypermetabolic uptake. Unchanged diffuse thyroidal hypermetabolism which probably reflectsunderlying chronic thyroiditis. Unchanged previously characterized 2 cmTR-3 inferior left thyroid nodule that is relatively hypometabolic to therest of the thyroid. No obvious space-occupying brain parenchymal masses. No suspiciouscervical or supraclavicular adenopathy. Chest: No suspicious focal hypermetabolic uptake. No suspicious sizable new or enlarging pulmonary nodules to suggestmetastatic disease on this low-dose nonbreath-hold acquisition. Normalcaliber major mediastinal cardiovascular structures. No thoracicadenopathy. No pleural or pericardial effusions. Abdomen and Pelvis: In conjunction with the contrast enhanced CT 3 weeks prior, there isintense hypermetabolism within the necrotic infiltrative mass describedalong the right pelvic sidewall and presacral region spanning from thelevel of the sacral promontory superiorly to the level of the inferiorpubic ramus inferiorly, SUV max of up to 29.9. Along the right lateralaspect, there is suspected early perineural extension in the region of thesuperior gluteal foramen as well as richard hypermetabolic tumor invasion ofthe right obturator internis muscle, overall local extent much betterresolved on comparison CT from which it does not appear to besignificantly changed. There is also extension across the midline to theleft pelvic sidewall focally on image 368, also perceived as tumoralenhancement on comparison CT. There is a suspected separate intensely hypermetabolic 1.3 cm right lowerquadrant mesenteric tumor implant or lymph node on image 345 with SUV maxof 25.4. There is similar intense hypermetabolism fusing to the region ofthe neoterminal ileum/ileocecal junction on image 311, poorly resolved butperhaps representing a serosal implant. The clustered small bowel segmentswithin the pelvis appear somewhat less inflamed when compared to CT 3weeks prior and do not show obvious associated intense hypermetabolism,perhaps interval resolution of superimposed peritonitis with intervalantibiotics. Although challenging to visualize due to interrupted ureteric urinaryactivity and intense activity of the urine within the left lower quadrantsigmoid conduit, there a few unequivocal metastatic intenselyhypermetabolic retroperitoneal lymph nodes extending up to the level ofthe renal sherrell, left greater than right. For example just superior to asurgical staple line, is a 9 mm short axis lower left para-aortic lymphnode on image 314 with SUV max of 14.7, and a somewhat less avid butsuspicious rounded 7 mm short axis infrarenal left para-aortic node onimage 284 with SUV max of 3.3. No suspicious hypermetabolic inguinaladenopathy. No discrete suspicious metabolically active solid organ focal lesions.There is obstructive left hydroureteronephrosis which is similar to CT 3weeks prior. There is associated slightly delayed tracer excretionsuggesting some functional compromise, concordant with relatively delayednephrogram on the comparison CT as well. No significant free ascites. Skeleton and Soft Tissues: New intensely hypermetabolic lucent right superior pubic ramus metastasison image 376 with SUV max of 8.7. No other convincingly suspicious focalhypermetabolic uptake within the osseous skeleton or body wall softtissues. There is extensive circumferential cutaneous induration of the leftperineum on image 411 which probably represents postsurgical granulationresponse given lack of significant hypermetabolism. Left femoral intramedullary nail and neck screw. Post radiation fattyreplacement of the lumbosacral marrow. Similar multilevel spondylotic andosteoarthritic changes. IMPRESSION: Intensely hypermetabolic aggressive infiltrative and necrotic recurrencewithin the right pelvis extending across the midline to the left withrecurrent obstruction of the left ureter, a new lytic hypermetabolic rightsuperior pubic ramus/puboacetabular junction metastasis, suspected tumorimplants within the right lower quadrant mesentery as well as fewsuspected infrarenal retroperitoneal jessica metastases, overall extentsimilar to contrasted CT 3 weeks prior. CRITICAL RESULT: No. COMMUNICATION: Per this written report. By electronically signing this report, I, the attending physician, attestthat I have personally reviewed the images/data for the aboveexamination(s) and agree with the final edited report. Drafted by Gerardo Anderson MD on 12/24/2024 9:42 AM Final report signed by Jese Haas MD on 12/25/2024 6:28 PM us Graeme Sharma MD IMG NM PROCEDURES Final Result * (ABNORMAL) CBC W/O Differential (12/06/2024 2:07 PM EDT) WBC Count 13.49(H) 3.70 - 10.30 10*3/uL LAB HEMATOLOGY METHOD 12/06/2024 2:46 PM EDT [facility] RBC Count 3.31(L) 3.90 - 5.20 10*6/uL LAB HEMATOLOGY METHOD 12/06/2024 2:46 PM EDT [facility] HGB 8.5(L) 11.2 - 15.7 g/dL LAB HEMATOLOGY METHOD 12/06/2024 2:46 PM EDT [facility] HCT 28.0(L) 34.0 - 45.0 % LAB HEMATOLOGY METHOD 12/06/2024 2:46 PM EDT [facility] Platelet Count 388(H) 155 - 369 10*3/uL LAB HEMATOLOGY METHOD 12/06/2024 2:46 PM EDT [facility] MCV 85 79 - 98 fL LAB HEMATOLOGY METHOD 12/06/2024 2:46 PM EDT [facility] MCH 25.7(L) 26.0 - 32.0 pg LAB HEMATOLOGY METHOD 12/06/2024 2:46 PM EDT [facility] MCHC 30.4(L) 30.7 - 35.5 g/dL LAB HEMATOLOGY METHOD 12/06/2024 2:46 PM EDT [facility] RDW 16.7(H) 11.5 - 14.5 % LAB HEMATOLOGY METHOD 12/06/2024 2:46 PM EDT [facility] MPV 8.4(L) 8.8 - 12.5 fL LAB HEMATOLOGY METHOD 12/06/2024 2:46 PM EDT [facility] nRBC 0.0 <=0.0 per 100 WBCs LAB HEMATOLOGY METHOD 12/06/2024 2:46 PM EDT [facility] Blood Venous blood specimen / Unknown Venipuncture / Unknown 12/06/2024 2:07 PM EDT 12/06/2024 2:32 PM EDT Lillian Narvaez MD LAB BLOOD ORDERABLES Final R esult [facility] [address] [place] [address] * (ABNORMAL) Basic Metabolic Panel, Plasma (12/06/2024 2:07 PM EDT) Glucose, Plasma 136(H) 74 - 99 mg/dL 12/06/2024 3:03 PM EDT [facility] BUN, Plasma 14 8 - 23 mg/dL 12/06/2024 3:03 PM EDT [facility] Creatinine, Plasma 0.80 0.60 - 1.10 mg/dL 12/06/2024 3:03 PM EDT [facility] BUN/Creatinine Ratio 18 12/06/2024 3:03 PM EDT [facility] Sodium, Plasma 132(L) 136 - 145 mmol/L 12/06/2024 3:03 PM EDT [facility] Potassium, Plasma 3.3(L) 3.6 - 4.9 mmol/L 12/06/2024 3:03 PM EDT [facility] Chloride, Plasma 101 97 - 107 mmol/L 12/06/2024 3:03 PM EDT [facility] CO2, Plasma 19(L) 22 - 29 mmol/L 12/06/2024 3:03 PM EDT [facility] Anion Gap 12 6 - 16 mmol/L 12/06/2024 3:03 PM EDT [facility] Total Calcium, Plasma 9.5 8.9 - 10.2 mg/dL 12/06/2024 3:03 PM EDT [facility] eGFRcr 76.0 mL/min/1.7 3m*2 12/06/2024 3:03 PM EDT [facility] Comment:Reported eGFRcr in m L/min/1.73m2 is based the CKD-EPI 2020 equation that does not use a race coefficient. Blood Venous blood specimen / Unknown Venipuncture / Unknown 12/06/2024 2:07 PM EDT 12/06/2024 2:28 PM EDT us Lillian Narvaez MD LAB BLOOD ORDERABLES Final R esult Performing Organization Address City/[facility]/[place] [address] * (ABNORMAL) Magnesium, Plasma (12/06/2024 2:07 PM EDT) Magnesium, Plasma 1.4(L) 1.9 - 2.4 mg/dL 12/06/2024 3:03 PM EDT [facility] Blood Venous blood specimen / Unknown Venipuncture / Unknown 12/06/2024 2:07 PM EDT 12/06/2024 2:28 PM EDT us Lillian Narvaez MD LAB BLOOD ORDERABLES Final R esult Performing Organization Address [facility] [place] [address] * Phosphorus, Plasma (12/06/2024 2:07 PM EDT) Phosphorus, Plasma 2.7 2.5 - 4.5 mg/dL 12/06/2024 3:03 PM EDT [facility] Blood Venous blood specimen / Unknown Venipuncture / Unknown 12/06/2024 2:07 PM EDT 12/06/2024 2:28 PM EDT us Lillian Narvaez MD LAB BLOOD ORDERABLES Final R esult Performing Organization Address City/[facility] [place] [address] * XR Gastrograffin Challenge (12/05/2024 8:11 PM EDT) Anatomical Region Laterality Modality Body Digital Radiogra phy Impressions 12/05/2024 8:14 PM EDT Oral contrast opacifies the colon reaching the colostomy. CRITICAL RESULT: No. COMMUNICATION: Per this written report. Drafted by Stormy Matthews MD on 12/05/2024 8:11 PM Final report signed by Stormy Matthews MD on 12/05/2024 8:14 PM Narrative 12/05/2024 8:14 PM EDT CLINICAL INDICATION: 8 hour time 7:30 PM 12/05/2024: RN administered at 11:30 AM 12/05/2024; partial bowel obstruction TECHNIQUE: XR GASTROGRAFIN CHALLENGE COMPARISON: CT December 04, 2024 FINDINGS: Left mid abdominal ostomy. Cholecystectomy clips. Few surgical clips project over the pelvis. Contrast within the right hemicolon extending to the ostomy. Mild small bowel distention in the central abdomen. Procedure Note Stormy Matthews MD - 12/05/2024 CLINICAL INDICATION: 8 hour time 7:30 PM 12/05/2024: RN administered at 11:30 AM 12/05/2024;partial bowel obstruction TECHNIQUE: XR GASTROGRAFIN CHALLENGE COMPARISON: CT December 04, 2024 FINDINGS: Left mid abdominal ostomy. Cholecystectomy clips. Few surgical clipsproject over the pelvis. Contrast within the right hemicolon extending tothe ostomy. Mild small bowel distention in the central abdomen. IMPRESSION: Oral contrast opacifies the colon reaching the colostomy. CRITICAL RESULT: No. COMMUNICATION: Per this written report. Drafted by Stormy Matthews MD on 12/05/2024 8:11 PM Final report signed by Stormy Matthews MD on 12/05/2024 8:14 PM us Lillian Narvaez MD IMG XR PROCEDURES Final Resu lt * (ABNORMAL) Magnesium (12/05/2024 3:35 AM EDT) Magnesium, Plasma 1.5(L) 1.9 - 2.4 mg/dL 12/05/2024 4:16 AM EDT [facility] Blood Venous blood specimen / Unknown Venipuncture / Unknown 12/05/2024 3:35 AM EDT 12/05/2024 3:40 AM EDT us Lillian Narvaez MD LAB BLOOD ORDERABLES Final R esult [facility] [address] [place] [address] * Phosphorus (12/05/2024 3:35 AM EDT) Pathologist [facility] Phosphorus, Plasma 3.2 2.5 - 4.5 mg/dL 12/05/2024 4:16 AM EDT [facility] Blood Venous blood specimen / Unknown Venipuncture / Unknown 12/05/2024 3:35 AM EDT 12/05/2024 3:40 AM EDT Lillian Narvaez MD LAB BLOOD ORDERABLES Final R esult Performing Organization Address [facility]/ZIP Co de Phone Number [facility] [address] [place] [address] * (ABNORMAL) Comprehensive Metabolic Panel (12/05/2024 3:35 AM EDT) [facility] Glucose, Plasma 124(H) 74 - 99 mg/dL 12/05/2024 4:16 AM EDT [facility] BUN, Plasma 18 8 - 23 mg/dL 12/05/2024 4:16 AM EDT [facility] Creatinine, Plasma 0.79 0.60 - 1.10 mg/dL 12/05/2024 4:16 AM EDT [facility] BUN/Creatinine Ratio 23 12/05/2024 4:16 AM EDT [facility] Sodium, Plasma 137 136 - 145 mmol/L 12/05/2024 4:16 AM EDT [facility] Potassium, Plasma 3.6 3.6 - 4.9 mmol/L 12/05/2024 4:16 AM EDT [facility] Chloride, Plasma 106 97 - 107 mmol/L 12/05/2024 4:16 AM EDT [facility] CO2, Plasma 20(L) 22 - 29 mmol/L 12/05/2024 4:16 AM EDT [facility] Anion Gap 11 6 - 16 mmol/L 12/05/2024 4:16 AM EDT [facility] Total Calcium, Plasma 9.1 8.9 - 10.2 mg/dL 12/05/2024 4:16 AM EDT [facility] Total Protein 5.6(L) 6.3 - 7.9 g/dL 12/05/2024 4:16 AM EDT [facility] Albumin, Plasma 2.6(L) 3.5 - 5.2 g/dL 12/05/2024 4:16 AM EDT [facility] AST, Plasma 15 10 - 35 U/L 12/05/2024 4:16 AM EDT [facility] ALT, Plasma 12 10 - 35 U/L 12/05/2024 4:16 AM EDT [facility] Alkaline Phosphatase, Plasma 101 46 - 142 U/L 12/05/2024 4:16 AM EDT [facility] Total Bilirubin, Plasma 0.3 0.2 - 1.1 mg/dL 12/05/2024 4:16 AM EDT [facility] eGFRcr 77.2 mL/min/1.7 3m*2 12/05/2024 4:16 AM EDT [facility] Comment:Reported eGFRcr in m L/min/1.73m2 is based the CKD-EPI 2020 equation that does not use a race coefficient. Blood Venous blood specimen / Unknown Venipuncture / Unknown 12/05/2024 3:35 AM EDT 12/05/2024 3:40 AM EDT Lillian Narvaez MD LAB BLOOD ORDERABLES Final R esult [facility] [address] [place] [address] * (ABNORMAL) CBC (12/05/2024 3:35 AM EDT) WBC Count 11.28(H) 3.70 - 10.30 10*3/uL LAB HEMATOLOGY METHOD 12/05/2024 3:52 AM EDT [facility] RBC Count 2.78(L) 3.90 - 5.20 10*6/uL LAB HEMATOLOGY METHOD 12/05/2024 3:52 AM EDT [facility] HGB 7.4(L) 11.2 - 15.7 g/dL LAB HEMATOLOGY METHOD 12/05/2024 3:52 AM EDT [facility] HCT 23.3(L) 34.0 - 45.0 % LAB HEMATOLOGY METHOD 12/05/2024 3:52 AM EDT [facility] Platelet Count 283 155 - 369 10*3/uL LAB HEMATOLOGY METHOD 12/05/2024 3:52 AM EDT [facility] MCV 84 79 - 98 fL LAB HEMATOLOGY METHOD 12/05/2024 3:52 AM EDT [facility] MCH 26.6 26.0 - 32.0 pg LAB HEMATOLOGY METHOD 12/05/2024 3:52 AM EDT [facility] MCHC 31.8 30.7 - 35.5 g/dL LAB HEMATOLOGY METHOD 12/05/2024 3:52 AM EDT [facility] RDW 16.4(H) 11.5 - 14.5 % LAB HEMATOLOGY METHOD 12/05/2024 3:52 AM EDT [facility] MPV 8.4(L) 8.8 - 12.5 fL LAB HEMATOLOGY METHOD 12/05/2024 3:52 AM EDT [facility] nRBC 0.0 <=0.0 per 100 WBCs LAB HEMATOLOGY METHOD 12/05/2024 3:52 AM EDT [facility] Blood Venous blood specimen / Unknown Venipuncture / Unknown 12/05/2024 3:35 AM EDT 12/05/2024 3:40 AM EDT Lillian Narvaez MD LAB BLOOD ORDERABLES Final R esult [facility] [address] [place] [address] * ECG Adult (12/04/2024 5:19 PM EDT) EKG DIAGNOSIS CLASS Normal MUSE ECG Ventricular Rate 88 BPM MUSE ECG Atrial Rate 88 BPM MUSE ECG AR Interval 114 ms MUSE ECG QRSD Interval 78 ms MUSE ECG QT Interval 330 ms MUSE ECG QTC Interval 399 ms MUSE ECG P Strong 0 degrees MUSE ECG R Strong -9 degrees MUSE ECG T Wave Strong 18 degrees MUSE ECG Diagnosis Normal sinus rhythm MUSE ECG Diagnosis Normal ECG MUSE ECG Diagnosis MUSE ECG Diagnosis Confirmed by Trevor Wen ([id number]) on 12/05/2024 7:15:14 PM MUSE ECG 12/04/2024 5:19 PM EDT 12/05/2024 7:15 PM EDT Lillian Narvaez MD ECG ORDERABLES Final Result MUSE ECG * (ABNORMAL) Urinalysis, manual only (12/04/2024 3:28 PM EDT) Color, Urine [place] LAB URINALYSIS - AUTOMATED METHOD 12/04/2024 3:41 PM EDT [facility] Clarity, Urine Cloudy LAB URINALYSIS - AUTOMATED METHOD 12/04/2024 3:41 PM EDT [facility] Spec [place], Urine >1.030(H) 1.005 - 1.030 LAB URINALYSIS - AUTOMATED METHOD 12/04/2024 3:41 PM EDT [facility] pH, Urine 7.0 5.0 - 8.0 LAB URINALYSIS - AUTOMATED METHOD 12/04/2024 3:41 PM EDT [facility] Protein, Urine 100(A) Negative mg/dL LAB URINALYSIS - AUTOMATED METHOD 12/04/2024 3:41 PM EDT [facility] Glucose, Urine Negative Negative mg/dL LAB URINALYSIS - AUTOMATED METHOD 12/04/2024 3:41 PM EDT [facility] Ketones, Urine Negative Negative mg/dL LAB URINALYSIS - AUTOMATED METHOD 12/04/2024 3:41 PM EDT [facility] Blood, Urine Large(A) Negative LAB URINALYSIS - AUTOMATED METHOD 12/04/2024 3:41 PM EDT [facility] Bilirubin, Urine Negative Negative LAB URINALYSIS - AUTOMATED METHOD 12/04/2024 3:41 PM EDT [facility] Urobilinogen, Urine 0.2 0.2 to 1.0 mg/dL LAB URINALYSIS - AUTOMATED METHOD 12/04/2024 3:41 PM EDT [facility] Leukocytes, Urine Large(A) Negative LAB URINALYSIS - AUTOMATED METHOD 12/04/2024 3:41 PM EDT [facility] Nitrite, Urine Positive(A) Negative LAB URINALYSIS - AUTOMATED METHOD 12/04/2024 3:41 PM EDT [facility] Urine Urine specimen obtained by clean catch procedure / Unknown Non-blood Collection / Unknown 12/04/2024 3:28 PM EDT 12/04/2024 3:38 PM EDT Narrative [facility] - 12/04/2024 3:41 PM EDT Urinalysis dipstick results may be inaccurate due to specimen color or an interfering substance in the specimen. us Angel Pearson MD LAB URINE ORDERABLES Final Res ult [facility] [address] [place] [address] * Blood Culture (Aerobic/Anaerobet Set) (12/04/2024 1:10 PM EDT) Culture No growth at day 5 12/09/2024 2:02 PM EDT [facility] Blood Structure of left hand / Unknown Venipuncture / Unknown 12/04/2024 1:10 PM EDT 12/04/2024 1:32 PM EDT [facility] - 12/09/2024 2:02 PM EDT Low blood volume submitted, results may be compromised us Aric Cai MD LAB MICROBIOLOGY - GENERAL ORDERABLES Final Result [facility] [address] [place] [address] * Blood Culture (Aerobic/Anaerobet Set) (12/04/2024 1:10 PM EDT) Culture No growth at day 5 12/09/2024 2:02 PM EDT [facility] Blood Structure of antecubital vein / Unknown Venipuncture / Unknown 12/04/2024 1:10 PM EDT 12/04/2024 1:31 PM EDT [facility] - 12/09/2024 2:02 PM EDT Low blood volume submitted, results may be compromised us Aric Cai MD LAB MICROBIOLOGY - GENERAL ORDERABLES Final Result Performing Organization Address [facility] Co de Phone Number [facility] [address] [place] [address] * (ABNORMAL) Urinalysis microscopic (12/04/2024 12:02 PM EDT) RBC, Urine Unable to estimate due to obscuring WBC's (UNEWBC) 0 to 3 /HPF 12/04/2024 12:31 PM EDT [facility] WBC, Urine >50(A) 0 to 5 /HPF 12/04/2024 12:31 PM EDT [facility] Squamous Epithelial Cells Unable to estimate due to obscuring WBC's (UNEWBC) 0 to 5 /HPF 12/04/2024 12:31 PM EDT [facility] Hyaline Casts Unable to estimate due to obscuring WBC's (UNEWBC) 0 to 5 /LPF 12/04/2024 12:31 PM EDT [facility] Bacteria, Urine Present Negative 12/04/2024 12:31 PM EDT [facility] Urine Urine specimen obtained by clean catch procedure / Unknown Non-blood Collection / Unknown 12/04/2024 12:02 PM EDT 12/04/2024 12:19 PM EDT Narrative [facility] - 12/04/2024 12:31 PM EDT Performed by manual method us Angel Pearson MD LAB URINE ORDERABLES Final Res ult Performing Organization Address City/[facility]/ZIP Co de Phone Number [facility] [address] [place] [address] * CT Abdomen Pelvis w IV Contrast (12/04/2024 11:54 AM EDT) Anatomical Region Laterality Modality Abdomen, Pelvis Computed Tomogra phy Impressions 12/04/2024 12:28 PM EDT Postoperative changes of the abdomen and pelvis, including cystectomy with ileoconduit formation. Left lower quadrant ostomy. However, there is severe wall thickening involving the distal small bowel with severe attenuation involving a focal segment, concerning for severe enteritis. Recurrence of malignancy within the pelvis with large thick-walled mass along the presacral and right pelvic sidewall with 2 separate areas, likely representing necrosis of the underlying tissue. CRITICAL RESULT: No. COMMUNICATION: Per this written report. Drafted by Lizandro Watkins MD on 12/04/2024 12:13 PM Final report signed by Lizandro Watkins MD on 12/04/2024 12:28 PM Narrative 12/04/2024 12:28 PM EDT CLINICAL INDICATION: Abdominal pain, acute, nonlocalized TECHNIQUE: Imaging of the abdomen and pelvis was performed, from lung bases through pubic symphysis, using spiral technique, following administration of IV contrast, Omnipaque 300, 100 mL. Delayed (excretory phase) images were performed through the kidneys. Reformatted images in the coronal and sagittal planes were generated from the axial data set to facilitate diagnostic accuracy. Total DLP (Dose-Length Product): 533.38 mGy.cm. Please note: The reported value represents the total of one or more individual components during the CT acquisition on this date and at this time, and as such, the same value may appear in more than one CT report depending on the interpreting/reporting physicians. COMPARISON: October 15, 2024; July 22, 2024 FINDINGS: Lung Bases: The lung bases are clear. Liver/Gallbladder/Biliary system: Low attenuating changes involving the hepatic parenchyma consistent with hepatic steatosis. Small cysts throughout the hepatic parenchyma. Hepatomegaly, measuring 16.5 cm. Cholecystectomy. Mild intra and extrahepatic duct dilatation. Spleen: The spleen enhances homogeneously. Pancreas: The pancreas enhances homogeneously. Adrenals: The adrenals are morphologically unremarkable. Kidneys: The kidneys demonstrate symmetric nephrogram and excretion. No renal or ureteral calculi. Moderate left and mild right sided hydroureteronephrosis. Bowel/Mesentery: The stomach is normal in size without evidence of obstruction. Left lower quadrant ostomy with postoperative changes involving the distal colon. Appendectomy. Extensive mesenteric edema within the mid to lower abdomen. Additionally, there is wall thickening involving the distal small bowel with areas of severe attenuation of the bowel wall, concerning for focal perforation, is best seen on series 2 image 57 and series 4 image 48. Multiple small fluid collections are present as well within the lower abdomen/pelvis, which may represent discrete postoperative fluid collection versus necrotic mass. For instance a 2.9 x 4.7 cm peripheral enhancing fluid collection is present within the presacral region (series 2 image 60) as well as at the right vaginal cuff with thick-walled peripheral enhancement, measuring 4.4 x 5.4 cm (series 2 image 74), not present on prior examination. These 2 separate fluid collections in close continuity and by thick and heterogeneous enhancing tissue, concerning for underlying malignancy. Vessels/Lymph Nodes: The abdominal aorta is unremarkable. No lymphadenopathy within the abdomen or pelvis. Fluid Survey: Small amount of free fluid within the abdomen and pelvis. Pelvis: Please see above. The urinary bladder is not visualized and is likely surgically removed. Body Wall: Normal. Bones: No acute osseous findings. Multilevel degenerative changes of the lumbar spine with minimal anterolisthesis of L4 and L5. Procedure Note Lizandro Watkins MD - 12/04/2024 CLINICAL INDICATION: Abdominal pain, acute, nonlocalized TECHNIQUE: Imaging of the abdomen and pelvis was performed, from lung bases throughpubic symphysis, using spiral technique, following administration of IVcontrast, Omnipaque 300, 100 mL. Delayed (excretory phase) images wereperformed through the kidneys. Reformatted images in the coronal andsagittal planes were generated from the axial data set to facilitatediagnostic accuracy. Total DLP (Dose-Length Product): 533.38 mGy.cm. Please note: The reportedvalue represents the total of one or more individual components during theCT acquisition on this date and at this time, and as such, the same valuemay appear in more than one CT report depending on theinterpreting/reporting physicians. COMPARISON: October 15, 2024; July 22, 2024 FINDINGS: Lung Bases: The lung bases are clear. Liver/Gallbladder/Biliary system: Low attenuating changes involving thehepatic parenchyma consistent with hepatic steatosis. Small cyststhroughout the hepatic parenchyma. Hepatomegaly, measuring 16.5 cm.Cholecystectomy. Mild intra and extrahepatic duct dilatation. Spleen: The spleen enhances homogeneously. Pancreas: The pancreas enhances homogeneously. Adrenals: The adrenals are morphologically unremarkable. Kidneys: The kidneys demonstrate symmetric nephrogram and excretion. Norenal or ureteral calculi. Moderate left and mild right sidedhydroureteronephrosis. Bowel/Mesentery: The stomach is normal in size without evidence ofobstruction. Left lower quadrant ostomy with postoperative changesinvolving the distal colon. Appendectomy. Extensive mesenteric edemawithin the mid to lower abdomen. Additionally, there is wall thickeninginvolving the distal small bowel with areas of severe attenuation of thebowel wall, concerning for focal perforation, is best seen on series 2image 57 and series 4 image 48. Multiple small fluid collections arepresent as well within the lower abdomen/pelvis, which may representdiscrete postoperative fluid collection versus necrotic mass. For instancea 2.9 x 4.7 cm peripheral enhancing fluid collection is present within thepresacral region (series 2 image 60) as well as at the right vaginal cuffwith thick-walled peripheral enhancement, measuring 4.4 x 5.4 cm (series 2image 74), not present on prior examination. These 2 separate fluidcollections in close continuity and by thick and heterogeneous enhancing tissue, concerning for underlying malignancy. Vessels/Lymph Nodes: The abdominal aorta is unremarkable. Nolymphadenopathy within the abdomen or pelvis. Fluid Survey: Small amount of free fluid within the abdomen and pelvis. Pelvis: Please see above. The urinary bladder is not visualized and islikely surgically removed. Body Wall: Normal. Bones: No acute osseous findings. Multilevel degenerative changes of thelumbar spine with minimal anterolisthesis of L4 and L5. IMPRESSION: Postoperative changes of the abdomen and pelvis, including cystectomy withileoconduit formation. Left lower quadrant ostomy. However, there issevere wall thickening involving the distal small bowel with severeattenuation involving a focal segment, concerning for severe enteritis. Recurrence of malignancy within the pelvis with large thick-walled massalong the presacral and right pelvic sidewall with 2 separate areas,likely representing necrosis of the underlying tissue. CRITICAL RESULT: No. COMMUNICATION: Per this written report. Drafted by Lizandro Watkins MD on 12/04/2024 12:13 PM Final report signed by Lizandro Watkins MD on 12/04/2024 12:28 PM us Angel Pearson MD IMG CT PROCEDURES Final Result * ED HIV 1/2 Antibody/Antigen Screen w/Reflex to HIV 1/2 Differentiation (12/04/2024 11:16 AM EDT) [facility] HIV 1 & 2 Antibody/Antigen Screen Non Reactive Non Reactive 12/04/2024 12:10 PM EDT [facility] Comment:Screening for HIV 1 & 2 antibodies, and P24 antigen is NONREACTIVE. No confirmatory testing is required. Blood Venous blood specimen / Unknown Venipuncture / Unknown 12/04/2024 11:16 AM EDT 12/04/2024 11:29 AM EDT us Angel Pearson MD LAB BLOOD ORDERABLES Final Res ult [facility] [address] [place] [address] * Hepatitis C Antibody - ED (12/04/2024 11:16 AM EDT) [facility] Hepatitis C Antibody Negative Negative 12/04/2024 12:10 PM EDT [facility] Blood Venous blood specimen / Unknown Venipuncture / Unknown 12/04/2024 11:16 AM EDT 12/04/2024 11:29 AM EDT us Angel Pearson MD LAB BLOOD ORDERABLES Final Res ult Performing Organization Address City/[facility]/ZIP Co de Phone Number [facility] [address] [place] [address] * Lactic acid, venous (12/04/2024 11:16 AM EDT) [facility] Lactate, Venous, Whole Blood 1.4 0.5 - 2.2 mmol/L LAB HEMATOLOGY METHOD 12/04/2024 11:22 AM EDT [facility] Blood Venous blood specimen / Unknown Venipuncture / Unknown 12/04/2024 11:16 AM EDT 12/04/2024 11:21 AM EDT us Angel Pearson MD LAB BLOOD ORDERABLES Final Res ult Performing Organization Address City/[facility]/ZIP Co de Phone Number [facility] [address] [place] [address] * (ABNORMAL) CBC w/diff (12/04/2024 11:16 AM EDT) WBC Count 18.93(H) 3.70 - 10.30 10*3/uL LAB HEMATOLOGY METHOD 12/04/2024 11:24 AM EDT [facility] RBC Count 3.46(L) 3.90 - 5.20 10*6/uL LAB HEMATOLOGY METHOD 12/04/2024 11:24 AM EDT [facility] HGB 9.2(L) 11.2 - 15.7 g/dL LAB HEMATOLOGY METHOD 12/04/2024 11:24 AM EDT [facility] HCT 29.0(L) 34.0 - 45.0 % LAB HEMATOLOGY METHOD 12/04/2024 11:24 AM EDT [facility] Platelet Count 382(H) 155 - 369 10*3/uL LAB HEMATOLOGY METHOD 12/04/2024 11:24 AM EDT [facility] MCV 84 79 - 98 fL LAB HEMATOLOGY METHOD 12/04/2024 11:24 AM EDT [facility] MCH 26.6 26.0 - 32.0 pg LAB HEMATOLOGY METHOD 12/04/2024 11:24 AM EDT [facility] MCHC 31.7 30.7 - 35.5 g/dL LAB HEMATOLOGY METHOD 12/04/2024 11:24 AM EDT [facility] RDW 16.2(H) 11.5 - 14.5 % LAB HEMATOLOGY METHOD 12/04/2024 11:24 AM EDT [facility] MPV 8.1(L) 8.8 - 12.5 fL LAB HEMATOLOGY METHOD 12/04/2024 11:24 AM EDT [facility] nRBC 0.0 <=0.0 per 100 WBCs LAB HEMATOLOGY METHOD 12/04/2024 11:24 AM EDT [facility] Differential Type Automated LAB HEMATOLOGY METHOD 12/04/2024 11:24 AM EDT [facility] Neutrophils % 91 % LAB HEMATOLOGY METHOD 12/04/2024 11:24 AM EDT [facility] Lymphocytes % 5 % LAB HEMATOLOGY METHOD 12/04/2024 11:24 AM EDT [facility] Monocytes % 3 % LAB HEMATOLOGY METHOD 12/04/2024 11:24 AM EDT [facility] Eosinophils % 0 % LAB HEMATOLOGY METHOD 12/04/2024 11:24 AM EDT [facility] Basophils % 0 % LAB HEMATOLOGY METHOD 12/04/2024 11:24 AM EDT [facility] Immature Granulocytes % 1 % LAB HEMATOLOGY METHOD 12/04/2024 11:24 AM EDT [facility] Neutrophils Absolute 17.28(H) 1.60 - 6.10 10*3/uL LAB HEMATOLOGY METHOD 12/04/2024 11:24 AM EDT [facility] Lymphocytes Absolute 0.88(L) 1.20 - 3.90 10*3/uL LAB HEMATOLOGY METHOD 12/04/2024 11:24 AM EDT [facility] Monocytes Absolute 0.61 0.30 - 0.90 10*3/uL LAB HEMATOLOGY METHOD 12/04/2024 11:24 AM EDT [facility] Eosinophils Absolute 0.03 0.00 - 0.50 10*3/uL LAB HEMATOLOGY METHOD 12/04/2024 11:24 AM EDT [facility] Basophils Absolute 0.04 0.00 - 0.10 10*3/uL LAB HEMATOLOGY METHOD 12/04/2024 11:24 AM EDT [facility] Immature Granulocytes Absolute 0.09(H) 0.00 - 0.06 10*3/uL LAB HEMATOLOGY METHOD 12/04/2024 11:24 AM EDT [facility] Blood Venous blood specimen / Unknown Venipuncture / Unknown 12/04/2024 11:16 AM EDT 12/04/2024 11:21 AM EDT Narrative [facility] - 12/04/2024 11:24 AM EDT Therapeutic decision making should be based on absolute values, rather than percentages. us Angel Pearson MD LAB BLOOD ORDERABLES Final Res ult [facility] [address] [place] [address] * (ABNORMAL) Lipase (12/04/2024 11:16 AM EDT) Lipase, Plasma 15(L) 19 - 63 U/L 12/04/2024 11:49 AM EDT [facility] Blood Venous blood specimen / Unknown Venipuncture / Unknown 12/04/2024 11:16 AM EDT 12/04/2024 11:21 AM EDT us Angel Pearson MD LAB BLOOD ORDERABLES Final Res ult [facility] [address] [place] [address] * (ABNORMAL) CMP (12/04/2024 11:16 AM EDT) Glucose, Plasma 130(H) 74 - 99 mg/dL 12/04/2024 11:49 AM EDT [facility] BUN, Plasma 26(H) 8 - 23 mg/dL 12/04/2024 11:49 AM EDT [facility] Creatinine, Plasma 0.78 0.60 - 1.10 mg/dL 12/04/2024 11:49 AM EDT [facility] BUN/Creatinine Ratio 33 12/04/2024 11:49 AM EDT [facility] Sodium, Plasma 133(L) 136 - 145 mmol/L 12/04/2024 11:49 AM EDT [facility] Potassium, Plasma 4.6 3.6 - 4.9 mmol/L 12/04/2024 11:49 AM EDT [facility] [facility] Chloride, Plasma 99 97 - 107 mmol/L 12/04/2024 11:49 AM EDT [facility] CO2, Plasma 19(L) 22 - 29 mmol/L 12/04/2024 11:49 AM EDT [facility] Anion Gap 15 6 - 16 mmol/L 12/04/2024 11:49 AM EDT [facility] Total Calcium, Plasma 10.1 8.9 - 10.2 mg/dL 12/04/2024 11:49 AM EDT [facility] Total Protein 7.2 6.3 - 7.9 g/dL 12/04/2024 11:49 AM EDT [facility] Albumin, Plasma 3.4(L) 3.5 - 5.2 g/dL 12/04/2024 11:49 AM EDT [facility] AST, Plasma 22 10 - 35 U/L 12/04/2024 11:49 AM EDT [facility] Comment:Hemolyzed, result ma y be falsely increased. ALT, Plasma 16 10 - 35 U/L 12/04/2024 11:49 AM EDT [facility] Alkaline Phosphatase, Plasma 103 46 - 142 U/L 12/04/2024 11:49 AM EDT [facility] Total Bilirubin, Plasma 0.3 0.2 - 1.1 mg/dL 12/04/2024 11:49 AM EDT [facility] eGFRcr 78.3 mL/min/1.7 3m*2 12/04/2024 11:49 AM EDT [facility] Comment:Reported eGFRcr in m L/min/1.73m2 is based the CKD-EPI 2020 equation that does not use a race coefficient. 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, unspecified site documented in this encounter Admitting Diagnoses Diagnosis Generalized abdominal pain Abdominal pain, generalized documented in this encounter Administered Medications Inactive Administered Medications - up to 3 most recent administrations Medication Order MAR Action Action Date Dose Rate Site acetaminophen (Ofirmev) injection 740 mg 740 mg (rounded from 735 mg = 15 mg/kg 49 kg), Intravenous, Every 6 hours, 6 doses, First dose (after last modification) on 12/04/24 at 2015, Last dose on 12/06/24 at 0215, Routine New Bag 12/06/2024 1:47 AM EDT 740 mg 296 mL/hr New Bag 12/05/2024 8:16 PM EDT 740 mg 296 mL/hr New Bag 12/05/2024 2:42 PM EDT 740 mg 296 mL/hr acetaminophen (Tylenol) tablet 500 mg 500 mg, Oral, Every 6 hours scheduled, First dose on Fri12/04/24 at 1800, Until Discontinued, Routine Given 12/04/2024 6:22 PM EDT 500 mg acetaminophen (Tylenol) tablet 650 mg 650 mg, Oral, Every 6 hours PRN, Starting on Fri12/07/24 at 0324, Until Fri12/08/24 at 1659, Routine, mild pain, moderate pain Given 12/08/2024 11:02 AM EDT 650 mg Given 12/08/2024 4:45 AM EDT 650 mg Given 12/07/2024 10:14 PM EDT 650 mg dextrose 5 % and lactated Ringer's infusion 42 mL/hr, Intravenous, Continuous, Starting on Fri12/04/24 at 1705, Until Fri12/07/24 at 0627, Routine Rate/Dose Verify 12/07/2024 6:17 AM EDT 42 mL/hr 42 mL/hr Rate/Dose Verify 12/06/2024 4:00 PM EDT 42 mL/hr 42 mL/h r New Bag 12/06/2024 12:41 PM EDT 42 mL/hr 42 mL/hr enoxaparin (Lovenox) syringe 40 mg 40 mg, Subcutaneous, Daily, First dose on Fri12/04/24 at 1705, Until Discontinued, Routine Given 12/08/2024 8:44 AM EDT 40 mg Right Upper Arm (Back) Given 12/07/2024 9:19 AM EDT 40 mg Ri ght Upper Arm (Back) Given 12/06/2024 9:49 AM EDT 40 mg Le ft Lower Abdomen HYDROmorphone (Dilaudid) injection 0.5 mg 0.5 mg, Intravenous, Once, 1 dose, On Fri12/04/24 at 1410, STAT Given 12/04/2024 2:25 PM EDT 0.5 mg HYDROmorphone (Dilaudid) injection 0.5 mg 0.5 mg, Intravenous, Every 4 hours PRN, Starting on Fri12/04/24 at 1703, Until [place] 12/05/24 at 1655, STAT, severe pain Given 12/05/2024 1:01 PM EDT 0.5 mg HYDROmorphone (Dilaudid) injection 0.5 mg 0.5 mg, Intravenous, Every 3 hours PRN, Starting on Fri12/05/24 at 1655, Until Fri12/07/24 at 0536, STAT, severe pain Given 12/07/2024 3:26 AM EDT 0.5 mg Given 12/06/2024 10:08 PM EDT 0.5 mg Given 12/06/2024 5:20 PM EDT 0.5 mg iohexol (OMNIPaque) 300 MG/ML injection 100 mL 100 mL, Intravenous, Once in imaging, 1 dose, Starting on [facility] 12/04/24 at 1127, Until [facility] 12/04/24 at 1145, Routine, Imaging Protocol Orders Given 12/04/2024 11:45 AM EDT 100 mL lactated Ringer's bolus 1,000 mL 1,000 mL, Intravenous, Once, 1 dose, On [facility] 12/04/24 at 2045, Administer over 2 Hours, Routine New Bag 12/04/2024 7:52 PM EDT 1,000 mL 500 mL/hr lactated Ringer's infusion 500 mL 500 mL, Intravenous, Once (Bolus), 1 dose, On [facility] 12/04/24 at 1135, STAT New Bag 12/04/2024 11:34 AM EDT 500 mL levothyroxine (Synthroid) injection 50 mcg 50 mcg, Intravenous, Every morning, First dose on Fri12/06/24 at 0600, Until Discontinued, Routine Given 12/06/2024 5:12 AM EDT 50 mcg levothyroxine (Synthroid, Levoxyl) tablet 75 mcg 75 mcg, Oral, Every morning, First dose on Fri12/07/24 at 0600, Until Discontinued, Routine Given 12/08/2024 6:02 AM EDT 75 mcg Given 12/07/2024 5:57 AM EDT 75 mcg magnesium sulfate IVPB 2 g 2 g, Intravenous, Once, 1 dose, On [place] 12/05/24 at 0730, Routine New Bag 12/05/2024 7:20 AM EDT 2 g 25 mL/ hr magnesium sulfate IVPB 4 g 4 g, Intravenous, Every 4 hours, 2 doses, First dose on Fri12/07/24 at 0630, Last dose on Fri12/07/24 at 1030, at 25 mL/hr, Administer over 4 Hours, Routine New Bag 12/07/2024 11:27 AM EDT 4 g 25 mL/hr Rate/Dose Verify 12/07/2024 6:17 AM EDT 25 mL/h r New Bag 12/07/2024 5:58 AM EDT 4 g 25 mL/hr methocarbamol (Robaxin) tablet 500 mg 500 mg, Oral, Every 8 hours, First dose on Fri12/04/24 at 1705, Until Discontinued, Routine Given 12/08/2024 8:44 AM EDT 500 mg Given 12/08/2024 1:36 AM EDT 500 mg Given 12/07/2024 4:07 PM EDT 500 mg morphine PF 1 mg 1 mg, Intravenous, Once, 1 dose, On Fri12/04/24 at 1115, STAT Given 12/04/2024 11:32 AM EDT 1 mg ondansetron (Zofran) 4 MG/5ML solution 4 mg 4 mg, Oral, Every 6 hours PRN, Starting on Fri12/04/24 at 1702, Until Fri12/08/24 at 1659, Routine, nausea, vomiting ondansetron (Zofran) injection 4 mg 4 mg, Intravenous, Once, 1 dose, On Fri12/04/24 at 1115, STAT Given 12/04/2024 11:33 AM EDT 4 mg ondansetron (Zofran) injection 4 mg 4 mg, Intravenous, Every 6 hours PRN, Starting on Fri12/04/24 at 1702, Until Fri12/08/24 at 1659, Routine, vomiting, nausea Given 12/06/2024 10:07 PM EDT 4 mg ondansetron ODT (Zofran-ODT) disintegrating tablet 4 mg 4 mg, Oral, Every 6 hours PRN, Starting on 12/04/24 at 1702, Until Fri12/08/24 at 1659, Routine, nausea, vomiting Given 12/07/2024 9:06 PM EDT 4 mg Given 12/07/2024 1:34 PM EDT 4 mg piperacillin-tazobactam (Zosyn) 4.5 g in sodium chloride 0.9% 100 mL IVPB (vial adapter required) 4.5 g, Intravenous, Once, 1 dose, On Fri12/04/24 at 1240, STAT New 12/04/2024 1:01 PM EDT 4.5 g 36 .7 mL/hr piperacillin-tazobactam (Zosyn) 4.5 g in sodium chloride 0.9% 100 mL IVPB (vial adapter required) 4.5 g, Intravenous, Every 6 hours, First dose on 12/04/24 at 1705, Until Discontinued, Routine New Bag 12/07/2024 4:08 PM EDT 4.5 g 36. 7 mL/hr 12/07/2024 11:27 AM EDT 4.5 g 36.7 mL/hr New 12/07/2024 5:57 AM EDT 4.5 g 36.7 mL/hr potassium chloride CR (Klor-Con) ER tablet 40 mEq 40 mEq, Oral, Every 4 hours, 2 doses, First dose on Fri12/07/24 at 0630, Last dose on Fri12/07/24 at 1030, Routine Given 12/07/2024 9:31 AM EDT 40 mEq Given 12/07/2024 5:57 AM EDT 40 mEq potassium chloride IVPB 10 mEq 10 mEq, Intravenous, Every 1 hour, 4 doses, First dose on Fri12/05/24 at 0745, Last dose on Fri12/05/24 at 1045, RoutineIndications:Hypokalemia 12/05/2024 1:03 PM EDT 10 mEq 100 mL/hr 12/05/2024 12:20 PM EDT 10 mEq 100 mL/hr 12/05/2024 10:58 AM EDT 10 mEq 100 mL/hr venlafaxine XR (Effexor-XR) 24 hr capsule 150 mg 150 mg, Oral, Daily with breakfast, First dose on Fri12/06/24 at 1145, Until Discontinued, Routine Given 12/08/2024 8:44 AM EDT 150 mg Given 12/07/2024 9:19 AM EDT 150 mg Given 12/06/2024 11:57 AM EDT 150 mg documented in this encounter Active and Recently Administered Medications Times are shown in EDT. Scheduled Medication Order 12/06/2024 12/07/2024 12/08/2024 acetaminophen (Ofirmev) injection 740 mg (COMPLETED) 740 mg (rounded from 735 mg = 15 mg/kg 49 kg), Intravenous, Every 6 hours, 6 doses, First dose (after last modification) on Fri12/04/24 at 2015, Last dose on Fri12/06/24 at 0215, Routine 0147 (New Bag - Provider: Oscar Lofton) enoxaparin (Lovenox) syringe 40 mg 40 mg, Subcutaneous, Daily, First dose on Fri12/04/24 at 1705, Until Discontinued, Routine 0949 (Given - Provider: Neelima Talbert RN) 0919 (Given - Provider: Shahid Solis, GERONIMO) 0844 (Given - Provider: Jacinta Maldonado RN) levothyroxine (Synthroid) injection 50 mcg (CANCELED) 50 mcg, Intravenous, Every morning, First dose on Fri12/06/24 at 0600, Until Discontinued, Routine 0512 (Given - Provider: Oscar Lofton) levothyroxine (Synthroid, Levoxyl) tablet 75 mcg 75 mcg, Oral, Every morning, First dose on Fri12/07/24 at 0600, Until Discontinued, Routine 0557 (Given - Provider: Yeimi Fontenot) 0602 (Given - Provider: Antwon Estrada RN) magnesium sulfate IVPB 4 g (COMPLETED) 4 g, Intravenous, Every 4 hours, 2 doses, First dose on Fri12/07/24 at 0630, Last dose on Fri12/07/24 at 1030, at 25 mL/hr, Administer over 4 Hours, Routine 0558 (New Bag - Provider: Yeimi Fontenot)0617 (Rate/Dose Verify - Provider: Yeimi Fontenot)1127 (New Bag - Provider: Shahid Solis, GERONIMO) methocarbamol (Robaxin) tablet 500 mg 500 mg, Oral, Every 8 hours, First dose on Fri12/04/24 at 1705, Until Discontinued, Routine 0147 (Given - Provider: Oscar Lofton)0947 (Given - Provider: Neelima Talbert RN)1653 (Given - Provider: Neelima Talbert RN) 0039 (Given - Provider: Yeimi Fontenot)0919 (Given - Provider: Shahid Solis, GERONIMO)1607 (Given - Provider: Shahid Solis, GERONIMO) 0136 (Given - Provider: Antwon Estrada RN)0844 (Given - Provider: Jacinta Maldonado, RN) piperacillin-tazobacta m (Zosyn) 4.5 g in sodium chloride 0.9% 100 mL IVPB (vial adapter required) (CANCELED) 4.5 g, Intravenous, Every 6 hours, First dose on 12/04/24 at 1705, Until Discontinued, Routine 0511 (New Bag - Provider: Oscar Lofton)1157 (New Bag - Provider: Neelima Talbert RN)1653 (New Bag - Provider: Neelima Talbert RN)2208 (New Bag - Provider: Yeimi Fontenot) 0557 (New Bag - Provider: Yeimi Fontenot)1127 (New Bag - Provider: Shahid Solis RN)1608 (New Bag - Provider: Shahid Solis RN) potassium chloride CR (Klor-Con) ER tablet 40 mEq (COMPLETED) 40 mEq, Oral, Every 4 hours, 2 doses, First dose on Fri12/07/24 at 0630, Last dose on Fri12/07/24 at 1030, Routine 0557 (Given - Provider: Yeimi Fontenot)0931 (Given - Provider: Shahid Solis, GERONIMO) venlafaxine XR (Effexor-XR) 24 hr capsule 150 mg 150 mg, Oral, Daily with breakfast, First dose on 12/06/24 at 1145, Until Discontinued, Routine 1157 (Given - Provider: Neelima Talbert RN) 0919 (Given - Provider: Shahid Solis, GERONIMO) 0844 (Given - Provider: Jacinta Maldonado, RN) Continuous Medication Order 12/06/2024 12/07/2024 12/08/2024 dextrose 5 % and lactated Ringer's infusion (CANCELED) 42 mL/hr, Intravenous, Continuous, Starting on 12/04/24 at 1705, Until Fri12/07/24 at 0627, Routine 0956 (Rate/Dose Change - Provider: Neelima Talbert RN)1241 (New Bag - Provider: Neelima Talbert RN)1600 (Rate/Dose Verify - Provider: Neelima Talbert RN) 0617 (Rate/Dose Verify - Provider: Yeimi Fontenot) PRN Medication Order 12/06/2024 12/07/2024 12/08/2024 acetaminophen (Tylenol) tablet 650 mg 650 mg, Oral, Every 6 hours PRN, Starting on Fri12/07/24 at 0324, Until Fri12/08/24 at 1659, Routine, mild pain, moderate pain 0919 (Given - Provider: Shahid Solis, GERONIMO)1553 (Given - Provider: Shahid Solis RN)2214 (Given - Provider: Antwon Estrada RN) 0445 (Given - Provider: Antwon Estrada RN)1102 (Given - Provider: Jacinta Maldonado RN) HYDROmorphone (Dilaudid) injection 0.5 mg (CANCELED) 0.5 mg, Intravenous, Every 3 hours PRN, Starting on Fri12/05/24 at 1655, Until Fri12/07/24 at 0536, STAT, severe pain 0322 (Given - Provider: Oscar Lofton)0625 (Given - Provider: Oscar Lofton)0947 (Given - Provider: Neelima Talbert RN)1337 (Given - Provider: Neelima Talbert RN)1720 (Given - Provider: Neelima Talbert RN)2208 (Given - Provider: Yeimi Fontenot) 0326 (Given - Provider: Yeimi Fontenot) ondansetron (Zofran) 4 MG/5ML solution 4 mg(Linked Group 1) 4 mg, Oral, Every 6 hours PRN, Starting on 12/04/24 at 1702, Until Fri12/08/24 at 1659, Routine, nausea, vomiting 2207 (See Alternative - Provider: Yeimi Fontenot) 1334 (See Alternative - Provider: Shahid Solis RN)2106 (See Alternative - Provider: Antwon Estrada RN) ondansetron (Zofran) injection 4 mg(Linked Group 1) 4 mg, Intravenous, Every 6 hours PRN, Starting on 12/04/24 at 1702, Until 12/08/24 at 1659, Routine, vomiting, nausea 2207 (Given - Provider: Yeimi Fontenot) 1334 (See Alternative - Provider: Shahid Solis, RN)2105 (See Alternative - Provider: Antwon Estrada, RN) ondansetron ODT (Zofran-ODT) disintegrating tablet 4 mg(Linked Group 1) 4 mg, Oral, Every 6 hours PRN, Starting on 12/04/24 at 1702, Until 12/08/24 at 1659, Routine, nausea, vomiting 2207 (See Alternative - Provider: Yeimi Fontenot) 1334 (Given - Provider: Shahid Solis, GERONIMO)2105 (Given - Provider: Antwon Estrada, GERONIMO) Linked Groups Order Group 1: ondansetron ODT (Zofran-ODT) disintegrating tablet 4 mgJump to med 4 mg, Oral, Every 6 hours PRN, Starting on 12/04/24 at 1702, Until Fri12/08/24 at 1659, Routine, nausea, vomiting Or ondansetron (Zofran) injection 4 mgJump to med 4 mg, Intravenous, Every 6 hours PRN, Starting on 12/04/24 at 1702, Until 12/08/24 at 1659, Routine, vomiting, nausea Or ondansetron (Zofran) 4 MG/5ML solution 4 mgJump to med 4 mg, Oral, Every 6 hours PRN, Starting on 12/04/24 at 1702, Until Fri12/08/24 at 1659, Routine, nausea, vomiting documented in this encounter Additional Health Concerns Assessment Noted Time PHQ-9 Depression Total Score: 0 11/16/19 11:23 AM EDT A fall risk assessment has been complete d for the patient 11/30/2024 10:27 AM EDT A Body Mass Index follow-up plan has been documented for the patient 12/08/2024 2:26 PM EDT documented as of this encounter Care Teams [employer] Relationship Specialty Start Date End Date Marco A Vazquez MD [address] [place] [address] PCP - General 03/22/24 Agapito Ariza PA [address] [place] [address] Physician Mental Health Associate Otolaryngology 03/05/22 Aiden Lr MD [address] [place] [address] [address] Surgeon Otolaryngology 03/05/22 Graeme Sharma MD [address] [place] [address] Referring Physician Colon and Rectal Surgery 08/15/23 documented as of this encounter
--- OUTSIDE RECORDS SUMMARY | 2024-12-21 10:45 | XMS_ITS | Encounter Summary ---
Author Organization [facility] Address [address] [place] [address] Care Team Providers Care Jig And Fixture Builder Name Role Phone Agapito Ariza Unavailable [phone] Aiden Lr MD Unavailable [phone] Graeme Sharma MD Unavailable [phone] Marco A Vazquez MD Primary Care Provider Encounter Details Date Type Department Care Team (Late st Contact Info) Description 12/21/2024 10:45 AM EDT Office Visit [facility] Plastic & Reconstructive Surgery [address] [place] [address] Aric Goode MD [address] [address] Squamous cell carcinoma of rectum (Primary Dx) [...] money to buy more. Never true 09/04/19 Within the past 12 months, t he [...] any time in the past 12 m [facility], were you homeless or living in a half-way (including now)? No 09/03/2024 CAGE ASSESSMENT Answer [...] drink first t jefe in the morning (EYE-CORPORATE SALES REPRESENTATIVE) to steady your nerves or to get [...] Sign Reading Time Taken Comments Blood Pressure 93/61 12/21/2024 11:01 AM EDT Pulse 94 12/21/2024 11:01 AM EDT Temperature - - Respiratory Rate - - Oxygen Saturation 98% 12/21/2024 11:01 AM EDT Inhaled Oxygen Concentration - - Weight 49.4 kg (109 lb) 12/21/2024 11:01 AM EDT Height - - Body Mass Index 19.94 12/04/2024 10:56 AM EDT documented in this encounter Miscellaneous Notes * Progress Notes - Fran Lai MD - 12/21/2024 10:45 AM EDT Plastic Surgery Clinic Note HISTORY OF PRESENT ILLNESS: Yolie Borrego is a 79 y.o. female presenting for follow up of Hx of SCC of the rectum s/p chemoradiation. She was found to have recurrence invading vaginal cuff and bladder. She is now s/p pelvic exenteration with CRS, GYO, Urology and right VRAM flap reconstructionwith Plastic Surgery on 09/01/24. At last visit on 11/09/2024, the patient was noted to have some right thigh swelling, and was subsequently referred for ultrasound, which demonstrated a superficial thrombus. She has not required blood thinners, and states that the area is spontaneously resolving onits own. Since last visit, the patient was hospitalized from 12/04-12/08 for abdominal pain and decreased by mouth intake. CT scan was obtained at that visit, which showed concern for possible recurrence of malignancy and enteritis. She underwent Gastrografin challenge which demonstrated flow to the colostomy, and she spontaneously improved with her by mouth intake and symptoms. She has a PET scan scheduled for this Friday, and Heme-Onc appointment next week. The patient's main complaint today is that she has deep pelvic pain that is slowly worsening. She takes Tylenol and ibuprofen daily, but states that this is slowly becoming less effective. She is interested in discussing next steps in management. She denies any anterior abdominal pain, perineal drainage, fever, chills, erythema, dehiscence. PAST MEDICAL HISTORY: Past Medical History[1] PAST SURGICAL HISTORY: Surgical History[2] MEDICATIONS: Current Medications[3] ALLERGIES: Allergies[4] FAMILY HISTORY Family history is as noted on the history intake form which was reviewed and scanned into [employer]. Negative for bleeding disorders, clotting disorders or anesthesia issues. SOCIAL HISTORY: Social History[5] OBJECTIVE PHYSICAL EXAM Constitutional: Alert, no acute distress SKIN: No [...] all extremities without difficulty. No edema noted. Right anterior thigh with superficial thrombus, soft, nontender NEURO: Alert and oriented x3. PSYCH: Normal mood and behavior. Review of Systems: ROS: 14 point review of systems was completed with the patient and documented on written assessmentat this time and was negative except as noted in the HPI. IMAGING: CT ABDOMEN PELVIS W IV CONTRAST authorized by: Angel Rudolph MD Study Result Narrative & Impression CLINICAL INDICATION: Abdominal pain, acute, nonlocalized TECHNIQUE: [...] size without evidence of obstruction. Left lower quadrantostomy with postoperative changes involving the distal colon. [...] Lizandro Watkins MD on 12/04/2024 12:28 PM ASSESSMENT Yolie Borrego is a 79 y.o. female presenting for follow up of Hx of SCC of the rectum s/p chemoradiation. She was found to have recurrence invading vaginal cuff and bladder. She is now s/p pelvic exenteration with CRS, GYO, Urology and right VRAM flap reconstruction with Plastic Surgery on 09/01/24. The patient wound underwent right lower extremity ultrasound which demonstrated superficial thrombus, that appears to be spontaneously resolving. Additionally, the patient was recently hospitalized, with CT findings concerning for possible recurrence. She has a PET scan scheduled for Friday, with follow up with heme Onc scheduled for next week. We discussed with the patient that she should proceed with the PET scan and follow up with Medical Oncology regarding next steps in management. Regarding her flap, it appears to be healing well with no issues at this time. We discussed that she may follow up on an as-needed basis if any concerns arise. [1] Past Medical History: Diagnosis Date Abnormal Pap smear of cervix Cancer ([facility]) 07/2016 History of uterine fibroid Hx antineoplastic [...] specified conditions History of syncope Rectal cancer ([facility]) July 2016 SDH (subdural hematoma) ([facility]) 07/31/2020 Skin cancer 2004 Stroke ([facility]) 2013 Supraventricular tachycardia by ECG ([facility]) 07/04/2020 SVT (supraventricular tachycardia) ([facility]) had cardiac ablation Syncope 07/04/2020 Syncope and collapse TIA (transient ischemic attack) 07/31/20202013 Urinary incontinence October 2023 [2] Past Surgical History: Procedure Laterality Date BREAST BIOPSY N/A Biopsy of breast from [facility] CATH ABLATION N/A 2020 Catheter ablation from [facility] CHOLECYSTECTOMY N/A 2002 COLON SURGERY N/A Colon Surgery from [facility] COLONOSCOPY 03/01/2024 FEMUR FRACTURE SURGERY 2022 HYSTERECTOMY N/A 1995 [3] Current Outpatient Medications Medication Sig Dispense Refill acetaminophen (Tylenol) 500 MG tablet Take 1 tablet by mouth 2 times a day as needed. aspirin 81 MG EC tablet Take 1 tablet by mouth 1 time each day. atorvastatin (Lipitor) 10 MG tablet Take 1 tablet by mouth nightly. ibuprofen 200 MG tablet Take 1 tablet by mouth 3 times a day. levothyroxine (Synthroid, Levoxyl) 75 MCG tablet Take 1 tablet by mouth daily. methocarbamol (Robaxin) 500 MG tablet Take 1 tablet by mouth every 8 hours for 7 days. 21 tablet 0 polyethylene glycol (Miralax) 17 g packet Take 17 g by mouth 2 times a day. (Patient taking differently: Take 17 g by mouth 2 times a day. PRN) 60 packet 1 venlafaxine XR (Effexor-XR) 150 MG 24 hr capsule Take 1 capsule by mouth every morning. No current facility-administered medications for this visit. [4] No Known Allergies [5] Social History Tobacco Use Smoking status: Never Passive exposure: Never Smokeless tobacco: Never Vaping Use Vaping status: Never Used Substance Use Topics Alcohol use: Not Currently Alcohol/week: 7.0 standard drinks of alcohol Types: 7 Glasses of wine per week Comment: stopped drinking 11/2023 Drug use: No Comment: Drug use: Does not use illicit drugs Cosigned by Aric Goode MD at 12/21/2024 1:49 PM EDT Associated attestation - Aric Goode MD - 12/21/2024 1:49 PM EDT I saw and evaluated the patient with the resident/fellow. I discussed the case with the resident/fellow and agree with the findings and plan as documented. Abdominal VRAM donor site appears well healed without bulge or hernia. VRAM skin paddle appears well healed, pink and well perfused throughout within the perineum. No wound breakdown. No drainage. Patient reports slowly worsening right pelvic pain. Recent CT indicates likely recurrence of her tumor unfortunately. She is scheduled for PET CT and follow up with her oncologist in the near future to discuss this finding. At this point there is no further intervention required from a reconstructive standpoint. I discussed with the patient and her that they should call/be seen in our clinicif they have any concerns in the future regarding the flap. documented in this encounter Plan of Treatment Upcoming Encounters Date Type Department Care Team (Late st Contact Info) Description 02/01/2025 7:00 AM EDT Appointment [facility] [address] [place] [phone] 02/01/2025 9:00 AM EDT Office Visit [facility] Multidisciplinary Oncology Clinic [address] [place] [phone] Graeme Sharma MD [address] [place] [address] 02/08/2025 9:15 AM EDT Clinical Support [facility] Multidisciplinary Oncology Clinic [address] [place] [address] 02/08/2025 9:20 AM EDT Office Visit [facility] Multidisciplinary Oncology Clinic [address] [place] [phone] Monica Sanchez MD [address] [facility] [address] [place] [address] 02/08/2025 11:00 AM EDT Appointment [facility] Infusion [address] [place] [address] 05/16/2025 9:40 AM EST Office Visit [facility] Multidisciplinary Oncology Clinic [address] [place] [phone] Rahel Bales PA [address] [facility] [address] [place] [address] documented as of this encounter Visit Diagnoses Diagnosis Squamous cell carcinoma of rectum- Primary documented in this encounter Additional Health Concerns Assessment Noted Time PHQ-9 Depression Total Score: 0 11/16/19 25 11:23 AM EDT A fall risk assessment has been complete d for the patient 11/30/2024 10:27 AM EDT A Body Mass Index follow-up plan has been documented for the patient 12/21/2024 1:49 PM EDT documented as of this encounter Care Teams Jig And Fixture Builder Relationship Specialty Start Date End Date Marco A Vazquez MD [address] [place] [address] PCP - General 03/22/24 Agapito Ariza PA [address] [place] [address] Physician Digital Director Otolaryngology 03/05/22 Aiden Lr MD [address] [facility] Cancer [address] [address] Surgeon Otolaryngology 03/05/22 Graeme Sharma MD [address] [place] [address] Referring Physician Colon and Rectal Surgery 08/15/23 documented as of this encounter
--- OUTSIDE RECORDS SUMMARY | 2024-12-24 07:19 | XMS_ITS | Encounter Summary ---
Author Organization [facility] Address [address] [place] [address] Care Team Providers Care Soccer Commentator Name Role Phone Agapito Ariza Unavailable [phone] Aiden Lr MD Unavailable [phone] Graeme Sharma MD Unavailable [phone] Marco A Vazquez MD Primary Care Provider [phone] Reason for Visit * Imaging (Routine) - Closed Specialty Diagnoses / Procedures Referred By Contac t Referred To Contact Radiology Diagnoses Anal cancer (CMS/HCC) Procedures PET/CT FDG Skull Base To Mid Thigh Graeme Sharma MD [address] [facility] [address] [place] [address] Phone: tel: fax: Referral ID Status Reason Start Date Expiration Date Visits Re quested Visits Authorized [id number] Closed 12/08/2024 06/09/2026 2 2 Encounter Details Date Type Department Care Team (Latest Contact Info) Description 12/24/2024 7:19 AM EDT - 12/24/2024 11:59 PM EDT Hospital Encounter [facility] [address] [place] [address] Discharge Disposition: Home or Self Care Social [...] any time in the past [address] [facility], were you homeless or living in a senior living (including now)? No 09/03/2024 CAGE ASSESSMENT Answer [...] drink first t jefe in the morning (EYE-BAGGAGE AGENT) to steady your nerves or to get rid of a hangover? 0 10/05/2024 CAGE Questionnaire Score 0 025 Utilities Answer Date Recorded In the past 12 months has th e [employer], gas, oil, or water company threatened to shut off services in your home? No 09/03/2024 PHQ-2A Answer Date Recorded Patient Health Questionnaire-2 Score 0 08/21/2022 Comments No Sex and Gender Information Value Date Recorded Sex Assigned at Not on file Legal Sex Female 8:54 PM EDT Gender Identity Not on file Sexual Orientation Not on file documented as of this encounter Medications at [...] every morning. documented as of this encounter Plan of Treatment Upcoming Encounters Date Type Department Care Team (Late st Contact Info) Description 02/01/2025 7:00 AM EDT Appointment [facility] [address] [place] [phone] 02/01/2025 9:00 AM EDT Office Visit [facility] [address] [place] [address] Graeme Sharma MD [address] [facility] [address] [place] [address] 02/08/2025 9:15 AM EDT Clinical Support [facility] [address] [place] [phone] 02/08/2025 9:20 AM EDT Office Visit [facility] [address] [place] [phone] Monica Sanchez MD [address] [facility] [address] [place] [address] 02/08/2025 11:00 AM EDT Appointment [facility] [address] [place] [address] 05/16/2025 9:40 AM EST Office Visit [facility] [address] [place] [phone] Rahel Bales, PA [address] [place] [address] documented as of this encounter Procedures Procedure Name Priority Date/Time Associated Diagnosis Comments PET/CT FDG SKULL BASE TO MID THIGH Routine 12/24/2024 8:34 AM EDT Anal cancer (CMS/HCC) POCT GLUCOSE METER UNSOLICITED RESULTS Routine 12/24/2024 7:42 AM EDT documented in this encounter Results * POCT glucose meter (12/24/2024 7:42 AM EDT) POCT Glucose 95 74 - 99 mg/dL 12/24/2024 7:44 AM EDT [facility] Comment:Accuracy of a glucos e result obtained from a capillary whole blood specimen relies upon adequate, non-compromised capillary blood flow. If the capillary glucose result is not consistent with the patient's clinical signs and symptoms, glucose testing should be repeated with either an arterial or venous sample on the glucometer or sent to the main labortory for testing. Comment 12/24/2024 7:44 AM EDT [facility] Vendette ID Manisha Morales 12/24/2024 7:44 AM EDT [facility] Device ID [id number] 12/24/2024 7:44 AM EDT [facility] Specimen Type POC Capillary 12/24/2024 7:44 AM EDT [facility] Blood Capillary blood specimen / Unknown 12/24/2024 7:42 AM EDT 12/24/2024 7:44 AM EDT us Generic Provider Poct LAB POINT OF CARE TEST DOCKED DEVICE UNSOLICITED RESULTS Final Result [facility] [address] [place] [address] documented in this encounter Visit Diagnoses Not on filedocumented in this encounter Additional Health Concerns Assessment Noted Time PHQ-9 Depression Total Score: 0 11/16/19 25 11:23 AM EDT A fall risk assessment has been complete d for the patient 11/30/2024 10:27 AM EDT A Body Mass Index follow-up plan has been documented for the patient 12/21/2024 1:49 PM EDT documented as of this encounter Care Teams Soccer Commentator Relationship Specialty Start Date End Date Marco A Vazquez MD [address] [place], [place] [id number] PCP - General 03/22/24 Agapito Ariza PA [address] [place] [address] Physician Farm Instructor Otolaryngology 03/05/22 Aiden Lr MD 800 [facility] Cancer [facility] [address] [place] [address] Surgeon Otolaryngology 03/05/22 Graeme Sharma MD [address] [place] [address] Referring Physician Colon and Rectal Surgery 08/15/23 documented as of this encounter
--- OUTSIDE RECORDS SUMMARY | 2024-12-24 07:19 | XMS_ITS | Encounter Summary ---
Author Organization [facility] Address [address] [id number] Care Team Providers Care Risk Prevention Engineer Name Role Phone Agapito Ariza Unavailable [phone] Aiden Lr MD Unavailable [phone] Graeme Sharma MD Unavailable [phone] Marco A Vazquez MD Primary Care Provider [phone] Reason for Referral * Imaging (Routine) - Closed Specialty Diagnoses / Procedures Referred By Contac t Referred To Contact Radiology Diagnoses Anal cancer (CMS/HCC) Procedures PET/CT FDG Skull Base To Mid Thigh Graeme Sharma MD [facility] [address] [address] Phone: tel: fax: Referral ID Status Reason Start Date Expiration Date Visits Re quested Visits Authorized [id number] Closed 12/08/2024 06/09/2026 2 2 Reason for Visit * Imaging (Routine) - Closed Specialty Diagnoses / Procedures Referred By Contac t Referred To Contact Radiology Diagnoses Anal cancer (CMS/HCC) Procedures PET/CT FDG Skull Base To Mid Thigh Graeme Sharma MD [address] [place] [address] Phone: tel: fax: Referral ID Status Reason Start Date Expiration Date Visits Re quested Visits Authorized [id number] Closed 12/08/2024 06/09/2026 2 2 Encounter Details Date Type Department Care Team (Latest Contact Info) Description 12/24/2024 7:19 AM EDT - 12/24/2024 11:59 PM EDT Hospital Encounter [facility] Radiology [address] [place] [address] Anal cancer (CMS/HCC) Discharge Disposition: Home or Self Care [...] Date Recorded Patient Health Questionnaire-2 Score 0 12/28/2024 Hunger Vital Sign Answer Date Recorded Within [...] any time in the past 12 m [facility], were you homeless or living in a halfway (including now)? No 09/03/2024 AUDIT-C Answer Date Recorded Q1: How often do you have a drink containing alcohol? Never 12/28/2024 Q2: How many drinks containi ng alcohol do you have on a typical day when you are drinking? Patient does not drink Q3: How often do you have si x or more drinks on one occasion? Never 12/28/2024 CAGE ASSESSMENT Answer Date Recorded Cage unable [...] drink first t jefe in the morning (EYE-DENTAL OFFICE RECEPTIONIST) to steady your nerves or to get [...] as of this encounter Functional Status * AUDIT-C Score Answer Date of Assessment Author 0 12/28/2024 3:15 PM EDT Nasreen Mendiola * Question Answer Date of Assessment Author Q1: How often do you have a drink containing alcohol? Never 12/28/2024 3:15 PM EDT Nikolas Mendiola Q2: How many drinks containing alcohol do you have on a typical day when you are drinking? Patient does not drink 12/28/2024 3:15 PM EDT Nikolas Mendiola Q3: How often do you have six or more drinks on one occasion? Never 12/28/2024 3:15 PM EDT Nikolas Mendiola * Over the past 2 weeks, how often have you been bothered by any of the following problems? Question Answer Date of Assessment Author Little interest or pleasure in doing things Not at all 12/28/2024 3:19 PM EDT Nikolas Mendiola Feeling down, depressed, or hopeless Not at all 12/28/2024 3:19 PM EDT Nikolas Mendiola Patient Health Questionnaire -2 Score 0 12/28/2024 3:19 PM EDT Nikolas Mendiola documented as of this encounter Medications at [...] EDT Appointment [facility] [address] [place] [address] 02/01/2025 9:00 AM EDT Office Visit [facility] Oncology [facility] [address] [place] [address] Graeme Sharma MD [address] [facility] [address] [place] [address] 02/08/2025 9:15 AM EDT Clinical Support [facility] [address] [place] [phone] 02/08/2025 9:20 AM EDT Office Visit [facility]cology [facility] [address] [place] [address] Monica Sanchez MD [address] [facility] [address] [place] [address] 02/08/2025 11:00 AM EDT Appointment [facility] Infusion [address] [place] [address] 05/16/2025 9:40 AM EST Office Visit [facility] [address] [place] [phone] Rahel Bales, PA [address] [place] [address] documented as of this encounter Procedures Procedure Name Priority Date/Time Associated Diagnosis Comments PET/CT FDG SKULL BASE TO MID THIGH Routine 12/24/2024 8:34 AM EDT Anal cancer (CMS/HCC) documented in this encounter Results * PET/CT [...] scanner: Siemens Biograph 40 mCT. PET/CT acquisition: [id number]-hs-nms-thighs. Standardized uptake value (SUV): Corrected for body weight only. CT: Low-dose, [id number], without intravenous contrast. TOTAL DLP (Dose Length [...] scanner: Siemens Biograph 40 mCT. PET/CT acquisition: [id number]-ga-wvm-thighs. Standardized uptake value (SUV): Corrected for body weight only. CT: Low-dose, [id number], without intravenous contrast. TOTAL DLP (Dose Length [...] Jese Haas MD on 12/25/2024 6:28 PM Graeme Sharma MD IMG NM PROCEDURES Final Result documented in this encounter Visit Diagnoses Diagnosis Anal cancer (CMS/HCC) Malignant neoplasm of anus, unspecified site documented in this encounter Administered Medications Inactive Administered Medications - up to 3 most recent administrations Medication Order MAR Action Action Date Dose Rate Site Fludeoxyglucose F 18 (FDG 18) radio-isotope injection 10 millicurie 10 millicurie, Intravenous, Once, 1 dose, On Fri12/24/24 at 0900, Routine, Imaging NM Protocol Orders Given 12/24/2024 7:45 AM EDT 11.44 millicuries documented in this encounter Additional Health Concerns Assessment Noted Time PHQ-9 Depression Total Score: 0 11/16/19 11:23 AM EDT A fall risk assessment has been complete d for the patient 11/30/2024 10:27 AM EDT A Body Mass Index follow-up plan has been documented for the patient 12/21/2024 1:49 PM EDT documented as of this encounter Care Teams Risk Prevention Engineer Relationship Specialty Start Date End Date Marco A Vazquez MD [address] [place] [address] PCP - General 03/22/24 Agapito Ariza PA [address] [place] [address] Physician Manager Resource Otolaryngology 03/05/22 Aiden Lr MD [address] [facility] [address] [place] [address] Surgeon Otolaryngology 03/05/22 Graeme Sharma MD [address] [place] [address] Referring Physician Colon and Rectal Surgery 08/15/23 documented as of this encounter
--- OUTSIDE RECORDS SUMMARY | 2024-12-28 15:00 | XMS_ITS | Encounter Summary ---
Author Organization [facility] Address [address] [place] [address] Care Team Providers Care Staff Nurse Midwife Name Role Phone Agapito Ariza Unavailable [phone] Aiden Lr MD Unavailable [phone] Graeme Sharma MD Unavailable [phone] Marco A Vazquez MD Primary Care Provider Reason for Visit * Reason Comments Routine Follow-up Encounter Details Date Type Department Care Team (Late st Contact Info) Description 12/28/2024 3:00 PM EDT Office Visit [facility] Multidisciplinary Oncology Clinic [address] [place] [address] Monica Sanchez MD 800 [facility] [address] [place] [address] Squamous cell carcinoma of rectum (Primary Dx); Anal cancer (CMS/HCC) Social History Tobacco Use Types Packs/Day [...] any time in the past 12 m [facility], were you homeless or living in a nursing home (including now)? No 09/03/2024 AUDIT-C Answer Date [...] drink first t jefe in the morning (EYE-CRIMINAL RESEARCH SPECIALIST) to steady your nerves or to get rid of a hangover? 0 10/05/2024 CAGE Questionnaire Score 0 025 Utilities Answer Date Recorded In the past 12 months has e [employer], gas, oil, or water [employer] threatened to shut off services in your [...] Sign Reading Time Taken Comments Blood Pressure 112/74 12/28/2024 3:15 PM EDT Pulse 97 12/28/2024 3:15 PM EDT Temperature 36.8 C (98.2 F) 12/28/2024 3:15 PM EDT Respiratory Rate - - Oxygen Saturation 99% 12/28/2024 3:15 PM EDT Inhaled Oxygen Concentration - - Weight 49.4 kg (108 lb 14.5 oz) 12/28/2024 3:15 PM EDT Height 157.5 cm (5' 2 ) 12/28/2024 3:15 PM EDT Body Mass Index 19.92 12/28/2024 3:15 PM EDT documented in this encounter Functional Status * AUDIT-C Score [...] Never 12/28/2024 3:15 PM EDT Nikolas Mendiola n T * Over the past 2 weeks, how often have you been bothered by any of the following problems? Question Answer Date of Assessment Author Little interest or pleasure in doing things Not at all 12/28/2024 3:19 PM EDT Nikolas Mendiola n T Feeling down, depressed, or hopeless Not at all 12/28/2024 3:19 PM EDT Nikolas Mendiolaa n T Patient Health Questionnaire -2 Score 0 12/28/2024 3:19 PM EDT Nikolas Mendiola n T documented as of this encounter Miscellaneous Notes * Progress Notes - Cordell Lopez PharmD - 12/28/2024 3:00 PM EDT Pharmacy Hematology/Oncology Patient Education Note I counseled the patient on their chemotherapy regimen, which was scheduled to start 12/28/24. The chemotherapy agents that this patient is scheduled to receive include: Pembrolizumab. I provided the patient with a written explanation of the drugs contained in the regimen and their expected side effects, toxicities, and adverse reactions. I provided verbal explanation of the same material and provid ed methods for self-monitoring. I answered all questions that the patient and/or caregiver had. Thepatient and/or caregiver demonstrated understanding of the material, and wished to proceed with thetreatment. Cordell Lopez PharmD Clinical Oncology Pharmacist * Progress Notes - Cordell Lopez PharmD - 12/28/2024 3:00 PM EDT Pharmacy Hematology/Oncology Treatment Plan Note Yolie Borrego is a 79 y.o. female with recurrent anal squamos cell carcinoma. Cancer Staging No matching staging information was found for the patient. Study Patient: No Treatment Plan reviewed for Cycle 1 Pembrolizumab History of Present Illness: 79yoF with a PMHx of anal squamous cell carinoma s/p chemo and radiation, hypothyroidism, SVT, HLD,TIA, SVT, and Afib who presents to [facility] clinic for evaluation for pelvic mass biopsy. She follows with [facility] who has provided the referral today. She was last seen on 02/18/24 in clinic by [facility].She had a CT Chest and A/P ordered that was completed on 02/20/24. CT A/P demonstrated progression ofdisease with significant enlargement of the residual/recurrent soft tissue nodule in the right vaginal cuff with involvement of the terminal right ureter, right UV junction and right half of the posterior urinary bladder wall as well as along the entire length of the vagina to the level of the intro itus and possible involvement of the inferior urethra. Interval History: 03/30/24: Patient in clinic today to receive education and consent to Carboplatin + paclitaxel. Patient asked appropriate questions regarding therapy. Labs to be re-evaluated by pharmacy satellite prior to treatment on 04/05/2024. 05/18/24: Continues to tolerate treatment well. 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 Labs to be re-evaluated by pharmacy satellite prior to treatment on 06/08/24. Ok to continue on therapy at this time. 06/29/24: Continues to tolerate treatment well, ok to proceed with treatment today. 07/20/24: Ms. Borrego continues to tolerate therapy well overall. She reports low appetite but has not been taking dronabinol recently. Plans to re-trial dronabinol with food. We discussed the possibility of switching to olanzapine in the future if she is interested to further assist in appetite/nausea treatment. Labs are appropriate to proceed with Cycle 6 of treatment today. 12/28/24: Unfortunately, patient found to have had progression of disease on recent CT scans. Patient consented and educated on Pembrolizumab 400 mg q6 weeks. Labs to be re-evaluated by pharmacy satellite prior to treatment on 12/30/24. Today's Wt: Wt Readings from Last 1 Encounters: 12/28/24 49.4 kg (108 lb 14.5 oz) Dosing Wt: 55.4 kg Dosing Ht: 158.2 cm DosingBSA: 1.56 m2 Recent Labs: Lab Results Component Value Date WBC 13.49 (H) 12/06/2024 NEUTROABS 17.28 (H) 12/04/2024 HGB 8.5 (L) 12/06/2024 PLT 388 (H) 12/06/2024 Lab Results Component Value Date GLUCOSE 136 (H) 12/06/2024 NA 132 (L) 12/06/2024 K 3.3 (L) 12/06/2024 MG 1.4 (L) 12/06/2024 CALCIUM 9.5 12/06/2024 PHOS 2.7 12/06/2024 BUN 14 12/06/2024 CREATININE 0.80 12/06/2024 Lab Results Component Value Date AST 15 12/05/2024 ALT 12 12/05/2024 ALKPHOS 101 12/05/2024 BILITOT 0.3 12/05/2024 Lab Results Component Value Date TSH 2.65 05/18/2024 Visit Vitals BP 112/74 (BP Location: Left arm, Patient Position: Sitting, BP Cuff Size: Adult) Pulse 97 Temp 36.8 ??C (98.2 ??F) (Oral) Treatment Plan: Pembrolizumab 400 mg IV on Day 1 Every 42 days [x] No dose adjustments made Current Treatment Plan History: Pembrolizumab Cycle 1: Planned for 12/28/24 Prior Treatment History: XRT + Capecitabine + Mitomycin - Completed September 2016 Carbo/Taxol Cycle 1: 04/05/2024 Cycle 2: 04/27/2024 Cycle 3: 05/18/2024 Cycle 4: 06/08/2024 Cycle 5: 06/29/2024 Cycle 6: 07/20/2024 Assessment/Plan: Patient will return to clinic in 2 weeks. Will follow-up at that time. Cordell Lopez PharmD Clinical Oncology Pharmacist documented in this encounter Plan of Treatment Upcoming Encounters Date Type Department Care Team (Late st Contact Info) Description 02/01/2025 7:00 AM EDT Appointment [facility] [address] [place] [address] 02/01/2025 9:00 AM EDT Office Visit [facility] [address] [place] [address] Graeme Sharma MD [address] [place] [address] 02/08/2025 9:15 AM EDT Clinical Support [facility] [address] [place] [address] 02/08/2025 9:20 AM EDT Office Visit [facility] [address] [place] [phone] Monica Sanchez MD 800 [facility] [address] [place] [address] 02/08/2025 11:00 AM EDT Appointment [facility] In[facility] [address] [place] [address] 05/16/2025 9:40 AM EST Office Visit [facility] [address] [place] [phone] Rahel Bales PA [address] [place] [phone] Pending Results Name Type Priority Associated Diagnoses Date /Time [facility] [place] Cancer Seek Hybrid Lab Routine Squamous cell carcinoma of rectum Anal cancer (CMS/HCC) 12/29/2024 10:27 AM EDT Scheduled Orders Name Type Priority Associated Diagnoses Orde r Schedule CBC and Differential Lab Routine Squamous cell carcinoma of rectum Anal cancer (CMS/HCC) Expected: 12/28/2024, Expires: 06/30/2026 CEA, Serum Lab Routine Squamous cell carcinoma of rectum Anal cancer (CMS/HCC) Expected: 12/28/2024, Expires: 06/30/2026 Comprehensive Metabolic Panel, Plasma Lab Routine Squamous cell carcinoma of rectum Anal cancer (CMS/HCC) Expected: 12/28/2024, Expires: 06/30/2026 documented as of this encounter Results * TSH reflex FT4 (12/30/2024 3:23 PM EDT) Thyroid Stimulating Hormone, Plasma 1.82 0.40 - 4.20 uIU/mL 12/30/2024 4:36 PM EDT [facility] Blood Venous blood specimen / Unknown Venipuncture / Unknown 12/30/2024 3:23 PM EDT 12/30/2024 3:57 PM EDT us Monica Sanchez MD LAB BLOOD ORDERABLES Final Res ult [facility] [address] [place] [address] * (ABNORMAL) Comprehensive metabolic panel (12/30/2024 3:23 PM EDT) Glucose, Plasma 102(H) 74 - 99 mg/dL 12/30/2024 4:36 PM EDT [facility] BUN, Plasma 29(H) 8 - 23 mg/dL 12/30/2024 4:36 PM EDT [facility] Creatinine, Plasma 0.74 0.60 - 1.10 mg/dL 12/30/2024 4:36 PM EDT [facility] BUN/Creatinine Ratio 39 12/30/2024 4:36 PM EDT [facility] Sodium, Plasma 132(L) 136 - 145 mmol/L 12/30/2024 4:36 PM EDT [facility] Potassium, Plasma 4.0 3.6 - 4.9 mmol/L 12/30/2024 4:36 PM EDT [facility] Chloride, Plasma 100 97 - 107 mmol/L 12/30/2024 4:36 PM EDT [facility] CO2, Plasma 18(L) 22 - 29 mmol/L 12/30/2024 4:36 PM EDT [facility] Anion Gap 14 6 - 16 mmol/L 12/30/2024 4:36 PM EDT [facility] Total Calcium, Plasma 10.2 8.9 - 10.2 mg/dL 12/30/2024 4:36 PM EDT [facility] Total Protein 6.9 6.3 - 7.9 g/dL 12/30/2024 4:36 PM EDT [facility] Albumin, Plasma 3.3(L) 3.5 - 5.2 g/dL 12/30/2024 4:36 PM EDT [facility] AST, Plasma 18 10 - 35 U/L 12/30/2024 4:36 PM EDT [facility] ALT, Plasma 15 10 - 35 U/L 12/30/2024 4:36 PM EDT [facility] Alkaline Phosphatase, Plasma 88 46 - 142 U/L 12/30/2024 4:36 PM EDT [facility] Total Bilirubin, Plasma <0.2(L) 0.2 - 1.1 mg/dL 12/30/2024 4:36 PM EDT [facility] eGFRcr 83.4 mL/min/1.7 3m*2 12/30/2024 4:36 PM EDT [facility] Comment:Reported eGFRcr in m L/min/1.73m2 is based the CKD-EPI 2020 equation that does not use a race coefficient. Blood Venous blood specimen / Unknown Venipuncture / Unknown 12/30/2024 3:23 PM EDT 12/30/2024 3:57 PM EDT us Monica Sanchez MD LAB BLOOD ORDERABLES Final Res ult [facility] [address] [place] [address] * (ABNORMAL) CBC and differential (12/30/2024 3:17 PM EDT) WBC Count 10.58(H) 3.70 - 10.30 10*3/uL LAB HEMATOLOGY METHOD 12/30/2024 3:49 PM EDT [facility] RBC Count 3.26(L) 3.90 - 5.20 10*6/uL LAB HEMATOLOGY METHOD 12/30/2024 3:49 PM EDT [facility] HGB 8.3(L) 11.2 - 15.7 g/dL LAB HEMATOLOGY METHOD 12/30/2024 3:49 PM EDT [facility] HCT 27.0(L) 34.0 - 45.0 % LAB HEMATOLOGY METHOD 12/30/2024 3:49 PM EDT [facility] Platelet Count 331 155 - 369 10*3/uL LAB HEMATOLOGY METHOD 12/30/2024 3:49 PM EDT [facility] MCV 83 79 - 98 fL LAB HEMATOLOGY METHOD 12/30/2024 3:49 PM EDT [facility] MCH 25.5(L) 26.0 - 32.0 pg LAB HEMATOLOGY METHOD 12/30/2024 3:49 PM EDT [facility] MCHC 30.7 30.7 - 35.5 g/dL LAB HEMATOLOGY METHOD 12/30/2024 3:49 PM EDT [facility] RDW 16.6(H) 11.5 - 14.5 % LAB HEMATOLOGY METHOD 12/30/2024 3:49 PM EDT [facility] MPV 8.4(L) 8.8 - 12.5 fL LAB HEMATOLOGY METHOD 12/30/2024 3:49 PM EDT [facility] nRBC 0.0 <=0.0 per 100 WBCs LAB HEMATOLOGY METHOD 12/30/2024 3:49 PM EDT [facility] Differential Type Automated LAB HEMATOLOGY METHOD 12/30/2024 3:49 PM EDT [facility] Neutrophils % 76 % LAB HEMATOLOGY METHOD 12/30/2024 3:49 PM EDT [facility] Lymphocytes % 12 % LAB HEMATOLOGY METHOD 12/30/2024 3:49 PM EDT [facility] Monocytes % 9 % LAB HEMATOLOGY METHOD 12/30/2024 3:49 PM EDT [facility] Eosinophils % 2 % LAB HEMATOLOGY METHOD 12/30/2024 3:49 PM EDT [facility] Basophils % 0 % LAB HEMATOLOGY METHOD 12/30/2024 3:49 PM EDT [facility] Immature Granulocytes % 1 % LAB HEMATOLOGY METHOD 12/30/2024 3:49 PM EDT [facility] Neutrophils Absolute 8.09(H) 1.60 - 6.10 10*3/uL LAB HEMATOLOGY METHOD 12/30/2024 3:49 PM EDT [facility] Lymphocytes Absolute 1.30 1.20 - 3.90 10*3/uL LAB HEMATOLOGY METHOD 12/30/2024 3:49 PM EDT [facility] Monocytes Absolute 0.91(H) 0.30 - 0.90 10*3/uL LAB HEMATOLOGY METHOD 12/30/2024 3:49 PM EDT [facility] Eosinophils Absolute 0.20 0.00 - 0.50 10*3/uL LAB HEMATOLOGY METHOD 12/30/2024 3:49 PM EDT [facility] Basophils Absolute 0.03 0.00 - 0.10 10*3/uL LAB HEMATOLOGY METHOD 12/30/2024 3:49 PM EDT [facility] Immature Granulocytes Absolute 0.05 0.00 - 0.06 10*3/uL LAB HEMATOLOGY METHOD 12/30/2024 3:49 PM EDT [facility] Blood Venous blood specimen / Unknown Venipuncture / Unknown 12/30/2024 3:17 PM EDT 12/30/2024 3:41 PM EDT Narrative [facility] - 12/30/2024 3:49 PM EDT Therapeutic decision making should be based on absolute values, rather than percentages. us Monica Sanchez MD LAB BLOOD ORDERABLES Final Res ult [facility] [address] [place] [address] documented in this encounter Visit Diagnoses Diagnosis Squamous cell carcinoma of rectum- Primary Anal cancer (CMS/HCC) Malignant neoplasm of anus, unspecified site documented in this encounter Additional Health Concerns Assessment Noted Time PHQ-9 Depression Total Score: 0 11/16/19 25 11:23 AM EDT A fall risk assessment has been complete d for the patient 11/30/2024 10:27 AM EDT A Body Mass Index follow-up plan has been documented for the patient 12/21/2024 1:49 PM EDT documented as of this encounter Care Teams Staff Nurse Midwife Relationship Specialty Start Date End Date Marco A Vazquez MD [address] [place] [address] PCP - General 03/22/24 Agapito Ariza PA [address] [place] [address] Physician Plastic Surgery Nurse Otolaryngology 03/05/22 Aiden Lr MD 800 [facility] Cancer [address] [phone] Surgeon Otolaryngology 03/05/22 Graeme Sharma MD [address] [phone] Referring Physician Colon and Rectal Surgery 08/15/23 documented as of this encounter
--- OUTSIDE RECORDS SUMMARY | 2024-12-30 14:55 | XMS_ITS | Encounter Summary ---
Author Organization [facility] Address [address] [place] [address] Care Team Providers Care Brake Operator Heavy Duty Name Role Phone Agapito Ariza Unavailable [phone] Aiden Lr MD Unavailable [phone] Graeme Sharma MD Unavailable [phone] Marco A Vazquez MD Primary Care Provider [phone] Reason for Visit * Episode Based Medications (Routine) - Authorized Specialty Diagnoses / Procedures Referred By Contac t Referred To Contact Diagnoses Anal cancer (CMS/HCC) Procedures Pembrolizumab Every 42 Days Monica Sanchez MD 800 [facility] Angelina Rothman [address] [address] Phone: tel: fax: Monica Sanchez MD [address] [place] [address] Angelina Rothman [address] [address] Phone: tel: fax: Referral ID Status Reason Start Date Expiration Date V isits Requested Visits Authorized [id number] Authorized 12/31/2024 07/02/2026 1 9 Encounter Details Date Type Department Care Team (Latest Contact Info) Description 12/30/2024 2:55 PM EDT - 12/30/2024 11:59 PM EDT Hospital Encounter [facility] [address] [place] [address] Anal cancer (CMS/HCC) (Primary Dx) Discharge Disposition: Home or Self Care Social [...] time in the past 12 m [facility], were you homeless or living in a senior care (including now)? No 09/03/2024 AUDIT-C Answer Date [...] drink first t jefe in the morning (EYE-CAR SALTER) to steady your nerves or to get rid of a hangover? 0 10/05/2024 CAGE Questionnaire Score 0 025 Utilities Answer Date Recorded In the past 12 months has th e [employer], gas, oil, or water [employer] threatened to shut off services in your [...] Sign Reading Time Taken Comments Blood Pressure 98/61 12/30/2024 6:18 PM EDT Pulse 84 12/30/2024 6:18 PM EDT Temperature 37.1 C (98.7 F) 12/30/2024 3:09 PM EDT Respiratory Rate 18 12/30/2024 3:09 PM EDT Oxygen Saturation 97% 12/30/2024 3:09 PM EDT Inhaled Oxygen Concentration - - Weight 49.2 kg (108 lb 7.5 oz) 12/30/2024 3:09 P M EDT Height 157.5 cm (5' 2 ) 12/30/2024 3:09 PM EDT Body Mass Index 19.84 12/30/2024 3:09 PM EDT documented in this encounter Medications at Time [...] Take 1 tablet by mouth daily. 01/03/2021 naloxone (Narcan) 4 mg/0.1 mL nasal spray 1. Give 1 spray in nostril for no/slow breathing or cannot wake after opioid use 2. Call 911 3. Repeat in other nostril if symptoms continue 1 each 12/28/2024 omeprazole OTC (PriLOSEC OTC) 20 MG EC tablet Take 1 tablet by mouth daily. Do not crush, chew, or split. 30 tablet 11 12/28/2024 oxyCODONE (Roxicodone) 5 MG immediate release tablet Take 0.5 tablets by mouth every 6 hours as needed for severe pain. 30 tablet 12/28/2024 polyethylene glycol (Miralax) 17 g packet Take 17 g by mouth 2 times a day. 60 packet 1 10/16/2024 prochlorperazine (Compazine) 10 MG tabletIndication s:Anal cancer (CMS/HCC) Take 1 tablet by mouth every 6 hours as needed for nausea or vomiting. 30 tablet 5 12/28/2024 venlafaxine XR (Effexor-XR) 150 MG 24 hr capsule Take 1 capsule by mouth every morning. documented as of this encounter Plan of Treatment Upcoming Encounters Date Type Department Care Team (Late st Contact Info) Description 02/01/2025 7:00 AM EDT Appointment [facility] Radiology [address] [place] [address] 02/01/2025 9:00 AM EDT Office Visit [facility] [address] [place] [address] Graeme Sharma MD [address] [facility] [address] [place] [address] 02/08/2025 9:15 AM EDT Clinical Support [facility] [address] [place] [address] 02/08/2025 9:20 AM EDT Office Visit [facility] [address] [place] [address] Monica Sanchez MD 800 [facility] Angelina Rothman [address] [place] [address] 02/08/2025 11:00 AM EDT Appointment [facility] [address] [place] [address] 05/16/2025 9:40 AM EST Office Visit [facility] [address] [place] [address] Rahel Bales, LUIS [address] [place] [address] documented as of this encounter Procedures Procedure Name Priority Date/Time Associated Diagnosis Comments TSH REFLEX FT4 Routine 12/30/2024 3:23 PM EDT Anal cancer (CMS/HCC) COMPREHENSIVE METABOLIC PANEL, PLASMA Routine 12/30/2024 3:23 PM EDT Anal cancer (CMS/HCC) CBC WITH AUTO DIFFERENTIAL Routine 12/30/2024 3:17 PM EDT Anal cancer (CMS/HCC) documented in this encounter Results * (ABNORMAL) Comprehensive metabolic panel (12/30/2024 3:23 PM EDT) Glucose, Plasma 102(H) 74 - 99 mg/dL 12/30/2024 4:36 PM EDT [facility] BUN, Plasma 29(H) 8 - 23 mg/dL 12/30/2024 4:36 PM EDT [facility] Creatinine, Plasma 0.74 0.60 - 1.10 mg/dL 12/30/2024 4:36 PM EDT [facility] BUN/Creatinine Ratio 39 12/30/2024 4:36 PM EDT [facility] Sodium, Plasma 132(L) 136 - 145 mmol/L 12/30/2024 4:36 PM EDT [facility] Potassium, Plasma 4.0 3.6 - 4.9 mmol/L 12/30/2024 4:36 PM EDT [facility] Chloride, Plasma 100 97 - 107 mmol/L 12/30/2024 4:36 PM EDT [facility] CO2, Plasma 18(L) 22 - 29 mmol/L 12/30/2024 4:36 PM EDT [facility] Anion Gap 14 6 - 16 mmol/L 12/30/2024 4:36 PM EDT [facility] Total Calcium, Plasma 10.2 8.9 - 10.2 mg/dL 12/30/2024 4:36 PM EDT [facility] Total Protein 6.9 6.3 - 7.9 g/dL 12/30/2024 4:36 PM EDT [facility] Albumin, Plasma 3.3(L) 3.5 - 5.2 g/dL 12/30/2024 4:36 PM EDT [facility] AST, Plasma 18 10 - 35 U/L 12/30/2024 4:36 PM EDT [facility] ALT, Plasma 15 10 - 35 U/L 12/30/2024 4:36 PM EDT [facility] Alkaline Phosphatase, Plasma 88 46 - 142 U/L 12/30/2024 4:36 PM EDT [facility] Total Bilirubin, Plasma <0.2(L) 0.2 - 1.1 mg/dL 12/30/2024 4:36 PM EDT [facility] eGFRcr 83.4 mL/min/1.7 3m*2 12/30/2024 4:36 PM EDT [facility] Comment:Reported eGFRcr in m L/min/1.73m2 is based the CKD-EPI 2020 equation that does not use a race coefficient. Blood Venous blood specimen / Unknown Venipuncture / Unknown 12/30/2024 3:23 PM EDT 12/30/2024 3:57 PM EDT us Monica Sanchez MD LAB BLOOD ORDERABLES Final Res ult Performing Organization Address City/[facility]/ZIP Co de Phone Number [facility] [address] [place] [address] * TSH reflex FT4 (12/30/2024 3:23 PM EDT) Thyroid Stimulating Hormone, Plasma 1.82 0.40 - 4.20 uIU/mL 12/30/2024 4:36 PM EDT [facility] Blood Venous blood specimen / Unknown Venipuncture / Unknown 12/30/2024 3:23 PM EDT 12/30/2024 3:57 PM EDT us Monica Sanchez MD LAB BLOOD ORDERABLES Final Res ult Performing Organization Address [facility]/ZIP Co de Phone Number [facility] [address] [place] [address] * (ABNORMAL) CBC and differential (12/30/2024 3:17 PM EDT) Pathologist [facility] WBC Count 10.58(H) 3.70 - 10.30 10*3/uL LAB HEMATOLOGY METHOD 12/30/2024 3:49 PM EDT [facility] RBC Count 3.26(L) 3.90 - 5.20 10*6/uL LAB HEMATOLOGY METHOD 12/30/2024 3:49 PM EDT [facility] HGB 8.3(L) 11.2 - 15.7 g/dL LAB HEMATOLOGY METHOD 12/30/2024 3:49 PM EDT [facility] HCT 27.0(L) 34.0 - 45.0 % LAB HEMATOLOGY METHOD 12/30/2024 3:49 PM EDT [facility] Platelet Count 331 155 - 369 10*3/uL LAB HEMATOLOGY METHOD 12/30/2024 3:49 PM EDT [facility] MCV 83 79 - 98 fL LAB HEMATOLOGY METHOD 12/30/2024 3:49 PM EDT [facility] MCH 25.5(L) 26.0 - 32.0 pg LAB HEMATOLOGY METHOD 12/30/2024 3:49 PM EDT [facility] MCHC 30.7 30.7 - 35.5 g/dL LAB HEMATOLOGY METHOD 12/30/2024 3:49 PM EDT [facility] RDW 16.6(H) 11.5 - 14.5 % LAB HEMATOLOGY METHOD 12/30/2024 3:49 PM EDT [facility] MPV 8.4(L) 8.8 - 12.5 fL LAB HEMATOLOGY METHOD 12/30/2024 3:49 PM EDT [facility] nRBC 0.0 <=0.0 per 100 WBCs LAB HEMATOLOGY METHOD 12/30/2024 3:49 PM EDT [facility] Differential Type Automated LAB HEMATOLOGY METHOD 12/30/2024 3:49 PM EDT [facility] Neutrophils % 76 % LAB HEMATOLOGY METHOD 12/30/2024 3:49 PM EDT [facility] Lymphocytes % 12 % LAB HEMATOLOGY METHOD 12/30/2024 3:49 PM EDT [facility] Monocytes % 9 % LAB HEMATOLOGY METHOD 12/30/2024 3:49 PM EDT [facility] Eosinophils % 2 % LAB HEMATOLOGY METHOD 12/30/2024 3:49 PM EDT [facility] Basophils % 0 % LAB HEMATOLOGY METHOD 12/30/2024 3:49 PM EDT [facility] Immature Granulocytes % 1 % LAB HEMATOLOGY METHOD 12/30/2024 3:49 PM EDT [facility] Neutrophils Absolute 8.09(H) 1.60 - 6.10 10*3/uL LAB HEMATOLOGY METHOD 12/30/2024 3:49 PM EDT [facility] Lymphocytes Absolute 1.30 1.20 - 3.90 10*3/uL LAB HEMATOLOGY METHOD 12/30/2024 3:49 PM EDT [facility] Monocytes Absolute 0.91(H) 0.30 - 0.90 10*3/uL LAB HEMATOLOGY METHOD 12/30/2024 3:49 PM EDT [facility] Eosinophils Absolute 0.20 0.00 - 0.50 10*3/uL LAB HEMATOLOGY METHOD 12/30/2024 3:49 PM EDT [facility] Basophils Absolute 0.03 0.00 - 0.10 10*3/uL LAB HEMATOLOGY METHOD 12/30/2024 3:49 PM EDT [facility] Immature Granulocytes Absolute 0.05 0.00 - 0.06 10*3/uL LAB HEMATOLOGY METHOD 12/30/2024 3:49 PM EDT [facility] Blood Venous blood specimen / Unknown Venipuncture / Unknown 12/30/2024 3:17 PM EDT 12/30/2024 3:41 PM EDT Narrative [facility] - 12/30/2024 3:49 PM EDT Therapeutic decision making should be based on absolute values, rather than percentages. 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 Use 0.2 micron filter., On Hortencia 12/30/24 at 1700, For 1 dose, In 100 mL NSIndications:Anal cancer (CMS/HCC) New Bag 12/30/2024 4:48 PM EDT 400 mg 292 mL/hr documented in this encounter Additional Health Concerns Assessment Noted Time PHQ-9 Depression Total Score: 0 11/16/19 25 11:23 AM EDT A fall risk assessment has been complete d for the patient 12/30/2024 3:10 PM EDT A Body Mass Index follow-up plan has been documented for the patient 12/30/2024 6:16 PM EDT documented as of this encounter Care Teams Brake Operator Heavy Duty Relationship Specialty Start Date End Date Marco A Vazquez MD [address] [place] [address] PCP - General 03/22/24 Agapito Ariza, PA [address] [facility] [address] [place] [address] Physician Programs Assistant Otolaryngology 03/05/22 Aiden Lr MD [address] [address] Surgeon Otolaryngology 03/05/22 Graeme Sharma MD [address] [place] [address] Referring Physician Colon and Rectal Surgery 08/15/23 documented as of this encounter
[2025-01-01] VITALS (15 sets, daily range): BP systolic 99–120; BP diastolic 57–76; PULSE 67–85; RESP 12–23; TEMP 36.8–36.9; O2SAT 96–99; BMI 19.7
--- OUTSIDE RECORDS SUMMARY | 2025-01-01 13:05 | XMS_ITS | Encounter Summary ---
Author Organization [facility] Address [address] [place] [address] Care Team Providers Care Conference Director Name Role Phone Agapito Ariza Unavailable [phone] Aiden Lr MD Unavailable [phone] Graeme Sharma MD Unavailable Marco A Vazquez MD Primary Care Provider [phone] Encounter Details Date Type Department Care Team (Latest Contact Info) Description 12/05/2024 Travel Social History Tobacco Use Types Packs/Day Years [...] any time in the past 12 m [facility], were you homeless or living in a [facility] (including now)? No 09/03/2024 CAGE ASSESSMENT Answer [...] drink first t jefe in the morning (EYE-WAREHOUSE ASSEMBLY WORKER) to steady your nerves or to get [...] as of this encounter Functional Status * Calculated C-SSRS Risk Score (Lifetime/Recent) Answer Date of Assessment Author No Risk Indicated 12/05/2024 8:00 PM EDT Oscar Lofton * Question Answer Date of Assessment Author 1. Wish to be (Past 1 Month) No 025 8:00 PM EDT Oscar Lofton 2. Non-Specific Active Suici antonio Thoughts (Past 1 Month) No 12/05/2024 8:00 PM EDT Oscar Lofton 6. Suicidal Behavior (Lifetime) No 8:00 PM EDT Oscar Lofton documented as of this encounter Plan of Treatment Upcoming Encounters Date Type Department Care Team (Late st Contact Info) Description 02/01/2025 7:00 AM EDT Appointment [facility] Radiology [address] [place] [phone] 02/01/2025 9:00 AM EDT Office Visit [facility] [address] [place] [address] Graeme Sharma MD [address] [facility] [address] [place] [address] 02/08/2025 9:15 AM EDT Clinical Support [facility] [address] [place] [address] 02/08/2025 9:20 AM EDT Office Visit [facility] [address] [place] [address] Monica Sanchez MD 800 [facility] Angelina Rothman [facility] [address] [place] [address] 02/08/2025 11:00 AM EDT Appointment [facility]fusion [address] [place] [address] 05/16/2025 9:40 AM EST Office Visit [facility] [address] [place] [address] Rahel Bales PA [address] [facility] [address] [place] [address] documented as of this encounter Visit Diagnoses Not on filedocumented in this encounter Additional Health Concerns Assessment Noted Time PHQ-9 Depression Total Score: 0 11/16/19 11:23 AM EDT A fall risk assessment has been complete d for the patient 11/30/2024 10:27 AM EDT A Body Mass Index follow-up plan has been documented for the patient 12/08/2024 2:26 PM EDT documented as of this encounter Care Teams Conference Director Relationship Specialty Start Date End Date Marco A Vazquez MD [address] [place], [place] [id number] PCP - General 03/22/24 Agapito Ariza PA [address] [place] [address] Physician Buffing Wheel Inspector Otolaryngology 03/05/22 Aiden Lr MD 800 [facility] [address] [address] Surgeon Otolaryngology 03/05/22 Graeme Sharma MD [address] [place] [address] Referring Physician Colon and Rectal Surgery 08/15/23 documented as of this encounter
--- OUTSIDE RECORDS SUMMARY | 2025-01-01 13:05 | XMS_ITS | Encounter Summary ---
Author Organization [facility] Address [address] [place] [address] Care Team Providers Care Proposal Coordinator Name Role Phone Agapito Ariza Unavailable [phone] Aiden Lr MD Unavailable [phone] Graeme Sharma MD Unavailable [phone] Marco A Vazquez MD Primary Care Provider [phone] Encounter Details Date Type Department Care Team (Latest Contact Info) Description 11/02/2024 Travel Social History Tobacco Use Types Packs/Day [...] drink first t jefe in the morning (EYE-MEAT GRINDER) to steady your nerves or to get [...] on file documented as of this encounter Plan of Treatment Upcoming Encounters Date Type Department Care Team (Late st Contact Info) Description 02/01/2025 7:00 AM EDT Appointment [facility] Radiology [address] [place] [address] 02/01/2025 9:00 AM EDT Office Visit [facility] [address] [place] [address] Graeme Sharma MD [address] [facility] [address] [place] [address] 02/08/2025 9:15 AM EDT Clinical Support [facility] [address] [place] [address] 02/08/2025 9:20 AM EDT Office Visit [facility] [address] [place] [address] Monica Sanchez MD 800 [facility] [address] [place] [address] 02/08/2025 11:00 AM EDT Appointment [facility] [address] [place] [address] 05/16/2025 9:40 AM EST Office Visit [facility] [address] [place] [address] Rahel Bales PA [address] [facility] [address] [place] [address] documented as of this encounter Visit Diagnoses [...] documented as of this encounter Care Teams Proposal Coordinator Relationship Specialty Start Date End Date Marco A Vazquez MD [address] [place] [address] PCP - General 03/22/24 Agapito Ariza PA [address] [place] [address] Physician Router Operator Radial Otolaryngology 03/05/22 Aiden Lr MD [address] [address] Surgeon Otolaryngology 03/05/22 Graeme Sharma MD [address] [place] [address] Referring Physician Colon and Rectal Surgery 08/15/23 documented as of this encounter
--- OUTSIDE RECORDS SUMMARY | 2025-01-01 13:05 | XMS_ITS | Encounter Summary ---
Author Organization [facility] Address [address] [place] [address] Care Team Providers Care Patient Financial Services Specialist Name Role Phone Agapito Ariza Unavailable [phone] Aiden Lr MD Unavailable [phone] Graeme Sharma MD Unavailable [phone] Marco A Vazquez MD Primary Care Provider Reason for Visit * Reason Onset Date Comments Med Refill 11/11/2024 Encounter Details Date Type Department Care Team (Late st Contact Info) Description 11/11/2024 Refill [facility] [address] [place] [address] Graeme Sharma MD [address] [place] [address] Social History Tobacco Use Types Packs/Day Years [...] time in the past 12 m [facility], were you homeless or living in a assisted (including now)? No 09/03/2024 CAGE ASSESSMENT Answer [...] first t jefe in the morning (EYE-CUSTOMER SUPPORT SPECIALIST) to steady your nerves or to get rid of a hangover? 0 10/05/2024 CAGE Questionnaire Score 0 025 Utilities Answer Date Recorded In the past 12 months has th e electric, gas, oil, or water [employer] threatened to shut off services in your [...] EDT Appointment [facility] Radiology [address] [place] [address] 02/01/2025 9:00 AM EDT Office Visit [facility] [address] [place] [address] Graeme Sharma MD [address] [facility] [address] [place] [address] 02/08/2025 9:15 AM EDT Clinical Support [facility] [address] [place] [address] 02/08/2025 9:20 AM EDT Office Visit [facility] [address] [place] [address] Monica Sanchez MD 800 [facility] [address] [place] [address] 02/08/2025 11:00 AM EDT Appointment [facility] [address] [place] [address] 05/16/2025 9:40 AM EST Office Visit [facility] [address] [place] [address] Rahel Bales PA [address] [facility] [address] [place] [address] documented as of this encounter Visit Diagnoses Not on filedocumented in this encounter Additional Health Concerns Assessment Noted Time PHQ-9 Depression Total Score: 2 02/18/20 25 8:20 AM EST A fall risk assessment has been complete d for the patient 11/09/2024 10:34 AM EDT A Body Mass Index follow-up plan has been documented for the patient 11/09/2024 11:26 AM EDT documented as of this encounter Care Teams Patient Financial Services Specialist Relationship Specialty Start Date End Date Marco A Vazquez MD [address] [place], [place] [id number] PCP - General 03/22/24 Agapito Ariza PA [address] [place] [address] Physician Bolt Machine Operator Otolaryngology 03/05/22 Aiden Lr MD [address] [address] Surgeon Otolaryngology 03/05/22 Graeme Sharma MD [address] [place] [address] Referring Physician Colon and Rectal Surgery 08/15/23 documented as of this encounter
--- OUTSIDE RECORDS SUMMARY | 2025-01-01 13:05 | XMS_ITS | Encounter Summary ---
Author Organization [facility] Address [address] [place] [address] Care Team Providers Care Data Abstractor Name Role Phone Agapito Ariza Unavailable [phone] Aiden Lr MD Unavailable [phone] Graeme Sharma MD Unavailable [phone] Marco A Vazquez MD Primary Care Provider [phone] Encounter Details Date Type Department Care Team (Late st Contact Info) Description 11/17/2024 Telephone [facility] [address] [place] [address] Rahel Bales, LUIS [address] [place] [address] Social History Tobacco Use Types [...] any time in the past 12 m [facility], were you homeless or living in [...] drink first t jefe in the morning (EYE-TRACK TEMPLATE MAKER) to steady your nerves or to get rid of a hangover? 0 10/05/2024 CAGE Questionnaire Score 0 025 Utilities Answer Date Recorded In the past 12 months has th e [employer], gas, oil, or water company threatened to [...] Indicated 12/08/2024 8:00 AM EDT Jacinta Maldonado, GERONIMO * Question Answer Date of Assessment Author 1. Wish to be (Past 1 Month) No 025 8:00 AM Jacinta Grant, RN 2. Non-Specific Active Suici antonio Thoughts (Past 1 Month) No 12/08/2024 8:00 AM EDT Jacinta Maldonado, RN 6. Suicidal Behavior (Lifetime) No 8:00 AM EDT Jacinta Maldonado, RN documented as of this encounter Miscellaneous Notes * Telephone Encounter - Vanesa Bartlett [place] - 11/17/2024 10:53 AM EDT Patient Phone Message Reason for Call: Patient calling for US results she did on 11/15. Best contact number and optimal time of day to reach caller: [phone] Note: Please do not reply to this message. Follow-up communication and further actions as a result of this message need to be communicated with the patient directly, if the patient is not active onMyChart. If the patient is active on MyChart, they will receive notification of the communication/outcome via MyChart. documented in this encounter Plan of Treatment Upcoming Encounters Date Type Department Care Team (Late st Contact Info) Description 02/01/2025 7:00 AM EDT Appointment [facility] A Radiology [address] [place] [address] 02/01/2025 9:00 AM EDT Office Visit [facility] [address] [place] [address] Graeme Sharma MD [address] [facility] [address] [place] [address] 02/08/2025 9:15 AM EDT Clinical Support [facility] [address] [place] [address] 02/08/2025 9:20 AM EDT Office Visit [facility] [address] [place] [address] Monica Sanchez MD 800 [facility] [address] [place] [address] 02/08/2025 11:00 AM EDT Appointment [facility] H Infusion [address] [place] [address] 05/16/2025 9:40 AM EST Office Visit [facility] [address] [place] [address] Rahel Bales PA [address] [facility] [address] [place] [address] documented as of this encounter [...] documented as of this encounter Care Teams Data Abstractor Relationship Specialty Start Date End Date Marco A Vazquez MD [address] [place] [address] PCP - General 03/22/24 Agapito Ariza PA [address] [place] [address] Physician Marine Specialist Otolaryngology 03/05/22 Aiden Lr MD [address] [address] Surgeon Otolaryngology 03/05/22 Graeme Sharma MD [address] [place] [address] Referring Physician Colon and Rectal Surgery 08/15/23 documented as of this encounter
--- OUTSIDE RECORDS SUMMARY | 2025-01-01 13:05 | XMS_ITS | Encounter Summary ---
Author Organization [facility] Address [address] [place] [address] Care Team Providers Care Feeder Tender Name Role Phone Agapito Ariza Unavailable [phone] Aiden Lr MD Unavailable [phone] Graeme Sharma MD Unavailable [phone] Marco A Vazquez MD Primary Care Provider [phone] Encounter Details Date Type Department Care Team (Latest Contact Info) Description 12/06/2024 Travel Social History Tobacco Use Types Packs/Day [...] any time in the past 12 m [facility], were you homeless or living in a care home (including now)? No 09/03/2024 CAGE ASSESSMENT [...] drink first t jefe in the morning (EYE-SALESPERSON [place] AND GLASSWARE) to steady your nerves or to get [...] Date of Assessment Author No Risk Indicated 12/06/2024 7:55 PM EDT Yeimi Brooks * Question Answer Date of Assessment Author 1. Wish to be (Past 1 Month) No 025 7:55 PM EDT Yeimi Fontenot 2. Non-Specific Active Suici antonio Thoughts (Past 1 Month) No 12/06/2024 7:55 PM EDT Santos Fontenot 6. Suicidal Behavior (Lifetime) No 7:55 PM EDT Yeimi Fontenot documented as of this encounter Plan of Treatment Upcoming Encounters Date Type Department Care Team (Late st Contact Info) Description 02/01/2025 7:00 AM EDT Appointment [facility] A Radiology [address] [place] [address] 02/01/2025 9:00 AM EDT Office Visit [facility] [address] [place] [address] Graeme Sharma MD [address] [facility] [address] [place] [address] 02/08/2025 9:15 AM EDT Clinical Support [facility] Mult[facility] Oncology Clinic [address] [place] [address] 02/08/2025 9:20 AM EDT Office Visit [facility] Clinic [address] [place] [address] Monica Sanchez MD 800 [facility] [address] [place] [address] 02/08/2025 11:00 AM EDT Appointment [facility] Infusion [address] [place] [address] 05/16/2025 9:40 AM EST Office Visit [facility] Clinic [address] [place] [address] Rahel Bales PA [address] [place] [address] documented as of this encounter [...] documented as of this encounter Care Teams Feeder Tender Relationship Specialty Start Date End Date Marco A Vazquez MD [address] [place] [address] PCP - General 03/22/24 Agapito Ariza PA [address] [place] [address] Physician Enrollment Advisor Otolaryngology 03/05/22 Aiden Lr MD 800 [facility] Cancer [address] [address] Surgeon Otolaryngology 03/05/22 Graeme Sharma MD [address] [place] [address] Referring Physician Colon and Rectal Surgery 08/15/23 documented as of this encounter
--- OUTSIDE RECORDS SUMMARY | 2025-01-01 13:05 | XMS_ITS | Encounter Summary ---
Author Organization [facility] Address [address] [place] [address] Care Team Providers Care Vocational Ed Instructor Name Role Phone Agapito Ariza Unavailable [phone] Aiden Lr MD Unavailable [phone] Graeme Sharma MD Unavailable [phone] Marco A Vazquez MD Primary Care Provider [phone] Encounter Details Date Type Department Care Team (Latest Contact Info) Description 12/04/2024 Travel Social History Tobacco Use Types Packs/Day [...] any time in the past 12 m [facility], were you homeless or living [...] drink first t jefe in the morning (EYE-STARTING GATE DRIVER) to steady your nerves or to get [...] Date of Assessment Author No Risk Indicated 12/04/2024 8:00 PM EDT Piotr Everett RN * Question Answer Date of Assessment Author 1. Wish to be (Past 1 Month) No 12/04/2024 8:00 PM EDT Gurpreet Everett RN 2. Non-Specific Active Suici antonio Thoughts (Past 1 Month) No 12/04/2024 8:00 PM EDT Raquel Everett RN 6. Suicidal Behavior (Lifetime) No 8:00 PM EDT Piotr Everett RN documented as of this encounter Plan of Treatment Upcoming Encounters Date Type Department Care Team (Late st Contact Info) Description 02/01/2025 7:00 AM EDT Appointment [facility] Radiology [address] [place] [address] 02/01/2025 9:00 AM EDT Office Visit [facility] [address] [place] [address] Graeme Sharma MD [address] [facility] [address] [place] [address] 02/08/2025 9:15 AM EDT Clinical Support [facility] Multidisciplinary Oncology Clinic [address] [place] [address] 02/08/2025 9:20 AM EDT Office Visit [facility] [address] [place] [address] Monica Sanchez MD 800 [facility] Angelina Rothman [facility] [address] [place] [address] 02/08/2025 11:00 AM EDT Appointment [facility] Infusion [address] [place] [address] 05/16/2025 9:40 AM EST Office Visit [facility] [address] [place] [address] Rahel Bales PA [address] [place] [address] documented as of this encounter Visit Diagnoses [...] documented as of this encounter Care Teams Vocational Ed Instructor Relationship Specialty Start Date End Date Marco A Vazquez MD [address] [facility] [address] [place], [place] [id number] PCP - General 03/22/24 Agapito Ariza PA [address] [place] [address] Physician Flavoring Machine Operator Otolaryngology 03/05/22 Aiden Lr MD 800 [facility] Cancer [address] [address] Surgeon Otolaryngology 03/05/22 Graeme Sharma MD [address] [place] [address] Referring Physician Colon and Rectal Surgery 08/15/23 documented as of this encounter
--- OUTSIDE RECORDS SUMMARY | 2025-01-01 13:05 | XMS_ITS | Encounter Summary ---
Author Organization [facility] Address [address] [place] [address] Care Team Providers Care Music Arranger Name Role Phone Agapito Ariza Unavailable [phone] Aiden Lr MD Unavailable [phone] Graeme Sharma MD Unavailable [phone] Marco A Vazquez MD Primary Care Provider [phone] Encounter Details Date Type Department Care Team (Latest Contact Info) Description 11/30/2024 Travel Social History Tobacco Use Types Packs/Day [...] any time in the past 12 m [facility], were you homeless or living in [...] drink first t jefe in the morning (EYE-QUALITY ASSURANCE MONITOR FINAL) to steady your nerves or to get [...] all 11/30/2024 10:27 AM EDT Estrellita Gupta documented as of this encounter Plan of Treatment Upcoming Encounters Date Type Department Care Team (Late st Contact Info) Description 02/01/2025 7:00 AM EDT Appointment [facility] A Radiology [address] [place] [address] 02/01/2025 9:00 AM EDT Office Visit [facility] [address] [place] [address] Graeme Sharma MD [address] [facility] [address] [place] [address] 02/08/2025 9:15 AM EDT Clinical Support [facility] [address] [place] [address] 02/08/2025 9:20 AM EDT Office Visit [facility] [address] [place] [address] Monica Sanchez MD 800 [facility] Angelina Rothman [facility] [address] [place] [address] 02/08/2025 11:00 AM EDT Appointment [facility] H Infusion [address] [place] [address] 05/16/2025 9:40 AM EST Office Visit [facility] [address] [place] [address] Rahel Bales PA [address] [place] [address] documented as of this encounter [...] documented as of this encounter Care Teams Music Arranger Relationship Specialty Start Date End Date Marco A Vazquez MD [facility] [address] [place] [address] PCP - General 03/22/24 Agapito Ariza PA [address] [place] [address] Physician Rn Placement Otolaryngology 03/05/22 Aiden Lr MD 800 [facility] Cancer [address] [address] Surgeon Otolaryngology 03/05/22 Graeme Sharma MD [address] [place] [address] Referring Physician Colon and Rectal Surgery 08/15/23 documented as of this encounter
--- OUTSIDE RECORDS SUMMARY | 2025-01-01 13:05 | XMS_ITS | Encounter Summary ---
Author Organization [facility] Address [address] [place] [address] Care Team Providers Care Screen Printing Press Operator Name Role Phone Agapito Ariza Unavailable [phone] Aiden Lr MD Unavailable [phone] Graeme Sharma MD Unavailable [phone] Marco A Vazquez MD Primary Care Provider [phone] Encounter Details Date Type Department Care Team (Late st Contact Info) Description 11/05/2024 Telephone [facility] [address] [place] [address] Martita Armando MD [address] [facility] [address] [place] [address] Social History Tobacco Use Types [...] any time in the past 12 m [facility], were you homeless or living in a [...] drink first t jefe in the morning (EYE-SUPERVISOR ALUMINUM BOAT ASSEMBLY) to steady your nerves or to get [...] on file documented as of this encounter Miscellaneous Notes * Telephone Encounter - Porsha Marroquin - 11/05/2024 2:19 PM EDT RN called and spoke with patient, RN moved apt with Dr. Armando to Rahel Bales's schedule. Patient confirmed appointment and had no further questions. documented in this encounter Plan of Treatment Upcoming Encounters Date Type Department Care Team (Late st Contact Info) Description 02/01/2025 7:00 AM EDT Appointment [facility] A Radiology [address] [place] [address] 02/01/2025 9:00 AM EDT Office Visit [facility] [address] [place] [address] Graeme Sharma MD [address] [facility] [address] [place] [address] 02/08/2025 9:15 AM EDT Clinical Support [facility] [address] [place] [address] 02/08/2025 9:20 AM EDT Office Visit [facility] [address] [place] [address] Monica Sanchez MD 800 [facility] Angelina Rothman [facility] [address] [place] [address] 02/08/2025 11:00 AM EDT Appointment [facility] H Infusion [address] [place] [address] 05/16/2025 9:40 AM EST Office Visit [facility] [address] [place] [address] Rahel Bales PA [address] [place] [address] documented as of this encounter [...] documented as of this encounter Care Teams Screen Printing Press Operator Relationship Specialty Start Date End Date Marco A Vazquez MD [address] [facility] [address] [place] [address] PCP - General 03/22/24 Agapito Ariza PA [address] [place] [address] Physician Gathering Machine Setter Otolaryngology 03/05/22 Aiden Lr MD 800 [facility] Cancer [address] [address] Surgeon Otolaryngology 03/05/22 Graeme Sharma MD [address] [place] [address] Referring Physician Colon and Rectal Surgery 08/15/23 documented as of this encounter
--- OUTSIDE RECORDS SUMMARY | 2025-01-01 13:05 | XMS_ITS | Encounter Summary ---
Author Organization [facility] Address [address] [place] [address] Care Team Providers Care Plumbing Engineering Draftsperson Name Role Phone Agapito Ariza Unavailable [phone] Aiden Lr MD Unavailable [phone] Graeme Sharma MD Unavailable [phone] Marco A Vazquez MD Primary Care Provider [phone] Encounter Details Date Type Department Care Team (Latest Contact Info) Description 11/14/2024 Travel Social History Tobacco Use Types Packs/Day [...] any time in the past 12 m [facility], were you homeless or living in a [...] drink first t jefe in the morning (EYE-HVAC MECHANIC) to steady your nerves or to [...] EDT Appointment [facility] A Radiology [address] [place] [address] 02/01/2025 9:00 AM EDT Office Visit [facility] [address] [place] [address] Graeme Sharma MD [address] [facility] [address] [place] [address] 02/08/2025 9:15 AM EDT Clinical Support [facility] [address] [place] [address] 02/08/2025 9:20 AM EDT Office Visit [facility] [address] [place] [address] Monica Sanchez MD 800 [facility] [address] [place] [address] 02/08/2025 11:00 AM EDT Appointment [facility] H Infusion [address] [place] [address] 05/16/2025 9:40 AM EST Office Visit [facility] [address] [place] [address] Rahel Bales PA [address] [facility] [address] [place] [address] documented as of this encounter Visit Diagnoses [...] documented as of this encounter Care Teams Plumbing Engineering Draftsperson Relationship Specialty Start Date End Date Marco A Vazquez MD [address] [place] [address] PCP - General 03/22/24 Agapito Ariza PA [address] [place] [address] Physician Corn Crop Supervisor Otolaryngology 03/05/22 Aiden Lr MD [address] [address] Surgeon Otolaryngology 03/05/22 Graeme Sharma MD [address] [place] [address] Referring Physician Colon and Rectal Surgery 08/15/23 documented as of this encounter
--- OUTSIDE RECORDS SUMMARY | 2025-01-01 13:05 | XMS_ITS | Encounter Summary ---
Author Organization [facility] Address [address] [place] [address] Care Team Providers Care Insurance Examining Clerk Name Role Phone Ancelmo Moser MD Primary Care Provider + Reason for Visit * Reason Onset Date Comments KAYLAH HARRIS - DEXASCAN ORDERS 02/26/2022 Encounter Details Date Type Department Care Team (Late st Contact Info) Description 02/26/2022 Telephone [facility] GYNECOLOGY [address] [facility] [address] [place] [phone] Kaylah Harris APRN CHRISTINA DAUGHERTY - DEXASCAN ORDERS Social History Tobacco Use Types Packs/Day Years Used Date Smoking Tobacco: Never Smokeless Tobacco: Never Alcohol Use Standard Drinks/Week Comments Yes 7 (1 standard drink = 0.6 oz pur e alcohol) PHQ-2 Answer Date Recorded Retired PHQ-9: Brief Depression Severity Measure Score 2 12/26/2021 Comments No Sex and Gender Information Value Date Recorded Sex Assigned at Not on file Legal Sex Female 10:15 AM EDT Gender Identity Not on file Sexual Orientation Not on file documented as of this encounter Miscellaneous Notes * Telephone Encounter - Kaylah Harris APRN - 02/27/2022 9:31 AM EDT DEXA order placed and msg to Celia to fax order to [facility] at pt's request. * Telephone Encounter - May Hsieh MA - 02/27/2022 9:16 AM EDT Wants to have it in [place]. * Telephone Encounter - Kaylah Harris APRN - 02/26/2022 3:04 PM EDT May, Please let her know that the DEXA will be due in March, so we can go ahead and get that scheduled. Does she plan to have it again at [facility] in [place]? That is where her previous scan was done. Just let me know so I can put the order in correctly and we can fax it if she wants to have it donethere again. Thanks! * Telephone Encounter - May Hsieh MA - 02/26/2022 2:21 PM EDT Last bone density test was 03/23/20 documented in this encounter Plan of Treatment Not on file documented as of this encounter Visit Diagnoses Not on filedocumented in this encounter Additional Health Concerns Assessment Noted Time PHQ-2 Depression Total Score: 2 12/27/19 22 9:11 AM EDT documented as of this encounter Care Teams Insurance Examining Clerk Relationship Specialty Start Date End Date Ancelmo Moser MD PCP - General 05/16/15 01/25/24 documented as of this encounter
--- OUTSIDE RECORDS SUMMARY | 2025-01-01 13:05 | XMS_ITS | Clinical Summary ---
[facility] Organization [facility] Address [address] [place] [address] Care Team Providers Care Bridge Repair Crew Person Name Role Phone Unavailable Primary Care Provider Unavailabl e Allergies No known active allergies Medications aspirin 81 MG EC tablet Take 1 tablet by mouth Daily. Active fluticasone (FLONASE) 50 MCG/ACT nasal spray 2 sprays into the nostril(s) as directed by provider Daily. 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 TAKE ONE TABLET BY MOUTH ONCE A DAY 30 tablet 01/07/20 24 Active atorvastatin (LIPITOR) 10 MG tabletIndicatio ns:Hypercholest erolemia TAKE ONE TABLET BY MOUTH ONCE A DAY 30 tablet 01/26/20 24 Active Active Problems Problem Noted Date Diagnosed Date Thyroid nodule 12/26/2021 Well woman exam 11/07/2021 Overview (11/07/2021): SCREENING TESTS Year 2017 2018 2019 2020 2020 2021 2022 2023 2024 2025 2026 2027 2028 2029 2030 2031 2032 Age 76 PAP 11 11 ASCUS 4 LGSIL HPV high risk 11 11 MELODY [Birads] JON (5 year) Brooks Barillas (lifetime) Colonoscopy DEXA [T-score] Frax [hip/any] Enter the month test was performed. If month not known, enter X' Black numbers = normal results Red numbers = abnormal results Black X = patient reported normal Red X - patient reported abnormal Referred by: Profession: Other info: TIA (2013) 05/19/2020 Constipation 03/17/2019 Vaginal bleeding 12/29/2017 Anal cancer 201601/09/2017 Hypothyroid 01/09/2017 Osteopenia right femoral neck (-2.2 T score) Oct lianna 201701/09/2017 Vaginal atrophy 01/09/2017 Hypercholesterolemia 01/09/2017 Irregular heartbeat 01/09/2017 Resolved Problems Problem Noted Date Diagnosed Date Resolved Date PMB (postmenopausal bleeding) 11/20/2017 03/17/2019 H/O: hysterectomy 199501/09/201704/09 S/P cholecystectomy 200201/09/201707/2018 History of Santos urethropexy with CHERI/BSO in 199501/09/2017 03/17/2019 S/P breast biopsy, left 200701/09/2017 03/17/2019 Well woman exam with routine gynecological exam 08/30/2016 01/09/2017 Overview (08/30/2016): SCREENING TESTS Year 2011 2012 2013 2014 2015 2016 2017 2018 2019 2020 2021 2022 2023 2024 2025 2026 2027 2028 2029 2030 Age PAP HPV high risk MELODY [Birads] 3 [2] JON score Colonoscopy DEXA [T-score] Frax [hip/any] Lipids [LDL / HDL / TG] Vitamin D Ovarian Screen Enter the month test was performed. If month not known, enter X' Black numbers = normal results Red numbers = abnormal results Black X = patient reported normal Red X - patient reported abnormal Referred by: Profession: Other info: Immunizations Immunization Administration Dates Next Due COVID-19 (MODERNA) 1st,2nd,3 rd Dose Monovalent 08/09/2020,07/05/2020 COVID-19 (MODERNA) Monovalen t Original Booster 04/13/2021 Fluzone >6mos 03/16/2016 Fluzone (or Fluarix & Flulav al for VFC) >6mos 02/27/2023,03/11/2022,03/25/2016 Influenza Injectable Mdck Pf Quad 03/11/2022 Influenza Seasonal Injectable 03/11/2022 Pneumococcal Conjugate 13-Valent (PCV13) 016 Pneumococcal Conjugate 20-Valent (PCV20) 016 Pneumococcal, Unspecified 10/26/2015 Shingrix 02/18/2023 Td (TDVAX) 08/21/1996 Family History Medical History Relation Name Comments Arthritis Father [place] Lung cancer Father [place] Prostate cancer Father [place] Heart disease Mother Sam Hypertension Mother Sam Breast cancer Neg Hx Colon cancer Neg Hx Melanoma Neg Hx Ovarian cancer Neg Hx Uterine cancer Neg Hx Relation Name Status Comments Father Edy Mother Sam Social History Tobacco Use Types Packs/Day Years Used Date Smoking Tobacco: Never Smokeless Tobacco: Never Tobacco Cessation:Counseling Given: Not Answered Alcohol Use Standard Drinks/Week Comments Yes 7 (1 standard drink = 0.6 oz pur e alcohol) PHQ-2 Answer Date Recorded Retired PHQ-9: Brief Depression Severity Measure Score 2 12/26/2021 Abuse Screen Answer Date Recorded Unsafe at Home or Work/School Not on file Feels Threatened by Someone? Not on file 02/2023 Does Anyone Keep You from Co ntacting Others or Doint Things Outside the Home? Not on file 03/24/2023 Physical Sign of Abuse Present Not on file 1 Housing Stability Answer Date Recorded Current Living Arrangements Not on file 02/2023 Potentially Unsafe Housing Conditions Not on jayme e 03/24/2023 Family and Community Support Answer Farooq e Recorded Help with Day-to-Day Activities Not on file 03/24/2023 Lonely or Isolated Not on file 03/24/2023 Employment Answer Date Recorded Do you want help finding or keeping work or a keshav b? Not on file 03/24/2023 Disabilities Answer Date Recorded Concentrating, Remembering, or Making Decisions Difficulty Not on file 03/24/2023 Doing Errands Independently Difficulty Not on fi le 03/24/2023 Education Answer Date Recorded Help with school or training? Not on file Preferred Language Not on file 03/24/2023 PHQ-2 Answer Date Recorded Retired PHQ-9: Brief Depression Severity Measure Score 0 06/11/2023 Comments No Sex and Gender Information Value Date Recorded Sex Assigned at Not on file Legal Sex Female 10:15 AM EDT Gender Identity Not on file Sexual Orientation Not on file Last Filed Vital Signs Vital Sign Reading Time Taken Comments Blood Pressure 118/66 08/05/2023 10:21 AM EST Pulse 60 06/26/2023 9:59 AM EST Temperature 36.6 C (97.8 F) 06/26/2023 9:59 AM EST Respiratory Rate 20 06/26/2023 9:59 AM EST Oxygen Saturation 99% 06/26/2023 9:59 AM EST Inhaled Oxygen Concentration - - Weight 60.6 kg (133 lb 9.6 oz) 08/05/2023 10:21 AM EST Height 157.5 cm (5' 2 ) 08/05/2023 10:21 AM EST Body Mass Index 24.44 08/05/2023 10:21 AM EST Plan of Treatment Health Maintenance Due Date Last Done Comments COLOGUARD 02/04/1992 CT COLONOGRAPHY 02/04/1992 FECAL OCCULT BLOOD TEST 02/04/1992 FIT Testing (1 year) 02/04/1992 TDAP/TD VACCINES (2 - Tdap) 08/21/2006 08/21/1996 ANNUAL WELLNESS VISIT 11/01/2016 HEPATITIS C SCREENING 11/01/2016 RSV Vaccine - Adults (1 - 1- dose 75+ series) 2022 ZOSTER VACCINE (2 of 2) 04/15/2023 02/18/2023 LIPID PANEL 12/31/2023 12/30/2022, 12/26/2021 COVID-19 Vaccine (6 - 2023-2 5 season) 2024 04/02/2022, 12/27/2021, 04/13/2021, Additional history exists DXA SCAN 03/14/2024 03/14/2022, 02/2020, 03/19/2018, Additional history exists INFLUENZA VACCINE 03/16/2025 02/27/2023, , 03/11/2022, Additional history exists COLON CANCER SCREENING 5 YEA R SIGMOIDOSCOPY 03/12/2026 03/12/2021 COLONOSCOPY 08/28/2030 08/28/2020, 09/28/2018 COLORECTAL CANCER SCREENING 08/28/2030 Pneumococcal Vaccine 50+ Completed 016, 10/26/2015, 10/26/2015 MAMMOGRAM Discontinued 04/16/2023, 1106/2022, 04/15/2022, Additional history exists Procedures Procedure Name Priority Date/Time Associated Diagnosis Comments SCANNED - MAMMO 04/16/2023 LIPID PANEL Routine 12/30/2022 12:10 PM EDT Hypercholesterolemia SCANNED - DEXA 03/14/2022 from Last 3 Months or Most Recently Relevant to Health Maintenance Results * SCANNED - MAMMO (04/16/2023) Anatomical Region Laterality Modality Other Ancelmo Moser MD CHART REVIEW TABS Fin al Result * Lipid Panel (12/30/2022 12:10 PM EDT) Total Cholesterol 130 100 - 199 mg/dL [facility] Triglycerides 58 0 - 149 mg/dL [facility] HDL Cholesterol 68 >39 mg/dL [facility] VLDL Cholesterol Elian 13 5 - 40 mg/dL [facility] LDL Chol Calc ([facility]) 49 0 - 99 mg/dL [facility] Blood 12/30/2022 12:1 0 PM EDT 12/30/2022 Narrative [facility] - 12/31/2022 7:10 AM EDT Performed at: 01 - [facility] [id number] Narcotics And/Or Vice Detective: Alberto Howe PhD, Phone: [phone] Patient Fasting: Y Ancelmo Moser MD LAB BLOOD ORDERABLES Fin al Result [facility] [address] [place] [address], [facility] [address] [place] [address], [place] [phone] * SCANNED - DEXA (03/14/2022) Anatomical Region Laterality Modality Other Lanie Montalvo APRN CHART REVIEW TABS Fi nal Result from Last 3 Months or Most Recently Relevant to Health Maintenance Insurance [facility] Medicare [employer] PPO
--- OUTSIDE RECORDS SUMMARY | 2025-01-01 13:05 | XMS_ITS | Encounter Summary ---
Author Organization [facility] Address [address] [place] [address] Care Team Providers Care Cap Inspector Name Role Phone Agapito Ariza Unavailable [phone] Aiden Lr MD Unavailable [phone] Graeme Sharma MD Unavailable [phone] Marco A Vazquez MD Primary Care Provider Encounter Details Date Type Department Care Team (Late st Contact Info) Description 11/01/2024 Telephone [facility] [address] [place] [address] Graeme Sharma MD [address] [facility] [address] [place] [address] Social History Tobacco Use Types [...] any time in the past 12 m [facility], were you homeless or living in a senior care (including now)? No 09/03/2024 CAGE ASSESSMENT Answer [...] drink first t jefe in the morning (EYE-EDGER TAILER) to steady your nerves or to get [...] encounter Miscellaneous Notes * Telephone Encounter - Deepti Cardona RN - 11/02/2024 3:46 PM EDT Patient saw Dr. Sharma in clinic today and discussed medications. He is not refilling this long acting medication and switched her to oxycodone. We discussed other medications that patient is stilltaking (anti-anxiety, neurontin, a medication that increases BP, and Eliquis). She will be seeing her PCP for help with medication but knows to call me back if still needs help. She will RTC to see Dr. Sharma in 4 weeks. * Telephone Encounter - Fredi Jolly - 11/01/2024 9:53 AM EDT Patient Phone Message Reason for Call: Ms. Borrego is wanting Deepti to give her a call back it's about a prescription called Belbuca or Bupreuprenorphine she is wanting to discuss with you when you get a chance. Best contact number and optimal time of day to reach caller: [phone] Note: Please do not reply to this message. Follow-up communication and further actions as a result of this message need to be communicated with the patient directly, if the patient is not active onMyChart. If the patient is active on MyChart, they will receive notification of the communication/outcome via [employer] documented in this encounter Plan of Treatment Upcoming Encounters Date Type Department Care Team (Late st Contact Info) Description 02/01/2025 7:00 AM EDT Appointment [facility] Radiology [address] [place] [address] 02/01/2025 9:00 AM EDT Office [facility] [address] [place] [address] Graeme Sharma MD [address] [facility] [address] [place] [address] 02/08/2025 9:15 AM EDT Clinical Support [facility] [address] [place] [address] 02/08/2025 9:20 AM EDT Office Visit [facility] [address] [place] [address] Monica Sanchez MD 800 [facility] [address] [facility] [address] [place] [address] 02/08/2025 11:00 AM EDT Appointment [facility] Infusion [address] [place] [address] 05/16/2025 9:40 AM EST Office Visit [facility] [address] [place] [address] Rahel Bales PA [address] [facility] [address] [place] [address] documented as of this encounter Visit Diagnoses Not on filedocumented in this encounter Additional Health Concerns Assessment Noted Time PHQ-9 Depression Total Score: 2 08/03/19 25 8:20 AM EST A fall risk assessment has been complete d for the patient 08/06/2024 2:30 PM EST A Body Mass Index follow-up plan has been documented for the patient 10/16/2024 12:26 PM EDT documented as of this encounter Care Teams Cap Inspector Relationship Specialty Start Date End Date Marco A Vazquez MD [address] [place] [address] [address] [place] [address] PCP - General 03/22/24 Agapito Ariza PA [address] [place] [address] Physician Steward/Stewardess Smoke Room Otolaryngology 03/05/22 Aiden Lr MD [address] [address] Surgeon Otolaryngology 03/05/22 Graeme Sharma MD [address] [place] [address] Referring Physician Colon and Rectal Surgery 08/15/23 documented as of this encounter
--- OUTSIDE RECORDS SUMMARY | 2025-01-01 13:05 | XMS_ITS | Encounter Summary ---
Author Organization [facility] Address [address] [place] [address] Care Team Providers Care Twister Frame Tender Name Role Phone Agapito Ariza Unavailable [phone] Aiden Lr MD Unavailable [phone] Graeme Sharma MD Unavailable [phone] Marco A Vazquez MD Primary Care Provider [phone] Encounter Details Date Type Department Care Team (Latest Contact Info) Description 11/26/2024 Travel Social History Tobacco Use Types Packs/Day [...] any time in the past 12 m [facility], were you homeless or living in a [...] drink first t jefe in the morning (EYE-LABORATORY CHEMIST) to steady your nerves or to get [...] EDT Appointment [facility] Radiology [address] [place] [address] 02/01/2025 9:00 AM EDT Office [facility] [address] [place] [phone] Graeme Sharma MD [address] [facility] [address] [place] [address] 02/08/2025 9:15 AM EDT Clinical Support [facility] [address] [place] [address] 02/08/2025 9:20 AM EDT Office Visit [facility] [address] [place] [address] Monica Sanchez MD 800 [facility] [address] [place] [address] 02/08/2025 11:00 AM EDT Appointment [facility] Infusion [address] [place] [address] 05/16/2025 9:40 AM EST Office Visit [facility] [address] [place] [address] Rahel Bales PA [address] [facility] [address] [place] [address] documented as of this encounter Visit Diagnoses [...] documented as of this encounter Care Teams Twister Frame Tender Relationship Specialty Start Date End Date Marco A Vazquez MD [address] [place] [address] PCP - General 03/22/24 Agapito Ariza PA [address] [place] [address] Physician Plaster Form Maker Otolaryngology 03/05/22 Aiden Lr MD [address] [facility] [address] [address] Surgeon Otolaryngology 03/05/22 Graeme Sharma MD [address] [place] [address] Referring Physician Colon and Rectal Surgery 08/15/23 documented as of this encounter
--- OUTSIDE RECORDS SUMMARY | 2025-01-01 13:05 | XMS_ITS | Encounter Summary ---
Author Organization [facility] Address [address] [place] [address] Care Team Providers Care Woodworking Machinist Name Role Phone Agapito Ariza Unavailable [phone] Aiden Lr MD Unavailable [phone] Graeme Sharma MD Unavailable [phone] Marco A Vazquez MD Primary Care Provider [phone] Encounter Details Date Type Department Care Team (Latest Contact Info) Description 11/09/2024 Travel Social History Tobacco Use Types Packs/Day [...] any time in the past 12 m [facility], were you homeless or living in a residential (including now)? No 09/03/2024 CAGE ASSESSMENT Answer [...] drink first t jefe in the morning (EYE-INTERNET DEVELOPER) to steady your nerves or to [...] EDT Appointment [facility] [address] [place] [address] 02/01/2025 9:00 AM EDT Office Visit [facility] [address] [place] [phone] Graeme Sharma MD [address] [facility] [address] [place] [address] 02/08/2025 9:15 AM EDT Clinical Support [facility] [address] [place] [address] 02/08/2025 9:20 AM EDT Office Visit [facility] [address] [place] [address] Monica Sanchez MD 800 [facility] [address] [place] [address] 02/08/2025 11:00 AM EDT Appointment [facility] [address] [place] [address] 05/16/2025 9:40 AM EST Office Visit [facility] [address] [place] [address] Rahel Bales PA [address] [facility] [address] [place] [address] documented as of this encounter Visit Diagnoses [...] documented as of this encounter Care Teams Woodworking Machinist Relationship Specialty Start Date End Date Marco A Vazquez MD [address] [place] [address] PCP - General 03/22/24 Agapito Ariza PA [address] [place] [address] Physician Architectural Administrative Assistant Otolaryngology 03/05/22 Aiden Lr MD [address] [address] Surgeon Otolaryngology 03/05/22 Graeme Sharma MD [address] [place] [address] Referring Physician Colon and Rectal Surgery 08/15/23 documented as of this encounter
--- OUTSIDE RECORDS SUMMARY | 2025-01-01 13:06 | XMS_ITS | Encounter Summary ---
Author Organization [facility] Address [address] [place] [address] Care Team Providers Care Machine Guide Base Winder Name Role Phone Agapito Ariza Unavailable [phone] Adien Lr MD Unavailable [phone] Graeme Sharma MD Unavailable [phone] Marco A Vazquez MD Primary Care Provider [phone] Encounter Details Date Type Department Care Team (Latest Contact Info) Description 11/15/2024 Travel Social History Tobacco Use Types Packs/Day [...] in the past [address] [facility], were you homeless or living in a longterm (including now)? No 09/03/2024 CAGE ASSESSMENT Answer [...] drink first t jefe in the morning (EYE-FOOD TASTER) to steady your nerves or to get [...] things Not at all 11/15/2024 11:23 AM Erin Sheth Feeling down, depressed, or hopeless Not at all 11/15/2024 11:23 AM TALISHAT Erin Osorio Patient Health Questionnaire -2 Score 0 11/15/2024 11:23 AM TALISHAT Erin Osorio * Question Answer Date of Assessment Author Trouble falling or staying a sleep, or sleeping too much Not at all 11/15/2024 11:23 AM Erin Sheth Feeling tired or having demetrius le energy Not at all 11/15/2024 11:23 AM Erin Sheth Poor appetite or overeating Not at all 11/15/2024 11 :23 AM Erin Sheth Feeling bad about yourself - or that you are a failure or have let yourself or your family down Not at all 11/15/2024 11:23 AM Kellie Sheth Trouble concentrating on thi ngs, such as [...] way Not at all 11/15/2024 11:23 AM Erin Sheth Patient Health Questionnaire -9 Score 0 11/15/2024 11:23 AM Erin Sheth * If you checked off any problems on this questionnaire so far, Question Answer Date of Assessment Author How difficult have these problems made it for you to do your work, take care of things at home, or get along with other people? Not difficult at all 11/15/2024 11:23 AM Erin Sheth documented as of this encounter Plan of Treatment Upcoming Encounters Date Type Department Care Team (Late st Contact Info) Description 02/01/2025 7:00 AM EDT Appointment [facility] Radiology [address] [place] [address] 02/01/2025 9:00 AM EDT Office Visit [facility] [address] [place] [address] Graeme Sharma MD [address] [facility] [address] [place] [address] 02/08/2025 9:15 AM EDT Clinical Support [facility] [address] [place] [address] 02/08/2025 9:20 AM EDT Office Visit [facility] [address] [place] [address] Monica Sanchez MD 800 [facility] [address] [place] [address] 02/08/2025 11:00 AM EDT Appointment [facility] Infusion [address] [place] [address] 05/16/2025 9:40 AM EST Office Visit [facility] [address] [place] [address] Rahel Bales PA [address] [facility] [address] [place] [address] documented as of this encounter Visit Diagnoses [...] documented as of this encounter Care Teams Machine Guide Base Winder Relationship Specialty Start Date End Date Marco A Vazquez MD [address] [place] [address] PCP - General 03/22/24 Agapito Ariza PA [address] [facility] [address] [place] [address] Physician Flaker Tender Otolaryngology 03/05/22 Aiden Lr MD 800 [facility] [address] [address] Surgeon Otolaryngology 03/05/22 Graeme Sharma MD [address] [facility] [address] [place] [address] Referring Physician Colon and Rectal Surgery 08/15/23 documented as of this encounter
--- OUTSIDE RECORDS SUMMARY | 2025-01-01 13:06 | XMS_ITS | Encounter Summary ---
Author Organization [facility] Address [address] [place] [address] Care Team Providers Care Sweater Operator Name Role Phone Agapito Ariza Unavailable [phone] Aiden Lr MD Unavailable [phone] Graeme Sharma MD Unavailable Marco A Vazqeuz MD Primary Care Provider + [phone] Encounter Details Date Type Department Care Team (Latest Contact Info) Description 12/23/2024 Travel Social History Tobacco Use Types Packs/Day [...] any time in the past 12 m [facility], were you homeless or [...] drink first t jefe in the morning (EYE-TICKET DISPENSER CHANGER) to steady your nerves or to get [...] EDT Appointment [facility] Radiology [address] [place] [address] 02/01/2025 9:00 AM EDT Office Visit [facility] [address] [place] [phone] Graeme Sharma MD [address] [facility] [address] [place] [address] 02/08/2025 9:15 AM EDT Clinical Support [facility] [address] [place] [address] 02/08/2025 9:20 AM EDT Office Visit [facility] [address] [place] [address] Monica Sanchez MD 800 [facility] [address] [place] [address] 02/08/2025 11:00 AM EDT Appointment [facility] Infusion [address] [place] [address] 05/16/2025 9:40 AM EST Office Visit [facility] [address] [place] [address] Rahel Bales PA [address] [facility] [address] [place] [address] documented as of this encounter Visit Diagnoses [...] documented as of this encounter Care Teams Sweater Operator Relationship Specialty Start Date End Date Marco A Vazquez MD [address] [place] [address] PCP - General 03/22/24 Agapito Ariza PA [address] [place] [address] Physician Rating Specialist Otolaryngology 03/05/22 Aiden Lr MD 800 [facility] [address] [address] Surgeon Otolaryngology 03/05/22 Graeme Sharma MD [address] [place] [address] Referring Physician Colon and Rectal Surgery 08/15/23 documented as of this encounter
--- OUTSIDE RECORDS SUMMARY | 2025-01-01 13:06 | XMS_ITS | Encounter Summary ---
Author Organization [facility] Address [address] [place] [address] Care Team Providers Care Belly Dancer Name Role Phone Agapito Ariza Unavailable [phone] Aiden Lr MD Unavailable [phone] Graeme Sharma MD Unavailable [phone] Marco A Vazquez MD Primary Care Provider + [phone] Encounter Details Date Type Department Care Team (Latest Contact Info) Description 12/29/2024 Travel Social History Tobacco Use Types Packs/Day [...] any time in the past 12 m [facility], were you homeless or living in a skilled nursing (including now)? No 09/03/2024 AUDIT-C Answer Date [...] drink first t jefe in the morning (EYE-CAMERA SYSTEMS ENGINEER) to steady your nerves or to get [...] EDT Appointment [facility] Radiology [address] [place] [address] 02/01/2025 9:00 AM EDT Office Visit [facility] [address] [place] [address] Graeme Sharma MD [address] [facility] [address] [place] [address] 02/08/2025 9:15 AM EDT Clinical Support [facility] [address] [place] [address] 02/08/2025 9:20 AM EDT Office Visit [facility] [address] [place] [address] Monica Sanchez MD 800 [facility] [address] [place] [address] 02/08/2025 11:00 AM EDT Appointment [facility] H Infusion [address] [place] [address] 05/16/2025 9:40 AM EST Office Visit [facility] [address] [place] [address] Rahel Bales PA [address] [facility] [address] [place] [address] documented as of this encounter Visit Diagnoses Not on filedocumented in this encounter Additional Health Concerns Assessment Noted Time PHQ-9 Depression Total Score: 0 06/02/20 25 11:23 AM EDT A fall risk assessment has been complete d for the patient 11/30/2024 10:27 AM EDT A Body Mass Index follow-up plan has been documented for the patient 12/21/2024 1:49 PM EDT documented as of this encounter Care Teams Belly Dancer Relationship Specialty Start Date End Date Marco A Vazquez MD [address] [place] [address] PCP - General 03/22/24 Agapito Ariza PA [address] [place] [address] Physician Digital Production Artist Otolaryngology 03/05/22 Aiden Lr MD [address] [address] Surgeon Otolaryngology 03/05/22 Graeme Sharma MD [address] [place] [address] Referring Physician Colon and Rectal Surgery 08/15/23 documented as of this encounter
--- OUTSIDE RECORDS SUMMARY | 2025-01-01 13:06 | XMS_ITS | Encounter Summary ---
Author Organization [facility] Address [address] [place] [address] Care Team Providers Care Medical Office Technician Name Role Phone Agapito Ariza Unavailable [phone] Aiden Lr MD Unavailable [phone] Graeme Sharma MD Unavailable [phone] Marco A Vazquez MD Primary Care Provider + [phone] Encounter Details Date Type Department Care Team (Latest Contact Info) Description 12/17/2024 Travel Social History Tobacco Use Types Packs/Day [...] any time in the past 12 m [facility], were you homeless or living in a penitentiary (including now)? No 09/03/2024 CAGE ASSESSMENT Answer [...] drink first t jefe in the morning (EYE-SENIOR UI DESIGNER) to steady your nerves or to get [...] EDT Appointment [facility] Radiology [address] [place] [address] 02/01/2025 9:00 AM EDT Office Visit [facility] 800 [place] [address] Graeme Sharma MD [address] [facility] [address] [place] [address] 02/08/2025 9:15 AM EDT Clinical Support [facility] 800 [place] [address] 02/08/2025 9:20 AM EDT Office Visit [facility] [address] [place] [address] Monica Sanchez MD 800 [facility] [address] [place] [address] 02/08/2025 11:00 AM EDT Appointment [facility] Infusion 800 [place] [address] 05/16/2025 9:40 AM EST Office Visit [facility] [address] [place] [address] Rahel Bales PA [address] [facility] [address] [place] [address] documented as of this encounter Visit Diagnoses [...] documented as of this encounter Care Teams Medical Office Technician Relationship Specialty Start Date End Date Marco A Vazquez MD [address] [place] [address] PCP - General 03/22/24 Agapito Ariza PA [address] [place] [address] Physician Senior Regulatory Affairs Specialist Otolaryngology 03/05/22 Aiden Lr MD 800 [facility] Cancer [address] [address] Surgeon Otolaryngology 03/05/22 Graeme Sharma MD [address] [place] [address] Referring Physician Colon and Rectal Surgery 08/15/23 documented as of this encounter
--- OUTSIDE RECORDS SUMMARY | 2025-01-01 13:06 | XMS_ITS | Encounter Summary ---
Author Organization [facility] Address [address] [place] [address] Care Team Providers Care Bottom Turning Lathe Tender Name Role Phone Agapito Ariza Unavailable [phone] Aiden Lr MD Unavailable [phone] Graeme Sharma MD Unavailable [phone] Marco A Vazquez MD Primary Care Provider + [phone] Encounter Details Date Type Department Care Team (Latest Contact Info) Description 12/24/2024 Travel Social History Tobacco Use Types Packs/Day [...] any time in the past 12 m [facility], were you homeless or living in a group home (including now)? No 09/03/2024 CAGE ASSESSMENT [...] drink first t jefe in the morning (EYE-BUTTON BRADDER) to steady your nerves or to get [...] EDT Appointment [facility] Radiology [address] [place] [address] 02/01/2025 9:00 AM EDT Office Visit [facility] 800 [place] [address] Graeme Sharma MD [address] [facility] [address] [place] [address] 02/08/2025 9:15 AM EDT Clinical Support [facility] 800 [place] [address] 02/08/2025 9:20 AM EDT Office Visit [facility] 800 [place] [address] Monica Sanchez MD 800 [facility] [address] [place] [address] 02/08/2025 11:00 AM EDT Appointment [facility] Infusion 800 [place] [address] 05/16/2025 9:40 AM EST Office Visit [facility] 800 [place] [address] Rahel Bales PA [address] [facility] [address] [place] [address] documented as of this encounter Visit Diagnoses [...] documented as of this encounter Care Teams Bottom Turning Lathe Tender Relationship Specialty Start Date End Date Marco A Vazquez MD [address] [place] [address] PCP - General 03/22/24 Agapito Ariza PA [address] [place] [address] Physician Senior Credit Officer Otolaryngology 03/05/22 Aiden Lr MD 800 [facility] Cancer [address] [address] Surgeon Otolaryngology 03/05/22 Graeme Sharma MD [address] [place] [address] Referring Physician Colon and Rectal Surgery 08/15/23 documented as of this encounter
--- OUTSIDE RECORDS SUMMARY | 2025-01-01 13:06 | XMS_ITS | Encounter Summary ---
Author Organization [facility] Address [address] [place] [address] Care Team Providers Care Director Of Preclinical Research Name Role Phone Agapito Ariza Unavailable [phone] Aiden Lr MD Unavailable [phone] Graeme Sahrma MD Unavailable [phone] Marco A Vazquez MD Primary Care Provider + [phone] Encounter Details Date Type Department Care Team (Latest Contact Info) Description 12/21/2024 Travel Social History Tobacco Use Types Packs/Day [...] any time in the past 12 m [facility], were you homeless or living in a prison (including now)? No 09/03/2024 CAGE ASSESSMENT Answer [...] drink first t jefe in the morning (EYE-AUTOMATIC DRILLING MACHINE OPERATOR) to steady your nerves or to get [...] EDT Appointment [facility] [address] [place] [address] 02/01/2025 9:00 AM EDT Office Visit [facility] 800 [place] [address] Graeme Sharma MD [address] [facility] [address] [place] [address] 02/08/2025 9:15 AM EDT Clinical Support [facility] [address] [place] [address] 02/08/2025 9:20 AM EDT Office Visit [facility] [address] [place] [address] Monica Sanchez MD [address] [facility] [address] [place] [address] 02/08/2025 11:00 AM EDT Appointment [facility] Infusion [address] [place] [address] 05/16/2025 9:40 AM EST Office Visit [facility] [address] [place] [address] Rahel Bales PA [address] [facility] [address] [place] [address] documented as of this encounter Visit Diagnoses [...] documented as of this encounter Care Teams Director Of Preclinical Research Relationship Specialty Start Date End Date Marco A Vazquez MD [address] [place] [address] PCP - General 03/22/24 Agapito Ariza PA [address] [place] [address] Physician Aged Or Disabled Care Worker Otolaryngology 03/05/22 Aiden Lr MD 800 [facility] Cancer [address] [address] Surgeon Otolaryngology 03/05/22 Graeme Sharma MD [address] [place] [address] Referring Physician Colon and Rectal Surgery 08/15/23 documented as of this encounter
--- OUTSIDE RECORDS SUMMARY | 2025-01-01 13:06 | XMS_ITS | Encounter Summary ---
Author Organization [facility] Address [address] [place] [address] Care Team Providers Care Fashion Journalist Name Role Phone Agapito Ariza Unavailable Aiden Lr MD Unavailable [phone] Graeme Sharma MD Unavailable [phone] Marco A Vazquez MD Primary Care Provider + [phone] Encounter Details Date Type Department Care Team (Latest Contact Info) Description 12/28/2024 Travel Social History Tobacco Use Types Packs/Day [...] time in the past 12 m [facility], were you homeless or living in a jail (including now)? No 09/03/2024 AUDIT-C Answer Date [...] drink first t jefe in the morning (EYE-GROUNDS MANAGER) to steady your nerves or to get [...] Never 12/28/2024 3:15 PM EDT Nikolas Mendiola T Q2: How many drinks containing alcohol do [...] all 12/28/2024 3:19 PM EDT Nikolas Mendiola T Feeling down, depressed, or hopeless Not at all 12/28/2024 3:19 PM EDT Nikolas Mendiolaa n T Patient Health Questionnaire -2 Score 0 12/28/2024 3:19 PM EDT Nikolas Mendiola T documented as of this encounter Plan of Treatment Upcoming Encounters Date Type Department Care Team (Late st Contact Info) Description 02/01/2025 7:00 AM EDT Appointment [facility] Radiology [address] [place] [address] 02/01/2025 9:00 AM EDT Office Visit [facility] [address] [place] [address] Graeme Sharma MD [address] [facility] [address] [place] [address] 02/08/2025 9:15 AM EDT Clinical Support [facility] [address] [place] [address] 02/08/2025 9:20 AM EDT Office Visit [facility] [address] [place] [address] Monica Sanchez MD 800 [facility] Angelina [facility] [address] [place] [address] 02/08/2025 11:00 AM EDT Appointment [facility] H Infusion 800 [place] [address] 05/16/2025 9:40 AM EST Office Visit [facility] [address] [place] [address] Rahel Bales PA [address] [facility] [address] [place] [address] documented as of this encounter [...] documented as of this encounter Care Teams Fashion Journalist Relationship Specialty Start Date End Date Marco A Vazquez MD [address] [place] [address] [address] [place] [address] PCP - General 03/22/24 Agapito Ariza PA [address] [place] [address] Physician Bag Washer Otolaryngology 03/05/22 Aiden Lr MD 800 [facility] Cancer [address] [address] Surgeon Otolaryngology 03/05/22 Graeme Sharma MD [address] [place] [address] Referring Physician Colon and Rectal Surgery 08/15/23 documented as of this encounter
--- OUTSIDE RECORDS SUMMARY | 2025-01-01 13:06 | XMS_ITS | Encounter Summary ---
Author Organization [facility] Address [address] [place] [address] Care Team Providers Care Bisque Grader Name Role Phone gAapito Ariza Unavailable [phone] Aiden Lr MD Unavailable [phone] Graeme Sharma MD Unavailable [phone] Marco A Vazquez MD Primary Care Provider [phone] Reason for Visit * Reason Onset Date Comments [facility] 12/27/2024 Encounter Details Date Type Department Care Team (Late st Contact Info) Description 12/27/2024 Telephone [facility] [address] [place] [address] Monica Sanchez MD 800 [facility] [address] [place] [address] [facility] Social History Tobacco Use Types Packs/Day Years [...] drink first t jefe in the morning (EYE-LOGISTICS SOLUTION MANAGER) to steady your nerves or to [...] 3:15 PM EDT Nikolas Mendiola n T Q2: How many drinks containing alcohol do you have on a typical day when you are drinking? Patient does not drink 12/28/2024 3:15 PM EDT Nikolas Mendiola T Q3: How often do you have six or more drinks on one occasion? Never 12/28/2024 3:15 PM EDT Nikolas Mendiolaa sj T * Over the past 2 weeks, [...] encounter Miscellaneous Notes * Telephone Encounter - Yeimi Lira - 12/31/2024 1:49 PM EDT Attempt 1: Care Guide (CG) called the patient (pt) at and successfully completed outreach. Pt attended appointment on 12/28/24 at 3pm. No additional assistance needed at this time. * Telephone Encounter - Yeimi Lira - 12/27/2024 3:01 PM EDT Attempt 1: Care Guide (CG) called the patient (pt) at and successfully completed outreach. Pt will attend appointment on 12/28/24 at 3pm. No additional assistance needed at this time. documented in this encounter Plan of Treatment Upcoming Encounters Date Type Department Care Team (Late st Contact Info) Description 02/01/2025 7:00 AM EDT Appointment [facility] Radiology [address] [place] [address] 02/01/2025 9:00 AM EDT Office Visit [facility] Multidisciplinary Oncology Clinic [address] [place] [address] Graeme Sharma MD [address] [facility] [address] [place] [address] 02/08/2025 9:15 AM EDT Clinical Support [facility] Multidisciplinary Oncology Clinic [address] [place] [address] 02/08/2025 9:20 AM EDT Office Visit [facility] [address] [place] [address] Monica Sanchez MD 800 [facility] [address] [place] [address] 02/08/2025 11:00 AM EDT Appointment [facility] H Infusion [address] [place] [address] 05/16/2025 9:40 AM EST Office Visit [facility] [address] [place] [address] Rahel Bales PA [address] [place] [address] documented as of this encounter [...] documented as of this encounter Care Teams Bisque Grader Relationship Specialty Start Date End Date Marco A Vazquez MD [address] [place] [address] PCP - General 03/22/24 Agapito Ariza PA [address] [place] [address] Physician Truck Hopper Otolaryngology 03/05/22 Aiden Lr MD 800 [facility] Cancer [facility] [address] [place] [address] Surgeon Otolaryngology 03/05/22 Graeme Sharma MD [address] [place] [address] Referring Physician Colon and Rectal Surgery 08/15/23 documented as of this encounter
--- OUTSIDE RECORDS SUMMARY | 2025-01-01 13:06 | XMS_ITS | Encounter Summary ---
Author Organization [facility] Address [address] [place] [address] Care Team Providers Care Emergency Medicine Physician Name Role Phone Agapito Ariza Unavailable [phone] Aiden Lr MD Unavailable [phone] Graeme Sharma MD Unavailable [phone] Marco A Vazquez MD Primary Care Provider [phone] Reason for Visit * Reason Onset Date Comments [facility] 12/10/2024 Encounter Details Date Type Department Care Team (Late st Contact Info) Description 12/10/2024 Telephone [facility] [address] [place] [address] Monica Sanchez MD 800 [facility] [address] [place] [address] [facility] Social History Tobacco Use Types Packs/Day [...] were you homeless or living in a mcc (including now)? No 09/03/2024 CAGE ASSESSMENT Answer [...] drink first t jefe in the morning (EYE-CONTACT ACID PLANT OPERATOR) to steady your nerves or to get rid of a hangover? 0 10/05/2024 CAGE Questionnaire Score 0 025 Utilities Answer Date Recorded In the past 12 months has [employer] electric, gas, oil, or water [employer] threatened to shut off services in your [...] * Telephone Encounter - Yeimi Lira - 12/10/2024 1:48 PM EDT Attempt 1: Care Guide (CG) called the patient (pt) at and successfully completed outreach. Pt reported they are doing well and have no needs at this time. documented in this encounter Plan of Treatment Upcoming Encounters Date Type Department Care Team (Late st Contact Info) Description 02/01/2025 7:00 AM EDT Appointment [facility] Radiology [address] [place] [address] 02/01/2025 9:00 AM EDT Office Visit [facility] [address] [place] [address] Graeme Sharma MD [address] [facility] [address] [place] [address] 02/08/2025 9:15 AM EDT Clinical Support [facility] [address] [place] [address] 02/08/2025 9:20 AM EDT Office Visit [facility] [address] [place] [address] Monica Sanchez MD 800 [facility] Angelina Rothman [facility] [address] [place] [address] 02/08/2025 11:00 AM EDT Appointment [facility] Infusion [address] [place] [address] 05/16/2025 9:40 AM EST Office Visit [facility] [address] [place] [address] Rahel Bales PA [address] [place] [address] documented as of this encounter [...] documented as of this encounter Care Teams Emergency Medicine Physician Relationship Specialty Start Date End Date Marco A Vazquez MD [address] [place] [address] PCP - General 03/22/24 Agapito Ariza PA [address] [place] [address] Physician Art Glass Designer Otolaryngology 03/05/22 Aiden Lr MD 800 [facility] [address] [place] [address] Surgeon Otolaryngology 03/05/22 Graeme Sharma MD [address] [place] [address] Referring Physician Colon and Rectal Surgery 08/15/23 documented as of this encounter
--- OUTSIDE RECORDS SUMMARY | 2025-01-01 13:06 | XMS_ITS | Encounter Summary ---
Author Organization [facility] Address [address] [place] [address] Care Team Providers Care Treatment Technician Name Role Phone Agapito Ariza Unavailable [phone] Aiden Lr MD Unavailable [phone] Graeme Sharma MD Unavailable [phone] Marco A Vazquez MD Primary Care Provider Encounter Details Date Type Department Care Team (Late st Contact Info) Description 12/08/2024 Telephone [facility] [address] [place] [address] Monica Sanchez MD [address] [address] Social History Tobacco Use Types Packs/Day Years [...] any time in the past 12 m [facility], were you homeless or living [...] drink first t jefe in the morning (EYE-TRAFFIC ASSISTANT) to steady your nerves or to get rid of a hangover? 0 10/05/2024 CAGE Questionnaire Score 0 025 Utilities Answer Date Recorded In the past 12 months has th e [employer], gas, oil, or water company threatened to [...] Maldonado, GERONIMO documented as of this encounter Miscellaneous Notes * Telephone Encounter - Sarah Nowak - 12/08/2024 1:50 PM EDT 12/08/24- PET appointment requested. Will then schedule Dr. Sanchez appt. * Telephone Encounter - Fredi Jolly - 12/08/2024 1:36 PM EDT Patient Phone Message Reason for Call: Allyson (nurse) is calling in regards of Ms. Borrego she is needing to be scheduled with Dr. Sanchez in the next month, she will have a PETSCAN but its not scheduled yet but will like to see Dr. Sanchez afterwards Best contact number and optimal time of day to reach caller: [phone] Note: Please do not reply to this [...] EDT Appointment [facility] Radiology [address] [place] [address] 02/01/2025 9:00 AM EDT Office Visit [facility] [address] [place] [address] Graeme Sharma MD [address] [facility] [address] [place] [address] 02/08/2025 9:15 AM EDT Clinical Support [facility] [address] [place] [address] 02/08/2025 9:20 AM EDT Office Visit [facility] [address] [place] [address] Monica Sanchez MD 800 [facility] Angelina Rothman [facility] [address] [place] [address] 02/08/2025 11:00 AM EDT Appointment [facility] Infusion [address] [place] [address] 05/16/2025 9:40 AM EST Office Visit [facility] [address] [place] [address] Rahel Bales PA [address] [facility] [address] [place] [address] documented as of this encounter Visit Diagnoses [...] documented as of this encounter Care Teams Treatment Technician Relationship Specialty Start Date End Date Marco A Vazquez MD [address] [place] [address] PCP - General 03/22/24 Agapito Ariza PA [address] [facility] [address] [place] [address] Physician Marketing Consultant Otolaryngology 03/05/22 Aiden Lr MD [address] [address] Surgeon Otolaryngology 03/05/22 Graeme Shamra MD [address] [place] [facility] [address] [place] [address] Referring Physician Colon and Rectal Surgery 08/15/23 documented as of this encounter
--- OUTSIDE RECORDS SUMMARY | 2025-01-01 13:06 | XMS_ITS | Encounter Summary ---
Author Organization [facility] Address [address] [place] [address] Care Team Providers Care Sewer Builder Name Role Phone Agapito Ariza Unavailable Aiden Lr MD Unavailable [phone] Graeme Sharma MD Unavailable [phone] Marco A Vazquez MD Primary Care Provider [phone] Encounter Details Date Type Department Care Team (Latest Contact Info) Description 12/14/2024 Travel Social History Tobacco Use Types Packs/Day [...] any time in the past 12 m [facility], were you homeless or living in a [place] [facility] [place] facility (including now)? No 09/03/2024 CAGE ASSESSMENT Answer [...] drink first t jefe in the morning (EYE-CLINICAL NURSING PROFESSOR) to steady your nerves or to get [...] EDT Appointment [facility] Radiology [address] [place] [address] 02/01/2025 9:00 AM EDT Office Visit [facility] [address] [place] [phone] Graeme Sharma MD [address] [facility] [address] [place] [address] 02/08/2025 9:15 AM EDT Clinical Support [facility] [address] [place] [address] 02/08/2025 9:20 AM EDT Office Visit [facility] [address] [place] [address] Monica Sanchez MD 800 [facility] [address] [place] [address] 02/08/2025 11:00 AM EDT Appointment [facility] H Infusion [address] [place] [address] 05/16/2025 9:40 AM EST Office Visit [facility] [address] [place] [address] Rahel Bales PA [address] [facility] [address] [place] [address] documented as of this encounter Visit Diagnoses [...] documented as of this encounter Care Teams Sewer Builder Relationship Specialty Start Date End Date Marco A Vazquez MD [address] [place] [address] PCP - General 03/22/24 Agapito Ariza PA [address] [place] [address] Physician Hearing Aid Consultant Otolaryngology 03/05/22 Aiden Lr MD 800 [facility] [address] [address] Surgeon Otolaryngology 03/05/22 Graeme Sharma MD [address] [place] [address] Referring Physician Colon and Rectal Surgery 08/15/23 documented as of this encounter
--- OUTSIDE RECORDS SUMMARY | 2025-01-01 13:06 | XMS_ITS | Encounter Summary ---
Author Organization [facility] Address [address] [id number] Care Team Providers Care Video News Editor Name Role Phone Agapito Ariza Unavailable [phone] Aiden Lr MD Unavailable [phone] Graeme Sharma MD Unavailable [phone] Marco A Vazquez MD Primary Care Provider [phone] Reason for Visit * Reason Comments Distress Screen Follow-up Encounter Details Date Type Department Care Team (Late st Contact Info) Description 12/30/2024 Social Work Psych Oncology [address] [place] [address] [place] [address] Social History Tobacco Use Types Packs/Day Years [...] any time in the past 12 m [facility], were you homeless or living in [...] drink first t jefe in the morning (EYE-MANAGER SERVICING) to steady your nerves or to get [...] as of this encounter Miscellaneous Notes * Clinician Note - Hien Wick LCSW - 12/30/2024 9:02 AM EDT Encounter Type: Phone Call Disease Status: Established Patient Clinic Location: [facility] Disease Type: Colon & Rectum Education Provided: Psych-Onc Services Intervention Level: 2 Units (1 unit = 15 minutes): 1 Narrative: PATTERN STAMPER spoke with patient via phone to f/u on DT screening from last visit. Patient was pleasant, cooperative, and willing to engage. She was educated on PATTERN STAMPER role, context of call, and Psych-Onc services. Patient was grateful for the information, but denied any immediate needs during call. She was advised to reach either while here for clinic visit or contacted PATTERN STAMPER via phone. documented in this encounter Plan of Treatment Upcoming Encounters Date Type Department Care Team (Late st Contact Info) Description 02/01/2025 7:00 AM EDT Appointment [facility] Radiology [address] [place] [address] 02/01/2025 9:00 AM EDT Office Visit [facility] Multidisciplinary Oncology Clinic [address] [place] [address] Graeme Sharma MD [address] [facility] [address] [place] [address] 02/08/2025 9:15 AM EDT Clinical Support [facility] [address] [place] [address] 02/08/2025 9:20 AM EDT Office Visit [facility] [address] [place] [address] Monica Sanchez MD 800 [facility] [address] [place] [address] 02/08/2025 11:00 AM EDT Appointment [facility] Infusion [address] [place] [address] 05/16/2025 9:40 AM EST Office Visit [facility] [address] [place] [address] Rahel Bales PA [address] [facility] [address] [place] [address] documented as of this encounter [...] documented as of this encounter Care Teams Video News Editor Relationship Specialty Start Date End Date Marco A Vazquez MD [address] [place] [address] [address] [place] [address] PCP - General 03/22/24 Agapito Ariza PA [address] [place] [address] Physician Radiology Manager Otolaryngology 03/05/22 Aiden Lr MD 800 [facility] Cancer [address] [phone] Surgeon Otolaryngology 03/05/22 Graeme Sharma MD [address] [phone] Referring Physician Colon and Rectal Surgery 08/15/23 documented as of this encounter
--- OUTSIDE RECORDS SUMMARY | 2025-01-01 13:06 | XMS_ITS | Encounter Summary ---
Author Organization [facility] Address [address] [place] [address] Care Team Providers Care Wireless Sales Manager Name Role Phone Agapito Ariza Unavailable [phone] Aiden Lr MD Unavailable [phone] Graeme Sharma MD Unavailable [phone] Marco A Vazquez MD Primary Care Provider [phone] Encounter Details Date Type Department Care Team (Late st Contact Info) Description 01/01/2025 Telephone [facility] [address] [place] [address] Oscar Ramos DO [address] [place], [place] [id number] Social History Tobacco Use Types Packs/Day Years [...] any time in the past 12 m [facility], were you homeless or [...] drink first t jefe in the morning (EYE-HUMAN RESOURCES LEADER) to steady your nerves or to get [...] encounter Miscellaneous Notes * Telephone Encounter - Oscar Ramos DO - 01/01/2025 8:55 AM EDT Patient calls emergency line to states she has blood in her urostomy bag that she noticed this morning. When she went to bed there was no bleeding. She has noted with clots this morning and the clotshave now stopped. The urine is still pink tinged. I informed the patient that if the color was not returned to normal in a couple hours and there are signs of continued bleeding with the urostomy still being pink or red then she should go to the nearest ER. All other questions answered. documented in this encounter Plan of Treatment Upcoming Encounters Date Type Department Care Team (Late st Contact Info) Description 02/01/2025 7:00 AM EDT Appointment [facility] Radiology [address] [place] [address] 02/01/2025 9:00 AM EDT Office Visit [facility] [address] [place] [address] Graeme Sharma MD [address] [facility] [address] [place] [address] 02/08/2025 9:15 AM EDT Clinical Support [facility] Multidisciplinary Oncology Clinic [address] [place] [address] 02/08/2025 9:20 AM EDT Office Visit [facility] [address] [place] [address] Monica Sanchez MD 800 [facility] [address] [place] [address] 02/08/2025 11:00 AM EDT Appointment [facility] Infusion [address] [place] [address] 05/16/2025 9:40 AM EST Office Visit [facility] [address] [place] [address] Rahel Bales PA [address] [facility] [address] [place] [address] documented as of this encounter [...] documented as of this encounter Care Teams Wireless Sales Manager Relationship Specialty Start Date End Date Marco A Vazquez MD [address] [place] [address] [address] [place] [address] PCP - General 03/22/24 Agapito Ariza PA [address] [place] [address] Physician Panama Hat Smearer Otolaryngology 03/05/22 Aiden Lr MD 800 [facility] Cancer [address] [phone] Surgeon Otolaryngology 03/05/22 Graeme Sharma MD [address] [place] [address] Referring Physician Colon and Rectal Surgery 08/15/23 documented as of this encounter
--- OUTSIDE RECORDS SUMMARY | 2025-01-01 13:06 | XMS_ITS | Encounter Summary ---
Author Organization [facility] Address [address] [place] [address] Care Team Providers Care Mosaic Technician Name Role Phone Agapito Ariza Unavailable [phone] Aiden Lr MD Unavailable [phone] Graeme Sharma MD Unavailable [phone] Marco A Vazquez MD Primary Care Provider Encounter Details Date Type Department Care Team (Late st Contact Info) Description 11/16/2024 Telephone [facility] [address] [place] [address] Graeme Sharma MD [address] [facility] [address] [place] [address] Social History Tobacco Use Types [...] any time in the past 12 m [facility], were you homeless or living in a [...] drink first t jefe in the morning (EYE-KIER DRIER) to steady your nerves or to get [...] encounter Miscellaneous Notes * Telephone Encounter - Aurelia Cardona RN - 11/17/2024 12:43 PM EDT 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 We discussed proper ostomy pouching. She states she was using Dove soap that has lotion/oil and leaves a film that may prevent barrier from sticking well. She will stop using it and change to Dial antibacterial (gold bar) soap instead that does not have lotion/oil. Also discussed using 2 barrier ring on both colostomy & urostomy (was only using on colostomy), and discussed trying [place]-[employer] ostomy liners and sent her website info. * Telephone Encounter - Fredi Jolly - 11/16/2024 4:14 PM EDT Patient Phone Message Reason for Call: Ms. Borrego is calling to talk with Aurelia about her ostomy bag if aurelia would give her a call back please Best contact number and optimal time of day to reach caller: [phone] Note: Please do not reply to this message. Follow-up communication and further actions as a result of this message need to be communicated with the patient directly, if the patient is not active onMyChart. If the patient is active on MyChart, they will receive notification of the communication/outcome via [email or web address]. documented in this encounter Plan of Treatment Upcoming Encounters Date Type Department Care Team (Late st Contact Info) Description 02/01/2025 7:00 AM EDT Appointment [facility] A Radiology [address] [place] [address] 02/01/2025 9:00 AM EDT Office Visit [facility] [address] [place] [address] Graeme Sharma MD [address] [facility] [address] [place] [address] 02/08/2025 9:15 AM EDT Clinical Support [facility] [address] [place] [address] 02/08/2025 9:20 AM EDT Office Visit [facility] [address] [place] [address] Monica Sanchez MD 800 [facility] [address] [place] [address] 02/08/2025 11:00 AM EDT Appointment [facility] Infusion [address] [place] [address] 05/16/2025 9:40 AM EST Office Visit [facility] [address] [place] [address] Rahel Bales PA [address] [facility] [address] [place] [address] documented as of this encounter Visit Diagnoses [...] documented as of this encounter Care Teams Mosaic Technician Relationship Specialty Start Date End Date Marco A Vazquez MD [address] [place] [address] [address] [place] [address] PCP - General 03/22/24 Agapito Ariza PA [address] [place] [address] Physician Behavior Analyst Otolaryngology 03/05/22 Aiden Lr MD [address] [address] Surgeon Otolaryngology 03/05/22 Graeme Sharma MD [address] [place] [address] Referring Physician Colon and Rectal Surgery 08/15/23 documented as of this encounter
--- OUTSIDE RECORDS SUMMARY | 2025-01-01 13:06 | XMS_ITS | Encounter Summary ---
Author Organization [facility] Address [address] [place] [address] Care Team Providers Care Attendance Officer Name Role Phone Agapito Ariza Unavailable [phone] Aiden Lr MD Unavailable [phone] Graeme Sharma MD Unavailable [phone] Marco A Vazquez MD Primary Care Provider [phone] Encounter Details Date Type Department Care Team (Latest Contact Info) Description 12/30/2024 Travel Social History Tobacco Use Types Packs/Day [...] any time in the past 12 m [facility], were you homeless or living in a penitentiary (including now)? No 09/03/2024 AUDIT-C Answer Date [...] drink first t jefe in the morning (EYE-BOW TACKER) to steady your nerves or to get [...] EDT Appointment [facility] Radiology [address] [place] [address] 02/01/2025 9:00 AM EDT Office Visit [facility] [address] [place] [phone] Graeme Sharma MD [address] [facility] [address] [place] [address] 02/08/2025 9:15 AM EDT Clinical Support [facility] [address] [place] [address] 02/08/2025 9:20 AM EDT Office Visit [facility] [address] [place] [address] Monica Sanchez MD 800 [facility] [address] [place] [address] 02/08/2025 11:00 AM EDT Appointment [facility] Infusion [address] [place] [address] 05/16/2025 9:40 AM EST Office Visit [facility] [address] [place] [address] Rahel Bales PA [address] [facility] [address] [place] [address] documented as of this encounter Visit Diagnoses [...] documented as of this encounter Care Teams Attendance Officer Relationship Specialty Start Date End Date Marco A Vazquez MD [address] [place] [address] PCP - General 03/22/24 Agapito Ariza PA [address] [place] [address] Physician Button Machine Operator Otolaryngology 03/05/22 Aiden Lr MD [address] [address] Surgeon Otolaryngology 03/05/22 Graeme Sharma MD [address] [place] [address] Referring Physician Colon and Rectal Surgery 08/15/23 documented as of this encounter
--- OUTSIDE RECORDS SUMMARY | 2025-01-01 13:07 | XMS_ITS | Clinical Summary ---
Author Organization [facility] Address [address] [place] [address] Care Team Providers Care Candle Maker Name Role Phone Agapito Ariza Unavailable [phone] Aiden Lr MD Unavailable [phone] Graeme Sharma MD Unavailable [phone] Marco A Vazquez MD Primary Care Provider [phone] Allergies No known active allergies Medications levothyroxine (Synthroid, Levoxyl) 75 MCG tablet Take 1 tablet by mouth daily. 1 Active atorvastatin (Lipitor) 10 MG tablet Take 1 tablet by mouth nightly. 1 Active aspirin 81 MG EC tablet Take 1 tablet by mouth 1 time each day. Active polyethylene glycol (Miralax) 17 g packet Take 17 g by mouth 2 times a day. 60 packet 1 5 Active Additional Information Patient taking differently:17 g Oral 2 times daily,PRN, Reported on 12/30/2024 acetaminophen (Tylenol) 500 MG tablet Take 1 tablet by mouth 2 times a day as needed. Active venlafaxine XR (Effexor-XR) 150 MG 24 hr capsule Take 1 capsule by mouth every morning. Active ibuprofen 200 MG tablet Take 1 tablet by mouth 3 times a day. Active methocarbamol (Robaxin) 500 MG tablet Take 1 tablet by mouth every 8 hours for 7 days. 21 tablet 5 Active omeprazole OTC (PriLOSEC OTC) 20 MG EC tablet Take 1 tablet by mouth daily. Do not crush, chew, or split. 30 tablet 11 5 Active oxyCODONE (Roxicodone) 5 MG immediate release tablet Take 0.5 tablets by mouth every 6 hours as needed for severe pain. 30 tablet 5 Active naloxone (Narcan) 4 mg/0.1 mL nasal spray 1. Give 1 spray in nostril for no/slow breathing or cannot wake after opioid use 2. Call 911 3. Repeat in other nostril if symptoms continue 1 each 5 Active prochlorperazi ne (Compazine) 10 MG tabletIndicati ons:Anal cancer (CMS/HCC) Take 1 tablet by mouth every 6 hours as needed for nausea or vomiting. 30 tablet 5 5 Active gabapentin (Neurontin) 300 MG capsule Take 1 capsule by mouth 3 times a day. 90 capsule 5 12/06/19 25 Discontin ued(Enter ed in Error) HYDROcodone-ac etaminophen (Burns) 5-325 MG tablet Take 1 tablet by mouth every 6 hours as needed for moderate pain. 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 Right percutaneous nephrostomy tube in place Postoperative pain 09/02/2024 Overview (09/02/2024): 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 APMS following IV infiltration 09/02/2024 Overview (09/02/2024): Left hand swelling noted AM 09/02 at IV site MIVF only, no vesicants IV removed, hand elevated Acute respiratory failure with hypoxia and hyper capnia 09/01/2024 Overview (09/02/2024): Intubated for OR Successfully extubated AM 09/02 to NC Continue aggressive pulm secretion mobilization PRN CXR, blood gasses and nebs Hyperlipidemia 09/01/2024 Overview (09/01/2024): Resume home meds as appropriate- Lipitor 10mg QHS Recurrent vaginal squamous cell carcinoma 2024 Overview (09/02/2024): S/p radical cystectomy, sigmoid urinary diversion with urostomy, proctectomy, vaginectomy, ileocecectomy, colostomy creation and abdominal pedicle flap to pelvis per SCR, URO CHEMIST PHYSICAL, & SERGIO NGT to iLWS Mobility restrictions- supine only/no HOB elevation, OK to ambulate 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 dose to be continued while intubated Cefoxitin 2g q6h D5LR@ 100mL/h Remainder of care per primary Gross hematuria 02/04/2024 Bilateral low back pain without sciatica 024 Stress incontinence 11/26/2023 Atrial septal defect 03/18/2023 03/18/2023 Activity of daily living alteration 08/21/2022 Thyroid nodule 12/26/2021 Thyroid nodule greater than or equal to 1.5 cm in diameter incidentally noted on imaging study 09/26/2021 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 Anal cancer 08/30/2020 Overview (01/12/2021): Malignant neoplasm of anus, unspecified Hypothyroidism 08/23/2020 Overview (09/01/2024): Restart home meds as appropriate- Synthroid 75mcg QAM Paroxysmal supraventricular tachycardia 08/04/19 Overview (09/02/2024): S/p ablation in 2020, no recurrence since Previously resulted in syncope/fall + SDH One run of stable SVT intraoperatively, resolved with Esmolol bolus SDH (subdural hematoma) 07/31/2020 Syncope 07/04/2020 Overview (01/12/2021): Syncope and collapse Supraventricular tachycardia by ECG 07/04/2020 Hypertension 07/04/2020 Overview (09/02/2024): Goal normotension Resume home medications as appropriate Vaginal bleeding 12/29/2017 Primary cancer of rectum 01/29/2017 Overview (01/12/2021): Malignant neoplasm of rectum Cancer of colon with rectum 01/29/2017 Overview (01/12/2021): Malignant neoplasm of rectosigmoid junction Hypercholesterolemia 01/09/2017 Irregular heartbeat 01/09/2017 Osteopenia 01/09/2017 Vaginal atrophy 01/09/2017 Senile hyperkeratosis 07/19/2015 Resolved Problems Problem Noted Date Diagnosed Date Resolved Date Rectal carcinoma 10/27/2020 10/01/2021 Palpitations 10/27/2020 10/01/2021 TIA (transient ischemic attack) 07/31/2020 10/01/2021 Overview (01/12/2021): Transient cerebral ischemic attack, unspecified Neoplasm of rectum 07/23/2016 Overview (01/12/2021): Neoplasm of unspecified behavior of digestive system Encounters Date Type Department Care Team Description 01/01/2025 Telephone [facility] [address] [place] [phone] Oscar Ramos DO 12/30/2024 2:55 PM EDT - 12/30/2024 11:59 PM EDT Hospital Encounter [facility] Infusion [address] [place] [phone] Anal cancer (CMS/HCC) (Primary Dx) Discharge Disposition: Home or Self Care 12/30/2024 Travel 12/30/2024 Social Work Psych Oncology [address] [place] [phone] Hien Wick LCSW 12/29/2024 Travel 12/28/2024 3:00 PM EDT Office Visit [facility] [address] [place] [address] Monica Sanchez MD Squamous cell carcinoma of rectum (Primary Dx); Anal cancer (CMS/HCC) 12/28/2024 Travel 12/27/2024 Telephone [facility] [address] [place] [phone] Monica Sanchez MD [facility] 12/24/2024 7:19 AM EDT - 12/24/2024 11:59 PM EDT Hospital Encounter [facility] Radiology [address] [place] [address] Discharge Disposition: Home or Self Care 12/24/2024 7:19 AM EDT - 12/24/2024 11:59 PM EDT Hospital Encounter [facility] [address] [place] [phone] Anal cancer (CMS/HCC) Discharge Disposition: Home or Self Care 12/24/2024 Travel 12/23/2024 Travel 12/21/2024 10:45 AM EDT Office Visit [facility] [address] [place] [address] Aric Goode MD Squamous cell carcinoma of rectum (Primary Dx) 12/21/2024 Travel 12/17/2024 Travel 12/14/2024 Travel 12/10/2024 Telephone [facility] [address] [place] [phone] Monica Sanchez MD [facility] 12/08/2024 Telephone [facility] [address] [place] [address] Monica Sanchez MD 12/06/2024 Travel 12/05/2024 Travel 12/04/2024 11:26 AM EDT - 12/08/2024 2:59 PM EDT Hospital Encounter [facility] A Inpatient [address] [place] [phone] Aric Cai MD Dahlgren, Amy E, MD Bhakta, Avinash S, MD Hourigan, Jon S, MD Generalized abdominal pain (Primary Dx); Perforation bowel (CMS/HCC); Anal cancer (CMS/HCC); Primary cancer of rectum (CMS/HCC); Cancer of colon with rectum (CMS/HCC) Discharge Disposition: Home or Self Care 12/04/2024 Travel 11/30/2024 10:00 AM EDT Office Visit [facility] [address] [place] [address] Graeme Sharma MD Squamous cell carcinoma of rectum (Primary Dx) 11/30/2024 Travel 11/26/2024 Travel 11/17/2024 Telephone [facility] [address] [place] [address] Rahel Bales PA 11/16/2024 Telephone [facility] [address] [place] [address] Graeme Sharma MD 11/15/2024 12:30 PM EDT - 11/15/2024 11:59 PM EDT Hospital Encounter [facility] Vascular Lab [address] [phone] Superficial thrombosis of leg, right Discharge Disposition: Home or Self Care 11/15/2024 11:20 AM EDT Office Visit [facility] Multidisciplinary Oncology Clinic [address] [place] [address] Rahel Bales, PA Superficial thrombosis of leg, right (Primary Dx) 11/15/2024 Travel 11/14/2024 Travel 11/11/2024 Refill [facility] [address] [place] [address] Graeme Sharma MD 11/09/2024 10:45 AM EDT Office Visit [facility] [address] [place] [phone] Aric Goode MD Swelling of thigh (Primary Dx); Primary cancer of rectum (CMS/HCC) 11/09/2024 Travel 11/05/2024 Telephone [facility] [address] [place] [phone] Martita Armando MD 11/02/2024 8:30 AM EDT Office Visit [facility] [address] [place] [address] Graeme Sharma MD Squamous cell carcinoma of rectum (Primary Dx) 11/02/2024 Travel 11/01/2024 Travel 11/01/2024 Telephone [facility] [address] [place] [address] Graeme Sharma MD 10/15/2024 Travel 09/01/2024 5:35 AM EDT - 10/16/2024 3:50 PM EDT Hospital Encounter [facility] Inpatient [address] [place] [address] Graeme Sharma MD Obstruction of right ureter (Primary Dx); Recurrent vaginal squamous cell carcinoma (CMS/HCC); Acute blood loss anemia; Hyperlipidemia, unspecified hyperlipidemia type; Acute respiratory failure with hypoxia and hypercapnia (CMS/HCC); Recurrent vaginal squamous cell carcinoma (CMS/HCC); Primary hypertension; Hypothyroidism, unspecified type; Paroxysmal supraventricular tachycardia (CMS/HCC); Squamous cell carcinoma of rectum (CMS/HCC); Cancer of colon with rectum (CMS/HCC); Anal cancer (CMS/HCC); Primary cancer of rectum (CMS/HCC); Intravenous infiltration, initial encounter Discharge Disposition: Jail Facility from Last 3 Months Immunizations Immunization Administration Dates Next Due Influenza, injectable, quadrivalent, preservativ e free 03/11/2022,03/25/2016 Influenza, seasonal, injectable 03/11/2022 Influenza, seasonal, injectable, preservative fr ee 03/16/2016 Pneumococcal 20-keith Conj Vaccine 10/26/2015 Pneumococcal Conjugate PCV 13 10/26/2015 TD (adult), 2 Lf tetanus tox oid, preservative free, adsorbed 08/21/1996 Family History Medical History Relation Name Comments Anesthesia problems Father Edy Matthews Cancer Father Eyd Matthews Cardiac disorder Father Edy Matthews Conversions - Other Father Edy Matthews malignan t neoplasm in father Lung cancer Father Edy Matthews Prostate cancer Father dEy Matthews Radiation Therapy Father Edy Matthews Malig Hyperthermia Neg Hx Relation Name Status Comments Father Edy Matthews Social History Tobacco Use Types Packs/Day Years [...] drink first t jefe in the morning (EYE-CHICLE GRINDER FEEDER) to steady your nerves or to get rid of a hangover? 0 10/05/2024 CAGE Questionnaire Score 0 025 Utilities Answer Date Recorded In the past 12 months has th u[employer] electric, gas, oil, or water company threatened [...] Mass Index 19.84 12/30/2024 3:09 PM EDT Plan of Treatment Upcoming Encounters Date Type Department Care Team (Late st Contact Info) Description 02/01/2025 7:00 AM EDT Appointment [facility] Radiology [address] [place] [phone] 02/01/2025 9:00 AM EDT Office Visit [facility] Multidisciplinary Oncology Clinic [address] [place] [phone] Graeme Sharma MD [address] [facility] [address] [place] [phone] 02/08/2025 9:15 AM EDT Clinical Support [facility] [address] [place] [phone] 02/08/2025 9:20 AM EDT Office Visit [facility] Multidisciplinary Oncology [facility] [address] [place] [phone] Monica Sanchez MD [address] [facility] Angelina Rothman [facility] [address] [place] [phone] 02/08/2025 11:00 AM EDT Appointment [facility] Infusion [address] [place] [phone] 05/16/2025 9:40 AM EST Office Visit [facility] Multidisciplinary Oncology Clinic [address] [place] [phone] Rahel Bales PA [address] [facility] [address] [place] [phone] Health Maintenance Due Date Last Done Comments [facility]-Bone Density Scan 1945 [facility]-Medicare Annual Wellness (AWV) 1945 [facility]-Infant/Child/Adol SDOH Screenings 1945 [facility]-DTaP,Tdap,and Td Vaccines (1 - Tdap) 08/22/1996 08/21/1996 [facility]-RSV Vaccine: 60+ Years or (1 - 1-dose 75+ series) 2022 [facility]-Zoster Vaccines (2 of 2) 04/15/2023 02/18/2023 [id number] Vaccine (2023- season) 2024 04/02/2022, 12/27/2021, 04/13/2021, Additional history exists [facility]-Influenza Vaccine (#1) 02/14/202502/27, 03/11/2022, 03/11/2022, Additional history exists [facility]- SDOH Screenings 03/06/2025 [facility]-Adult SDOH Screenings 03/06/2025 09/03/2024 [facility]-Depression Screening 12/28/2025 025, 11/15/2024, 12/25/2021 [facility]-Pneumococcal Vaccine: 50+ Years Completed 10/26/2015, 10/26/2015, 10/26/2015 Colonoscopy Discontinued 03/01/2024, 08/14, 09/28/2018 [facility]-Hepatitis C Screening Completed 12/04/2024 HPV Vaccines Aged Out No longer eligi ble based on patient's age to complete this topic [facility]-HIB Vaccines Aged Out No longer e ligible based on patient's age to complete this topic [facility]-Hepatitis A Vaccines Aged Out No longer eligible based on patient's age to complete this topic [facility]-IPV Vaccines Aged Out No longer e ligible based on patient's age to complete this topic [facility]-Rotavirus Vaccines Aged Out No lo nger eligible based on patient's age to complete this topic Medical Devices Implanted Type Area Automotive Parts Manager Device Identifier Shelf Expiration Date Model / Serial / Lot Stent Ureteral Diversion Flexi Lt 7fr X 70cm - S. - [id number] Implanted:Qty: 1 on 09/01/2024 by Martita Armando MD at [facility] [employer]-[id number] 08/02/2027 [id number] / . / Stent Ureteral Diversion Flexi Lt 7fr X 70cm - S. - [id number] Implanted:Qty: 1 on 09/01/2024 by Martita Armando MD at [facility] [id number] 08/02/2027 [id number] / . / Procedures Procedure Name Priority Date/Time Associated Diagnosis Comments COMPREHENSIVE METABOLIC PANEL, PLASMA Routine 12/30/2024 3:23 PM EDT Anal cancer (CMS/HCC) TSH REFLEX FT4 Routine 12/30/2024 3:23 PM EDT Anal cancer (CMS/HCC) CBC WITH AUTO DIFFERENTIAL Routine 12/30/2024 3:17 PM EDT Anal cancer (CMS/HCC) PET/CT FDG SKULL BASE TO MID THIGH Routine 12/24/2024 8:34 AM EDT Anal cancer (CMS/HCC) POCT GLUCOSE METER UNSOLICITED RESULTS Routine 12/24/2024 7:42 AM EDT CBC W/O DIFFERENTIAL Routine 12/06/2024 2:07 PM EDT BASIC METABOLIC PANEL, PLASMA Routine 12/06/2024 2:07 PM EDT MAGNESIUM, PLASMA Routine 12/06/2024 2:0 7 PM EDT PHOSPHORUS, PLASMA Routine 12/06/2024 2: 07 PM EDT XR GASTROGRAFFIN CHALLENGE Timed 12/05/2024 8:11 PM EDT MAGNESIUM, PLASMA Routine 12/05/2024 3:3 5 AM EDT PHOSPHORUS, PLASMA Routine 12/05/2024 3: 35 AM EDT COMPREHENSIVE METABOLIC PANEL, PLASMA Routine 12/05/2024 3:35 AM EDT CBC W/O DIFFERENTIAL Routine 12/05/2024 3:35 AM EDT ECG ADULT [...] ANTIBODY DIFFERENTIATION STAT 12/04/2024 11:16 AM EDT HEPATITIS C ANTIBODY - ED W/REFLEX TO HCV QUANT PCR STAT 12/04/2024 11:16 AM EDT LACTATE, VENOUS STAT 12/04/2024 11:16 AM EDT CBC WITH AUTO DIFFERENTIAL STAT 12/04/2024 11:16 AM EDT LIPASE, PLASMA STAT 12/04/2024 11:16 AM EDT COMPREHENSIVE METABOLIC PANEL, PLASMA STAT 12/04/2024 11:16 AM EDT VAS US VENOUS DUPLEX LOWER EXTREMITY UNILATERAL STAT 11/15/2024 12:48 PM EDT Superficial thrombosis of leg, right XR ABDOMEN 1 VIEW STAT 10/15/2024 2:2 7 PM EDT OXYGEN THERAPY Routine 10/15/2024 8:00 AM EDT PHOSPHORUS, PLASMA STAT 10/15/2024 1: 41 AM EDT MAGNESIUM, PLASMA STAT 10/15/2024 1:4 1 AM EDT COMPREHENSIVE METABOLIC PANEL, PLASMA STAT 10/15/2024 1:41 AM EDT CBC W/O DIFFERENTIAL STAT 10/15/2024 1:41 AM EDT BLOOD CULTURE (AEROBIC/ANAEROBIC SET) Routine 10/15/2024 1:35 AM EDT BLOOD CULTURE (AEROBIC/ANAEROBIC SET) Routine 10/15/2024 1:30 AM EDT XR CHEST 1 VIEW STAT 10/15/2024 1:26 AM EDT OXYGEN THERAPY Routine 10/14/2024 8:00 PM EDT OXYGEN THERAPY Routine 10/14/2024 8:00 AM EDT OXYGEN THERAPY Routine 10/13/2024 8:00 PM EDT OXYGEN THERAPY Routine 10/13/2024 8:00 AM EDT OXYGEN THERAPY Routine 10/12/2024 8:00 PM EDT OXYGEN THERAPY Routine 10/12/2024 8:00 AM EDT OXYGEN THERAPY Routine 10/11/2024 8:00 PM EDT OXYGEN THERAPY Routine 10/11/2024 8:00 AM EDT OXYGEN THERAPY Routine 10/10/2024 8:00 PM EDT OXYGEN THERAPY Routine 10/10/2024 8:00 AM EDT OXYGEN THERAPY Routine 10/09/2024 8:00 PM EDT OXYGEN THERAPY Routine 10/09/2024 8:00 AM EDT OXYGEN THERAPY Routine 10/08/2024 8:00 PM EDT OXYGEN THERAPY Routine 10/08/2024 8:00 AM EDT BASIC METABOLIC PANEL, PLASMA Routine 10/08/2024 5:37 AM EDT EXTRA TUBE LAVENDER TOP Routine 10/09/19 5:37 AM EDT EXTRA TUBES Routine 10/08/2024 5:37 AM EDT MAGNESIUM, PLASMA Routine 10/08/2024 5:3 7 AM EDT RENAL FUNCTION PANEL, PLASMA Routine 10/08/2024 5:37 AM EDT OXYGEN THERAPY Routine 10/07/2024 8:00 PM EDT OXYGEN THERAPY Routine 10/07/2024 8:00 AM EDT OXYGEN THERAPY Routine 10/06/2024 8:00 PM EDT OXYGEN THERAPY Routine 10/06/2024 8:00 AM EDT OXYGEN THERAPY Routine 10/05/2024 8:00 PM EDT OXYGEN THERAPY Routine 10/05/2024 8:00 AM EDT PHOSPHORUS, PLASMA Routine 10/05/2024 4: 02 AM EDT MAGNESIUM, PLASMA Routine 10/05/2024 4:0 2 AM EDT CBC W/O DIFFERENTIAL Routine 10/05/2024 4:02 AM EDT BASIC METABOLIC PANEL, PLASMA Routine 10/05/2024 4:02 AM EDT OXYGEN THERAPY Routine 10/04/2024 8:00 PM EDT OXYGEN THERAPY Routine 10/04/2024 8:00 AM EDT PHOSPHORUS, PLASMA Routine 10/04/2024 4: 15 AM EDT MAGNESIUM, PLASMA Routine 10/04/2024 4:1 5 AM EDT CBC W/O DIFFERENTIAL Routine 10/04/2024 4:15 AM EDT BASIC METABOLIC PANEL, PLASMA Routine 10/04/2024 4:15 AM EDT OXYGEN THERAPY Routine 10/03/2024 8:00 PM EDT OXYGEN THERAPY Routine 10/03/2024 8:00 AM EDT OXYGEN THERAPY Routine 10/02/2024 8:00 PM EDT OXYGEN THERAPY Routine 10/02/2024 8:00 AM EDT EXTRA TUBE LAVENDER TOP Routine 10/03/19 4:21 AM EDT EXTRA TUBES Routine 10/02/2024 4:21 AM EDT BASIC METABOLIC PANEL, PLASMA Routine 10/02/2024 4:21 AM EDT COLONOSCOPY Routine 03/01/2024 8:52 AM EDT Squamous cell carcinoma of rectum (CMS/HCC) from Last 3 Months or Most Recently Relevant to Health Maintenance Results * TSH reflex FT4 (12/30/2024 3:23 PM EDT) Thyroid Stimulating Hormone, Plasma 1.82 0.40 - 4.20 uIU/mL 12/30/2024 4:36 PM EDT [facility] Blood Venous blood specimen / Unknown Venipuncture / Unknown 12/30/2024 3:23 PM EDT 12/30/2024 3:57 PM EDT us Monica Sanchez MD LAB BLOOD ORDERABLES Final Res ult [facility] [address] [place] [address] * (ABNORMAL) Comprehensive metabolic panel (12/30/2024 3:23 PM EDT) Only the most recent of4 resultswithin the time period is included. Pathologist [facility] Glucose, Plasma 102(H) 74 - 99 mg/dL 12/30/2024 4:36 PM EDT [facility] BUN, Plasma 29(H) 8 - 23 mg/dL 12/30/2024 4:36 PM EDT [facility] Creatinine, Plasma 0.74 0.60 - 1.10 mg/dL 12/30/2024 4:36 PM EDT [facility] BUN/Creatinine Ratio 39 12/30/2024 4:36 PM EDT [facility] Sodium, Plasma 132(L) 136 - 145 mmol/L 12/30/2024 4:36 PM EDT [facility] Potassium, Plasma 4.0 3.6 - 4.9 mmol/L 12/30/2024 4:36 PM EDT [facility] Chloride, Plasma 100 97 - 107 mmol/L 12/30/2024 4:36 PM EDT [facility] CO2, Plasma 18(L) 22 - 29 mmol/L 12/30/2024 4:36 PM EDT [facility] Anion Gap 14 6 - 16 mmol/L 12/30/2024 4:36 PM EDT [facility] Total Calcium, Plasma 10.2 8.9 - 10.2 mg/dL 12/30/2024 4:36 PM EDT [facility] Total Protein 6.9 6.3 - 7.9 g/dL 12/30/2024 4:36 PM EDT [facility] Albumin, Plasma 3.3(L) 3.5 - 5.2 g/dL 12/30/2024 4:36 PM EDT [facility] AST, Plasma 18 10 - 35 U/L 12/30/2024 4:36 PM EDT [facility] ALT, Plasma 15 10 - 35 U/L 12/30/2024 4:36 PM EDT [facility] Alkaline Phosphatase, Plasma 88 46 - 142 U/L 12/30/2024 4:36 PM EDT [facility] Total Bilirubin, Plasma <0.2(L) 0.2 - 1.1 mg/dL 12/30/2024 4:36 PM EDT [facility] eGFRcr 83.4 mL/min/1.7 3m*2 12/30/2024 4:36 PM EDT [facility] Comment:Reported eGFRcr in m L/min/1.73m2 is based the CKD-EPI 2020 equation that does not use a race coefficient. Blood Venous blood specimen / Unknown Venipuncture / Unknown 12/30/2024 3:23 PM EDT 12/30/2024 3:57 PM EDT us Monica Sanchez MD LAB BLOOD ORDERABLES Final Res ult [facility] [address] [place] [address] * (ABNORMAL) CBC and differential (12/30/2024 3:17 PM EDT) Only the most recent of2 resultswithin the time period is included. WBC Count 10.58(H) 3.70 - 10.30 10*3/uL LAB HEMATOLOGY METHOD 12/30/2024 3:49 PM EDT [facility] RBC Count 3.26(L) 3.90 - 5.20 10*6/uL LAB HEMATOLOGY METHOD 12/30/2024 3:49 PM EDT [facility] HGB 8.3(L) 11.2 - 15.7 g/dL LAB HEMATOLOGY METHOD 12/30/2024 3:49 PM EDT [facility] HCT 27.0(L) 34.0 - 45.0 % LAB HEMATOLOGY METHOD 12/30/2024 3:49 PM EDT [facility] Platelet Count 331 155 - 369 10*3/uL LAB HEMATOLOGY METHOD 12/30/2024 3:49 PM EDT [facility] MCV 83 79 - 98 fL LAB HEMATOLOGY METHOD 12/30/2024 3:49 PM EDT [facility] MCH 25.5(L) 26.0 - 32.0 pg LAB HEMATOLOGY METHOD 12/30/2024 3:49 PM EDT [facility] MCHC 30.7 30.7 - 35.5 g/dL LAB HEMATOLOGY METHOD 12/30/2024 3:49 PM EDT [facility] RDW 16.6(H) 11.5 - 14.5 % LAB HEMATOLOGY METHOD 12/30/2024 3:49 PM EDT [facility] MPV 8.4(L) 8.8 - 12.5 fL LAB HEMATOLOGY METHOD 12/30/2024 3:49 PM EDT [facility] nRBC 0.0 <=0.0 per 100 WBCs LAB HEMATOLOGY METHOD 12/30/2024 3:49 PM EDT [facility] Differential Type Automated LAB HEMATOLOGY METHOD 12/30/2024 3:49 PM EDT [facility] Neutrophils % 76 % LAB HEMATOLOGY METHOD 12/30/2024 3:49 PM EDT [facility] Lymphocytes % 12 % LAB HEMATOLOGY METHOD 12/30/2024 3:49 PM EDT [facility] Monocytes % 9 % LAB HEMATOLOGY METHOD 12/30/2024 3:49 PM EDT [facility] Eosinophils % 2 % LAB HEMATOLOGY METHOD 12/30/2024 3:49 PM EDT [facility] Basophils % 0 % LAB HEMATOLOGY METHOD 12/30/2024 3:49 PM EDT [facility] Immature Granulocytes % 1 % LAB HEMATOLOGY METHOD 12/30/2024 3:49 PM EDT [facility] Neutrophils Absolute 8.09(H) 1.60 - 6.10 10*3/uL LAB HEMATOLOGY METHOD 12/30/2024 3:49 PM EDT [facility] Lymphocytes Absolute 1.30 1.20 - 3.90 10*3/uL LAB HEMATOLOGY METHOD 12/30/2024 3:49 PM EDT [facility] Monocytes Absolute 0.91(H) 0.30 - 0.90 10*3/uL LAB HEMATOLOGY METHOD 12/30/2024 3:49 PM EDT [facility] Eosinophils Absolute 0.20 0.00 - 0.50 10*3/uL LAB HEMATOLOGY METHOD 12/30/2024 3:49 PM EDT [facility] Basophils Absolute 0.03 0.00 - 0.10 10*3/uL LAB HEMATOLOGY METHOD 12/30/2024 3:49 PM EDT [facility] Immature Granulocytes Absolute 0.05 0.00 - 0.06 10*3/uL LAB HEMATOLOGY METHOD 12/30/2024 3:49 PM EDT [facility] Blood Venous blood specimen / Unknown Venipuncture / Unknown 12/30/2024 3:17 PM EDT 12/30/2024 3:41 PM EDT Narrative [facility] - 12/30/2024 3:49 PM EDT Therapeutic decision making should be based on absolute values, rather than percentages. us Monica Sanchez MD LAB BLOOD ORDERABLES Final Res ult [facility] [address] [place] [address] * PET/CT FDG Skull Base To Mid [...] scanner: Siemens Biograph 40 mCT. PET/CT acquisition: [id number]. Standardized uptake value (SUV): Corrected for body weight only. CT: Low-dose, [id number], without intravenous contrast. TOTAL DLP (Dose Length [...] scanner: Siemens Biograph 40 mCT. PET/CT acquisition: [id number]-[id number]-thighs. Standardized uptake value (SUV): Corrected for body weight only. CT: Low-dose, [id number], without intravenous contrast. TOTAL DLP (Dose Length [...] on 12/25/2024 6:28 PM Graeme Sharma MD [facility] PROCEDURES Final Result * POCT glucose meter (12/24/2024 7:42 AM EDT) [facility] POCT Glucose 95 74 - 99 mg/dL 12/24/2024 7:44 AM EDT [facility] Comment:Accuracy of a glucos e result [...] for testing. Comment 12/24/2024 7:44 AM EDT [facility]ALTH[facility] LAB [place] Reporter ID Manisha Morales 12/24/2024 7:44 AM EDT HEALTHCARE LAB Device ID [id number] 12/24/2024 7:44 AM EDT [facility]ALTH[facility] LAB Specimen Type POC Capillary 12/24/2024 7:44 AM EDT [facility]ALTH[facility] Blood Capillary blood specimen / Unknown 12/24/2024 7:42 AM EDT 12/24/2024 7:44 AM EDT us Generic Provider Poct LAB POINT OF CARE TEST DOCKED DEVICE UNSOLICITED RESULTS Final Result Performing Organization Address City/State/[facility] Co de Phone Number [facility] [address] [place] [id number] * (ABNORMAL) CBC W/O Differential (12/06/2024 2:07 PM EDT) Only the most recent of5 resultswithin the time period is included. [facility] WBC Count 13.49(H) 3.70 - 10.30 10*3/uL LAB HEMATOLOGY METHOD 12/06/2024 2:46 PM EDT [facility] RBC Count 3.31(L) 3.90 - 5.20 10*6/uL LAB HEMATOLOGY METHOD 12/06/2024 2:46 PM EDT [facility] HGB 8.5(L) 11.2 - 15.7 g/dL LAB HEMATOLOGY METHOD 12/06/2024 2:46 PM EDT [facility] HCT 28.0(L) 34.0 - 45.0 % LAB HEMATOLOGY METHOD 12/06/2024 2:46 PM EDT [facility] Platelet Count 388(H) 155 - 369 10*3/uL LAB HEMATOLOGY METHOD 12/06/2024 2:46 PM EDT [facility] MCV 85 79 - 98 fL LAB HEMATOLOGY METHOD 12/06/2024 2:46 PM EDT [facility] MCH 25.7(L) 26.0 - 32.0 pg LAB HEMATOLOGY METHOD 12/06/2024 2:46 PM EDT [facility] MCHC 30.4(L) 30.7 - 35.5 g/dL LAB HEMATOLOGY METHOD 12/06/2024 2:46 PM EDT [facility] RDW 16.7(H) 11.5 - 14.5 % LAB HEMATOLOGY METHOD 12/06/2024 2:46 PM EDT [facility] MPV 8.4(L) 8.8 - 12.5 fL LAB HEMATOLOGY METHOD 12/06/2024 2:46 PM EDT [facility] nRBC 0.0 <=0.0 per 100 WBCs LAB HEMATOLOGY METHOD 12/06/2024 2:46 PM EDT [facility] Blood Venous blood specimen / Unknown Venipuncture / Unknown 12/06/2024 2:07 PM EDT 12/06/2024 2:32 PM EDT Eris Valenzuela MD LAB BLOOD ORDERABLES Final R esult [facility] [address] [place] [address] * Phosphorus, Plasma (12/06/2024 2:07 PM EDT) Only the most recent of5 resultswithin the time period is included. Phosphorus, Plasma 2.7 2.5 - 4.5 mg/dL 12/06/2024 3:03 PM EDT [facility] Blood Venous blood specimen / Unknown Venipuncture / Unknown 12/06/2024 2:07 PM EDT 12/06/2024 2:28 PM EDT us Eris Valenzuela MD LAB BLOOD ORDERABLES Final R esult Performing Organization Address City/[facility]/ZIP Co de Phone Number [facility] [address] [place] [address] * (ABNORMAL) Magnesium, Plasma (12/06/2024 2:07 PM EDT) Only the most recent of6 resultswithin the time period is included. Pathologist [facility] Magnesium, Plasma 1.4(L) 1.9 - 2.4 mg/dL 12/06/2024 3:03 PM EDT [facility] Blood Venous blood specimen / Unknown Venipuncture / Unknown 12/06/2024 2:07 PM EDT 12/06/2024 2:28 PM EDT us Eris Valenzuela MD LAB BLOOD ORDERABLES Final R esult Performing Organization Address City/[facility] Co de Phone Number [facility] [address] [place] [address] * (ABNORMAL) Basic Metabolic Panel, Plasma (12/06/2024 2:07 PM EDT) Only the most recent of5 resultswithin the time period is included. Glucose, Plasma 136(H) 74 - 99 mg/dL 12/06/2024 3:03 PM EDT [facility] BUN, Plasma 14 8 - 23 mg/dL 12/06/2024 3:03 PM EDT [facility] Creatinine, Plasma 0.80 0.60 - 1.10 mg/dL 12/06/2024 3:03 PM EDT [facility] BUN/Creatinine Ratio 18 12/06/2024 3:03 PM EDT [facility] Sodium, Plasma 132(L) 136 - 145 mmol/L 12/06/2024 3:03 PM EDT [facility] Potassium, Plasma 3.3(L) 3.6 - 4.9 mmol/L 12/06/2024 3:03 PM EDT [facility] Chloride, Plasma 101 97 - 107 mmol/L 12/06/2024 3:03 PM EDT [facility] CO2, Plasma 19(L) 22 - 29 mmol/L 12/06/2024 3:03 PM EDT [facility] Anion Gap 12 6 - 16 mmol/L 12/06/2024 3:03 PM EDT [facility] Total Calcium, Plasma 9.5 8.9 - 10.2 mg/dL 12/06/2024 3:03 PM EDT [facility] eGFRcr 76.0 mL/min/1.7 3m*2 12/06/2024 3:03 PM EDT [facility] Comment:Reported eGFRcr in m L/min/1.73m2 is based the CKD-EPI 2020 equation that does not use a race coefficient. Blood Venous blood specimen / Unknown Venipuncture / Unknown 12/06/2024 2:07 PM EDT 12/06/2024 2:28 PM EDT Eris Valenzuela MD LAB BLOOD ORDERABLES Final R esult [facility] [address] [place] [address] * XR Gastrograffin Challenge (12/05/2024 8:11 PM [...] Matthews MD on 12/05/2024 8:14 PM us Eris Valenzuela MD IMG XR PROCEDURES Final Resu lt * ECG Adult (12/04/2024 5:19 PM EDT) EKG DIAGNOSIS CLASS Normal MUSE ECG Ventricular Rate 88 BPM MUSE ECG Atrial Rate 88 BPM MUSE ECG TN Interval 114 ms MUSE ECG QRSD Interval 78 ms MUSE ECG QT Interval 330 ms MUSE ECG QTC Interval 399 ms MUSE ECG P [place] 0 degrees MUSE ECG R [place] -9 degrees MUSE ECG T Wave [place] 18 degrees MUSE ECG Diagnosis Normal sinus rhythm MUSE ECG Diagnosis Normal ECG MUSE ECG Diagnosis MUSE ECG Diagnosis Confirmed by Trevor Wen ([id number]) on 12/05/2024 7:15:14 PM MUSE ECG 12/04/2024 5:19 PM EDT 12/05/2024 7:15 PM EDT us Eris Valenzuela MD ECG ORDERABLES Final Result MUSE ECG * (ABNORMAL) Urinalysis, manual only (12/04/2024 3:28 PM EDT) Color, Urine Coden LAB URINALYSIS - AUTOMATED METHOD 12/04/2024 3:41 PM EDT [facility] Clarity, Urine Cloudy LAB URINALYSIS - AUTOMATED METHOD 12/04/2024 3:41 PM EDT [facility] Spec [place], Urine >1.030(H) 1.005 - 1.030 LAB URINALYSIS - AUTOMATED METHOD 12/04/2024 3:41 PM EDT [facility] pH, Urine 7.0 5.0 - 8.0 LAB URINALYSIS - AUTOMATED METHOD 12/04/2024 3:41 PM EDT [facility] Protein, Urine 100(A) Negative mg/dL LAB URINALYSIS - AUTOMATED METHOD 12/04/2024 3:41 PM EDT [facility] Glucose, Urine Negative Negative mg/dL LAB URINALYSIS - AUTOMATED METHOD 12/04/2024 3:41 PM EDT [facility] Ketones, Urine Negative Negative mg/dL LAB URINALYSIS - AUTOMATED METHOD 12/04/2024 3:41 PM EDT [facility] Blood, Urine Large(A) Negative LAB URINALYSIS - AUTOMATED METHOD 12/04/2024 3:41 PM EDT [facility] Bilirubin, Urine Negative Negative LAB URINALYSIS - AUTOMATED METHOD 12/04/2024 3:41 PM EDT [facility] Urobilinogen, Urine 0.2 0.2 to 1.0 mg/dL LAB URINALYSIS - AUTOMATED METHOD 12/04/2024 3:41 PM EDT [facility] Leukocytes, Urine Large(A) Negative LAB URINALYSIS - AUTOMATED METHOD 12/04/2024 3:41 PM EDT [facility] Nitrite, Urine Positive(A) Negative LAB URINALYSIS - AUTOMATED METHOD 12/04/2024 3:41 PM EDT [facility] Urine Urine specimen obtained by clean catch procedure / Unknown Non-blood Collection / Unknown 12/04/2024 3:28 PM EDT 12/04/2024 3:38 PM EDT Narrative [facility] - 12/04/2024 3:41 PM EDT Urinalysis dipstick results may be inaccurate due to specimen color or an interfering substance in the specimen. us Angel Rudolph MD LAB URINE ORDERABLES Final Res ult [facility] [address] [place] [address] * Blood Culture (Aerobic/Anaerobet Set) (12/04/2024 1:10 PM EDT) Only the most recent of4 resultswithin the time period is included. Culture No growth at day 5 12/09/2024 2:02 PM EDT [facility] Blood Structure of left hand / Unknown Venipuncture / Unknown 12/04/2024 1:10 PM EDT 12/04/2024 1:32 PM EDT Narrative [facility] - 12/09/2024 2:02 PM EDT Low blood volume submitted, results may be compromised us Aric Cai MD LAB MICROBIOLOGY - GENERAL ORDERABLES Final Result [facility] [address] [place] [address] * (ABNORMAL) Urinalysis microscopic (12/04/2024 12:02 PM EDT) RBC, Urine Unable to estimate due to obscuring WBC's (UNEWBC) 0 to 3 /HPF 12/04/2024 12:31 PM EDT [facility] WBC, Urine >50(A) 0 to 5 /HPF 12/04/2024 12:31 PM EDT [facility] Squamous Epithelial Cells Unable to estimate due to obscuring WBC's (UNEWBC) 0 to 5 /HPF 12/04/2024 12:31 PM EDT [facility] Hyaline Casts Unable to estimate due to obscuring WBC's (UNEWBC) 0 to 5 /LPF 12/04/2024 12:31 PM EDT [facility] Bacteria, Urine Present Negative 12/04/2024 12:31 PM EDT [facility] Urine Urine specimen obtained by clean catch procedure / Unknown Non-blood Collection / Unknown 12/04/2024 12:02 PM EDT 12/04/2024 12:19 PM EDT Narrative [facility] - 12/04/2024 12:31 PM EDT Performed by manual method us Angel Rudolph MD LAB URINE ORDERABLES Final Res ult [facility] [address] [place] [address] * CT Abdomen Pelvis w IV Contrast [...] Lizandro Watkins MD on 12/04/2024 12:28 PM Angel Rudolph MD IMG CT PROCEDURES Final Result * ED HIV 1/2 Antibody/Antigen Screen w/Reflex to HIV 1/2 Differentiation (12/04/2024 11:16 AM EDT) [facility] HIV 1 & 2 Antibody/Antigen Screen Non Reactive Non Reactive 12/04/2024 12:10 PM EDT [facility] Comment:Screening for HIV 1 & 2 antibodies, and P24 antigen is NONREACTIVE. No confirmatory testing is required. Blood Venous blood specimen / Unknown Venipuncture / Unknown 12/04/2024 11:16 AM EDT 12/04/2024 11:29 AM EDT us Angel Rudolph MD LAB BLOOD ORDERABLES Final Res ult [facility] [address] [place] [address] * Lactic acid, venous (12/04/2024 11:16 AM EDT) [facility] Lactate, Venous, Whole Blood 1.4 0.5 - 2.2 mmol/L LAB HEMATOLOGY METHOD 12/04/2024 11:22 AM EDT [facility] Blood Venous blood specimen / Unknown Venipuncture / Unknown 12/04/2024 11:16 AM EDT 12/04/2024 11:21 AM EDT us Angel Rudolph MD LAB BLOOD ORDERABLES Final Res ult [facility] [address] [place] [address] * Hepatitis C Antibody - ED (12/04/2024 11:16 AM EDT) [facility] Hepatitis C Antibody Negative Negative 12/04/2024 12:10 PM EDT [facility] Blood Venous blood specimen / Unknown Venipuncture / Unknown 12/04/2024 11:16 AM EDT 12/04/2024 11:29 AM EDT Angel Rudolph MD LAB BLOOD ORDERABLES Final Res ult Performing Organization Address [facility] Co de Phone Number [facility] [address] [place] [address] * (ABNORMAL) Lipase (12/04/2024 11:16 AM EDT) [facility] Lipase, Plasma 15(L) 19 - 63 U/L 12/04/2024 11:49 AM EDT [facility] Blood Venous blood specimen / Unknown Venipuncture / Unknown 12/04/2024 11:16 AM EDT 12/04/2024 11:21 AM EDT Angel Rudolph MD LAB BLOOD ORDERABLES Final Res ult Performing Organization Address [facility] [place] [address] * VAS US Venous Duplex Lower Extremity [...] 12:49 PM Final report signed by Júnior Buernostro MD on 11/17/2024 9:34 PM us Rahel SMITH CV VASCULAR PROCEDURES Fin al Result * XR Abdomen 1 View (10/15/2024 2:27 PM EDT) Anatomical Region Laterality Modality Body Digital Radiogra phy Impressions 10/15/2024 4:27 PM EDT Nonobstructive bowel gas pattern. CRITICAL RESULT: No. COMMUNICATION: Per this written report. By electronically signing this report, I, the attending physician, attest that I have personally reviewed the images/data for the above examination(s) and agree with the final edited report. Drafted by Baljit Rose MD on 10/15/2024 2:50 PM Final report signed by Ameena Birmingham MD on 10/15/2024 4:27 PM Narrative 10/15/2024 4:27 PM EDT CLINICAL INDICATION: N/V TECHNIQUE: XR ABDOMEN 1 VIEW COMPARISON: 09/22/2024 FINDINGS: Redemonstration of the left upper quadrant ostomy and multiple surgical clips overlying the pelvis and abdomen. Left hip orthopedic hardware with small amount of unchanged lucency adjacent to the proximal aspect of the hardware. Unremarkable lower lungs. Nonobstructive bowel gas pattern with moderate amount of diffuse gas throughout the right colon. [id number] right colonic stool burden. No pneumatosis or pneumoperitoneum within limits of the exam. Similar dextroscoliosis of the thoracolumbar spine. Procedure Note Ameena Birmingham MD - 10/15/2024 CLINICAL INDICATION: N/V TECHNIQUE: XR ABDOMEN 1 VIEW COMPARISON: 09/22/2024 FINDINGS: Redemonstration of the left upper quadrant ostomy and multiple surgicalclips overlying the pelvis and abdomen. Left hip orthopedic hardware withsmall amount of unchanged lucency adjacent to the proximal aspect of thehardware. Unremarkable lower lungs. Nonobstructive bowel gas pattern withmoderate amount of diffuse gas throughout the right colon.[id number] right colonic stool burden. No pneumatosis orpneumoperitoneum within limits of the exam. Similar dextroscoliosis of thethoracolumbar spine. IMPRESSION: Nonobstructive bowel gas pattern. CRITICAL RESULT: No. COMMUNICATION: Per this written report. By electronically signing this report, I, the attending physician, attestthat I have personally reviewed the images/data for the aboveexamination(s) and agree with the final edited report. Drafted by Baljit Rose MD on 10/15/2024 2:50 PM Final report signed by Ameena Birmingham MD on 10/15/2024 4:27 PM us Graeme Sharma MD IMG XR PROCEDURES Final Result * XR Chest 1 View (10/15/2024 1:26 AM EDT) Anatomical Region Laterality Modality Chest Digital Radiogra phy Impressions 10/15/2024 7:28 AM EDT No focal airspace consolidation with chronic changes as above. CRITICAL RESULT: No. COMMUNICATION: Per this written report. Drafted by Lizandro Watkins MD on 10/15/2024 7:26 AM Final report signed by Lizandro Watkins MD on 10/15/2024 7:28 AM Narrative 10/15/2024 7:28 AM EDT CLINICAL INDICATION: tachycardia TECHNIQUE: XR CHEST 1 VIEW COMPARISON: September 13, 2024. FINDINGS: Left upper extremity PICC remains in place. Emphysema with mild atelectasis scarring within the right perihilar region. No focal consolidation, pleural effusion or pneumothorax. Procedure Note Lizandro Watkins MD - 10/15/2024 CLINICAL INDICATION: tachycardia TECHNIQUE: XR CHEST 1 VIEW COMPARISON: September 13, 2024. FINDINGS: Left upper extremity PICC remains in place. Emphysema with mildatelectasis scarring within the right perihilar region. No focalconsolidation, pleural effusion or pneumothorax. IMPRESSION: No focal airspace consolidation with chronic changes as above. CRITICAL RESULT: No. COMMUNICATION: Per this written report. Drafted by Lizandro Watkins MD on 10/15/2024 7:26 AM Final report signed by Lizandro Watkins MD on 10/15/2024 7:28 AM us Graeme Sharma MD IMG XR PROCEDURES Final Result * Lavender Top (10/08/2024 5:37 AM EDT) Only the most recent of2 resultswithin the time period is included. Extra Hold for add-ons 10/08/2024 8:02 AM EDT [facility] Comment:Auto resulted. Blood Venous blood specimen / Unknown 10/08/2024 5:37 AM EDT 10/08/2024 5:44 AM EDT us Graeme Sharma MD LAB BLOOD ORDERABLES Final Res ult [facility] [address] [place] [address] * (ABNORMAL) Renal Function Panel, Plasma (10/08/2024 5:37 AM EDT) Pathologist [facility] Glucose, Plasma 91 74 - 99 mg/dL 10/08/2024 6:12 AM EDT [facility] BUN, Plasma 17 8 - 23 mg/dL 10/08/2024 6:12 AM EDT [facility] Creatinine, Plasma 0.47(L) 0.60 - 1.10 mg/dL 10/08/2024 6:12 AM EDT [facility] BUN/Creatinine Ratio 36 10/08/2024 6:12 AM EDT [facility] Sodium, Plasma 137 136 - 145 mmol/L 10/08/2024 6:12 AM EDT [facility] Potassium, Plasma 4.4 3.6 - 4.9 mmol/L 10/08/2024 6:12 AM EDT [facility] Chloride, Plasma 104 97 - 107 mmol/L 10/08/2024 6:12 AM EDT [facility] CO2, Plasma 24 22 - 29 mmol/L 10/08/2024 6:12 AM EDT [facility] Anion Gap 9 6 - 16 mmol/L 10/08/2024 6:12 AM EDT [facility] Total Calcium, Plasma 8.8(L) 8.9 - 10.2 mg/dL 10/08/2024 6:12 AM EDT [facility] Phosphorus, Plasma 3.0 2.5 - 4.5 mg/dL 10/08/2024 6:12 AM EDT [facility] Albumin, Plasma 2.9(L) 3.5 - 5.2 g/dL 10/08/2024 6:12 AM EDT [facility] eGFRcr 98.2 mL/min/1.7 3m*2 10/08/2024 6:12 AM EDT [facility] Comment:Reported eGFRcr in m L/min/1.73m2 is based the CKD-EPI 2020 equation that does not use a race coefficient. Blood Venous blood specimen / Unknown Venipuncture / Unknown 10/08/2024 5:37 AM EDT 10/08/2024 5:43 AM EDT us Graeme Sharma MD LAB BLOOD ORDERABLES Final Res ult [facility] [address] [place] [address] * Colonoscopy (03/01/2024 8:52 AM EDT) Anatomical Region Laterality Modality Endoscopy Narrative 03/01/2024 11:37 AM EDT Table formatting from the original result was not included. Impression: Moderate, obstructing, non-traversable extrinsic compression was observed in the rectosigmoid Colonoscopy scheduled based on recent imaging demonstrating suspicious vaginal cuff lesion consistent with squamous cell carcinoma. 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 Complete response achieved. 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 Subsequent evaluation for vaginal bleeding. Mass identified at the vaginal cuff with extension to the vaginal canal. Locally advanced as it appears that involves the right ureter in the right UV junction. Scheduled for additional endoscopic evaluation to determine whether or not any GI involvement was present. At the level of the rectosigmoid colon, there was noted to be extrinsic compression and marked limitation in mobility. Attempts to advance the scope were unsuccessful and concern for perforation was noted. There was no evidence of intraluminal lesion as the area of involvement allowed visualization into the proximal lumen. However the scope could not be advanced beyond this area safely. Await further imaging. Await biopsy results scheduled for March 11, 2024. Recommendations Follow up with me in clinic Indication Order Indication: Squamous cell carcinoma of rectum (CMS/HCC) Medications See anesthesia record for anesthesia administered medications. Staff Staff Role Barbara Franklin RN Endo Nurse Graeme Sharma MD Proceduralist Justine Flaherty CRNA CRNA Pierce, Jennifer G, MD Fellow Mar Chen Endo Nursing Home Manager Tracey Garcia Other - Other (see comments) Andrea Augustin MD Anesthesiologist Preprocedure A history and physical has been performed, and patient medication allergies have been reviewed. The patient's tolerance of previous anesthesia has been reviewed. The risks and benefits of the procedure and the sedation options and risks were discussed with the patient. All questions were answered and informed consent obtained. Details of the Procedure The patient underwent monitored anesthesia care, which was administered by an anesthesia professional. The patient's blood pressure, heart rate, level of consciousness, respirations and oxygen were monitored throughout the procedure. A digital rectal exam was performed. A perianal exam was performed. The scope was introduced through the anus and advanced to the rectosigmoid. Retroflexion was performed in the rectum. The quality of bowel preparation was evaluated using the [place] Bowel Preparation Scale with scores of: right colon = 2, transverse colon = 2, left colon = 2. The total BBPS score was 6. Bowel prep was adequate. The patient experienced no blood loss. The procedure was not difficult. The patient tolerated the procedure well. There were no apparent adverse events. Attestation I personally performed the entire procedure Events Procedure Events Event Event Time ENDO SCOPE IN TIME 03/01/2024 8:45 AM ENDO SCOPE OUT TIME 03/01/2024 8:49 AM Specimens No specimens were documented in this log. Findings Moderate, obstructing, non-traversable extrinsic compression was observed in the rectosigmoid Graeme Sharma MD GI PROCEDURE ORDERABLES Final Result from Last 3 Months or Most Recently Relevant to Health Maintenance Insurance [facility] MEDICARE Advance Directives * Full Code (Latest Code Status on File) Date Activated Date Inactivated Comments 12/04/2024 5:03 PM 12/08/2024 5:04 PM Question Answer Comments I have reviewed the capacity from the link above and, if needed, have updated to appropriate status: Yes * Full Code Date Activated Date Inactivated Comments 09/01/2024 11:46 PM 10/16/2024 5:50 PM Care Teams Candle Maker Relationship Specialty Start Date End Date Marco A Vazquez MD [address] [facility] [address] [place] [address] PCP - General 03/22/24 Agapito Ariza PA [address] [facility] [address] [place] [address] Physician Animation Producer Otolaryngology 03/05/22 Aiden Lr MD [address] [address] Surgeon Otolaryngology 03/05/22 Graeme Sharma MD [address] [facility] [address] [place] [address] Referring Physician Colon and Rectal Surgery 08/15/23
--- OUTSIDE RECORDS SUMMARY | 2025-01-01 13:07 | XMS_ITS ---
Author Organization [facility] Address [address] [place] [address] Care Team Providers Care Medical Attendant Name Role Phone Agapito Ariza Unavailable [phone] Aiden Lr MD Unavailable Graeme Sharma MD Unavailable [phone] Marco A Vazquez MD Primary Care Provider Active Problems Problem Noted Date Diagnosed Date [...] place Postoperative pain 09/02/2024 Overview (09/02/2024): Epidural TECHNICAL ADMINISTRATIVE ASSISTANT in place APMS following IV infiltration 09/02/2024 Overview (09/02/2024): Left hand swelling noted AM 3/20 at IV site MIVF only, no vesicants [...] pedicle flap to pelvis per SCR, [employer] BENEFITS CLERK, & SERGIO NGT to iLWS Mobility restrictions- supine only/no HOB elevation, OK to ambulate Epidural TECHNICAL ADMINISTRATIVE ASSISTANT- basal dose to be continued while intubated [...] 01/09/2017 Vaginal atrophy 01/09/2017 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 No medications scheduled. Past Treatment and Therapy Plans Infusion Treatment 1 Plan Name Start Date Discontinue Date Treatment Medications Discontinue Reason Plan Provider (ONC) Med Onc Outpatient Electrolyte Replacement Protocol 04/05/2024 11/24/2024 No medications scheduled. Other (See Comments) Monica Sanchez MD Oncology Treatment Plan Name Start Date Discontinue Date Treatment Medications Discontinue Reason Plan Provider Cycles PACLITAXEL / CARBOPLATIN EVERY 21 DAYS 04/05/20 24 12/28/2024 CARBOplatin (Paraplatin) chemo IVPB (by AUC: GOG-COCKCROFT GAULT)CARBOpla tin (Paraplatin) IVPB (by AUC: GOG-COCKCROFT GAULT)PACLitax el (Taxol) IVPB 500 mL Therapy Complete Monica Sanchez MD 6 of 6 cycles completed Lifetime Dose Tracking * Chemical Lifetime Dose Automatic Entry Manual Entr y Fluoro Time 3.9 minutes 3.9 minutes 0 minutes Air Kerma 24 mGy 24 mGy 0 mGy CTDIvol 166 mGy 166 mGy 0 mGy Air Kerma Area Product 306.33 Gym 306.33 Gym 0 Gym Radiation (DLP) 504 mGy-cm 504 mGy-cm 0 mGy-cm Resolved Problems Problem Noted Date Diagnosed Date Resolved Date Rectal carcinoma 10/27/2020 10/01/2021 Palpitations 10/27/2020 10/01/2021 TIA (transient ischemic attack) 07/31/2020 10/01/2021 Overview (01/12/2021): Transient cerebral ischemic attack, unspecified Neoplasm of rectum 07/23/2016 Overview (01/12/2021): Neoplasm of unspecified behavior of digestive system
--- OUTSIDE RECORDS SUMMARY | 2025-01-01 13:07 | XMS_ITS | Data Portability ---
Author Organization [facility] ANA PAULA Rao [place] Address [address] [place] [address] Assessment No assessment recorded. Plan of Treatment Reminders Order Date Submit Date Provider Last Modified By Organization Details Last Modified Time Details Appointments DERM VISIT 2024 10:10A M LETY LYMAN DIRECTOR OF TRAINING Not available Not available Not available Lab surgical pathology study 2023 024 [facility], [address] [place] [address], [address], 03/04/2024 11:57:20 Referral None recorded. Procedures None recorded. Surgeries None recorded. Imaging None recorded. Medication Orders None recorded. Patient TargetsNo targets recorded. Patient Instructions Encounter Date Encounter Id Patient Instructions Last Modified By Organization Details Last Modified Time 02/27/2022 [id number] Risks/Benefits/O p tions/Side Effects of diagnosis and treatment discussed. UV protection and signs of skin cancer discussed. Not available 02/27/2022 07:12:10 02/26/2023 [id number] Risks/Benefits/O p tions/Side Effects of diagnosis and treatment discussed. UV protection and signs of skin cancer discussed. Not available 02/26/2023 07:16:48 03/03/2024 [id number] Risks/Benefits/O p tions/Side Effects of diagnosis and treatment discussed. UV protection and signs of skin cancer discussed. [email or web address] Not available 03/02/2024 13:41:08 Reason for Referral None Reported. Results Created Date Observation Date Name Description Value Unit Range Abnormal Flag Note LastModifiedBy Organization Detail LastModifiedTime 03/03/20 24 03/03/2024 SURGI SAMUEL surgical SEE BELOW abnormal Depar tment of Patho logy Surgi samuel Patho logy Repor t NAME: JESSICA GUERRA PATH. :SC-2 [id number] Copy to: Diagn osis: Right poste rior shoul aster: Basal cell carci noma, nodul ar type; incom plete ly excis ed. SOURC E OF SPECI MEN: SKIN BIOPS Y, RIGHT POSTE RIOR SHOUL ASTER CLINI SAMUEL INFOR MATIO N: D48.5 R/O BCC Gross Descr iptio n: Recei michael in forma milagros label ed with the patie nt's name and desig nated righ t poste rior shoul aster is a shave biops y of skin (0.6 x 0.5 x 0.2 cm). The epide rmal surfa ce is mathis-p ink and focal ly rough ened/ crust ed. The mirian n is inked blue. The speci men is bisec sera and entir isra submi tted in one casse tte label ed A1. SB 03/03 02:06 PM Micro scopi c Descr iptio n: A micro scopi c exami natio n has been perfo rmed and the resul t(s) are as noted above . AMPARO HAJI M.D. Jennifer d Out Date: 03/04 11:57 Page 1 of 1 Not Available [facility] [address] [place] [address], [place], [address], 03/04/2024 11:57:20 Result Notes None recorded. 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 Procedures Surgical History Date Name Laterality Status Provider Name and Address Organization Details Recorded Time 03/10/20 24 Destruction MN Lesion; trunk, arm, leg completed LETY LYMAN, DIRECTOR OF TRAINING [address] [place], [address], [facility] 03/10/2024 11:11:34 03/03/20 24 Biopsy Skin Lesion; Tangential completed Arely Longoria [facility] 03/03/2024 10:11:30 02/27/20 23 Destruction Premalignant Lesion(s) completed Emily Jos [facility] 02/26/2023 10:19:00 02/28/20 22 Destruction BN Lesions completed Alice Salamanca [facility] 02/27/2022 09:02:33 01/04/20 22 Destruction BN Lesions completed Emily Jos [facility] 01/03/2022 10:48:19 06/27/19 22 Destruction Premalignant Lesion(s) completed Vanesa Barakat [facility] 06/27/2021 09:05:19 02/22/20 21 Destruction BN Lesions completed April Markham [facility] 02/21/2021 08:52:07 05/23/20 20 Destruction Premalignant Lesion(s) completed Geneva Salinas [facility] 05/23/2020 09:41:40 02/22/20 20 Destruction MN Lesion; trunk, arm, leg completed Zane Montoya [facility] 02/22/2020 08:36:47 02/22/20 20 Destruction BN Lesions completed LETY LYMAN, DIRECTOR OF TRAINING [address] [place], [address], [facility] 02/22/2020 09:11:56 02/08/20 20 Destruction MN Lesion; trunk, arm, leg completed NATALIE MARTIN MD [address] [place], [address], [facility] 02/09/2020 16:56:20 11/09/19 20 Destruction MN Lesion; trunk, arm, leg completed Yoselyn Harding [facility] 11/09/2019 11:18:53 02/25/20 19 Destruction Premalignant Lesion(s) completed Monicamarkie Castro [facility] 02/24/2019 09:08:15 02/25/20 19 Destruction BN Lesions completed Monicamarkie Castro [facility] 02/24/2019 09:08:22 10/16/19 19 Destruction BN Lesions completed LETY LYMAN, DIRECTOR OF TRAINING [address] [place], [address], [facility] 10/15/2018 09:47:22 10/29/19 18 Destruction Premalignant Lesion(s) completed Zane Montoya [facility] 10/28/2017 09:07:18 09/11/19 18 Destruction Premalignant Lesion(s) completed Kassie Davis [facility] 09/10/2017 14:40:09 Imaging Results None recorded. Procedure Notes None recorded. Medical Equipment None Reported. Allergies No known drug allergies Medications Name Sig Start Date Stop Date Status Note LastModified by Organization Details LastModified Time Claritin 10 mg tablet Two times a day 2010 active Instruct ions: Take one tablet twice daily;Fr equency: bid;Medi cation Descript ion: loratadi ne; Dosage:1 ; Route:or al; refills: 1; Quantity :60 tablet Not Available Not Available Not Available clobetaso l 0.05 % topical cream As Directed 02/27 completed Duration : 14 days;Ins truction s: Apply to the affected area twice daily X 2 WEEKS PRN;Freq uency: as direct.; Medicati on Descript ion: clobetas ol topical; Dosage:a s directed ; Route:to pical; refills: 3; Quantity :60 cream Not Available Not Available Not Available triamcino lone acetonide 0.1 % topical cream APPLY A THIN LAYER TO THE AFFECTED AREA(S) ON LEG BY TOPICAL ROUTE 2 TIMES PER DAY 02/27 completed Not Available Not Available Not Available clobetaso l 0.05 % topical foam As Directed 02/27 completed Instruct ions: Apply to the affected area ON SCALP twice daily X 2 WEEKS PRN;Freq uency: as direct.; Medicati on Descript ion: clobetas ol topical; Dosage:a s directed ; Route:to pical; refills: 3; Quantity :1 foam Not Available Not Available Not Available Synthroid 50 mcg tablet Daily active Frequenc y: daily;Me dication Descript ion: levothyr oxine; Dosage:1 ; Route:or al; refills: 0; Quantity :30 tablet Not Available Not Available Not Available betametha sone dipropion ate 0.05 % topical cream APPLY A THIN LAYER TO THE AFFECTED AREA(S) ON LEGS BY TOPICAL ROUTE BID UP TO 2 WEEKS PRN FLARES 2022 active Not Available Not Available Not Avai lable Lipitor 10 mg tablet active Medicati on Descript ion: atorvast atin; Dosage:1 ; Route:or al; refills: 0; Quantity :30 tablet Not Available Not Available Not Available Fosamax active Not Available Not Avail able Not Available calcium active Medicati on Descript ion: calcium carbonat e; Route:or al; refills: 0 Not Available Not Available Not Available Boniva active Medicati on Descript ion: ibandron ate; refills: 0 Not Available Not Available Not Available Vitals None Recorded Social History Question Answer Notes LastModified by Organizat ion Details LastModified Time Tobacco Smoking Status Never Smoker Geoff Eldridge [facility] 02/05/2017 11:22:09 How Much Tobacco Do You Chew? None Information not available 02/24/2019 What Was The Date Of Your Most Recent Tobacco Screening? 02/05/2017 Information n ot available 08/03/2019 Sex: Female Functional Status Question Answer Note LastModified by Organizat ion Details LastModified Time Do you or have you ever used smokeless tobacco? Never used smokeless tobacco Information not available 02/24/2019 Do you or have you ever used e-cigarettes or vape? Never used electronic cigarettes [email or web address] Information not available 02/24/2019 Mental Status None recorded. Family History Nothing Reported Notes:NO FAMILY HX OF MM Medical History Condition Response Basal Cell Carcinoma Y Melanoma N Gynecological HistoryNo gynecological history recorded. Obstetrics History GPAL:G 0 P 0 0 0 0 Past Encounters Encounter ID Performer Location Encounter Start Date Encounter Closed Date Diagnosis/Indication Diagnosis SNOMED-CT Code Diagnosis ICD10 Code Diagnosis Note [id number] [facility] [place] [address] 09/16/2016 17:03:17 09/16/2016 17:03:17 [id number] LETY LYMAN APRN [facility] [address] [place] [address] 02/05/2017 10:25:38 02/06/2017 09:19:36 Solar lentiginosis 213375254 L81.4 BENIGN APPEARANCE , PT REASSURED Neoplasm o f uncertain behavior of skin 47109948 D48.5 SK VS SKIN TAG - BENIGN APPEARANCE , PT REASSUREDD ISCUSSED SCISSOR REMOVAL TODAY. 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 RECOMMEND CETAPHIL RESTORADER M OR CERAVE PRODUCTSCO NT CLOBETASOL CREAM BID X 1-2 WEEKS PRN HX ECZEMA CLEAR TODAY [id number] LETY LYMAN APRN [facility] [address] [place] [address] 09/10/2017 13:54:33 09/10/2017 15:58:17 Solar lentiginosis 131886289 L81.4 BENIGN APPEARANCE , PT REASSURED Senile hyperkeratosis 39 2131013 L82.1 BENIGN APPEARANCE , PT REASSURED Actinic keratosis 523313 007 L57.0 CRYO X 1SEE PROCEDURE NOTEPATIEN T ADVISED WHAT TO EXPECT FROM FREEZING Nummular eczema 75105485 L30.0 MILD FLARE USE CLOBETASOL CREAM 0.05% BID X 2 WEEKS THEN PRN FLARES SHE HAS AT HOME DRY SKIN CARE DISCUSSED. RECOMMEND CETAPHIL RESTORADER M OR CERAVE DAILY [id number] [facility] [address] [place] [address] 10/28/2017 08:49:23 10/28/2017 10:09:16 Actinic keratosis 561319260 L57.0 CRYO X 1 SEE PROCEDURE NOTE; PATIENT ADVISED WHAT TO EXPECT FROM FREEZING. RECHECK IF PERSISTING [id number] [facility] [address] [place] [address] 02/10/2018 08:25:14 02/10/2018 09:16:31 Solar lentiginosis 584645866 L81.4 BENIGN APPEARANCE , PT REASSURED Hemangioma 431107394 D18 .00 BENIGN APPEARANCE , PT REASSURED Senile hyperkeratosis 39 8368684 L82.1 BENIGN APPEARANCE , PT REASSURED Multiple b enign melanocytic nevi 193291862 D22.9 BENIGN APPEARANCE , PT REASSURED & ADVISED TO RTC WITH ANY CHANGES Generalize d essential telangiectasia 566861949 I78.1 BENIGN APPEARANCE , PT REASSURED History of malignant basal cell neoplasm of skin 597397329 Z85.828 NO EVIDENCE OF RECURRENCE Eczema 97438119 L30.9 MOSTLY CLEAR TODAY CONT CLOBETASOL CREAM BID X 2 WEEKS PRN FLARES. Milia 721698179 L72.0 EXTRACTED 1 BENIGN APPEARANCE , PT REASSURED Neoplasm o f uncertain behavior of skin 50719905 D48.5 SK VS SKIN TAG - BENIGN APPEARANCE , PT REASSUREDD ISCUSSED SCISSOR REMOVAL TODAY. PT DECLINED [id number] [facility] [address] [place] [address] 04/08/2018 09:08:43 04/08/2018 14:37:19 Eczema 39092834 L30.9 ATOPIC DERMATITIS CHILD NOW FLARING START BETAMETHAS ONE 0.05% TOPICAL CREAM BID X 2 WEEKS PRN FLARES.-SH ORT TERM USE DRY SKIN CARE DISCUSSED Hemangioma 941175672 D18 .00 BENIGN APPEARANCE , PT REASSURED [id number] [facility] [place] [address] [place] [address] 10/15/2018 09:27:08 10/15/2018 10:56:14 Inflamed seborrheic keratosis 940901784 L82.0 CRYO TO 1 LESION ON LOWER MID CHEST RISKS OF CRYO SURGERY DISCUSSED; POST OP CARE INSTRUCTIO NS PROVIDED. VERBAL CONSENT TO TREAT GIVEN BY PATIENT. RECHECK IF PERSISTING [id number] [facility] [place] [address] [place] [address] 02/24/2019 08:37:58 02/24/2019 11:16:52 Solar lentiginosis 737253059 L81.4 BENIGN APPEARANCE , PT REASSURED Hemangioma 568464234 D18 .00 BENIGN APPEARANCE , PT REASSURED Senile hyperkeratosis 39 4216308 L82.1 BENIGN APPEARANCE , PT REASSURED Multiple b enign melanocytic nevi 112495135 D22.9 BENIGN APPEARANCE , PT REASSURED & ADVISED TO RTC WITH ANY CHANGES Generalize d essential telangiectasia 481384908 I78.1 BENIGN APPEARANCE , PT REASSURED Eczema 37952374 L30.9 MOSTLY CLEAR TODAY, PT WILL CONT TO USE CETAPHIL ECZEMA LOTION, CONT BETAMETHAS ONE CREAM BID X 2 WEEKS PRN FLARES SHORT TERM. History of malignant basal cell neoplasm of skin 397938610 Z85.828 NO EVIDENCE OF RECURRENCE RECOMMEND ANNUAL FSE Neoplasm o f uncertain behavior of skin 31896095 D48.5 SK VS SKIN TAG - BENIGN APPEARANCE , PT REASSURED Inflamed s eborrheic keratosis 712344319 L82.0 CRYO x1 RISKS OF CRYO SURGERY DISCUSSED; POST OP CARE INSTRUCTIO NS PROVIDED. VERBAL CONSENT TO TREAT GIVEN BY PATIENT. RECHECK IF PERSISTING AFTER TREATMENT. Actinic keratosis 007 L57.0 CRYO x1 RISKS OF CRYO SURGERY DISCUSSED; POST OP CARE INSTRUCTIO NS PROVIDED. VERBAL CONSENT TO TREAT GIVEN BY PATIENT. RECHECK IF PERSISTING AFTER TREATMENT. 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 SCC if positive KT can treat at visit on 02/21 Squamous c ell carcinoma of skin of lower extremity 823215450 C44.729 left lateral leg shave removal and base destroyed with ED [id number] LETY LYMAN APRN [facility] [address] [place] [address] 02/22/2020 08:15:19 02/22/2020 08:44:01 Solar lentiginosis 428308486 L81.4 BENIGN APPEARANCE , PT REASSURED Hemangioma 713501069 D18 .00 BENIGN APPEARANCE , PT REASSURED Senile hyperkeratosis 39 6837701 L82.1 BENIGN APPEARANCE , PT REASSURED Multiple b enign melanocytic nevi 199747244 D22.9 BENIGN APPEARANCE , PT REASSURED & ADVISED TO RTC WITH ANY CHANGES Generalize d essential telangiectasia 227189856 I78.1 BENIGN APPEARANCE , PT REASSURED History of malignant basal cell neoplasm of skin 111949516 Z85.828 NO EVIDENCE OF RECURRENCE RECOMMEND ANNUAL FSE Inflamed s eborrheic keratosis 326423539 L82.0 CRYO X 2 RISKS OF CRYO SURGERY DISCUSSED; POST OP CARE INSTRUCTIO NS PROVIDED. VERBAL CONSENT TO TREAT GIVEN BY PATIENT. RECHECK IF PERSISTING AFTER TREATMENT. Squamous c ell carcinoma of skin of lower extremity 792298752 C44.729 LEFT LATERAL LEG TREATED EDC X 3 SEE PROCEDURE NOTE WOUND CARE GIVEN RECHECK 3 MONTHS History of squamous cell carcinoma of skin 667194712 Z85.828 NO EVIDENCE OF RECURRENCE RECOMMEND ANNUAL FSE Skin tag 138612095 L91.8 BENIGN APPEARANCE , PT REASSURED Onycholysis 02232631 L60 .1 BENIGN APPEARANCE [id number] [facility] [address] [place] [address] 05/23/2020 09:15:30 05/23/2020 09:46:25 History of squamous cell carcinoma in situ 8681738152 9105 Z86.008 NO EVIDENCE OF REOCCURREN CE RECOMMEND ANNUAL FSE Actinic keratosis 778273 007 L57.0 CRYO x1 RISKS OF CRYO SURGERY DISCUSSED; POST OP CARE INSTRUCTIO NS PROVIDED. VERBAL CONSENT TO TREAT GIVEN BY PATIENT. RECHECK IF PERSISTING AFTER TREATMENT. [id number] [facility] [address] [place] [address] 02/21/2021 08:13:52 02/21/2021 09:11:35 Solar lentiginosis 896339178 L81.4 BENIGN APPEARANCE ,RECOMMEND SUN PROTECTIVE CLOTHING AND EQUATE SPORT SUNSCREEN AND CERAVE AM SUNSCREEN LOTION OTC DAILY. Hemangioma 175407015 D18 .00 BENIGN APPEARANCE , PT REASSURED Senile hyperkeratosis 39 4516811 L82.1 BENIGN APPEARANCE , PT REASSURED Multiple b enign melanocytic nevi 879062317 D22.9 BENIGN APPEARANCE , PT REASSURED & ADVISED TO RTC WITH ANY CHANGES Generalize d essential telangiectasia 221668009 I78.1 BENIGN APPEARANCE , PT REASSURED History of malignant basal cell neoplasm of skin 963905434 Z85.828 NO EVIDENCE OF RECURRENCE RECOMMEND ANNUAL FSE History of squamous cell carcinoma of skin 790905903 Z85.828 NO EVIDENCE OF RECURRENCE RECOMMEND ANNUAL FSE Skin tag 700164433 L91.8 BENIGN APPEARANCE , PT REASSURED Inflamed s eborrheic keratosis 598710884 L82.0 CRYO X 1 RISKS OF CRYO SURGERY DISCUSSED; POST OP CARE INSTRUCTIO NS PROVIDED. VERBAL CONSENT TO TREAT GIVEN BY PATIENT. RECHECK IF PERSISTING AFTER TREATMENT. [id number] [facility] [address] [place] [address] 06/27/2021 08:50:05 06/27/2021 09:39:49 Multiple skin tags 950693440 L91.8 SCISSORED OFF X 2RISKS OF REMOVAL DISCUSSED; POST OP CARE INSTRUCTIO NS PROVIDED. VERBAL CONSENT TO TREAT GIVEN BY PATIENT. RECHECK IF PERSISTING AFTER TREATMENT. Raised shreya orrheic keratosis 5449595438 09295 L82.1 BENIGN APPEARANCE , PT REASSURED Actinic keratosis 795033 007 L57.0 CRYO X 1 RISKS OF CRYO SURGERY DISCUSSED; POST OP CARE INSTRUCTIO NS PROVIDED. VERBAL CONSENT TO TREAT GIVEN BY PATIENT. RECHECK IF PERSISTING AFTER TREATMENT. 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 VERBAL CONSENT TO TREAT GIVEN BY PATIENT. RECHECK IF PERSISTING AFTER TREATMENT. [id number] [facility] [address] [place] [address] 02/27/2022 08:26:56 02/27/2022 09:14:16 Solar lentiginosis 943607921 L81.4 BENIGN APPEARANCE ,RECOMMEND SUN PROTECTIVE CLOTHING AND EQUATE SPORT SUNSCREEN AND CERAVE AM SUNSCREEN LOTION OTC DAILY. Hemangioma 065625043 D18 .00 BENIGN APPEARANCE , PT REASSURED Senile hyperkeratosis 39 6248803 L82.1 BENIGN APPEARANCE , PT REASSURED Multiple b enign melanocytic nevi 151885998 D22.9 BENIGN APPEARANCE , PT REASSURED & ADVISED TO RTC WITH ANY CHANGES Generalize d essential telangiectasia 549426118 I78.1 BENIGN APPEARANCE , PT REASSURED History of malignant basal cell neoplasm of skin 295635021 Z85.828 NO EVIDENCE OF RECURRENCE RECOMMEND ANNUAL FSE History of squamous cell carcinoma of skin 970142778 Z85.828 NO EVIDENCE OF RECURRENCE RECOMMEND ANNUAL FSE Inflamed s eborrheic keratosis 166522500 L82.0 CRYO X 8 RISKS OF CRYO SURGERY DISCUSSED; POST OP CARE INSTRUCTIO NS PROVIDED. VERBAL CONSENT TO TREAT GIVEN BY PATIENT. RECHECK IF PERSISTING AFTER TREATMENT. [id number] [facility] [address] [place] [address] 02/26/2023 09:54:59 02/26/2023 10:54:11 Solar lentiginosis 947183164 L81.4 BENIGN APPEARANCE ,RECOMMEND SUN PROTECTIVE CLOTHING AND EQUATE SPORT SUNSCREEN AND CERAVE AM SUNSCREEN LOTION OTC DAILY. Hemangioma 781569783 D18 .00 BENIGN APPEARANCE , PT REASSURED Multiple b enign melanocytic nevi 464739003 D22.9 BENIGN APPEARANCE , PT REASSURED & ADVISED TO RTC WITH ANY CHANGES Generalize d essential telangiectasia 159222220 I78.1 BENIGN APPEARANCE , PT REASSURED History of malignant basal cell neoplasm of skin 851145285 Z85.828 NO EVIDENCE OF RECURRENCE RECOMMEND ANNUAL FSE History of squamous cell carcinoma of skin 668502328 Z85.828 NO EVIDENCE OF RECURRENCE RECOMMEND ANNUAL FSE Raised shreya orrheic keratosis 6005030755 54176 L82.1 BENIGN APPEARANCE , PT REASSURED Post-infla mmatory hyperpigmentation 285863753 L81.0 WAS A DARK PURPURA FADED TO THIS BENIGN APPEARANCE , SHOULD CONTINUE TO FADE Seborrheic dermatitis 50 803617 L21.9 MILD FLARE DISCUSSED TX OPTIONS DEFERS [place] TODAYRECOM MEND OTC HEAD AND SHOULDERS SHAMPOO Actinic keratosis 945400 007 L57.0 CRYO X 2 RISKS OF CRYO SURGERY DISCUSSED; POST OP CARE INSTRUCTIO NS PROVIDED. VERBAL CONSENT TO TREAT GIVEN BY PATIENT. RECHECK IF PERSISTING AFTER TREATMENT. RECOMMEND ANNUAL FSE [id number] [facility] [address] [place] [address] 03/03/2024 09:48:27 03/03/2024 10:22:49 Solar lentiginosis 676791964 L81.4 BENIGN APPEARANCE ,RECOMMEND SUN PROTECTIVE CLOTHING AND EQUATE SPORT SUNSCREEN AND CERAVE AM SUNSCREEN LOTION OTC DAILY. Hemangioma 808762597 D18 .00 BENIGN APPEARANCE , PT REASSURED Raised shreya orrheic keratosis 6246640467 58973 L82.1 BENIGN APPEARANCE , PT REASSURED Multiple b enign melanocytic nevi 297260121 D22.9 BENIGN APPEARANCE , PT REASSURED & ADVISED TO RTC WITH ANY CHANGES Generalize d essential telangiectasia 567409718 I78.1 BENIGN APPEARANCE , PT REASSURED History of malignant basal cell neoplasm of skin 457534132 Z85.828 NO EVIDENCE OF RECURRENCE RECOMMEND ANNUAL FSE History of squamous cell carcinoma of skin 142431612 Z85.828 NO EVIDENCE OF RECURRENCE RECOMMEND ANNUAL FSE Seborrheic dermatitis 50 296532 L21.9 MILD FLARE DISCUSSED TX OPTIONS DEFERS TX TODAYPT IS USING OTC HEAD AND SHOULDERS SHAMPOO AND IS CONTROLLED Neoplasm o f uncertain behavior of skin 84532958 D48.5 R/O BCC LOCATION: R POSTERIOR SHOULDER GEL FOAM/PRESS URE BANDAGE SHAVE BX TAKEN TODAY SEE PROCEDURE NOTE CONSENT SIGNED WOUND CARE INSTRUCTKWADWO URIAS PROVIDED PHOTO TAKEN FOLLOW UP PER PATH History of actinic keratosis 9414004245 104 Z87.2 CLEAR TODAY RECOMMEND ANNUAL FSE Multiple skin tags 96761 7009 L91.8 BENIGN APPEARANCE , PT REASSURED [id number] LETY LYMAN APRN [facility] [address] 03/10/2024 10:52:19 03/10/2024 11:12:10 Basal cell carcinoma of skin 446777602 C44.91 BX PROVEN BCCLOCATIO N: R POSTERIOR SHOULDERED &C X3GEL FOAM/PRESS URE BANDAGESEE PROCEDURE NOTECONSEN T SIGNEDWOUN D CARE INSTRUCTKWADWO URIAS PROVIDEDFO LLOW UP 3-4 MONTHS [id number] LETY LYMAN APRN [facility] [address] [place] [address] 06/01/2024 10:48:36 06/01/2024 11:26:12 History of malignant basal cell neoplasm of skin 406357370 Z85.828 NO EVIDENCE OF RECURRENCE RECOMMEND ANNUAL FSE Health Concerns Section Related Observation LastModified by Organization Detai ls LastModified Time None Recorded Concern Status LastModified by Organization Details LastModified Time None Recorded Advance Directives Directive None Recorded Payers Insurance Date Sequence Insurance Name Policy Number Policy Holm Covered Member ID Holm Member ID Guarantor Name 06/07/2024 1 [facility] [facility]/A DVANTAGE - PPO) [id number] Jessica Borrego [id number] Jessica Zaragozagoldyuzma Notes Date Note Type Note Provider Name and Address Organization Details Recorded Time 02/27/2022 text/html ESTABLISHED PATIENT HX OF BCC, SCC 1) DESIRES AREAS ALL OVER BODY CHECKED 2) PT C/O LESION ON L MEDIAL THIGH X YEARS. NO TX Denies any other new, changing, or bleeding lesions, or other rashes. Patient feels well today and in a good mood. No family history of melanoma. LETY LYMAN APRN [address] [place], [address], [facility] 02/27/2022 09:05:04 02/26/2023 text/html ESTABLISHED PATIENT HX OF BCC, SCC 1) DESIRES AREAS ALL OVER BODY CHECKED 2) PT C/O LESION ON RIGHT UPPER ARM X MONTHS. PT STATES IT IS A BRUISE THAT DID NOT GO AWAY 3) PT C/O LESION ON BACK X 3 WEEKS (+)SCABBED. NO TX Denies any other new, changing, or bleeding lesions, or other rashes. Patient feels well today and in a good mood. No family history of melanoma. LETY LYMAN APRN [address] [place], [address], [facility] 02/26/2023 10:37:38 03/03/2024 text/html ESTABLISHED PATIENT HX OF BCC, SCC 1) DESIRES AREAS ALL OVER BODY CHECKED 2) PT C/O LESION ON R SHOULDER Denies any other new, changing, or bleeding lesions, or other rashes. Patient feels well today and in a good mood. No family history of melanoma. LETY LYMAN APRN [address] [place], [address], [facility] 03/03/2024 10:25:27 03/10/2024 text/html ESTABLISHED PT 1) PT IS HERE FOR AN EDC X3 BX PROVEN BCC ON R POSTERIOR SHOULDER Denies any other new, changing, or bleeding lesions, or other rashes. Patient feels well today and in a good mood. No family history of melanoma. LETY LYMAN APRN [address] [place], [address], [facility] 03/10/2024 11:11:58 06/01/2024 text/html ESTABLISHED PT - HX BCC 1) PT IS HERE FOR 3 MO F/U ON ED&C SITE ON R POSTERIOR SHOULDER Denies any other new, changing, or bleeding lesions, or other rashes. Patient feels well today and in a good mood. No family history of melanoma. LETY LYMAN, DIRECTOR OF TRAINING [address] [place], [address], [facility] 06/01/2024 11:22:40 OBGyn Episode No OBEpisode recorded.
--- OUTSIDE RECORDS SUMMARY | 2025-01-01 13:07 | XMS_ITS | Data Portability ---
Author Organization [facility] & [place] [facility] ADMIN Address [address] [place] [id number] Care Team Providers Care Director Speech Language Name Role Phone MARCO A VAZQUEZ Primary Care Provider Assessment Encounter Date Assessment Date Assessment LastModified by Organization Details LastModified Time 02/06/2024 02/06/2024 Assessment: 1) Back pain 2)neurogenic cough Plan: 1) discussion of back pain, cough, and night sweats 2) take amitryptiline for pain and sleep 3) take methocarbamol for muscle pain 4) ibuprofen for pain as needed 5) follow up as needed; see Dr. Bowman on Sep 4 for vaginal bleeding; urodynamic testing at end of Sep 6) patient understands and agrees with plan of care Not available 02/06/2024 17:38:41 Plan of Treatment Reminders Order Date Submit Date Provider Last Modified By Organization Details Last Modified Time Details Appointments Medicare Annual Wellness 30min 2024 03:00P M Marco A Vazquez MD Not available Not available Not available Lab None recorded. Referral None recorded. Procedures None recorded. Surgeries None recorded. Imaging XR, chest, 2 view 2023 024 [facility] (Scheduling), [address], [place], [address], 02/04/2024 19:48:10 home sleep study 2023 024 [facility] (Centralized Scheduling), [address], [place], [address], 02/11/2024 09:26:31 Medication Orders atorvasta tin 10 mg tablet 2024 025 [facility], [address] [place], [place] [address], [id number], 11/05/2024 14:47:28 levothyro xine 75 mcg tablet 2024 025 [facility], [address] [place] [address] [place], [id number], 11/05/2024 14:47:27 venlafaxi ne ER 150 mg capsule,e xtended release 24 hr 2024 025 [facility], [address] [place] [address] [place], [id number], 11/05/2024 14:47:28 duloxetin e 30 mg capsule,d elayed release [address] [facility], [address] [place] [address] [place], [id number], 11/05/2024 13:32:11 amitripty line 10 mg tablet 2023 024 [email or web address] [facility], [address] [place] [address] [place], [id number], 02/06/2024 17:06:53 Patient TargetsNo targets recorded. Patient Instructions Encounter Date Encounter Id Patient Instructions Last Modified By Organization Details Last Modified Time 02/19/2024 [id number] established patient with a chronic problem of moderate complexity which is not improving nor responding to past treatments , now requiring a different prescription medication Not available 02/20/2024 06:58:01 Reason for Referral None Reported. Results Created Date Observation Date Name Description Value Unit Range Abnormal Flag Note LastModifiedBy Organization Detail LastModifiedTime 01/01/20 24 01/03/2024 COMMO N RESPI RATOR Y BACTE RIAL/ VIRAL ADD-O N HEADE R emmett-oliveros virus 0.000 ppm 23.000 - 30.191 normal Not Detec sera Not Available [facility] [address], [place], [address], 01/06/2024 07:08:03 01/01/20 24 01/03/2024 COMMO N covid-19 coronavirus (sars-cov-2) Negati ve normal Not Detec sera Not Available [facility] [address], [place], [address], 01/06/2024 07:08:03 01/01/20 24 01/03/2024 COMMO N enterovirus D68 0.000 ppm 23.000 - 32.117 normal Not Detec sera Not Available [facility] [address], [place], [address], 01/06/2024 07:08:03 01/01/20 24 01/03/2024 COMMO N haemophilus influenzae 0.000 ppm 19.961 - 24.689 normal Not Detec sera Not Available [facility] [address], [place], [address], 01/06/2024 07:08:03 01/01/20 24 01/03/2024 COMMO N human metapneumovi jalyn 0.000 ppm 23.000 - 32.210 normal Not Detec sera Not Available [facility] [address], [place], [address], 01/06/2024 07:08:03 01/01/20 24 01/03/2024 COMMO N influenza virus B 0.000 ppm 23.000 - 30.081 normal Not Detec sera Not Available [facility] [address], [place], [address], 01/06/2024 07:08:03 01/01/20 24 01/03/2024 COMMO N moraxella catarrhalis 0.000 ppm 19.961 - 24.689 normal Not Detec sera Not Available [facility] [address], [place], [address], 01/06/2024 07:08:03 01/01/20 24 01/03/2024 COMMO N mycoplasma pneumoniae 0.000 ppm 19.961 - 24.689 normal Not Detec sera Not Available [facility] [address], [place], [address], 01/06/2024 07:08:03 01/01/20 24 01/03/2024 COMMO N parainfluenz a virus (types 1, 2, 3, 4) 0.000 ppm 23.000 - 31.313 normal Not Detec sera Not Available [facility] [address], [place], [address], 01/06/2024 07:08:03 01/01/20 24 01/03/2024 COMMO N respiratory syncytial virus (rsvb_VI9999 0015_po) 0.000 ppm 23.000 - 31.722 normal Not Detec sera Not Available [facility] [address], [place], [address], 01/06/2024 07:08:03 01/01/20 24 01/03/2024 COMMO N streptococcu s pneumoniae 0.000 ppm 19.961 - 24.689 normal Not Detec sera Not Available [facility] [address], [place], [address], 01/06/2024 07:08:03 01/01/20 24 01/03/2024 COMMO N chlamydia pneumoniae 0.000 ppm 19.961 - 24.689 normal Not Detec sera Not Available [facility] [address], [place], [address], 01/06/2024 07:08:03 01/01/20 24 01/03/2024 COMMO N bordetella pertussis, parapertussi s, bronchisepti ca 0.000 ppm 19.961 - 24.689 normal Not Detec sera Not Available [facility] [address], [place], [address], 01/06/2024 07:08:03 01/01/20 24 01/03/2024 COMMO N coronaviruse s (229E, nl63, hku1, oc43) (g_betacoron avirus_1_g_c oronavirus_h ku1) 0.000 ppm 23.000 - 31.416 normal Not Detec sera Not Available [facility] [address], [place], [address], 01/06/2024 07:08:03 01/01/20 24 01/03/2024 COMMO N rhinovirus/e nterovirus (RV_2of2_VI9 9990017_po) 0.000 ppm 23.000 - 32.985 normal Not Detec sera Not Available [facility] [address], [place], [address], 01/06/2024 07:08:03 01/01/20 24 01/03/2024 COMMO N adenovirus (adv_1of2_VI 99990001_po) 0.000 ppm 23.000 - 31.943 normal Not Detec sera Not Available [facility] [address], [place], [address], 01/06/2024 07:08:03 01/02/20 24 01/02/2024 influ nima virus A + B + SARS- CoV-2 (COVI D19) Ag panel , rapid IA, upper respi rator y speci men FLU A negati ve Not Available [facility] [address], [place], [address], 01/01/2024 14:45:50 01/02/20 24 01/02/2024 influ nima virus A + B + SARS- CoV-2 (COVI D19) Ag panel , rapid IA, upper respi rator y speci men FLU B negati ve Not Available [facility] [address], [place], [address], 01/01/2024 14:45:50 01/02/20 24 01/02/2024 influ nima virus A + B + SARS- CoV-2 (COVI D19) Ag panel , rapid IA, upper respi rator y speci men SARS COV + SARS OV 2 negati ve Not Available [facility] [address], [place], [address], 01/01/2024 14:45:50 01/23/20 24 01/21/2024 epwor th sleep iness scale * No observ ation record ed. [email or web address] Not Available 01/22 10:08:17 02/04/20 24 02/04/2024 XR, chest , 2 view [facility] [address] [place] [address] Phone: Fax: Name: JESSICA LING Exam Date: 024 : 9[birth year] Age 79 years Gender : F Access ion: [id number] Physic irwin: KAMINI BLANK Facili ty: [facility] Facili ty HSV: Outpat ient Exam: CHEST PA ^ LAT EXAM DESCRI PTION: CHEST PA ^ LAT CLINIC AL HISTOR Y: chroni c cough COMPAR MEAGAN: None FINDIN GS: Cardia c silhou ette is within normal limits . There is no focal parenc hymal or pleura l diseas e. There is no acute bone abnorm ality. IMPRES EMERALD: No eviden ce of acute cardio pulmon michelle proces s. Electr onical ly signed by: Kade Martell MD 2023 07:41 PM EDT RP Workst ation: [id number] Dictat ed By: Kade Martell Transc ribed By: Transc ribed On: 12:29 PM Electr onical ly signed by: Kade Martell Thank you for referr JESSICA Hernandez to [facility]. Legall y authen ticate d by ANGELICA CLEMENTS MD 2023-0 02-03 12:29: 32 CC'ed Logic: Orderi ng Provid er: ROSAMARIA LYNN CC Provid er: DEANDRA Downey Attend ing Provid er: ROSAMARIA LYNN Referr ing Provid er: ROSAMARIA LYNN Admitt ing Provid er: ROSAMARIA LYNN gflorence [facility] (Radiology) [address] [place] [address] [place], [address], 02/05/2024 11:51:40 02/06/20 24 02/04/2024 home sleep study No observ ation record ed. [email or web address] Not Available 02/05 16:38:39 Result Notes Documentation Provider Name and Address Organization Details Recorded Time Xr, Chest, 2 View : [address] [place] [address] Name: JESSICA PAUL Exam Date: 02/04/2024 : 1945 Age 79 years Gender: F Physician: KAMINI BLANK Facility: [facility] Facility HSV: Outpatient Exam: CHEST PA ^ LAT EXAM DESCRIPTION: CHEST PA ^ LAT CLINICAL HISTORY: chronic cough COMPARISON: None FINDINGS: Cardiac silhouette is within normal limits. There is no focal parenchymal or pleural disease. There is no acute bone abnormality. IMPRESSION: No evidence of acute cardiopulmonary process. Electronically signed by: Kade Martell MD 02/04/2024 07:41 PM EDT RP Dictated By: Kade Martell Transcribed By: Transcribed On: 02/04/2024 12:29 PM Electronically signed by: Kade Martell 02/04/2024 Thank you for referring SUE PAULH to [facility]. 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 Lanie [place] null, [place] - [facility] [place] & [place] 4 10:07:31 Abnormal vaginal bleeding 644929961 Active 2023 Lanie [place] null, [place] [facility] & [place] 4 10:08:41 Otitis externa 5770666 Active 2023 Lanie [place] null, [place] [facility] & [place] 4 10:09:01 Persistent cough 968493051 Active 2023 Lanie [place] null, [place] - [facility] & [place] 4 16:55:16 Hyperlipidemi a 04568923 Active 2023 Lanie [place] null, [place] - [facility] & [place] 4 16:51:54 Problem Notes Documentation Provider Name and Address Organization Details Recorded Time Head Chef Consult Note : [facility] [address] [address]VVDWSYJXN, Ruth A (id #[id number], : 1945) SHELBYLeadjini WiddleOFavim [address], [facility] [place] [address] Encounter Summary - Progress Note Date Printed: 02/04/2024 Documents sent via fax will include the followingmessage: This fax may contain sensitive and confidential personal health information that is being sent for the sole use of the intended recipient. Unintended recipients are directed to securely destroy any materials received. You are hereby notified that the unauthorized disclosure or other unlawful use of this fax or any personal health information is prohibited. To the extent patient information contained in this fax is subject to 42 CFR Part 2, this regulation prohibits unauthorized disclosure of these records. If you received this fax in error, please visit [email or web address] to notify the sender and confirm that the information will be destroyed. If you do not have internet access, please call to notify the sender and confirm that the information will be destroyed. Thank you for your attention and cooperation. [ID:[id number]] Patient Jessica Paul (79yo, F) #[id number] 1945 Patient Demographics: Address [address] [place] [id number] Work Phone Encounter Notes: Encounter Reason/Date cough, new patient 02/04/2024 - 11:00AM - [facility] [id number] History of Present Illness02/04/24- 79 yo female is in the office today for chronic cough that has been present for 6-8 weeks after having an upper respiratory infection. Patient has been on Prednisone, Sukhdeep's 44, and Tessalon pearls, nasal Saline spray and Flonase with no improvement. She was given Amitriptyline but she has not taken it because of the side affects. She has been tested for Covid and Flu and they were negative. Patient has never been a smoker. She has not had any imaging. Patient does not have any trouble swallowing. Patient describes the cough as dry; non-productive. She has not had a chest xray. She has a history of TIA, anal cancer w/chemo/radiation. Mentions she just had a homes sleep study and is awaiting those results. Review of Systems Patient reportscoughbut reports no wheezing, no shortness of breath with rest, no shortness of breath on exertion, no hemoptysis, no sleep apnea, no sputum production, and no stridor. She reports no chills, no fever, no night sweats, no unintended weight gain, no unintended weight loss, no exercise intolerance, no pain, and no fatigue. She reports no dry eyes, no irritation, no vision change, no discharge, and no erythema. She reports no difficulty hearing, no ear pain, no vertigo, no tinnitus, no ear pressure, no drainage/discharge, and no popping. She reports no frequent nosebleeds, no nasal congestion, no rhinorrhea, no sinus pressure, no blockage/obstruction, and no post nasal drip. She reports no sore throat, no bleeding gums, no snoring, no dry mouth, no oral abnormalities, no mouth ulcers, no teeth abnormalities, no mouth breathing, no loss of taste, no enlarged tonsils, no voice change, no hoarseness, and no difficulty swallowing. She reports no chest pain, no arm pain on exertion, no shortness of breath when walking, no shortness of breath when lying down, no shortness of breath that awakens from sleep, no palpitations, no known heart murmur, no lightheadedness, and no lower extremity swelling. She reports no abdominal pain, no vomiting, no nausea, normal appetite, no black or tarry stools, no bloody stools, no diarrhea, no constipation, no hematemesis, no dyspepsia, no GERD, no abdominal swelling, and no jaundice. She reports no loss of consciousness, no weakness, no numbness, no seizures, no dizziness, no fainting, no frequent headaches, no balance disturbances, no migraines, no restless legs, and normal gait. She reports no depression, no anxiety, no sleep difficulties, and no difficulty concentrating. She reports no swollen glands, no abnormal bruising, no bleeding problems, and no anemia. She reports no sneezing, no runny nose, no sinus pressure, no itching, and no hives. Vitals Ht: 5 ft 2 in Jakolshw39/21/2024 10:56 am Wt: 128.2 lbs With ecjwour1602/04/2024 11:02 am BMI: 23.408 11:02 am T: 97.8 F ear02/04/2024 11:02 am Results/InterpretationsNone recorded Physical ExamConstitutional:General Appearance: healthy-appearing, well-nourished, well groomed, and in no acute distress. Communication: normal communication w/o aids and voice quality. Head/Face:Inspection: no masses, lesions, or scarring and atraumatic. Facial strength: normal strength and symmetry and no synkinesis or facial tic. Sinuses: no tenderness. Salivary glands: no tenderness of the parotid glands or the submandibular glands and no parotid masses or submandibular masses. Inspection of the TMJ: symmetric opening and no popping with motion. Palpation of the TMJ: non-tender and no crepitus. Eyes:Pupils: PERRLA, EOM intact, and conjunctiva non-injected. Ears:Right Hearing: Rinne AC>BC and [place] midline. Left Hearing: Rinne AC>BC and [place] midline. Right External ear: normally formed and free of lesions. Left External ear: normally formed and free of lesions. Right External auditory canal: no obstruction, erythema, or discharge and normal appearance. Left External auditory canal: no obstruction, erythema, or discharge and normal appearance. Right Tympanic membrane: mobile with pneumatic otoscopy, pearly livingston, and landmarks clear. Left Tympanic membrane: mobile with pneumatic otoscopy, pearly [place], and landmarks clear. Nose:Nasal Skin: no lesions, lacerations, or scars. Nasal Dorsum: symmetric with no visible or palpable deformities. Nasal tip: normal symmetric nasal tip and nasal valves. Nasal Mucosa: normal and pink and moist. Septum: not markedly deformed. Turbinates: normal size and confrontation. Polyps: none. Oral Cavity/Mouth:Lips, teeth, gums: normal lips, gums, and dentition. Oral Mucosa: normal, moist, and no lesions. Palate: normal hard palate and soft palate. Tongue: no lesions or edema and normal tongue. Tonsils: normal tonsils and no lesions. Posterior pharynx: normal. Hypopharynx: normal hypopharynx, tongue base, and pyriform sinus. Larynx: normal epiglottis, false vocal cords, true vocal cords, and glottic mobility. Nasopharynx: normal adenoids and eustachian tubes and normal and choanae patent. Neck:Neck: symmetrical and trachea midline. Thyroid: no enlargement, tenderness, or nodules and symmetric. Respiratory:Inspection/Ausc ultation: no wheezing, rales/crackles, rhonchi, or stridor and good air movement, chest expands symmetrically, clear bilaterally, and normal breath sounds. Cardiovascular System:Auscultation: no murmur, rubs, or gallops and regular rate and rhythm. Observation/Palpation of peripheral vascular system: no varicosities or edema and carotid pulse normal. Lymph Nodes:Cervical: no palpable lymph node enlargement, submandibular adenopathy, posterior cervical adenopathy, anterior cervical adenopathy, or supraclavicular adenopathy. Axillary: no palpable lymph node enlargement. Neurological System:Orientation: oriented to time, place, and person. Mood and affect: normal mood and affect. Cranial Nerves: Cranial Nerves II-XII intact. Cerebellar: normal gait and finger-nose pointing and negative romberg's sign. Vestibulocular: no nystagmus or nystagmus induced from horizontal head shaking test and normal evaluation of positional nystagmus. Some of the information in this note was entered by the CCMA acting as a scribe for the attending physician, Ho Abreu [facility], am scribing for, and in the presence of, Dr. Kamini Blank. The scribe must sign and date this attestation at the time of the service. Ho Gao Assessment and Plan1. Chronic cough-Would like the patient to have a chest xray as she had not had any chest imaging. Explained it is very common to have a post-viral cough that can linger for several months but neurogenic cough is also in the differential. We discussed the amitriptyline and how it could possibly reduce her cough should her cough be neurogenic. It does also have some sedating qualities and could help with her sleep which is why it was prescribed by Dr. Gordillo. Will be in touch with the chest xray results when they are received; can see her back sooner if needed.R05.3: Chronic cough XR, CHEST, 2 VIEW 2. VmzwwymiM47.00: Insomnia, unspecified Return to Office Patient will return to the office as needed Patient Medical History: Allergies List Reviewed Allergies NKDA Medications Reviewed Medications NameDate Source atorvastatin 10 mg tabletTake 1 tablet(s) every day by oral route for 90 days, for hyperlipidemia.01/26/24 filled surescripts estradioL 0.01% (0.1 mg/gram) vaginal cream01/15/24 filled surescripts levothyroxine 75 mcg tabletTake 1 tablet(s) every day by oral route.01/07/24 filled surescripts Low Dose Aspirin 81 mg tablet,delayed releaseTake 1 tablet(s) every day by oral route.11/04/23 entered Lanie Garciason Vitamin D002/04/24 entered Elaine Cam Family HistoryReviewed Family History Past Medical HistoryReviewed Past Medical History Arthritis:Y Thyroid Problems:Y Vaccine HistoryReviewed Vaccines Vaccine Type Date Amt. Route Site [facility] Lot # Mfr. Exp. Date VIS VIS Given Glaze Sprayer COVID-19 COVID-19, mRNA, LNP-S, bivalent, PF, 50 mcg/0.5 mL dose (Moderna) 04/02/22 0.5 mL Intramuscular [id number] [employer] 11/11/22 COVID-19, mRNA, LNP-S, PF, 100 mcg/0.5 mL dose (Moderna) 12/27/21 0.25 mL Intramuscular [id number] [employer] 03/06/22 COVID-19, mRNA, LNP-S, PF, 100 mcg/0.5 mL dose (Moderna) 04/13/21 0.25 mL Intramuscular [id number] [employer] 09/10/21 COVID-19, mRNA, LNP-S, PF, 100 mcg/0.5 mL dose (Moderna) 08/09/20 0.5 mL Intramuscular [id number] [employer] 01/13/21 COVID-19, mRNA, LNP-S, PF, 100 mcg/0.5 mL dose (Moderna) 07/05/20 0.5 mL Intramuscular [id number] [employer] 12/29/20 Diphtheria, Tetanus Td (adult), adsorbed 08/21/96 Influenza influenza, injectable, quadrivalent, preservative free 02/27/23 0.5 mL Intramuscular [id number] Se[employer] 11/14/23 influenza, injectable, quadrivalent, preservative free 03/11/22 0.5 mL Intramuscular [id number] Seqirus 10/13/22 influenza, injectable, quadrivalent, preservative free 03/25/16 0.5 mL Intramuscular [id number] Sanofi Pasteur 12/13/16 influenza, seasonal, injectable, preservative free 03/16/16 Pneumococcal pneumococcal 10/26/15 [id number] 12/13/16 Zoster zoster recombinant 02/18/23 0.5 mL Intramuscular [id number] GlaxoSmithKline 11/20/23 Electronically Signed by: KAMINI BLANK MD Radha Lopezgloria mcpher[place], [place] - [facility] - [place] & [place] 02/05/2024 15:59:32 Procedures Surgical History Date Name Laterality Status Provider Name and Address Organization Details Recorded Time 03/03/20 24 biopsy of lesion of skin completed Melissa Hodges [place] - [facility] - [place] & [place] 11/03/2024 10:22:30 02/04/20 24 Fiberoptic Laryngoscopy completed Ho Fallon [place] - [facility] - [place] & [place] 02/04/2024 11:28:09 08/22/19 24 Date of Last Pap Smear completed Lanie SHAW - [facility] - [place] & [place] 01/01/2024 14:45:20 04/23/20 23 completed Lanie [place]ogg [place] - [facility] - [place] & [place] 01/01/2024 14:45:20 06/16/19 23 open reduction of fracture of femur completed Lanie [place] - [facility] [place] & [place] 11/04/2023 10:09:50 06/16/19 23 Hip Surgery completed Lanie SHAW - [facility] - [place] & [place] 01/01/2024 14:45:21 02/19/20 22 Most Recent Bone Density completed Lanie [place] - [facility] - [place] & [place] 01/01/2024 14:45:20 02/15/20 21 Flexible Sigmoidoscopy completed Melissa Hodges [place] - [facility] - [place] & [place] 11/03/2024 10:29:41 08/24/19 21 Date of Last Colonoscopy completed Lanie SHAW - [facility] - [place] & [place] 01/01/2024 14:45:20 08/24/19 21 Colonoscopy completed Melissa Hodges [place] - [facility] [place] & [place] 11/03/2024 10:24:06 08/15/19 21 radiofrequency ablation of lesion of heart completed Melissa [place]amer [place] - [facility] [place] & [place] 11/03/2024 10:29:03 08/15/19 21 operation on rectum and perirectal tissue completed Melissa [place]amer [place] - [facility] [place] & [place] 11/03/2024 10:30:31 02/15/20 18 operation on vagina completed Melissa [place] - [facility] [place] & [place] 11/03/2024 10:29:59 06/16/19 17 Radiation Therapy completed Elaine Cam [place] - [facility] [place] & [place] 02/04/2024 11:04:51 06/16/19 08 Breast Biopsy completed Melissa [place] [facility] [place] & [place] 11/03/2024 10:23:15 06/16/19 03 Cholecystectomy completed Melissa [place] [facility] [place] & [place] 11/03/2024 10:19:00 06/16/18 96 Hysterectomy completed Melissa [place] [facility] [place] & [place] 11/03/2024 10:23:31 06/16/18 87 dilation and curettage of uterus completed Melissa [place] [facility] [place] & [place] 11/03/2024 10:29:27 operation on colon completed Meljean-paul cordova [place] - [facility] - [place] & [place] 11/03/2024 10:19:25 destruction of lesion completed Melissa [place]amer [place] [facility] [place] & [place] 11/03/2024 10:22:52 Imaging Results None recorded. Procedure Notes None recorded. Medical Equipment None Reported. Allergies No known drug allergies Medications Name Sig Start Date Stop Date Status Note LastModified by Organization Details LastModified Time Miralax 17 gram oral powder packet Take by oral route. active Not Available Not Available No t Available amoxicillin 500 mg capsule 12/30 completed Not Available Not Available Not Available methocarbam ol 500 mg tablet 11/05 completed Not Available Not Available Not Available loperamide 2 mg capsule 11/05 completed Not Available Not Available Not Available atorvastati n 10 mg tablet TAKE 1 TABLET BY MOUTH ONCE A DAY active Not Available Not Available No t Available benzonatate 200 mg capsule Take 1 capsule 3 times a day by oral route as directed, for cough. 02/03 completed Not Available Not Available Not Available hydrocodone 5 mg-acetamin ophen 325 mg tablet TAKE 1 TABLET BY MOUTH EVERY 6 HOURS NEEDED FOR PAIN active Not Available Not Available No t Available ondansetron HCl 8 mg tablet active Not Available Not Available Not Available ondansetron HCl 4 mg tablet 11/05 completed Not Available Not Available Not Available prednisone 20 mg tablet 01/31 completed Not Available Not Available Not Available venlafaxine ER 150 mg capsule,ext ended release 24 hr TAKE 1 CAPSULE BY MOUTH EVERY MORNING active Not Available Not Available No t Available prochlorper azine maleate 10 mg tablet 11/05 completed Not Available Not Available Not Available tramadol 50 mg tablet 11/05 completed Not Available Not Available Not Available levothyroxi ne 75 mcg tablet TAKE 1 TABLET BY MOUTH ONCE A DAY active Not Available Not Available No t Available dronabinol 2.5 mg capsule 11/05 completed Not Available Not Available Not Available amitriptyli ne 10 mg tablet Take 1 tablet every day by oral route. 02/03 completed Not Available Not Available Not Available conjugated estrogens 0.625 mg/gram vaginal cream 0.5 applicato rsful 3 times a week by vaginal route. 12/30 completed Not Available Not Available Not Available gabapentin 300 mg capsule Take 1 capsule 3 times a day by oral route. active Not Available Not Available No t Available gabapentin 100 mg capsule 11/05 completed Not Available Not Available Not Available polyethylen e glycol 3350 17 gram/dose oral powder 11/05 completed Not Available Not Available Not Available estradiol 0.01% (0.1 mg/gram) vaginal cream 11/05 completed Not Available Not Available Not Available oxycodone 5 mg tablet active Not Available Not Available No t Available Low Dose Aspirin 81 mg tablet,siri yed release Take 1 tablet every day by oral route. active Not Available Not Available No t Available midodrine 10 mg tablet Take 1 tablet 3 times a day by oral route. active Not Available Not Available No t Available Senna Plus 8.6 mg-50 mg tablet 11/05 completed Not Available Not Available Not Available duloxetine 30 mg capsule,del ayed release Take 1 capsule every day by oral route as directed. 11/05 completed Not Available Not Available Not Available calcium 500 mg (as carbonate)- vit D3 10 mcg (400 unit) chewable tablet Take 1 tablet every day by oral route. 11/03 completed Not Available Not Available Not Available acetaminoph en active Not Available Not Available Not Available Vitamin D 11/05 completed Not Available Not Available Not Available levocetiriz ine 5 mg tablet 01/31 completed Not Available Not Available Not Available Flonase Allergy Relief 50 mcg/actuati on nasal spray,suspe nsion 2 sprays as needed by nasal route. 12/30 completed Not Available Not Available Not Available Narcan 4 mg/actuatio n nasal spray Take by nasal route. active Not Available Not Available No t Available Vitals Date Recorded Body height Body mass index (BMI) Body weight Body temperature Oxygen saturation Oxygen saturation in Arterial blood by Pulse oximetry Heart rate Systolic And Diastolic Provider Name and Address Organization Details Last Updated DateTime 5 157.48 cm 20.5 kg/m2 81762.3 6 g 97.5 [degF] 92 % 92 % 70 /min 100/62 mm[Hg] Jessica Melvin [facility] & [place] 5 13:14:21 Date Recorded Body height Body mass index (BMI) Body weight Body temperature Heart rate Oxygen saturation Oxygen saturation in Arterial blood by Pulse oximetry Provider Name and Address Organization Details Last Updated DateTime 4 157.48 cm 23.7 kg/m2 76157.5 7 g 98 [degF] 82 /min 98 % 98 % Anna Wells [facility] & [place] 4 15:49:00 Date Recorded Body height Body mass index (BMI) Body weight Body temperature Provider Name and Address Organization Details Last Updated DateTime 02/04/2024 157.48 cm 23.4 kg/m2 16811.54 g 97.8 [degF] Elaine Cam [facility] & [place] 02/04/2024 11:02:40 Date Recorded Body height Body mass index (BMI) Body weight Oxygen saturation Oxygen saturation in Arterial blood by Pulse oximetry Heart rate Body temperature Systolic And Diastolic Provider Name and Address Organization Details Last Updated DateTime 4 157.48 cm 23.2 kg/m2 96982.2 3 g 99 % 99 % 71 /min 97.7 [degF] 100/55 mm[Hg] Lanie Kellogg [facility] & [place] 17:05:02 Date Recorded Body height Body mass index (BMI) Body weight Body temperature Oxygen saturation Oxygen saturation in Arterial blood by Pulse oximetry Heart rate Systolic And Diastolic Provider Name and Address Organization Details Last Updated DateTime 4 157.48 cm 23.4 kg/m2 13016.8 2 g 98.4 [degF] 99 % 99 % 71 /min 100/48 mm[Hg] Marco A Vazquez MD [address] [facility], [place], [address] [place] [address] & [place] 15:56:40 Social History Question Answer Notes LastModified by [employer] ion Details LastModified Time Tobacco Smoking Status Never Smoker Lanieben Kellogg [facility] & [place] 11/04/2023 10:09:38 Do You Have An Advance Directive? No [email or web address] Information not available 01/01/2024 Are You Blind Or Do You Have Difficulty Seeing? No [email or web address] Information not available 01/01/2024 What Is Your Level Of Caffeine Consumption? Heavy Cut It Back [email or web address] Information not available 11/04/2023 What Was The Date Of Your Most Recent Tobacco Screening? 12/08/2023 [email or web address] Information not available 01/01/2024 Are You Passively Exposed To Smoke? No Information not available 01/01/2024 Has Tobacco Cessation Counseling Been Provided? No [email or web address] Information not available 11/04/2023 Sex: Female Functional Status Question Answer Note LastModified by Organizat ion Details LastModified Time Do you use any illicit or recreational drugs? No Information not available 11/04/2023 Do you or have you ever used any other forms of tobacco or nicotine? No [email or web address] Information not available 11/04/2023 What is your level of alcohol consumption? Occasional [email or web address] Information not available 11/04/2023 What is your exercise level? Moderate Information not available 01/01/2024 Mental Status Question Answer Note LastModified by Organization D etails LastModified Time Do you feel stressed (tense, restless, nervous, or anxious, or unable to sleep at night)? [id number] [email or web address] Information not available 01/01/2024 Family History Relationship Description Onset Age of this Age Resolved Age Notes LastModified by Organization Details LastModified Time Father Heart disease anesth esia proble ms, [email or web address] Not available 11/03/2024 10:21:32 Father Malignant neoplasm of lung [email or web address] Not available 11/05 12:55:54 Father Malignant neoplasm of prostate [email or web address] Not available 11/05 12:55:54 Medical History Condition Response Allergies/Hayfever Y Heart Problems Osteoporosis/Osteopenia Y Other Y Anemia Y Arthritis Y High Cholesterol Y Cancer Y Thyroid Problems Y Stroke Y Hypothyroidism Y Gynecological History Statement/Question Response Abnormal Pap Y Date of Last Colonoscopy 08/23/2020 04/23/2023 Most Recent Bone Density 02/18/2022 Sexually Active? Y Date of Last Pap Smear 08/22/2023 Current Control Method Menopause Obstetrics History GPAL:G 2 P 2 0 0 2 Type Value Full Term 2 Living 2 Total 2 Immunizations Vaccine Type Date Status Note Provider Nam e and Address Organization Details Recorded Time zoster recombinant 3 completed Lara [place]cpherson, [place] - [facility] & [place] 02/20/2024 21:22:29 COVID-19, mRNA, LNP-S, PF, 100 mcg/0.5mL dose or 50 mcg/0.25mL dose 1 completed Lara Calzada null, [place] - [facility] & [place] 02/20/2024 21:22:29 COVID-19, mRNA, LNP-S, PF, 100 mcg/0.5mL dose or 50 mcg/0.25mL dose 1 completed Lara Calzada null, [place] [facility] & [place] 02/20/2024 21:22:29 COVID-19, mRNA, LNP-S, PF, 100 mcg/0.5mL dose or 50 mcg/0.25mL dose 2 completed Lara mcpherson, [place] - [facility] - [place] & [place] 02/20/2024 21:22:29 COVID-19, mRNA, LNP-S, PF, 100 mcg/0.5mL dose or 50 mcg/0.25mL dose 1 completed Shanjoea Calzada null, [place] - [facility] - [place] & [place] 02/20/2024 21:22:29 COVID-19, mRNA, LNP-S, bivalent, PF, 50 mcg/0.5 mL or 25mcg/0.25 mL dose 2 completed Shanjoea Zheng null, [place] [facility] [place] [facility] [place] 02/20/2024 21:22:29 pneumococcal, unspecified formulation 6 completed Lanieben Kellogg [place], [place] [facility] [place] & [place] 02/06/2024 16:49:04 Influenza, split virus, trivalent, PF 6 completed Lanie Kellogg [place] [facility] [place] [facility] [place] 12/09/2023 11:23:05 Td (adult), 2 Lf tetanus toxoid, preservative free, adsorbed 7 completed Lanieben Kellogg [place] [facility] [place] & [place] 12/09/2023 11:23:05 Influenza, split virus, quadrivalent, PF 3 completed Lara Calzada [place] [facility] [place] & [place] 02/20/2024 21:22:29 Influenza, split virus, quadrivalent, PF 2 completed Ambera Zheng [place] [facility] [place] 02/20/2024 21:22:29 Influenza, split virus, quadrivalent, PF 6 completed Ambera Zheng null, [place] [facility] [place] & [place] 02/20/2024 21:22:29 Past Encounters Encounter ID Performer Location Encounter Start Date Encounter Closed Date Diagnosis/Indication Diagnosis SNOMED-CT Code Diagnosis ICD10 Code Diagnosis Note [id number] MD Jazmin Lee [facility] - [place] [address] [place] [address] 11/04/2023 09:49:55 11/04/2023 11:15:33 Overactive urinary bladder 060472367 N32.[address] Angel Pain of ear 701723809 H9 2.09 Treat with Amoxil and F/U Fatigue 95560251 R53.83 Check labs [id number] Marco A Vazquez MD [address] [place] [address] 12/09/2023 11:02:00 12/09/2023 12:13:34 Cough 99189254 R05.9 I suspect this is allergic in nature. Try xyzal and prednisone and f/u if not improving [id number] Marco A Vazquez MD [address] [place] [address] 01/01/2024 14:27:35 01/01/2024 15:22:58 Persistent cough 185255235 R05.3 swabs for flu and COVID were negative. I am going to send out a health trach to assess for other viruses and especially pertussis. If all negative would consider referral to ENT or pulmonolog y for further evaluation [id number] Pritesh Gordillo MD [address] [place] [address] 01/21/2024 15:42:05 01/21/2024 16:06:15 Hypersomnia 32074409 G47.10 Her history is suspicious for obstructiv e sleep apnea. We will make arrangemen ts for home sleep study testing and titration to auto PAP if she is a candidate. Nocturia 776105704 R35.1 She she could possibly having obstructiv e events and then voiding has a habit of being awake. I have advised her to get her home sleep study testing if this is negative she may be best served by a trial of a low dose of amitriptyl ine to use the urinary retention as a side effect at night. Slowly increase at the discretion of her urologist and primary care provider. If her sleep study suggests obstructiv e sleep apnea then treating the obstructiv e sleep apnea would be the 1st course of action before trial of amitriptyl ine. [id number] Kamini Blank MD [facility] [id number] [facility], [place] [address] 02/04/2024 10:51:14 02/04/2024 11:35:01 Chronic cough 30219754 R05.3 Would like the patient to have a chest xray as she had not had any chest imaging. Explained it is very common to have a post-viral cough that can linger for several months but neurogenic cough is also in the differenti al. We discussed the amitriptyl ine and how it could possibly reduce her cough should her cough be neurogenic . It does also have some sedating qualities and could help with her sleep which is why it was prescribed by Dr. Gordillo. Will be in touch with the chest xray results when they are received; can see her back sooner if needed. Insomnia 700348930 G47.0 0 [id number] Marco A Vazquez MD [address] [place] [address] 02/06/2024 16:34:24 02/06/2024 17:25:23 Pain in pelvis 82717280 R10.2 it appears this is secondary least exacerbate d by her pelvic floor exercises which I have recommende d she discontinu e for the moment. She is obviously concerned that Tylenol taken before bed is making her sweat in the middle of the night so I have asked her to discontinu e that. She is starting on amitriptyl ine which may help with both sleep and pain. She can take this with methocarba mol at bedtime and if needed may also take ibuprofen with it as well up to 800 mg. She is keep her scheduled appointmen t on February [address] Bowman to evaluate the vaginal bleeding as well as [facility] at the end of February for urodynamic testing [id number] Marco A Vazquez MD [facility] [address] [facility] [place] [address] 02/19/2024 15:40:40 02/19/2024 16:37:16 Chronic pain 64868367 G89.29 She is several weeks out from her pelvic floor exercises so any undue stress at that would have caused should have dissipated by now. 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 Meanwhile, given that she is obviously emotionall y distressed about this whole issue, I would like to try her on duloxetine to see if that might improve her anxiety as well as provide some relief for the pain she is having. We will follow up in a month [id number] Marco A Vazquez MD 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 She was seen [address] Sharma, oncologist at [facility] at [facility]. She has follow up appointmen t scheduled next week with Plastic surgery as well as Urology. Health Concerns Section Related Observation LastModified by Organization Detai ls LastModified Time None Recorded Concern Status LastModified by Organization Details LastModified Time None Recorded Advance Directives Directive N: Payers Insurance Date Sequence Insurance Name Policy Number Policy Holm Covered Member ID Holm Member ID Guarantor Name 11/09/2024 1 [facility] (MEDICARE REPLACEMENT/A DVANTAGE - PPO) [id number] Jessica Paul [id number] Jessica Paul Notes Date Note Type Note Provider Name and Address Organization Details Recorded Time 024 text/ht ml She is here for sleep medicine evaluation. Her primary care provider in the clinic as recommended evaluation. She is having issues with snoring and hypersomnia symptoms. She reports she is tired all the time. She has had lab workup which has been unremarkable. Her comments on snoring but no definitive apnea. She reports mild dry mouth in the morning. She is also having issues with nocturia. She reports she awakens frequently and has to go to the bathroom. This is when she is trouble falling back to sleep. She has been seen by Urology and Kegel exercises been the only thing have been recommended to the patient. Her Weldon sleepiness scale is greater than 10/24. Her BMI is less than 30. We spent some time talking about causes and treatment of her symptoms and she is agreeable for home sleep study testing. Pritesh Gordillo MD [address], [place], [address], [facility] 01/21/2024 16:25:00 024 text/ht ml 02/04/24- 79 yo female is in the office today for chronic cough that has been present for 6-8 weeks after having an upper respiratory infection. Patient has been on Prednisone, Sukhdeep's 44, and Tessalon pearls, nasal Saline spray and Flonase with no improvement. She was given Amitriptyline but she has not taken it because of the side affects. She has been tested for Covid and Flu and they were negative. Patient has never been a smoker. She has not had any imaging. Patient does not have any trouble swallowing. Patient describes the cough as dry; non-productive. She has not had a chest xray. She has a history of TIA, anal cancer w/chemo/radiation. Mentions she just had a homes sleep study and is awaiting those results. Kamini Blank MD [address], [place], [address], [facility] & [place] 02/04/2024 13:36:56 024 text/ht ml Patient is 79 year old WF who presents for lower back and pelvic pain. She does regular pelvic floor exercises but says the pain is not improving. She is experiencing post menopausal bleeding. Pt says that she takes tylenol for the pain but wakes up with night sweats that are difficult to tolerate whenever she takes tylenol. PMH:anal cancerhyperlipidemiaabnormal vaginal bleedingpersistent coughosteoporosishypothyroidism Meds:amitriptylinelevothyroxinelow dose aspirinatorvastatin AllergiesNKDA FH:unknown SH:Alc: occasionalTob: never smokerRec drugs: none Marco A Vazquez MD [address], [place], [address], [facility] & [place] 02/08/2024 22:21:20 024 text/ht ml patient presents for follow-up. She states the amitriptyline did not help with the pain in or sleep and only made her groggy and dragging the next day. She has been taking daily Tylenol and ibuprofen but still complaining of pain in her hip and pelvic area. She did see her dial painter who has her scheduled for a CT tomorrow and follow up about 10 days later. Also has urodynamic testing at the end of this month. MD [address], [place], [address], [facility] 02/20/2024 06:58:48 025 text/ht mark Pt presents to clinic after being D/C'd from [facility] on 10/[facility] (5 days ago)after 15 day stay which followed a 45 day stay at . She would complicated surgery performed by 2 different surgeons due to vaginal and anal cancer. She has just been released from the rehab care home. She is supposed to start going to outpatient PT starting next week. She currently has 2 ostomies due to partial resection of colon and rectum and resection of vaginal cuff and bladder. She has follow up appointment scheduled. Medical reconciliation performed by MAGALY and in chart. In need of 3 refills today. MD [address], [place], [address], [facility] 11/08/2024 21:43:08 OBGyn Episode No OBEpisode recorded.
--- OUTSIDE RECORDS SUMMARY | 2025-01-01 13:07 | XMS_ITS | Encounter Summary ---
Author Organization [facility] Address [address] [place] [address] Care Team Providers Care Netting Inspector Name Role Phone Ancelmo Moser MD Primary Care Provider [phone] Diogenes Payne MD Unavailable [phone] Agapito Ariza Unavailable [phone] Aiden Lr MD Unavailable [phone] Graeme Sharma MD Unavailable [phone] Marco A Vazquez MD Primary Care Provider [phone] Encounter Details Date Type Department Care Team (Late st Contact Info) Description 08/01/2016 Abstract [facility] Radiation [address] [facility]. [address] [place] [address] Prema Salinas RN [facility] Social History Tobacco Use Types Packs/Day Years Used Date Smoking Tobacco: Never Assessed Comments Unknown Sex and Gender Information Value Date Recorded Sex Assigned at Not on file Legal Sex Female 8:54 PM EDT Gender Identity Not on file Sexual Orientation Not on file documented as of this encounter Plan of Treatment Upcoming Encounters Date Type Department Care Team (Late Contact Info) Description 02/01/2025 7:00 AM EDT Appointment [facility] Radiology [address] [place] [address] 02/01/2025 9:00 AM EDT Office Visit [facility] [address] [place] [address] Graeme Sharma MD [address] [facility] [address] [place] [address] 02/08/2025 9:15 AM EDT Clinical Support [facility] [address] [place] [address] 02/08/2025 9:20 AM EDT Office Visit [facility] [address] [place] [address] Monica Sanchez MD [address] [facility] Angelina Rothman [facility] [address] [place] [address] 02/08/2025 11:00 AM EDT Appointment [facility] H Infusion [address] [place] [address] 05/16/2025 9:40 AM EST Office Visit [facility] [address] [place] [address] Rahel Bales PA [address] [facility] [address] [place] [address] documented as of this encounter Visit Diagnoses Not on filedocumented in this encounter Care Teams Netting Inspector Relationship Specialty Start Date End Date Ancelmo Moser MD [address] [place] [address] [place] [address] PCP - General 10/27/20 03/21/24 Marco A Vazquez MD [address] [facility] [address] [place] [address] PCP - General 03/22/24 Diogenes Payne MD [address] [facility] [address] [place] [address] Consulting Physician Radiation Therapy 08/27/21 Agapito Ariza PA [address] [place] [address] Physician Parts Cataloger Otolaryngology 03/05/22 Aiden Lr MD [address] [address] Surgeon Otolaryngology 03/05/22 Graeme Sharma MD [address] [place] [address] Referring Physician Colon and Rectal Surgery 08/15/23 documented as of this encounter
--- OUTSIDE RECORDS SUMMARY | 2025-01-01 13:07 | XMS_ITS | Continuity of Care Document ---
Author Organization [facility] Address [address] [place] [address] Care Team Providers Care Supervisor Metal Cans Name Role Phone MARCO A VAZQUEZ Primary Care Provider Assessment No assessment recorded. Plan of Treatment Reminders Order Date Submit Date Provider Last Modified By Organization Details Last Modified Time Details Appointments Medicare Annual Wellness 30min 2024 03:00P Jose Vazquez MD Not available Not available Not available Lab None recorded. Referral None recorded. Procedures None recorded. Surgeries None recorded. Imaging None recorded. Medication Orders atorvasta tin 10 mg tablet 2024 025 [facility], [address] [place] [address], [id number], 11/05/2024 14:47:28 levothyro xine 75 mcg tablet 2024 025 [facility], [address] [place] [address], [id number], 11/05/2024 14:47:27 venlafaxi ne ER 150 mg capsule,e xtended release 24 hr 2024 025 [facility], [address] [place] [address], [id number], 11/05/2024 14:47:28 Patient TargetsNo targets recorded. Patient InstructionsNo instructions recorded. Reason for Referral None Reported. 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 Procedures Surgical History Date Name Laterality Status Provider Name and Address Organization Details Recorded Time 03/03/20 24 biopsy of lesion of skin completed Melissa SHAW - [facility] - [place] & [place] 11/03/2024 10:22:30 02/04/20 24 Fiberoptic Laryngoscopy completed Ho Mitchell [facility] - [place] & [place] 02/04/2024 11:28:09 08/22/19 24 Date of Last Pap Smear completed Lanie SHAW - [facility] - [place] & [place] 01/01/2024 14:45:20 04/23/20 23 completed Lanie SHAW - [facility] - [place] & [place] 01/01/2024 14:45:20 06/16/19 23 open reduction of fracture of femur completed Lanie SHAW - [facility] - [place] & [place] 11/04/2023 10:09:50 06/16/19 23 Hip Surgery completed Lanie Mitchell [facility] - [place] & [place] 01/01/2024 14:45:21 02/19/20 22 Most Recent Bone Density completed Lanie SHAW - [facility] - [place] & [place] 01/01/2024 14:45:20 02/15/20 21 Flexible Sigmoidoscopy completed Melissa Rothamer [place] - [facility] - [place] & [place] 11/03/2024 10:29:41 08/24/19 21 Date of Last Colonoscopy completed Lanie Kellogg [place] - [facility] - [place] & [place] 01/01/2024 14:45:20 08/24/19 21 Colonoscopy completed Melissa Rothamer [place] - [facility] - [place] & [place] 11/03/2024 10:24:06 08/15/19 21 radiofrequency ablation of lesion of heart completed Melissa Rothamer [place] - [facility] - [place] & [place] 11/03/2024 10:29:03 08/15/19 21 operation on rectum and perirectal tissue completed Melissa Rothamer [place] - [facility] - [place] & [place] 11/03/2024 10:30:31 02/15/20 18 operation on vagina completed Melissa Rothamer [place] - [facility] - [place] & [place] 11/03/2024 10:29:59 06/16/19 17 Radiation Therapy completed Elaine Cam [place] - [facility] & [place] 02/04/2024 11:04:51 06/16/19 08 Breast Biopsy completed Melissa Rothamer [place] - [facility] & [place] 11/03/2024 10:23:15 06/16/19 03 Cholecystectomy completed Melissa Rothamer [place] - [facility] - [place] 11/03/2024 10:19:00 06/16/18 96 Hysterectomy completed Melissa Rothamer [place] - [facility] [place] 11/03/2024 10:23:31 06/16/18 87 dilation and curettage of uterus completed Melissa [place]amer [place] - [facility] - [place] & [place] 11/03/2024 10:29:27 operation on colon completed Melind a Rothamer [place] - [facility] - [place] & [place] 11/03/2024 10:19:25 destruction of lesion completed Melissa [place]amer [place] - [facility] - [place] & [place] 11/03/2024 10:22:52 Imaging Results None recorded. Procedure [...] Updated DateTime 5 157.48 cm 20.5 kg/m2 23711.3 6 g 97.5 [degF] 92 % 92 % 70 /min 100/62 mm[Hg] Jessica Melvin [facility] & [place] 13:14:21 Social History Question Answer Notes LastModified by Organizat ion Details LastModified Time Tobacco Smoking Status Never Smoker Lanie mcpherson, [facility] & [place] 11/04/2023 10:09:38 Do You Have An Advance Directive? No [email or web address] Information not available 01/01/2024 Are You Blind Or Do You Have Difficulty Seeing? No Information not available 01/01/2024 What Is Your Level Of Caffeine Consumption? Heavy Cut It Back [email or web address] Information not available 11/04/2023 What Was The Date Of Your Most Recent Tobacco Screening? 12/08/2023 Information not available 01/01/2024 Are You Passively Exposed To Smoke? No [email or web address] Information not available 01/01/2024 Has Tobacco Cessation Counseling Been Provided? No [email or web address] Information not available 11/04/2023 Sex: Female Functional Status Question Answer Note LastModified by Organizat ion Details LastModified Time Do you use any illicit or recreational drugs? No [email or web address] Information not available 11/04/2023 Do you or have you ever used any other forms of tobacco or nicotine? No [email or web address] Information not available 11/04/2023 What is your level of alcohol consumption? Occasional [email or web address] Information not available 11/04/2023 What is your exercise level? Moderate [email or web address] Information not available 01/01/2024 Mental Status Question Answer Note LastModified by Organization D etails LastModified Time Do you feel stressed (tense, restless, nervous, or anxious, or unable to sleep at night)? [id number] [email or web address] Information not available 01/01/2024 Family History Relationship Description Onset Age of this Age Resolved Age Notes LastModified by Organization Details LastModified Time Father Heart disease anesth esia proble ms, [email or web address] Not available 11/03/2024 10:21:32 Father Malignant neoplasm of lung [email or web address] Not available 11/05 12:55:54 Father Malignant neoplasm of prostate [email or web address] Not available 11/05 12:55:54 Medical History Condition Response Allergies/Hayfever Y Heart Problems Other Y Thyroid Problems Y Hypothyroidism Y Osteoporosis/Osteopenia Y Anemia Y Arthritis Y Cancer Y Stroke Y High Cholesterol Y Gynecological History Statement/Question Response Abnormal Pap [...] Details Recorded Time zoster recombinant 3 completed Shanjoea Calzada null, [place] - [facility] & [place] 02/20/2024 21:22:29 COVID-19, mRNA, LNP-S, PF, 100 mcg/0.5mL dose or 50 mcg/0.25mL dose 1 completed Ambera Calzada null, [place] - [facility] & [place] 02/20/2024 21:22:29 COVID-19, mRNA, LNP-S, PF, 100 mcg/0.5mL dose or 50 mcg/0.25mL dose 1 completed Ambera Zheng null, [place] - [facility] - [facility] & [place] 02/20/2024 21:22:29 COVID-19, mRNA, LNP-S, PF, 100 mcg/0.5mL dose or 50 mcg/0.25mL dose 2 completed Lara Calzada null, [place] - [facility] & [place] 02/20/2024 21:22:29 COVID-19, mRNA, LNP-S, PF, 100 mcg/0.5mL dose or 50 mcg/0.25mL dose 1 completed Lara Calzada null, [place] - [facility] & [place] 02/20/2024 21:22:29 COVID-19, mRNA, LNP-S, bivalent, PF, 50 mcg/0.5 mL or 25mcg/0.25 mL dose 2 completed aLra Calzada null[place] - [facility] & [place] 02/20/2024 21:22:29 pneumococcal, unspecified formulation 6 completed Lanie Kell[place] null[place] [facility] & [place] 02/06/2024 16:49:04 Influenza, split virus, trivalent, PF 6 completed Lanie Kellogg null[place] [facility] & [place] 12/09/2023 11:23:05 Td (adult), 2 Lf tetanus toxoid, preservative free, adsorbed 7 completed Lanie Kellogg null[place] - [facility] - [place] & [place] 12/09/2023 11:23:05 Influenza, split virus, quadrivalent, PF 3 completed Lara mcpherson, [facility] - [facility] & [place] 02/20/2024 21:22:29 Influenza, split virus, quadrivalent, PF 2 completed Lara mcpherson, [place] - [facility] & [place] 02/20/2024 21:22:29 Influenza, split virus, quadrivalent, PF 6 completed Lara mcpherson, [place] - [facility] - [place] & [place] 02/20/2024 21:22:29 Past Encounters Encounter ID Performer Location Encounter Start Date Encounter Closed Date Diagnosis/Indication Diagnosis SNOMED-CT Code Diagnosis ICD10 Code Diagnosis Note [id number] Marco A Vazquez MD [facility] [address] [place] [address] 11/05/2024 12:55:45 11/05/2024 13:58:55 Mixed anxiety and depressive disorder 031934406 F41.8 Continue venlafaxin e ER 150 mg daily Hypothyroidism 11704443 E03.9 Continue levothyrox ine 75 mcg daily Hyperlipidemia 45552373 E78.5 Continue atorvastat in 10 mg daily Post-disch arge follow-up 151667879 Z09 45 days at [facility] and 15 days at [facility], discharge 5 days ago 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 She was seen [address] Sharma, oncologist at [facility] at [facility]. She has follow up appointmen t scheduled next week with Plastic surgery as well as Urology. Health Concerns Section Related Observation LastModified by Organization Detai ls LastModified Time None Recorded Concern Status LastModified by Organization Details LastModified Time None Recorded Payers Encounter Date Sequence Insurance Name Policy Number Policy Holm Covered Member ID Holm Member ID Guarantor Name 11/05/2024 1 [facility] (MEDICARE REPLACEMENT/A DVANTAGE - PPO) [id number] Yolie Borrego [id number] Yolie Borrego Notes Date Note Type Note Provider Name and Address Organization Details Recorded Time 11/05/2024 text/html Pt presents to clinic after being D/C'd from [facility] 10/[facility] (5 days ago)after 15 day stay which followed a 45 day stay at . She would complicated surgery performed by 2 different surgeons due to vaginal and anal cancer. She has just been released from the rehab correction. She is supposed to start going to outpatient PT starting next week. She currently has 2 ostomies due to partial resection of colon and rectum and resection of vaginal cuff and bladder. She has follow up appointment scheduled. Medical reconciliation performed by MAGALY and in chart. In need of 3 refills today. Marco A Vazquez MD [address], [place], [address], [facility] - [place] & [place] 11/08/2024 21:43:08 OBGyn Episode No OBEpisode recorded.
--- NOTE | 2025-01-01 13:11 | ED_ITS ---
Discharge Plan Disposition Patient Disposition: Xfer Short-Term Hosp Prescriptions Prescriptions: No Action aspirin [Adult Low Dose Aspirin] 81 mg tablet,delayed release (DR/EC) 81 mg PO DAILY levothyroxine 75 mcg tablet 75 mcg PO DAILY atorvastatin [Lipitor] 10 mg tablet 10 mg PO HS multivitamin Tablet 1 tab PO DAILY alendronate 70 mg tablet 70 mg PO WEEKLY aspirin 325 mg Tablet 325 mg PO BID 40 Days Qty: 0 0RF docusate sodium 100 mg Capsule 100 mg PO DAILY Qty: 0 0RF ferrous sulfate 325 mg (65 mg iron) Tablet 325 mg PO DAILY Qty: 0 0RF Referrals Follow up/Referrals: Provider,Referral, [Primary Care Provider, Medical] - See instructions Clinical Impressions Clinical Impression: Hematuria, Fatigue Stand Alone Forms Stand Alone Forms: Transfer Record - ED Instructions Patient Instructions: DI for Urinary Tract Infection (UTI), DI for Urinary Tract Infection in Children Print Language Print Language: Mongolian Discharge ED Provider: Max Trujillo Adult HPI <Max Trujillo MD - Last Filed: 01/01/25 15:19> General Chief complaint: Urogenital-Female Stated complaint: Cancer Pt Night Bag filled with blood Time Seen by Provider: 01/01/25 12:52 Mode of Arrival: Ambulatory Source of Information: Patient and Spouse Description of Symptoms (Recalled from ER Triage Doc. by RN): Pt presents to the ED for evaluation of Hematuria. PT stated this am Hematuria was noted in her urostomy bag. PT stated she called her oncologist and was advised if blood did not resolve. Blood is noted to be dark red in pouch. PT stated Chemo on 03/02/2025 and was advised hematuria was an adverse effect. History of Present Illness HPI narrative: Yolie Borrego is a 79y female with a history of anal cancer diagnosed in 2017 status post chemo and radiation therapy with recurrence of disease in August of this year status post surgical removal of her bladder, rectum, partial colectomy, and vaginal cuff performed at [facility] who presents to the emergency department for bleeding through her suprapubic urinary bladder catheter. Patient and report that patient was recently found to have a new lesion/mass in her pelvic bone and was started on Keytruda 2 days ago. They state that she overall was doing well that night and yesterday, however woke up today with dark red blood in her external bladder bag. She is also been complaining of worsening fatigue since her treatment. states that he called oncology team at who stated that this could be a side effect of Keytruda but to present to this emergency department and she may need transfer to emergency department eventually. Patient denies any chest pain or shortness of breath. She states that she is having some abdominal discomfort, more so in her rectum. She states that she is having good output in her colostomy bag. Related Data Home Medications ?Medication ?Instructions ?Recorded ?Confirmed aspirin 81 mg tablet,delayed 81 mg PO DAILY Heart dise ase 11/19/17 10/17/22 release (Adult Low Dose Aspirin) Held on 06/17/22. Instructions: Pending completion of 6 weeks of aspirin DVT prophy atorvastatin 10 mg tablet (Lipitor) 10 mg PO HS Choles terol 11/19/17 10/17/22 levothyroxine 75 mcg tablet 75 mcg PO DAILY Hypothyroi dism 11/19/17 10/17/22 multivitamin 1 tab PO DAILY Supplement 10/17/22 alendronate 70 mg tablet 70 mg PO WEEKLY Osteoporosis 06/15/22 10/17/22 Previous Rx's ?Medication ?Instructions ?Recorded aspirin 325 mg tablet 325 mg PO BID 40 days #0 tab s 06/17/22 docusate sodium 100 mg capsule 100 mg PO DAILY #0 caps 06/17/22 ferrous sulfate 325 mg (65 mg 325 mg PO DAILY #0 tabs 06/17/22 iron) tablet Allergies Allergy/AdvReac Type Severity Reaction Status Date / Time No Known Allergies Allergy Verified 10/17/22 10:26 [facility] <Max Trujillo MD - Last Filed: 01/01/25 15:19> [facility] Disclaimer: The information contained in this section may have been updated after the patient was seen, as this information can be updated by other users. Medical History Hyperlipidemia Subdural hematoma Surgical History H/O cardiac radiofrequency ablation Social History Smoking Status: Never smoker alcohol intake: current alcohol intake frequency: holidays/special occasions only substance use type: denies use current occupational status: retired Travel in the last 8 weeks?: Inside the [place] household members: spouse housing: house Have you lived/traveled outside [place] in past 30 days?: No Contact w/someone who lives/traveled outside US past 30 days?: No Exposure to someone with infectious disease in past 14 days?: No Do you have a fever (greater than 100.4 F or 38 C)?: No Have you tested positive for COVID-19?: No Exposed to someone with COVID-19 in past 14 days?: No Do you have a sore throat?: No Do you have a cough?: No Do you have any weakness?: No Do you have any diarrhea?: No Are you experiencing any unusual bleeding?: No Do you have any muscle aches/pain?: No Do you have any abdominal pain?: No Are you experiencing loss of taste or smell?: No Other Medical History Have you received the Flu Vaccine for this season: No Have you received the Pneumonia Vaccine: Yes <Max Trujillo MD - Last Filed: 01/01/25 15:19> ROS Obtained: Yes Systems reviewed as appropriate & no additional complaints except as documented Physical Exam <Max Trujillo MD - Last Filed: 01/01/25 15:19> General General appearance: alert and in no apparent distress Comment: Thin, chronically ill-appearing Head Head exam: atraumatic Eye Eye exam: Present normal appearance ENT ENT exam: Present normal external ear exam Neck Neck exam: Present full ROM Chest Chest inspection: Present symmetric chest wall rise Respiratory Respiratory exam: Present normal lung sounds bilaterally; Absent respiratory distress or wheezes Cardiovascular Cardiovascular exam: Present regular rate and normal rhythm Abdominal Exam Abdominal exam: Present soft; Absent tenderness or guarding Comment: Left-sided colostomy in place with brown stool within the bag. Left mid abdominal suprapubic catheter with dark red fluid/urine within the bag Extremities Exam Extremities exam: Present normal inspection Back Exam Back exam: Present normal inspection Neurological Exam Neurological exam: Present alert and oriented X3 Psychiatric Psychiatric exam: Present normal affect Skin Skin exam: Present warm, dry and other (Pale) Medical Decision Making <Max Trujillo MD - Last Filed: 01/01/25 15:19> Medical Records Screening: Per USPSTF and CDC recommendations, given the prevalence of disease in our region, it is our hospital?s policy to screen for HIV and viral Hepatitis for all patients aged 18 and over and those with ongoing risk factors. Jose Alejandro Inquiry Pt receiving controlled substance: No Vital Signs: 01/01/25 13:00 01/01/25 13:01 01/01/25 13:30 Temperature 98.2 F Temperature Source Oral Pulse Rate 85 80 Pulse Rate [Right] 82 Respiratory Rate 12 16 20 Blood Pressure 110/64 99/58 L Blood Pressure [Right Arm] 115/59 L Blood Pressure Mean [Right Arm] 77 02 Sat by Pulse Oximetry 99 99 97 Oxygen Delivery Method Room Air 01/01/25 13:54 01/01/25 14:00 01/01/25 14:30 Temperature Temperature Source Pulse Rate 79 67 74 Pulse Rate [Right] Respiratory Rate 20 21 12 Blood Pressure 99/58 L 104/66 L 112/61 Blood Pressure [Right Arm] Blood Pressure Mean [Right Arm] 02 Sat by Pulse Oximetry 97 97 99 Oxygen Delivery Method 01/01/25 15:00 01/01/25 15:30 01/01/25 16:00 Temperature Temperature Source Pulse Rate 74 73 73 Pulse Rate [Right] Respiratory Rate 20 20 20 Blood Pressure 107/66 L 109/65 L 105/76 L Blood Pressure [Right Arm] Blood Pressure Mean [Right Arm] 02 Sat by Pulse Oximetry 99 98 98 Oxygen Delivery Method 01/01/25 16:29 01/01/25 16:30 01/01/25 17:00 Temperature Temperature Source Pulse Rate 72 69 70 Pulse Rate [Right] Respiratory Rate 21 23 22 Blood Pressure 99/58 L 109/57 L 116/64 Blood Pressure [Right Arm] Blood Pressure Mean [Right Arm] 02 Sat by Pulse Oximetry 96 98 98 Oxygen Delivery Method 01/01/25 17:30 01/01/25 18:00 01/01/25 18:17 Temperature 98.4 F Temperature Source Pulse Rate 74 74 76 Pulse Rate [Right] Respiratory Rate 21 20 20 Blood Pressure 117/66 120/65 120/65 Blood Pressure [Right Arm] Blood Pressure Mean [Right Arm] 02 Sat by Pulse Oximetry 99 98 Oxygen Delivery Method Room Air Lab Data Lab Results 01/01/25 12:58: Urine Color Yellow, Urine Appearance Clear, Urine pH 7.5, Ur Specific [place] 1.015, Urine Protein 3+ A, Urine Glucose (UA) Trace, Urine Ketones 2+, Urine Blood 3+ A, Urine Nitrate Positive A, Urine Bilirubin 3+ A, Urine Urobilinogen >=8.0, Ur Leukocyte Esterase 3+ A, Urine RBC Tntc, Urine WBC Tntc, Urine Bacteria 2+ 01/01/25 13:25: WBC 9.1, RBC 3.21 L, Hgb 8.3 L, Hct 26.7 L, MCV 83.2, MCH 25.9 L , MCHC 31.1 L, RDW 16.4, Plt Count 311, MPV 8.3, Neut % (Auto) 84.9 H, Lymph % (Auto) 5.6 L, [place] % (Auto) 7.2, Eos % (Auto) 1.8, Baso % (Auto) 0.3, Neut # (Auto) 7.8, Lymph # (Auto) 0.5 L, [place] # (Auto) 0.7, Eos # (Auto) 0.2, Baso # (Auto) 0.0, Total Counted 100, Neutrophils % (Manual) 79 H, Lymphocytes % (Manual) 12, Monocytes % (Manual) 9, Platelet Estimate Normal, RBC Morphology Normal, PT 11.5, INR 1.04, APTT 27.7, Sodium 134 L, Potassium 3.7, Chloride 102, Carbon Dioxide 23, Anion Gap 12.7, BUN 25 H, Creatinine 0.90, Estimated Creat Clear 36, Estimated GFR 61, Est GFR ( Amer) 73, Glucose 105 H, Calcium 11.1 H, Magnesium 1.5 L, Total Bilirubin 0.3, AST 19, ALT 15, Alkaline Phosphatase 85, Total Protein 6.6 D, Albumin 3.6, Globulin 3.0, Albumin/Globulin Ratio 1.2, Lipase 42, HCV Ab KELVIN w/Rflx PCR Qn Negative, HIV Ag/Ab Combo Qual Negative, Blood Type O Negative, Antibody Screen Negative 01/01/25 13:29: VBG pH 7.35, VBG pCO2 41.1, VBG pO2 24.2 L, VBG HCO3 22.1 L, VBG Total CO2 23.3, VBG O2 Saturation 37.8 L, VBG Base Excess -3.6 L, VBG Lactic Acid 1.2 01/01/25 13:25 01/01/25 13:25 Orders (Tests/Meds): ED MEDICATIONS Discontinued Medications Generic Name Dose Route Start Last Admin Trade Name Tello PRN Reason Stop Dose Admin Magnesium Sulfate 2 gm in 50 mls @ 50 mls/hr 01/01/25 14:03 01/01/25 14:31 Magnesium Sulfate 2gm/50ml Premix IV 01/01/25 15:02 50 mls/hr ONCE ONE Administration Ceftriaxone Sodium 2 gm/ 100 mls @ 200 mls/hr 01/01/25 15:30 01/01/25 15:23 Sodium Chloride IV 01/11/25 15:29 200 mls/hr Q24H OMAR Administration Iopamidol 75 ml 01/01/25 14:28 01/01/25 14:29 Iopamidol-370 (76%);100ml Bottle IV 01/01/25 14:29 75 ml ONCE ONE Administration Morphine Sulfate 2 mg 01/01/25 13:10 01/01/25 13:25 Morphine 4mg/Ml Syringe IV 01/01/25 13:11 2 mg ONCE ONE Administration Morphine Sulfate 4 mg 01/01/25 18:24 01/01/25 18:28 Morphine 4mg/Ml Syringe IV 01/01/25 18:25 4 mg ONCE ONE Administration Sodium Chloride 10 ml 01/01/25 14:28 01/01/25 14:29 Sodium Chloride 0.9% 10ml Syr (Rad Only) IV 01/01/25 14:29 10 ml ONCE ONE Administration ORDERS Category Date Time Status Type and Screen Stat BBK 01/01/25 13:[address] abdomen pelvis w con Stat Cat Scan 01/01/25 13:[address] abdomen pelvis wo con Stat Cat Scan 01/01/25 16:05 Completed CBC w/Auto Diff [Complete Blood Count Auto Diff] Stat Lab 01/01/25 13:25 Completed CMP [Comprehensive Metabolic Panel] Stat Lab 01/01/25 13:25 Completed HIV Combo Stat Lab 01/01/25 13:25 Completed Hepatitis C Ab Qual. W/ RFX Stat Lab 01/01/25 13:25 Completed Lipase Stat Lab 01/01/25 13:25 Completed Magnesium Stat Lab 01/01/25 13:25 Completed PT INR [Prothrombin Time INR] Stat Lab 01/01/25 13:25 Completed PTT [Activated Partial Thrombo Time] Stat Lab 01/01/25 13:25 Completed Urinalysis and Microscopic Stat Lab 01/01/25 12:58 Completed Urine Culture Stat Micro 01/01/25 12:58 Received VBG [Venous Blood Gas] Stat RT 01/01/25 13:29 Completed Medical Decision Narrative: Yolie Borrego is a 79y female with a history of anal cancer diagnosed in 2017 status post chemo and radiation therapy with recurrence of disease in August of this year status post surgical removal of her bladder, rectum, partial colectomy, and vaginal cuff performed at [facility] who presents to the emergency department for bleeding through her suprapubic urinary bladder catheter. Patient and report that patient was recently found to have a new lesion/mass in her pelvic bone and was started on Keytruda 2 days ago. They state that she overall was doing well that night and yesterday, however woke up today with dark red blood in her external bladder bag. She is also been complaining of worsening fatigue since her treatment. states that he called oncology team at who stated that this could be a side effect of Keytruda but to present to this emergency department and she may need transfer to emergency department eventually. Patient denies any chest pain or shortness of breath. She states that she is having some abdominal discomfort, more so in her rectum. She states that she is having good output in her colostomy bag. On arrival, patient is normotensive, heart rate within normal limits, breathing comfortably on room air with oxygen saturation 99% SpO2. Afebrile. Physical exam, as stated above, revealed a chronically ill-appearing female who is somewhat pale. She does appear fatigued. Cardiopulmonary exam is unremarkable. She has no abdominal distention. Left-sided colostomy is in place and has a dark brown stool within the bag. She has a suprapubic catheter in the midline with dark red fluid/urine within the bag. She does not have any abdominal tenderness or guarding. Differential diagnosis includes, but is not limited to: Medication side effect, metastatic disease, hemorrhagic cystitis, anemia, electrolyte derangement, coagulopathy, among others. The most morbid conditions were considered and workup was based on these. Workup in the emergency department included: CT abdomen pelvis with IV contrast, CBC, CMP, lipase, magnesium level, PT/INR, PTT, urinalysis. Patient's pain was treated with 2 mg IV morphine (she states that she takes 2.5 oxycodone occasionally at home) Workup demonstrates no leukocytosis, hemoglobin stably low at 8.3, hematocrit 26.7, platelets normal at 311. Coagulation studies unremarkable with INR of 1.04, PTT normal at 27.7. VBG normal at 7.35 with lactic acid normal at 1.2. Mild hyponatremia with sodium of 134 but electrolytes otherwise within normal limits. BUN is elevated at 25 but creatinine is normal at 0.9. Glucose normal at 105. Calcium mildly elevated at 11.1 and magnesium mildly low at 1.5 (will replete with 2 g IV magnesium sulfate), bilirubin normal at 0.3 and liver enzymes within normal limits. Lipase normal at 42. Urine does show too numerous to count blood, 3+ leukocyte esterase, nitrate positive, 3+ bilirubin and too numerous to count white blood cells. 2+ bacteria. At this time, pending CT abdomen pelvis interpretation. Patient would likely require conversation with [facility] oncology once CT imaging is complete. Will administer 2 g IV Rocephin for possible urinary tract infection given patient's urine studies that could represent some form of urinary tract infection. Patient's care was handed off to Dr. Millan pending CT results <Leonarda Millan, DO - Last Filed: 01/01/25 18:46> Vital Signs: 01/01/25 13:00 01/01/25 13:01 01/01/25 13:30 Temperature 98.2 F Temperature Source Oral Pulse Rate 85 80 Pulse Rate [Right] 82 Respiratory Rate 12 16 20 Blood Pressure 110/64 99/58 L Blood Pressure [Right Arm] 115/59 L Blood Pressure Mean [Right Arm] 77 02 Sat by Pulse Oximetry 99 99 97 Oxygen Delivery Method Room Air 01/01/25 13:54 01/01/25 14:00 01/01/25 14:30 Temperature Temperature Source Pulse Rate 79 67 74 Pulse Rate [Right] Respiratory Rate 20 21 12 Blood Pressure 99/58 L 104/66 L 112/61 Blood Pressure [Right Arm] Blood Pressure Mean [Right Arm] 02 Sat by Pulse Oximetry 97 97 99 Oxygen Delivery Method 01/01/25 15:00 01/01/25 15:30 01/01/25 16:00 Temperature Temperature Source Pulse Rate 74 73 73 Pulse Rate [Right] Respiratory Rate 20 20 20 Blood Pressure 107/66 L 109/65 L 105/76 L Blood Pressure [Right Arm] Blood Pressure Mean [Right Arm] 02 Sat by Pulse Oximetry 99 98 98 Oxygen Delivery Method 01/01/25 16:29 01/01/25 16:30 01/01/25 17:00 Temperature Temperature Source Pulse Rate 72 69 70 Pulse Rate [Right] Respiratory Rate 21 23 22 Blood Pressure 99/58 L 109/57 L 116/64 Blood Pressure [Right Arm] Blood Pressure Mean [Right Arm] 02 Sat by Pulse Oximetry 96 98 98 Oxygen Delivery Method 01/01/25 17:30 01/01/25 18:00 01/01/25 18:17 Temperature 98.4 F Temperature Source Pulse Rate 74 74 76 Pulse Rate [Right] Respiratory Rate 21 20 20 Blood Pressure 117/66 120/65 120/65 Blood Pressure [Right Arm] Blood Pressure Mean [Right Arm] 02 Sat by Pulse Oximetry 99 98 Oxygen Delivery Method Room Air Lab Data Lab Results 01/01/25 12:58: Urine Color Yellow, Urine Appearance Clear, Urine pH 7.5, Ur Specific [place] 1.015, Urine Protein 3+ A, Urine Glucose (UA) Trace, Urine Ketones 2+, Urine Blood 3+ A, Urine Nitrate Positive A, Urine Bilirubin 3+ A, Urine Urobilinogen >=8.0, Ur Leukocyte Esterase 3+ A, Urine RBC Tntc, Urine WBC Tntc, Urine Bacteria 2+ 01/01/25 13:25: WBC 9.1, RBC 3.21 L, Hgb 8.3 L, Hct 26.7 L, MCV 83.2, MCH 25.9 L , MCHC 31.1 L, RDW 16.4, Plt Count 311, MPV 8.3, Neut % (Auto) 84.9 H, Lymph % (Auto) 5.6 L, [place] % (Auto) 7.2, Eos % (Auto) 1.8, Baso % (Auto) 0.3, Neut # (Auto) 7.8, Lymph # (Auto) 0.5 L, [place] # (Auto) 0.7, Eos # (Auto) 0.2, Baso # (Auto) 0.0, Total Counted 100, Neutrophils % (Manual) 79 H, Lymphocytes % (Manual) 12, Monocytes % (Manual) 9, Platelet Estimate Normal, RBC Morphology Normal, PT 11.5, INR 1.04, APTT 27.7, Sodium 134 L, Potassium 3.7, Chloride 102, Carbon Dioxide 23, Anion Gap 12.7, BUN 25 H, Creatinine 0.90, Estimated Creat Clear 36, Estimated GFR 61, Est GFR ( Amer) 73, Glucose 105 H, Calcium 11.1 H, Magnesium 1.5 L, Total Bilirubin 0.3, AST 19, ALT 15, Alkaline Phosphatase 85, Total Protein 6.6 D, Albumin 3.6, Globulin 3.0, Albumin/Globulin Ratio 1.2, Lipase 42, HCV Ab KELVIN w/Rflx PCR Qn Negative, HIV Ag/Ab Combo Qual Negative, Blood Type O Negative, Antibody Screen Negative 01/01/25 13:29: VBG pH 7.35, VBG pCO2 41.1, VBG pO2 24.2 L, VBG HCO3 22.1 L, VBG Total CO2 23.3, VBG O2 Saturation 37.8 L, VBG Base Excess -3.6 L, VBG Lactic Acid 1.2 Orders (Tests/Meds): ED MEDICATIONS Discontinued Medications Generic Name Dose Route Start Last Admin Trade Name Romuloq PRN Reason Stop Dose Admin Magnesium Sulfate 2 gm in 50 mls @ 50 mls/hr 01/01/25 14:03 01/01/25 14:31 Magnesium Sulfate 2gm/50ml Premix IV 01/01/25 15:02 50 mls/hr ONCE ONE Administration Ceftriaxone Sodium 2 gm/ 100 mls @ 200 mls/hr 01/01/25 15:30 01/01/25 15:23 Sodium Chloride IV 01/11/25 15:29 200 mls/hr Q24H OMAR Administration Iopamidol 75 ml 01/01/25 14:28 01/01/25 14:29 Iopamidol-370 (76%);100ml Bottle IV 01/01/25 14:29 75 ml ONCE ONE Administration Morphine Sulfate 2 mg 01/01/25 13:10 01/01/25 13:25 Morphine 4mg/Ml Syringe IV 01/01/25 13:11 2 mg ONCE ONE Administration Morphine Sulfate 4 mg 01/01/25 18:24 01/01/25 18:28 Morphine 4mg/Ml Syringe IV 01/01/25 18:25 4 mg ONCE ONE Administration Sodium Chloride 10 ml 01/01/25 14:28 01/01/25 14:29 Sodium Chloride 0.9% 10ml Syr (Rad Only) IV 01/01/25 14:29 10 ml ONCE ONE Administration ORDERS Category Date Time Status Type and Screen Stat BBK 01/01/25 13:[address] abdomen pelvis w con Stat Cat Scan 01/01/25 13:[address] abdomen pelvis wo con Stat Cat Scan 01/01/25 16:05 Completed CBC w/Auto Diff [Complete Blood Count Auto Diff] Stat Lab 01/01/25 13:25 Completed CMP [Comprehensive Metabolic Panel] Stat Lab 01/01/25 13:25 Completed HIV Combo Stat Lab 01/01/25 13:25 Completed Hepatitis C Ab Qual. W/ RFX Stat Lab 01/01/25 13:25 Completed Lipase Stat Lab 01/01/25 13:25 Completed Magnesium Stat Lab 01/01/25 13:25 Completed PT INR [Prothrombin Time INR] Stat Lab 01/01/25 13:25 Completed PTT [Activated Partial Thrombo Time] Stat Lab 01/01/25 13:25 Completed Urinalysis and Microscopic Stat Lab 01/01/25 12:58 Completed Urine Culture Stat Micro 01/01/25 12:58 Received VBG [Venous Blood Gas] Stat RT 01/01/25 13:29 Completed Medical Decision Narrative: Yolie Borrego is a 79y female with a history of anal cancer diagnosed in 2017 status post chemo and radiation therapy with recurrence of disease in August of this year status post surgical removal of her bladder, rectum, partial colectomy, and vaginal cuff performed at [facility] who presents to the emergency department for bleeding through her suprapubic urinary bladder catheter. Patient and report that patient was recently found to have a new lesion/mass in her pelvic bone and was started on Keytruda 2 days ago. They state that she overall was doing well that night and yesterday, however woke up today with dark red blood in her external bladder bag. She is also been complaining of worsening fatigue since her treatment. states that he called oncology team at who stated that this could be a side effect of Keytruda but to present to this emergency department and she may need transfer to emergency department eventually. Patient denies any chest pain or shortness of breath. She states that she is having some abdominal discomfort, more so in her rectum. She states that she is having good output in her colostomy bag. On arrival, patient is normotensive, heart rate within normal limits, breathing comfortably on room air with oxygen saturation 99% SpO2. Afebrile. Physical exam, as stated above, revealed a chronically ill-appearing female who is somewhat pale. She does appear fatigued. Cardiopulmonary exam is unremarkable. She has no abdominal distention. Left-sided colostomy is in place and has a dark brown stool within the bag. She has a suprapubic catheter in the midline with dark red fluid/urine within the bag. She does not have any abdominal tenderness or guarding. Differential diagnosis includes, but is not limited to: Medication side effect, metastatic disease, hemorrhagic cystitis, anemia, electrolyte derangement, coagulopathy, among others. The most morbid conditions were considered and workup was based on these. Workup in the emergency department included: CT abdomen pelvis with IV contrast, CBC, CMP, lipase, magnesium level, PT/INR, PTT, urinalysis. Patient's pain was treated with 2 mg IV morphine (she states that she takes 2.5 oxycodone occasionally at home) Workup demonstrates no leukocytosis, hemoglobin stably low at 8.3, hematocrit 26.7, platelets normal at 311. Coagulation studies unremarkable with INR of 1.04, PTT normal at 27.7. VBG normal at 7.35 with lactic acid normal at 1.2. Mild hyponatremia with sodium of 134 but electrolytes otherwise within normal limits. BUN is elevated at 25 but creatinine is normal at 0.9. Glucose normal at 105. Calcium mildly elevated at 11.1 and magnesium mildly low at 1.5 (will replete with 2 g IV magnesium sulfate), bilirubin normal at 0.3 and liver enzymes within normal limits. Lipase normal at 42. Urine does show too numerous to count blood, 3+ leukocyte esterase, nitrate positive, 3+ bilirubin and too numerous to count white blood cells. 2+ bacteria. At this time, pending CT abdomen pelvis interpretation. Patient would likely require conversation with [facility] oncology once CT imaging is complete. Will administer 2 g IV Rocephin for possible urinary tract infection given patient's urine studies that could represent some form of urinary tract infection. Patient's care was handed off to Dr. Millan pending CT results Leonarda Millan, DO I took over the care of this patient. Patient's initial CT abdomen pelvis was reviewed by the radiologist, there was unclear path of the urinary collecting system therefore they recommended delayed phase contrast of the abdomen to further evaluate the urinary system. CT Noncon abdomen was obtained and read as a CT urogram. Patient's CT scan showed concern for dilated bilateral collecting duct systems, some evidence of a neoplastic mass in the anterior pelvis. At this time, I had a discussion with med onc given patient's hemorrhagic cystitis. They recommended transport to for further evaluation. Patient was sent by BLS ambulance and patient was in stable condition for transport. Critical Care <Max Trujillo MD - Last Filed: 01/01/25 15:19> Critical Care Time Critical Care Time: No
[2025-01-01 13:12] LABS: Microscopic, Urine URINE MICROSCOPIC (MICROSCOPIC)
--- NOTE | 2025-01-01 13:14 | PC.NURSE ---
Lab called to notify of type & screen
--- NOTE | 2025-01-01 13:17 | CT_ITS ---
PROCEDURE INFORMATION: Exam: CT Abdomen And Pelvis With Contrast Exam date and time: 01/01/2025 2:23 PM Age: 79 years old Clinical indication: Other: Bleeding in suprapubic catheter, cancer TECHNIQUE: Imaging protocol: Computed tomography of the abdomen and pelvis with contrast. Radiation optimization: All CT scans at this facility use at least one of these dose optimization techniques: automated exposure control; mA and/or kV adjustment per patient size (includes targeted exams where dose is matched to clinical indication); or iterative reconstruction. Contrast material: ISOVUE; Contrast volume: 75 ml; Contrast route: IV; COMPARISON: CT - ABDPELW CT abdomen pelvis w con 07/09/2018 1:08 AM FINDINGS: Tubes, catheters and devices: The suprapubic catheter is not definitively identified. There may be a catheter terminating in the left upper quadrant. Series 3. Image 48.. Liver: Normal. No mass. Gallbladder and biliary ducts: Normal. No calcified stones. No ductal dilation. Pancreas: Normal. No ductal dilation. Spleen: Normal. No splenomegaly. Adrenal glands: Normal. No mass. Kidneys and ureters: The ureteral diversion is not seen well. Dr. Millan is obtaining delayed images of the pelvis.. Left collecting system is dilated 3.4 cm. Right collecting system is dilated 2 cm. Dilatation of the left ureter. The ureteral diversion is not seen well.. Stomach and bowel: Left lower quadrant ostomy x2.. Dilated loops of small bowel with air-fluid levels in the pelvis. There may be developing obstruction in this region.. Appendix: No evidence of appendicitis. Intraperitoneal space: 5.5 x 5.4 cm Heterogeneous mass in the anterior aspect of the pelvis (series 3, image 101 -107. 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 Heterogeneous mass in the posterior aspect of the pelvis measures 7.6 x 7.5 cm and extends back to the sacrum.. Vasculature: Unremarkable. No abdominal aortic aneurysm. Lymph nodes: Unremarkable. No enlarged lymph nodes. Urinary bladder: Unremarkable as visualized. Reproductive: Unremarkable as visualized. Bones/joints: No fracture Soft tissues: Unremarkable. IMPRESSION: 1. Left lower quadrant ostomy x2.. 2. The suprapubic catheter is not definitively identified. There may be a catheter terminating in the left upper quadrant. Series 3. Image 48.. 3. The ureteral diversion is not seen well. Dr. Millan is obtaining delayed images of the pelvis.. 4. 5.5 x 5.4 cm Heterogeneous mass in the anterior aspect of the pelvis (series 3, image 101 -107. 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 5. Heterogeneous mass in the posterior aspect of the pelvis measures 7.6 x 7.5 cm and extends back to the sacrum.. 6. Dilated loops of small bowel with air-fluid levels in the pelvis. There may be developing obstruction in this region.. 7. Left collecting system is dilated 3.4 cm. Right collecting system is dilated 2 cm. Dilatation of the left ureter. The ureteral diversion is not seen well.. THIS REPORT CONTAINS FINDINGS THAT MAY BE CRITICAL TO PATIENT CARE. The findings were verbally communicated via telephone conference with Dr. Millan at 3:43 PM EDT on 01/01/2025. The findings were acknowledged and understood.
[2025-01-01] MEDS: MORPHINE 4MG/ML SYRINGE 2 MG IV (13:25)
--- NOTE | 2025-01-01 13:27 | PC.NURSE ---
Lab at bedside r/t type and screen.
[2025-01-01 13:28] LABS: Color,Urine YELLOW (Yellow); Glucose,Urine (UA) TRACE (Negative); Ketones,Urine 2+ (Negative); Leukocyte Esterase,Urine 3+ (Negative); PH,Urine 7.5 (5.0-8.5); Protein,Urine 3+ (Negative); Specific Gravity, Urine 1.015 (1.005-1.030); Urobilinogen,Urine >=8.0 EU/dl (0.2)
--- NOTE | 2025-01-01 13:28 | PC.NURSE ---
Contacted respiratory r/t [facility] sent to lab.
[2025-01-01 13:39] LABS: Lactate Venous 1.2 mmol/L (0.4-2.0); VBG HCO3 22.1 mmol/L (23-30); VBG PCO2 41.1 mmol/L (35-51); VBG PH 7.35 mmol/L (7.31-7.41); VBG PO2 24.2 mmol/L (28-40)
[2025-01-01 13:42] LABS: Hematocrit 26.7 % (37.0-47.0); Hemoglobin 8.3 g/dL (12.2-16.2); Immature Granulocytes % 0.2 %; Mean Corpuscular HGB Conc 31.1 g/dL (31.8-35.4); Mean Corpuscular Hemoglobin 25.9 pg (27.0-31.2); Mean Corpuscular Volume 83.2 fl (81-99); Nucleated Red Blood Cells % 0 %; Platelet Count 311 K/mm3 (142-424); Red Blood Count 3.21 M/mm3 (4.20-5.40); Red Cell Distribution Width-SD 49.9 fL; White Blood Count 9.1 K/mm3 (4.8-10.8)
[2025-01-01 13:44] LABS: Bilirubin,Urine 3+ (Negative)
[2025-01-01 13:45] LABS: Bacteria,Urine 2+ /lpf; RBC,Urine TNTC #/hpf (0-3); WBC,Urine TNTC #/hpf (0-3)
[2025-01-01 13:49] LABS: Activated Partial Thrombo Time 27.7 seconds (22.8-30.6); Alanine Aminotransferase 15 U/L (12-78); Albumin Level 3.6 g/dl (3.5-5.0); Albumin/Globulin Ratio 1.2 (1.1-1.8); Alkaline Phosphatase 85 U/L (38-126); Anion Gap 12.7 mEq/L (5-15); Aspartate Amino Transferase 19 U/L (14-36); Bilirubin,Total 0.3 mg/dl (0.2-1.3); Blood Urea Nitrogen 25 mg/dl (7-17); Calcium 11.1 mg/dl (8.4-10.2); Carbon Dioxide 23 mmol/L (22.0-30.0); Chloride 102 mmol/L (98-107); Creatinine Clearance Estimated 36 mL/min (50-200); Creatinine,Serum 0.90 mg/dl (0.52-1.04); Estimated Glomerular Filt Rate 61 ml/min (>60); GFR (African American) 73 ML/MIN (>60); Globulin 3.0 g/dL (1.3-3.2); Glucose 105 mg/dl (74-100); INR 1.04 (0.9-1.1); Lipase 42 U/L (23-300); Magnesium 1.5 mg/dl (1.6-2.3); Potassium 3.7 mmoL/L (3.5-5.1); Prothrombin Time 11.5 seconds (10.1-12.5); Sodium 134 mmol/L (136-145); Total Protein,Serum 6.6 g/dl (6.3-8.2)
[2025-01-01 14:25] LABS: RBC Morphology Normal; Total Cells Counted 100
[2025-01-01] MEDS: IOPAMIDOL-370 (76%);100ML BOTTLE 75 ML IV (14:29)
[2025-01-01] MEDS: SODIUM CHLORIDE 0.9% 10ML SYR (RAD ONLY) 10 ML IV (14:29)
[2025-01-01] MEDS: MAGNESIUM SULFATE IN WATER 2 GM/50 ML PIGGYBACK IV (14:31)
[2025-01-01 15:24] LABS: Hepatitis C Ab Qual. W/ RFX NEGATIVE (Negative)
--- NOTE | 2025-01-01 16:05 | CT_ITS ---
PROCEDURE INFORMATION: Exam: CT Abdomen And Pelvis Without Contrast Exam date and time: 01/01/2025 4:13 PM Age: 79 years old Clinical indication: Other: Better evaluation of collecting system TECHNIQUE: Imaging protocol: Computed tomography of the abdomen and pelvis without contrast. Radiation optimization: All CT scans at this facility use at least one of these dose optimization techniques: automated exposure control; mA and/or kV adjustment per patient size (includes targeted exams where dose is matched to clinical indication); or iterative reconstruction. COMPARISON: CT ABDOMEN PELVIS W CON 01/01/2025 2:23 PM FINDINGS: Liver: Normal. No mass. Gallbladder and biliary ducts: Cholecystectomy Pancreas: Normal. No ductal dilation. Spleen: Normal. No splenomegaly. Adrenal glands: Normal. No mass. Kidneys and ureters: Both collecting systems are dilated. Contrast is seen in both ureters. The ureters connect to a dilated loop of small bowel in the pelvis. Contrast is tracked to the inferior ostomy. There may be a short piece of catheter series 3, image 62 -61. Stomach and bowel: See Kidneys and ureters finding. Appendix: No evidence of appendicitis. Intraperitoneal space: Again noted are masses in the pelvis consistent with necrotic tumor. Vasculature: Unremarkable. No abdominal aortic aneurysm. Lymph nodes: Unremarkable. No enlarged lymph nodes. Urinary bladder: Unremarkable as visualized. Reproductive: Unremarkable as visualized. Bones/joints: Unremarkable. No acute fracture. Soft tissues: Unremarkable. IMPRESSION: Both collecting systems are dilated. Contrast is seen in both ureters. The ureters connect to a dilated loop of small bowel in the pelvis. Contrast is tracked to the inferior ostomy. There may be a short piece of catheter series 3, image 62 -61. THIS REPORT CONTAINS FINDINGS THAT MAY BE CRITICAL TO PATIENT CARE. The findings were verbally communicated via telephone conference with Leonarda Millan at 4:29 PM EDT on 01/01/2025. The findings were acknowledged and understood.
--- NOTE | 2025-01-01 17:02 | PC.NURSE ---
Called [facility] per for a patient transfer. they said they would call back when a doctor was ready to talk to her. Images have been power shared as well.
--- NOTE | 2025-01-01 17:38 | PC.NURSE ---
Dr. Millan speaking with [facility]
--- NOTE | 2025-01-01 17:52 | PC.NURSE ---
Called radiology to obtain a disc of imaging. patient was accepted to .
--- NOTE | 2025-01-01 18:13 | PC.NURSE ---
Called EMS for patient transport @[id number].
--- NOTE | 2025-01-01 18:14 | PC.NURSE ---
Report called to [facility] ED to GERONIMO Burrows
[2025-01-01] MEDS: MORPHINE 4MG/ML SYRINGE 4 MG IV (18:28)
--- NOTE | 2025-01-02 11:56 | PC.NURSE ---
pts final culture urine faxed to [facility] as the pt was transferred.
--- NOTE | 2025-01-04 08:52 | PC.NURSE ---
Urine culture results faxed to [facility]
== END 2025-01-01 18:31 | disposition short-term general hospital (02) ==
PROVIDERS: Emergency Provider Student in an Organized Health Care Education/Training Program
DX: R31.9 Hematuria, unspecified (principal); C21.0 Malignant neoplasm of anus, unspecified; Z92.21 Personal history of antineoplastic chemotherapy; Z93.3 Colostomy status; Z96.0 Presence of urogenital implants
CPT/HCPCS: 74176; 74177; 80053; 81001; 82803; 83690; 83735; 85007; 85025; 85027; 85610; 85730; 86803; 86850; 87086; 87088; 87186; 87389; 96365; 96366; 96367; 96375; 96376; 99285; J0696; J2270; J3475; Q9967

== ENCOUNTER 2025-01-12 14:00 | Outpatient (RCR) | payer MEDICARE, SELFPAY | END 2025-01-12 23:59 | disposition home or self-care (01) | LOC: OT 14:00 | PROVIDERS: Visit Provider Internal Medicine | DX: R53.1 Weakness (principal) | CPT/HCPCS: 97110; 97164; 97530 ==